=== PATIENT | female | born 1950 | race Caucasian/White ===

== ENCOUNTER → 2016-12-22 | Outpatient (CLI) | payer OTHER ==
[~2016-12-22] MED LIST: ATEN50TA8 PO; GLC/500 PO; LISI-788 PO; PRAV20TA PO
[2016-12-22 13:10] LABS: ALT/SGPT 37 U/L (12-78); AST/SGOT 25 U/L (15-37); BLOOD UREA NITROGEN 26 mg/dl (7-18); BUN/CREATININE RATIO 18.7 (10-20); CALCIUM 9.8 mg/dl (8.5-10.1); CARBON DIOXIDE 29 mmol/L (21-32); CHLORIDE 104 mmol/L (98-107); GLUCOSE 98 mg/dl (70-99); POTASSIUM 3.7 mmol/L (3.5-5.1); SODIUM 141 mmol/L (136-145)
[2016-12-22 13:12] LABS: ALKALINE PHOSPHATASE 73 U/L (45-117); CHOLESTEROL 153 mg/dl (0-200); CHOLESTEROL/HDL RATIO 2.7; HDL CHOLESTEROL 57 mg/dl; LDL CHOLESTEROL CALCULATED 42 mg/dl; TRIGLYCERIDES 271 mg/dl (0-150); VERY LOW DENSITY LIPOPROT CALC 54 mg/dl
[2016-12-22 13:18] LABS: ESTIMATED AVERAGE GLUCOSE 146 mg/dl; HA1C FLAG Normal (Normal)
[2016-12-22 13:28] LABS: RATIO 13.6 mcg/mg (0-30.0)
== END | disposition home or self-care (01) ==
LOC: C.LABPVFM 08:01
PROVIDERS: ATTEND Family Medicine
DX: I10 Essential (primary) hypertension (principal); E78.5 Hyperlipidemia, unspecified; E11.21 Type 2 diabetes mellitus with diabetic nephropathy

== ENCOUNTER → 2017-06-24 | Outpatient (CLI) | payer OTHER ==
[2017-06-24 13:05] LABS: ESTIMATED AVERAGE GLUCOSE 137 mg/dl; HA1C FLAG Normal (Normal)
[2017-06-24 13:13] LABS: ALT/SGPT 41 U/L (12-78); BLOOD UREA NITROGEN 32 mg/dl (7-18); BUN/CREATININE RATIO 20.8 (10-20); CALCIUM 9.9 mg/dl (8.5-10.1); CARBON DIOXIDE 25 mmol/L (21-32); CHLORIDE 103 mmol/L (98-107); CREATININE 1.55 mg/dl (0.60-1.20); GLUCOSE 147 mg/dl (70-99); POTASSIUM 3.6 mmol/L (3.5-5.1); SODIUM 138 mmol/L (136-145)
[2017-06-24 13:15] LABS: ALB/GLOB RATIO 0.9 (0.9-2); ALKALINE PHOSPHATASE 81 U/L (45-117); AST/SGOT 26 U/L (15-37); CHOLESTEROL 169 mg/dl (0-200); CHOLESTEROL/HDL RATIO 2.7; HDL CHOLESTEROL 63 mg/dl; LDL CHOLESTEROL CALCULATED 55 mg/dl; TRIGLYCERIDES 255 mg/dl (0-150); VERY LOW DENSITY LIPOPROT CALC 51 mg/dl
[2017-06-24 14:26] LABS: RATIO 7.1 mcg/mg (0-30.0)
== END | disposition home or self-care (01) ==
LOC: C.LABPVFM 11:05
PROVIDERS: ATTEND Family Medicine
DX: I12.9 Hypertensive chronic kidney disease with stage 1 through stage 4 chronic kidney disease, or unspecified chronic kidney disease (principal); E78.5 Hyperlipidemia, unspecified; E11.42 Type 2 diabetes mellitus with diabetic polyneuropathy; E11.49 Type 2 diabetes mellitus with other diabetic neurological complication; K21.9 Gastro-esophageal reflux disease without esophagitis; E11.21 Type 2 diabetes mellitus with diabetic nephropathy

== ENCOUNTER → 2017-06-28 | Outpatient (CLI) | payer OTHER ==
--- NOTE | 2017-06-28 09:46 | DIAGNOSTIC IMAGING REPORT ---
(RENAL)RETROPERITON COMP HISTORY: Renal insufficiency N18.3 Stage III chronic kidney [id number] COMPARISON: None. FINDINGS: Right kidney: Maximum dimension 10.4 cm. No evidence for hydronephrosis. Minimal cortical scarring. Left kidney: Maximum dimension 8.6 cm. Mild atrophy. No evidence for hydronephrosis. 1.5 cm upper pole cyst. Normal corticomedullary differentiation and cortical thickness. Bladder: No bladder wall thickening. The bilateral ureteral jets were identified. IMPRESSION: 1. Mild atrophy left kidney. 2. Mild cortical scarring of the kidneys bilaterally. 3. No evidence for hydronephrosis. 4. Small left renal cyst. The above report was generated using voice recognition software. It may contain grammatical, syntax or spelling errors. Electronically signed by: Lux Brito M.D. 06/28/2017 9:45 AM Dictated Date/Time: 06/28/2017 9:43 AM
== END | disposition home or self-care (01) ==
LOC: C.ULTR 08:54
PROVIDERS: ATTEND Family Medicine
DX: N18.3 Chronic kidney disease, stage 3 (moderate) (principal); N26.1 Atrophy of kidney (terminal); N28.1 Cyst of kidney, acquired

== ENCOUNTER 2021-06-08 09:22 | Inpatient (IN) ==
--- NOTE | 2021-06-08 10:21 | XRay Report ---
XR chest 1V portable CLINICAL HISTORY: Resp sx c/w COVID-19 TECHNIQUE: Single frontal radiograph of the chest was obtained. Comparison: Comparison is made to chest one view 05/08/2013 FINDINGS: No lines and tubes are seen. The cardiomediastinal silhouette is normal. Bilateral lower lung predomi nant airspace opacities are seen. No evidence of pleural effusion or pneumothorax. IMPRESSION: Bilateral lower lung predominant airspace opacities which may represent atelectasis, pneumonia, and/o r aspiration. ACT 112: Negative or not required by law. Electronically signed by: Sal Remy M.D. 06/08/2021 10:20 AM
[2021-06-08 10:39] LABS: Hematocrit (blood only) 35.9 % (37-47); Hemoglobin 11.5 g/dL (12.0-16.0); Immature Granulocytes # (auto) 0.02 K/uL (0.00-0.02); Immature Granulocytes % (auto) 0.4 %; Mean Corpuscular Hemoglobin 31.5 pg (25-34); Mean Corpuscular Volume 98.4 fL (80-100); Mean Platelet Volume 10.8 fL (7.4-10.4); Monocytes # (auto) 0.47 K/uL (0.11-0.59); Monocytes % (auto) 8.5 %; Neutrophils # (auto) 3.56 K/uL (1.4-6.5); Neutrophils % (auto) 64.1 %; Platelet Count 175 K/uL (130-400); RDW Coefficient of Variation 13.4 % (11.5-14.5); RDW Standard Deviation 48.4 fL (36.4-46.3); Red Blood Count 3.65 M/uL (4.2-5.4); White Blood Count 5.55 K/uL (4.8-10.8)
[2021-06-08 10:42] LABS: Influenza A virus by PCR Negative (Negative); Influenza B virus by PCR Negative (Negative)
[2021-06-08 11:05] LABS: Albumin Globulin Ratio 0.7 (0.9-2); Albumin Level 3.4 gm/dl (3.4-5.0); BUN Creatinine Ratio 13.6 (10-20); Bilirubin,Total 0.2 mg/dl (0.2-1); Calcium 9.5 mg/dl (8.5-10.1); Creatinine Clr Calc Pharmacy 8.2 ml/min; Est GFR (African American) 10.1 ml/min; Est GFR (Non-African American) 8.7 ml/min; Globulin 4.8 gm/dl (2.5-4.0); Potassium 4.6 mmol/L (3.5-5.1); Total Protein 8.2 gm/dl (6.4-8.2)
[2021-06-08] MEDS ORDERED: SODIUM CHLORIDE 0.9% 500 ML IV SCH (11:15)
[2021-06-08 11:49] LABS: Appearance Urine Cloudy (Clear); Bacteria Urine Automated 2+ (Negative); Bilirubin Urine Negative (Negative); Blood Urine Negative (Negative); Color Urine Yellow; Epithelial Cell Urine Auto >30 /lpf (0-5); Glucose Urine UA Negative (Negative); Ketones Urine Trace (Negative); Leukocyte Esterase Urine Negative (Negative); Nitrite Urine Positive (Negative); Protein Urine 2+ (Negative); Specific Gravity Urine 1.024 (1.000-1.030); Urobilinogen Urine Negative (Negative)
[2021-06-08] MEDS ORDERED: NORMOSOL-R 500 ML IV ONE (11:52)
--- NOTE | 2021-06-08 11:55 | Emergency Department Note ---
Impression & Plan COVID-19, MILLI (acute kidney injury), Acute dehydration ED Provider Note CHIEF COMPLAINT: cough, diarrhea HISTORY OF PRESENT ILLNESS: Jimmy is a 70-year-old [facility] with a chief complaint of brownish productive cough, diarrhea, loss of taste, and loss of appetite since Saturday. ROS + chills, headache, vomiting (2 total episodes in 2 days), sore throat, maxillary, frontal sinus congestion. She denies shortness of breath, chest pain, wheezing, rash, dizziness, or dysuria. REVIEW OF SYSTEMS: A review of systems was performed with positives and pertinent negatives listed in the history of present illness. 10 systems were reviewed and are otherwise negative. ALLERGIES: see below MEDICATIONS: see below PMH: see below SOCIAL HISTORY: see below DDx: PNA, UTI, dehydration, metabolic abnormality, hypo/hyperglycemia, e lectrolyte disturbance, anemia, hypoxia, cardiac sources, intracerebral event, toxicologic, neurologic, as well as other pathologies. PHYSICAL EXAM: Vital signs reviewed. Noted to be febrile. General: Chronically ill appearing 70 yo female, in no significant distress. HEENT: No scleral icterus, PERRLA, neck supple. Atraumatic. Cardiovascular: Regular rate and rhythm, no extra sounds. Pulmonary: Crackles to auscultation bilaterally, normal work of breathing. Abdomen: Soft, nontender, nondistended, positive bowel sounds. Musculoskeletal: Atraumatic, no peripheral edema. Neurologic: Patient awake alert and oriented x 3 Skin: Warm, dry, no rash EMERGENCY DEPARTMENT COURSE/MDM: This patient was evaluated and appeared to be in no significant distress. IV access was obtained and laboratory work was drawn. Patient was placed on the hall monitor and noted to be in normal sinus rhythm. Patient's blood pressure was initially slightly low at 98 systolic. She was hydrated with normal saline solution. Chest x-ray was performed and revealed some bilateral basilar prominence. Patient's oxygen saturations were normal on room air. Patient has developed a prerenal state with an acute kidney injury, creatinine of 4.66, secondary to Covid. She was hydrated and her blood pressure did respond appropriately. Das catheter was placed with only a small amount of dark urine. Patient's case was discussed with the hospitalist service for further management. Patient and family were made aware of the plan and agreed. MONITORING: An order for cardiac monitoring was placed and the patient is noted to be in a normal sinus rhythm at 92 beats per minute. RADIOLOGY: see below DISPOSITION:admit Past Med/Surg History Medical History Acid reflux disease Benign paroxysmal positional vertigo Decreased hearing Diabetes mellitus with kidney disease Diabetic peripheral neuropathy DM (diabetes mellitus), type 2 with neurological complications Hyperlipidemia Hypertension Stage III chronic kidney disease Surgical History Appendectomy (05/08/13) History of cholecystectomy (05/08/13) Family History Brother Myocardial infarction Brother Myocardial infarction Denies family history of Ovarian cancer Prostate cancer Breast cancer Colorectal cancer Social History Smoking Status: Never smoker Second Hand Exposure: No; Hx Alcohol Use: No Hx Substance Use: No Preferred Language: Uzbek Communication Ability: Effective Tapping 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 Required: No Beliefs That Will Affect Care: None marital status: / Current Living Situation: Alone current occupational status: retired Feels Safe at Home: Yes caffeine: Yes Dental Care, Regularly: No Physical Activity Frequency: Does not Exercise Seatbelt Use: sometimes Sunscreen Use: No Assistive Devices: Denture - Upper and Walker Allergies Allergies Allergy/AdvReac Type Severity Reaction Status Date / Time No Known Allergies Allergy Verified 03/30/21 08:05 Home Meds Home Medications Medication Instructions Recorded Confirmed pediatric multivitamin (Gummi Bear 1 tab PO DAILY 12/23/18 06/08/21 Multivitamin) Previous Rx's Medication Instructions Recorded amlodipine 10 mg tablet 10 mg PO DAILY #30 tab 08/16/20 lisinopril 10 mg tablet 10 mg PO DAILY #90 tab 01/16/21 metformin 500 mg tablet See Rx Instructions .ROUTE 03/13/21 .COMPLEX #180 tablet simvastatin 20 mg tablet 20 mg PO QPM #90 tab 06/05/21 Results & Data (ED) Vital Signs Vital Signs - 24 hr 06/08/21 09:22 06/08/21 09:31 06/08/21 10:00 Temperature 37.1 C Temperature Source Oral Pulse Rate 98 H 92 H 92 H Pulse Rate from SpO2 Sensor 91 H Respiratory Rate 18 16 18 Respiratory Effort / Characteristics Non-Labored Respiratory Depth Normal Respiratory Pattern Regular Blood Pressure 119/82 Blood Pressure Mean 94 Pulse Oximetry 100 95 Oxygen Delivery Method Room Air Sepsis Recent Fever Within 48 Hours No Sepsis New/Unexplained Change in Mental Status No Sepsis Action Taken by Nursing No Action Required 06/08/21 10:30 06/08/21 11:00 06/08/21 11:30 Temperature Temperature Source Pulse Rate 90 88 87 Pulse Rate from SpO2 Sensor 90 88 97 H Respiratory Rate 19 20 27 H Respiratory Effort / Characteristics Respiratory Depth Respiratory Pattern Blood Pressure 103/61 113/70 118/70 Blood Pressure Mean 75 84 86 Pulse Oximetry 95 97 100 Oxygen Delivery Method Sepsis Recent Fever Within 48 Hours Sepsis New/Unexplained Change in Mental Status Sepsis Action Taken by Custodial Medications Current Medication List: was personally reviewed by me Laboratory Data Attestation: I reviewed the patient's lab results. Result diagrams: 06/10/21 06:05 06/10/21 06:05 Lab Results 06/08/21 06/08/21 06/08/21 Range/Units 09:35 09:35 09:35 WBC 5.55 (4.8-10.8) K/uL RBC 3.65 L (4.2-5.4) M/uL Hgb 11.5 L (12.0-16.0) g/dL Hct 35.9 L (37-47) % MCV 98.4 (80-100) fL MCH 31.5 (25-34) pg MCHC 32.0 (32-36) g/dL RDW Std Deviation 48.4 H (36.4-46.3) fL RDW Coeff of Suellen 13.4 (11.5-14.5) % Plt Count 175 (130-400) K/uL MPV 10.8 H (7.4-10.4) fL Immature Gran % (Auto) 0.4 % Neut % (Auto) 64.1 % Lymph % (Auto) 27.0 % [place] % (Auto) 8.5 % Eos % (Auto) 0.0 % Baso % (Auto) 0.0 % Neut # (Auto) 3.56 (1.4-6.5) K/uL Lymph # (Auto) 1.50 (1.2-3.4) K/uL [place] # (Auto) 0.47 (0.11-0.59) K/uL Eos # (Auto) 0.00 (0-0.5) K/uL Baso # (Auto) 0.00 (0-0.2) K/uL Immature Gran # (Auto) 0.02 (0.00-0.02) K/uL Sodium 138 (136-145) mmol/L Potassium 4.6 (3.5-5.1) mmol/L Chloride 110 H (98-107) mmol/L Carbon Dioxide 18 L (21-32) mmol/L Anion Gap 10.0 (3-11) BUN 63 H (7-18) mg/dl Creatinine 4.66 H* (0.6-1.2) mg/dl Est Cr Clr Drug Dosing 8.2 ml/min Est GFR ( Amer) 10.1 ml/min Est GFR (Non-Af Amer) 8.7 ml/min BUN/Creatinine Ratio 13.6 (10-20) Glucose 117 H (70-99) mg/dl Calcium 9.5 (8.5-10.1) mg/dl Total Bilirubin 0.2 (0.2-1) mg/dl AST 25 (15-37) U/L ALT 22 (12-78) U/L Alkaline Phosphatase 74 (45-117) U/L Total Protein 8.2 (6.4-8.2) gm/dl Albumin 3.4 (3.4-5.0) gm/dl Globulin 4.8 H (2.5-4.0) gm/dl Albumin/Globulin Ratio 0.7 L (0.9-2) Urine Color Urine Appearance (Clear) Urine pH (4.5-7.5) Ur Specific [place] (1.000-1.030) Urine Protein (Negative) Urine Glucose (UA) (Negative) Urine Ketones (Negative) Urine Blood (Negative) Urine Nitrite (Negative) Urine Bilirubin (Negative) Urine Urobilinogen (Negative) Ur Leukocyte Esterase (Negative) Urine WBC (Auto) (0-5) /hpf Urine RBC (Auto) (0-4) /hpf U Hyaline Cast (Auto) (0-5) /lpf U Epithel Cells (Auto) (0-5) /lpf Urine Bacteria (Auto) (Negative) Ur Renal Epithelial Cell Granular Casts (0) /lpf COVID-19 Eval Order SARS-CoV-2 (PCR) (Negative) Influ A Molecular Assay Negative (Negative) Influ B Molecular Assay Negative (Negative) 06/08/21 06/08/21 06/08/21 Range/Units 09:53 09:53 11:30 WBC (4.8-10.8) K/uL RBC (4.2-5.4) M/uL Hgb (12.0-16.0) g/dL Hct (37-47) % MCV (80-100) fL MCH (25-34) pg MCHC (32-36) g/dL RDW Std Deviation (36.4-46.3) fL RDW Coeff of Suellen (11.5-14.5) % Plt Count (130-400) K/uL MPV (7.4-10.4) fL Immature Gran % (Auto) % Neut % (Auto) % Lymph % (Auto) % [place] % (Auto) % Eos % (Auto) % Baso % (Auto) % Neut # (Auto) (1.4-6.5) K/uL Lymph # (Auto) (1.2-3.4) K/uL [place] # (Auto) (0.11-0.59) K/uL Eos # (Auto) (0-0.5) K/uL Baso # (Auto) (0-0.2) K/uL Immature Gran # (Auto) (0.00-0.02) K/uL Sodium (136-145) mmol/L Potassium (3.5-5.1) mmol/L Chloride (98-107) mmol/L Carbon Dioxide (21-32) mmol/L Anion Gap (3-11) BUN (7-18) mg/dl Creatinine (0.6-1.2) mg/dl Est Cr Clr Drug Dosing ml/min Est GFR ( Amer) ml/min Est GFR (Non-Af Amer) ml/min BUN/Creatinine Ratio (10-20) Glucose (70-99) mg/dl Calcium (8.5-10.1) mg/dl Total Bilirubin (0.2-1) mg/dl AST (15-37) U/L ALT (12-78) U/L Alkaline Phosphatase (45-117) U/L Total Protein (6.4-8.2) gm/dl Albumin (3.4-5.0) gm/dl Globulin (2.5-4.0) gm/dl Albumin/Globulin Ratio (0.9-2) Urine Color Yellow Urine Appearance Cloudy A (Clear) Urine pH 5.0 (4.5-7.5) Ur Specific [place] 1.024 (1.000-1.030) Urine Protein 2+ H (Negative) Urine Glucose (UA) Negative (Negative) Urine Ketones Trace H (Negative) Urine Blood Negative (Negative) Urine Nitrite Positive A (Negative) Urine Bilirubin Negative (Negative) Urine Urobilinogen Negative (Negative) Ur Leukocyte Esterase Negative (Negative) Urine WBC (Auto) 5-10 H (0-5) /hpf Urine RBC (Auto) 0-4 (0-4) /hpf U Hyaline Cast (Auto) 1-5 (0-5) /lpf U Epithel Cells (Auto) >30 H (0-5) /lpf Urine Bacteria (Auto) 2+ H (Negative) Ur Renal Epithelial Cell Not Reportable Granular Casts 1-5 H (0) /lpf COVID-19 Eval Order Covid19 at [facility] SARS-CoV-2 (PCR) POSITIVE A* (Negative) Influ A Molecular Assay (Negative) Influ B Molecular Assay (Negative) Administered Medications Acetaminophen (Acetaminophen 500 Mg Tab) 1,000 mg PO Q8H PRN PRN Reason: Pain or Fever Stop: 07/09/21 23:04 Last Admin: 06/10/21 15:29 Dose: 1,000 mg Documented by: [id number] Admin: 06/10/21 00:06 Dose: 1,000 mg Documented by: [id number] Amlodipine Besylate (Amlodipine Besylate 5 Mg Tab) 10 mg PO DAILY JOBY Stop: 07/09/21 08:59 Last Admin: 06/10/21 08:23 Dose: 10 mg Documented by: [id number] Admin: 06/09/21 08:03 Dose: 10 mg Documented by: [id number] Heparin Sodium (Porcine) (Heparin Sod 5,000 Unit/0.5 Ml Vial) 7,500 units SQ Q12 JOBY Stop: 07/08/21 20:59 Last Admin: 06/10/21 21:58 Dose: 7,500 units Documented by: [id number] Admin: 06/10/21 08:23 Dose: 7,500 units Documented by: [id number] Admin: 06/09/21 21:37 Dose: 7,500 units Documented by: [id number] Admin: 06/09/21 08:03 Dose: 7,500 units Documented by: [id number] Admin: 06/08/21 22:17 Dose: 7,500 units Documented by: [id number] Parenteral Electrolytes (Normosol-R) 1,000 mls @ 80 mls/hr IV .[id number] JOBY Stop: 07/08/21 12:44 Last Admin: 06/10/21 21:58 Dose: 80 mls/hr Documented by: [id number] Infusion: 06/10/21 20:53 Dose: 80 mls/hr Documented by: [id number] Admin: 06/10/21 08:23 Dose: 80 mls/hr Documented by: [id number] Infusion: 06/10/21 08:23 Dose: 80 mls/hr Documented by: [id number] Admin: 06/09/21 21:26 Dose: 80 mls/hr Documented by: [id number] Infusion: 06/09/21 20:39 Dose: 80 mls/hr Documented by: [id number] Admin: 06/09/21 12:48 Dose: 80 mls/hr Documented by: [id number] Infusion: 06/09/21 08:01 Dose: 80 mls/hr Documented by: [id number] Infusion: 06/09/21 07:40 Dose: 80 mls/hr Documented by: [id number] Admin: 06/08/21 19:10 Dose: 80 mls/hr Documented by: [id number] Infusion: 06/08/21 19:10 Dose: 100 mls/hr Documented by: [id number] Infusion: 06/08/21 15:25 Dose: 100 mls/hr Documented by: [id number] Infusion: 06/08/21 14:39 Dose: 0 mls/hr Documented by: [id number] Admin: 06/08/21 13:00 Dose: 125 mls/hr Documented by: [id number] Ceftriaxone Sodium 1,000 mg/ (Dextrose) 50 mls @ 100 mls/hr IV Q24H JOBY; Protocol Stop: 06/13/21 13:59 Last Infusion: 06/10/21 14:27 Dose: 0 mls/hr Documented by: [id number] Admin: 06/10/21 13:45 Dose: 100 mls/hr Documented by: [id number] Infusion: 06/09/21 16:28 Dose: 0 mls/hr Documented by: [id number] Admin: 06/09/21 14:39 Dose: 100 mls/hr Documented by: [id number] Infusion: 06/08/21 15:25 Dose: 0 mls/hr Documented by: [id number] Admin: 06/08/21 14:39 Dose: 100 mls/hr Documented by: [id number] Famotidine 20 mg/ Syringe 5 mls @ 2.5 mls/min IV DAILY JOBY Stop: 07/09/21 08:59 Last Admin: 06/10/21 08:23 Dose: 2.5 mls/min Documented by: [id number] Admin: 06/09/21 08:17 Dose: 2.5 mls/min Documented by: [id number] Insulin Aspart (Insulin Aspart 100 Units/Ml 3 Ml Pen) 0 units SC ACHS JOBY Stop: 07/08/21 16:29 Last Admin: 06/10/21 21:58 Dose: Not Given Documented by: [id number] Admin: 06/10/21 17:45 Dose: Not Given Documented by: [id number] Admin: 06/10/21 11:39 Dose: Not Given Documented by: [id number] Admin: 06/10/21 08:03 Dose: Not Given Documented by: [id number] Admin: 06/09/21 21:27 Dose: Not Given Documented by: [id number] Admin: 06/09/21 17:54 Dose: Not Given Documented by: [id number] Admin: 06/09/21 12:46 Dose: Not Given Documented by: [id number] Admin: 06/09/21 09:17 Dose: Not Given Documented by: [id number] Admin: 06/08/21 22:27 Dose: Not Given Documented by: [id number] Admin: 06/08/21 18:04 Dose: Not Given Documented by: [id number] Cosigned by: [id number] Menthol (Cough Drop (Sugar Free) Theresa 24 Theresa/1 Box) 1 theresa BUCCAL PRN PRN PRN Reason: Sore Throat Stop: 07/09/21 05:33 Last Admin: 06/09/21 06:22 Dose: 1 theresa Documented by: [id number] Simvastatin (Simvastatin 20 Mg Tab) 20 mg PO QPM JOBY Stop: 07/08/21 20:59 Last Admin: 06/10/21 21:58 Dose: 20 mg Documented by: [id number] Admin: 06/09/21 21:29 Dose: 20 mg Documented by: [id number] Admin: 06/08/21 22:20 Dose: 20 mg Documented by: [id number] Discontinued Medications Acetaminophen (Acetaminophen 325 Mg Tab) 650 mg PO Q4H PRN PRN Reason: Pain or Fever Stop: 07/08/21 12:53 Last Admin: 06/09/21 21:44 Dose: 650 mg Documented by: [id number] Admin: 06/09/21 16:55 Dose: 650 mg Documented by: [id number] Admin: 06/09/21 08:03 Dose: 650 mg Documented by: [id number] Admin: 06/09/21 02:47 Dose: 650 mg Documented by: [id number] Enoxaparin Sodium (Enoxaparin Inj 30 Mg/0.3 Ml Syr) 30 mg SQ Q12H JOBY Stop: 07/08/21 12:53 Last Admin: 06/08/21 14:41 Dose: Not Given Documented by: [id number] Famotidine (Famotidine 20mg/5ml Iv Push) 20 mg IV DAILY JOBY Stop: 07/08/21 12:44 Last Admin: 06/08/21 12:51 Dose: 20 mg Documented by: [id number] Sodium Chloride (Nss) 500 mls @ 125 mls/hr IV .Q4H JOBY Stop: 07/08/21 11:14 Last Infusion: 06/08/21 12:29 Dose: 0 mls/hr Documented by: [id number] Infusion: 06/08/21 12:28 Dose: 0 mls/hr Documented by: [id number] Admin: 06/08/21 11:40 Dose: 125 mls/hr Documented by: [id number] Parenteral Electrolytes (Normosol-R) 500 mls @ 999 mls/hr IV .Q31M ONE Stop: 06/08/21 12:22 Last Infusion: 06/08/21 13:00 Dose: 0 mls/hr Documented by: [id number] Admin: 06/08/21 12:26 Dose: 999 mls/hr Documented by: [id number] Imaging Data Radiologist's Impression: Chest X-Ray 06/08/21 09:50 XR chest 1V portable CLINICAL HISTORY: Resp sx c/w COVID-19 TECHNIQUE: Single frontal radiograph of the chest was obtained. Comparison: Comparison is made to chest one view 05/08/2013 FINDINGS: No lines and tubes are seen. The cardiomediastinal silhouette is normal. Bilateral lower lung predominant airspace opacities are seen. No evidence of pleural effusion or pneumothorax. IMPRESSION: Bilateral lower lung predominant airspace opacities which may represent atelectasis, pneumonia, and/or aspiration. ACT 112: Negative or not required by law. Electronically signed by: Sal Remy M.D. 06/08/2021 10:20 AM Blood Pressure Blood Pressure Findings: Low blood pressure Blood Pressure Disposition: further management by hospitalist Discharge Plan Visit Data Chief Complaint: Illness Stated Complaint: ILLNESS ED Provider: Amada Hernandez ED Midlevel Provider: Myles Mobley Discharge Problem: COVID-19, MILLI (acute kidney injury), Acute dehydration Patient Disposition: Admitted As Inpatient Discharge Instructions Interventions: ED Discharge Assessment Last Done: 06/08/21 12:44
[2021-06-08 12:06] LABS: RBC Urine Automated 0-4 /hpf (0-4)
--- NOTE | 2021-06-08 12:29 | History & Physical Report ---
Date of Service June 08, 2021 Assessment & Plan (1) COVID-19: Plan: Unvaccinated COVID 19- approximate day of infection 5 - not hypoxic on admission - not candidate for remdisivir or steroid therapy at this time - CXR with no overt consolidation bilateral basal opacities follow likely related to COVID - Supportive care for current - Zofran for nausea - Famotidine GERD - CRP, PCT, ESR, BNP, Fibrinogen, LDH, Ferritin pending (2) MILLI (acute kidney injury): Plan: JAMAR type II on CKD III non oliguric - Likely pre-renal at this pont secondary to vomitting and decrease intake - Support with Normosol at this time- 500ml bolus for 1l crystalloid then 125ml/hour - BMP in evening- adjust IVF support - HCO3 18 without gap- consistent with history of diarrhea- follow - K 4.6 making urine - Hold AMADOR (3) Stage III chronic kidney disease: Plan: As above - HTN/DM II (4) Hypertension: Plan: Continue Amlodopine - Hold lisinopril with MILLI - Goal as outpaitnet <130 (5) Hyperlipidemia: Plan: Continue simvastatin 20mg daily (6) Diabetes mellitus with kidney disease: Plan: As above- hold metformin - Aspart sliding scale with 100-160 CF: 20, hold on ratio coverage at this time until GI symptoms and oral intake stablazied - Goal <180 (7) Acid reflux disease: Plan: Not on home therapy- no evidence of PUD without pain - Will place on Famotidine IV for now (8) UTI (urinary tract infection): Plan: Culture pending- Rocephin 1GM iv q24 hours - follow - Das placed in EMD- remove in morning History of Present Illness Primary Care Provider: Elle Ruiz MD 70 YOF with past medical history: CKD IIIa, DMII (on metformin), HTN, bladder prolapse, GERD, Difficulty hearing. Patient comes to the emergency room today for nausea, vomiting, diarrhea, and cough. Patient states that on Saturday she started to feel ill with coughing. She stopped and got some OTC cough suppressant and went home. This progressed to nausea and vomiting that started on SaturdayJune 05. She would try to eat and would have episode of vomiting 3-4 hours post food ingestion. She also has decreased her oral fluid intake for the same reason. She denies any abdominal pain, but general "stomach upset". Her diarrhea seems to have improved, but she continues to be nauseated with vomiting. Her emesis she reports clear to light green/yellow in color and her stool as light brown. She denies any change in her urinary symptoms except some mild burning with initiation. In the EMD patient had routine labs drawn to include COVID testing and UA. Her BMP was noted for elevation in her BUN and HORSE SHOER from her baseline with low HCO3 to 16, no gap and normal electrolytes. Her UA was notable for nitrates, WBC, EPIS, and bacteria- culture pending. CBC and LFTs are unremarkable. Patient was noted to be COVID positive. She is not requiring any oxygen support and is unvaccinated. This will put her at approx day 5 of illness. Patient will be observed and treated with IVF- Normosol, Famotidine IV, Rocephin for her UA while culture is pending, and following her oxygenation status. Patient is not vaccinated and her COVID test on admission is: POSITIVE Allergies Allergy/AdvReac Type Severity Reaction Status Date / Time No Known Allergies Allergy Verified 03/30/21 08:05 Home Medications Medication Instructions Recorded Confirmed Type pediatric multivitamin (Gummi Bear 1 tab PO DAILY 12/23/18 06/08/21 History Multivitamin) amlodipine 10 mg tablet 10 mg PO DAILY #30 tab 08/16/20 06/08/21 Rx lisinopril 10 mg tablet 10 mg PO DAILY #90 tab 01/16/21 06/08/21 Rx metformin 500 mg tablet See Rx Instructions .ROUTE 03/13/21 06/08/21 Rx .COMPLEX #180 tablet simvastatin 20 mg tablet 20 mg PO QPM #90 tab 06/05/21 06/08/21 Rx Past Med/Surg History Medical History Acid reflux disease Benign paroxysmal positional vertigo Decreased hearing Diabetes mellitus with kidney disease Diabetic peripheral neuropathy DM (diabetes mellitus), type 2 with neurological complications Hyperlipidemia Hypertension Stage III chronic kidney disease Surgical History Appendectomy (05/08/13) History of cholecystectomy (05/08/13) Family History Brother Myocardial infarction Brother Myocardial infarction Denies family history of Ovarian cancer Prostate cancer Breast cancer Colorectal cancer Social History Smoking Status: Never smoker Second Hand Exposure: No; Hx Alcohol Use: No Hx Substance Use: No Preferred Language: Kazakh marital status: / Current Living Situation: Alone current occupational status: retired Feels Safe at Home: Yes caffeine: Yes Dental Care, Regularly: No Physical Activity Frequency: Does not Exercise Seatbelt Use: sometimes Sunscreen Use: No Review of Systems Review of Systems: REVIEW OF SYSTEMS: Constitutional: No fever, sweats or chills Eyes: No diplopia, no worsening or blurred vision ENT: (+) difficulty hearing, normal hearing, no trouble swallowing Respiratory: (+) cough, NO sputum, dyspnea at rest or on exertion Cardiovascular: No chest pain, tightness or palpitations Abdomen: (+) nausea, vomiting, diarrhea, No pain, or constipation Musculoskeletal: No joint pain, calf pain, swelling Neurologic: No weakness, numbness/tingling, or balance problems Psychiatric: No anxiety or depression Skin: No rash or itch Physical Exam Physical Exam: PHYSICAL EXAM: General: awake, alert, no apparent distress Head: Normocephalic, atraumatic ENT: PERRL, EOMI, no pharyngeal exudate, mucous membranes dry Neuro: AAO x 3, speech clear and appropriate, strength intact bilaterally 5/5, sensation intact and equal all extremities and dermatomes, no pronator drift Chest: equal rise and fall of the chest, no accessory muscle use, no heaves or thrills, Clear to auscultation, on room air, Cardiac: Regular rate and rhythm, telemetry reviewed, skin warm dry, cap refill <3 seconds, peripheral pulses +2 no JVD, no murmur, no edema GI: NABS x 4 quadrants, soft, nontender to palpation, no rebound, guarding or tenderness : Das to gravity placed in EMD, no pain, no CVA tenderness, Extremities: Normal inspection, no peripheral edema or erythema, calfs nontender to palpation Psych: Normal mood and affect Skin: no rash or erythema Results & Data Results & Data ([facility]) Vital Signs (Past 12 Hours) Vital Signs Temp Pulse Resp BP Pulse Ox 06/08/21 11:30 87 27 H 118/70 100 06/08/21 11:00 88 20 113/70 97 06/08/21 10:30 90 19 103/61 95 06/08/21 10:00 92 H 18 95 06/08/21 09:31 92 H 16 06/08/21 09:22 37.1 C 98 H 18 119/82 100 Laboratory Results Abnormal lab results 06/08/21 06/08/21 06/08/21 Range/Units 09:35 09:35 09:53 RBC 3.65 L (4.2-5.4) M/uL Hgb 11.5 L (12.0-16.0) g/dL Hct 35.9 L (37-47) % RDW Std Deviation 48.4 H (36.4-46.3) fL MPV 10.8 H (7.4-10.4) fL Chloride 110 H (98-107) mmol/L Carbon Dioxide 18 L (21-32) mmol/L BUN 63 H (7-18) mg/dl Creatinine 4.66 H* (0.6-1.2) mg/dl Glucose 117 H (70-99) mg/dl Globulin 4.8 H (2.5-4.0) gm/dl Albumin/Globulin Ratio 0.7 L (0.9-2) Urine Appearance (Clear) Urine Protein (Negative) Urine Ketones (Negative) Urine Nitrite (Negative) Urine WBC (Auto) (0-5) /hpf U Epithel Cells (Auto) (0-5) /lpf Urine Bacteria (Auto) (Negative) Granular Casts (0) /lpf SARS-CoV-2 (PCR) POSITIVE A* (Negative) 06/08/21 Range/Units 11:30 RBC (4.2-5.4) M/uL Hgb (12.0-16.0) g/dL Hct (37-47) % RDW Std Deviation (36.4-46.3) fL MPV (7.4-10.4) fL Chloride (98-107) mmol/L Carbon Dioxide (21-32) mmol/L BUN (7-18) mg/dl Creatinine (0.6-1.2) mg/dl Glucose (70-99) mg/dl Globulin (2.5-4.0) gm/dl Albumin/Globulin Ratio (0.9-2) Urine Appearance Cloudy A (Clear) Urine Protein 2+ H (Negative) Urine Ketones Trace H (Negative) Urine Nitrite Positive A (Negative) Urine WBC (Auto) 5-10 H (0-5) /hpf U Epithel Cells (Auto) >30 H (0-5) /lpf Urine Bacteria (Auto) 2+ H (Negative) Granular Casts 1-5 H (0) /lpf SARS-CoV-2 (PCR) (Negative) Diagnostic Findings Chest X-Ray 06/08/21 09:50 XR chest 1V portable CLINICAL HISTORY: Resp sx c/w COVID-19 TECHNIQUE: Single frontal radiograph of the chest was obtained. Comparison: Comparison is made to chest one view 05/08/2013 FINDINGS: No lines and tubes are seen. The cardiomediastinal silhouette is normal. Bilateral lower lung predominant airspace opacities are seen. No evidence of pleural effusion or pneumothorax. IMPRESSION: Bilateral lower lung predominant airspace opacities which may represent atelectasis, pneumonia, and/or aspiration. ACT 112: Negative or not required by law. Electronically signed by: Sal Remy M.D. 06/08/2021 10:20 AM Medications Administered Discontinued Medications Sodium Chloride (Nss) 500 mls @ 125 mls/hr IV .Q4H JOBY Stop: 07/08/21 11:14 Last Infusion: 06/08/21 12:29 Dose: 0 mls/hr Documented by: [id number] Infusion: 06/08/21 12:28 Dose: 0 mls/hr Documented by: [id number] Admin: 06/08/21 11:40 Dose: 125 mls/hr Documented by: [id number] Parenteral Electrolytes (Normosol-R) 500 mls @ 999 mls/hr IV .Q31M ONE Stop: 06/08/21 12:22 Last Admin: 06/08/21 12:26 Dose: 999 mls/hr Documented by: [id number] Home Medications pediatric multivitamin (Gummi Bear Multivitamin) 1 tab PO DAILY 12/23/18 [History Confirmed 06/08/21] amlodipine 10 mg tablet 10 mg PO DAILY #30 tab 08/16/20 [Rx Confirmed 06/08/21] lisinopril 10 mg tablet 10 mg PO DAILY #90 tab 01/16/21 [Rx Confirmed 06/08/21] metformin 500 mg tablet See Rx Instructions .ROUTE .COMPLEX #180 tablet 03/13/21 [Rx Confirmed 06/08/21] simvastatin 20 mg tablet 20 mg PO QPM #90 tab 06/05/21 [Rx Confirmed 06/08/21] Active Medications Famotidine (Famotidine 20mg/5ml Iv Push) 20 mg IV DAILY JOBY Stop: 07/08/21 12:44 Parenteral Electrolytes (Normosol-R) 1,000 mls @ 125 mls/hr IV .Q8H JOBY Stop: 07/08/21 12:44 Code Status & VTE Plan Code Status CODE: Limited- DO NOT INTUBATE- VTE: SCDS, Lovenox 30mg Subq q12 VTE Prophylaxis Plan VTE Prophylaxis will be ordered: Yes Supervising Physician Co-Signing Physician Notes Patient was seen and examined independently I discussed the case with Tono GUZMAN I reviewed pertinent past medical social family history and also the plan of care and agree with the plan of care. pt is resting on room air, does have some auscultation changes of covid on lung exam, is with atn and milli on ckd 3 with possible uti poa hydrate, follow renal function, rocephin for uti, follow oxygen need Any exceptions will be noted below PG Care Time/CCT Total # of Minutes Spent Total Time Spent with Patient: Total time spent is greater than 50% in coordination of care (as documented) at patient's floor/unit and/or counseling patient: Coding Level of Care Code 33619 Initial Inpt Care Lvl 3 Diagnoses COVID-19 U07.1 MILLI (acute kidney injury) N17.9 Stage III chronic kidney disease N18.3 Hypertension I10 Hyperlipidemia E78.5 Diabetes mellitus with kidney disease E11.21 Acid reflux disease K21.9 UTI (urinary tract infection) N39.0
[2021-06-08] MEDS ORDERED: FAMOTIDINE 20MG/5ML IV PUSH IV SCH (12:45)
[2021-06-08] MEDS ORDERED: GLUCAGON FOR INJ 1 MG VIAL SQ PRN (12:54)
[2021-06-08] MEDS ORDERED: GLUCOSE 40% GEL 15 GM TUBE PO PRN (12:54)
[2021-06-08] MEDS ORDERED: DEXTROSE 50% 50 ML SYRINGE IV PRN (12:54)
[2021-06-08] MEDS ORDERED: ONDANSETRON INJ 2 MG/ML 2 ML VIAL IV PRN (12:54)
[2021-06-08] MEDS ORDERED: ENOXAPARIN INJ 30 MG/0.3 ML SYR SQ SCH (12:54)
[2021-06-08] MEDS ORDERED: CARBOHYDRATES FOR HYPOGLYCEMIA PO PRN (12:54)
[2021-06-08] MEDS ORDERED: GLUCOSE 10 TABS/TUBE PO PRN (12:54)
[2021-06-08] MEDS: NORMOSOL-R 1,000 ML IV SCH ×2 (13:00→19:10)
[2021-06-08 14:14] LABS: Fibrinogen 413 mg/dl (184-400)
[2021-06-08 14:29] LABS: C Reactive Protein 9.67 mg/dl (0-0.29); Ferritin 224.4 ng/ml (8-388)
[2021-06-08] MEDS: cefTRIAXone SODIUM 1,000 MG in DEXTROSE 5% 50 ML IV SCH (14:39)
[2021-06-08] MEDS: INSULIN ASPART 100 UNITS/ML 3 ML PEN SC SCH ×2 (18:04→22:27)
[2021-06-08 19:41] LABS: BUN Creatinine Ratio 13.4 (10-20); Calcium 8.2 mg/dl (8.5-10.1); Creatinine Clr Calc Pharmacy 9.5 ml/min; Est GFR (Non-African American) 10.3 ml/min; Potassium 4.3 mmol/L (3.5-5.1)
[2021-06-08] MEDS: HEPARIN SOD 5,000 UNIT/0.5 ML VIAL SQ SCH (22:17)
[2021-06-08] MEDS: SIMVASTATIN 20 MG TAB PO SCH (22:20)
[2021-06-09] MEDS: ACETAMINOPHEN 325 MG TAB PO PRN ×4 (02:47→21:44)
[2021-06-09] MEDS ORDERED: COUGH DROP (SUGAR FREE) LOZ 24 LOZ/1 BOX BUCCAL PRN (05:34)
[2021-06-09 06:48] LABS: Hematocrit (blood only) 29.2 % (37-47); Hemoglobin 9.5 g/dL (12.0-16.0); Immature Granulocytes # (auto) 0.01 K/uL (0.00-0.02); Immature Granulocytes % (auto) 0.2 %; Lymphocytes % (auto) 29.1 %; Mean Corpuscular Hemoglobin 31.3 pg (25-34); Mean Corpuscular Hgb Conc 32.5 g/dL (32-36); Mean Corpuscular Volume 96.1 fL (80-100); Mean Platelet Volume 9.9 fL (7.4-10.4); Monocytes # (auto) 0.23 K/uL (0.11-0.59); Monocytes % (auto) 5.6 %; Neutrophils # (auto) 2.68 K/uL (1.4-6.5); Neutrophils % (auto) 65.1 %; Platelet Count 176 K/uL (130-400); RDW Coefficient of Variation 13.3 % (11.5-14.5); RDW Standard Deviation 47.2 fL (36.4-46.3); Red Blood Count 3.04 M/uL (4.2-5.4); White Blood Count 4.12 K/uL (4.8-10.8)
[2021-06-09] MEDS: HEPARIN SOD 5,000 UNIT/0.5 ML VIAL SQ SCH ×2 (08:03→21:37)
[2021-06-09] MEDS: amLODIPine BESYLATE 5 MG TAB PO SCH (08:03)
[2021-06-09 08:16] LABS: BUN Creatinine Ratio 13.1 (10-20); Creatinine Clr Calc Pharmacy 10.2 ml/min; Est GFR (African American) 13.1 ml/min; Est GFR (Non-African American) 11.3 ml/min; Magnesium 1.8 mg/dl (1.8-2.4)
[2021-06-09] MEDS: FAMOTIDINE 20 MG in SYRINGE 3 ML IV SCH (08:17)
[2021-06-09] MEDS: INSULIN ASPART 100 UNITS/ML 3 ML PEN SC SCH ×4 (09:17→21:27)
[2021-06-09 09:55] LABS: Calcium 8.2 mg/dl (8.5-10.1)
[2021-06-09] MEDS: NORMOSOL-R 1,000 ML IV SCH ×2 (12:48→21:26)
[2021-06-09] MEDS: cefTRIAXone SODIUM 1,000 MG in DEXTROSE 5% 50 ML IV SCH (14:39)
[2021-06-09] MEDS: SIMVASTATIN 20 MG TAB PO SCH (21:29)
--- NOTE | 2021-06-09 22:22 | Hospitalist Progress Note ---
Date of Service June 09, 2021 Assessment & Plan (1) COVID-19: Plan: Unvaccinated COVID 19- approximate day of infection 5 - not hypoxic on admission - not candidate for remdisivir or steroid therapy at this time as patient is on room air. - CXR with no overt consolidation bilateral basal opacities follow likely related to COVID - Supportive care for current - Zofran for nausea - Famotidine GERD - elevated inflammatory markers. (2) MILLI (acute kidney injury): Plan: JAMAR type II on CKD III non oliguric - Likely pre-renal at this pont secondary to vomitting and decrease intake - Support with Normosol at this time- 500ml bolus for 1l crystalloid then 125ml/hour - continue IVF -creatinine improving - HCO3 18 without gap- consistent with history of diarrhea- follow - K 4.6 making urine - Hold AMADOR (3) Stage III chronic kidney disease: Plan: As above - HTN/DM II (4) Hypertension: Plan: Continue Amlodopine - Hold lisinopril with MILLI - Goal as outpaitnet <130 (5) Hyperlipidemia: Plan: Continue simvastatin 20mg daily (6) Diabetes mellitus with kidney disease: Plan: As above- hold metformin - Aspart sliding scale with 100-160 CF: 20, hold on ratio coverage at this time until GI symptoms and oral intake stablazied - Goal <180 (7) Acid reflux disease: Plan: Not on home therapy- no evidence of PUD without pain - Will place on Famotidine IV for now (8) UTI (urinary tract infection): Plan: Culture pending- Rocephin 1GM iv q24 hours - follow - Das placed in EMD- remove in morning Admission and Anticipated Discharge Date Admission Date: June 08, 2021 Subjective 70 yo female reports n new symptoms. Review of Systems Review of Systems: All systems reviewed & are unremarkable except as noted in HPI & below Physical Exam Physical Exam: General: awake, alert, no apparent distress Head: Normocephalic, atraumatic ENT: PERRL, EOMI, no pharyngeal exudate Neuro: AAO x 3, speech clear and appropriate, strength intact bilaterally 5/5, sensation intact and equal all extremities and dermatomes, no pronator drift Chest: equal rise and fall of the chest, no accessory muscle use, no heaves or thrills, Clear to auscultation, on room air, Cardiac: Regular rate and rhythm, telemetry reviewed, skin warm dry, cap refill <3 seconds, peripheral pulses +2 no JVD, no murmur, no edema GI: NABS x 4 quadrants, soft, nontender to palpation, no rebound, guarding or tenderness : Das to gravity placed in EMD, no pain, no CVA tenderness, Extremities: Normal inspection, no peripheral edema or erythema, calfs nontender to palpation Psych: Normal mood and affect Skin: no rash or erythema Results & Data Results & Data ([facility]) Vital Signs (Past 12 Hours) Vital Signs Temp Pulse Resp BP Pulse Ox Pulse Ox 06/09/21 21:42 38.9 C H 06/09/21 20:01 38.2 C H 06/09/21 18:26 38.6 C H 06/09/21 17:53 37.5 C 06/09/21 16:47 39.3 C H 99 H 18 148/72 H 96 06/09/21 12:54 96 PG Care Time/CCT Total # of Minutes Spent Total Time Spent with Patient: Total time spent is greater than 50% in coordination of care (as documented) at patient's floor/unit and/or counseling patient: Coding Level of Care Code 67552 Subseq Hosp Care Lvl 2 Diagnoses COVID-19 U07.1 MILLI (acute kidney injury) N17.9 Stage III chronic kidney disease N18.3 Hypertension I10 Hyperlipidemia E78.5 Diabetes mellitus with kidney disease E11.21 Acid reflux disease K21.9 UTI (urinary tract infection) N39.0 Time Spent (min) 25
[2021-06-10] MEDS: ACETAMINOPHEN 500 MG TAB PO PRN ×2 (00:06→15:29)
[2021-06-10 07:18] LABS: Basophils # (auto) 0.01 K/uL (0-0.2); Basophils % (auto) 0.2 %; Hematocrit (blood only) 28.7 % (37-47); Hemoglobin 9.4 g/dL (12.0-16.0); Immature Granulocytes # (auto) 0.04 K/uL (0.00-0.02); Immature Granulocytes % (auto) 0.9 %; Lymphocytes # (auto) 1.33 K/uL (1.2-3.4); Lymphocytes % (auto) 29.7 %; Mean Corpuscular Hemoglobin 31.3 pg (25-34); Mean Corpuscular Hgb Conc 32.8 g/dL (32-36); Mean Corpuscular Volume 95.7 fL (80-100); Mean Platelet Volume 9.9 fL (7.4-10.4); Monocytes # (auto) 0.25 K/uL (0.11-0.59); Monocytes % (auto) 5.6 %; Neutrophils # (auto) 2.85 K/uL (1.4-6.5); Neutrophils % (auto) 63.6 %; Platelet Count 191 K/uL (130-400); RDW Coefficient of Variation 13.1 % (11.5-14.5); RDW Standard Deviation 45.7 fL (36.4-46.3); White Blood Count 4.48 K/uL (4.8-10.8)
[2021-06-10 08:01] LABS: C Reactive Protein 12.1 mg/dl (0-0.29); Calcium 7.8 mg/dl (8.5-10.1); Creatinine Clr Calc Pharmacy 11.2 ml/min; Est GFR (African American) 14.7 ml/min; Est GFR (Non-African American) 12.7 ml/min; Magnesium 1.8 mg/dl (1.8-2.4); Potassium 3.9 mmol/L (3.5-5.1)
[2021-06-10] MEDS: INSULIN ASPART 100 UNITS/ML 3 ML PEN SC SCH ×4 (08:03→21:58)
[2021-06-10] MEDS: HEPARIN SOD 5,000 UNIT/0.5 ML VIAL SQ SCH ×2 (08:23→21:58)
[2021-06-10] MEDS: amLODIPine BESYLATE 5 MG TAB PO SCH (08:23)
[2021-06-10] MEDS: FAMOTIDINE 20 MG in SYRINGE 3 ML IV SCH (08:23)
[2021-06-10] MEDS: NORMOSOL-R 1,000 ML IV SCH ×2 (08:23→21:58)
[2021-06-10] MEDS: cefTRIAXone SODIUM 1,000 MG in DEXTROSE 5% 50 ML IV SCH (13:45)
--- NOTE | 2021-06-10 21:02 | Hospitalist Progress Note ---
Date of Service June 10, 2021 Assessment & Plan (1) COVID-19: Plan: Unvaccinated COVID 19- approximate day of infection 7 - not hypoxic on admission - not candidate for remdisivir or steroid therapy at this time as patient is on room air. - CXR with no overt consolidation bilateral basal opacities follow likely related to COVID - Supportive care for current - Zofran for nausea - Famotidine GERD - elevated inflammatory markers. Patient continues to be on room air on 06/10 will hold dexamethasone. (2) MILLI (acute kidney injury): Plan: JAMAR type II on CKD III non oliguric - Likely pre-renal at this pont secondary to vomitting and decrease intake -Creatinine is slowly improving. will continue to monitor. - Support with Normosol at this time- 500ml bolus for 1l crystalloid then 125ml/hour - continue IVF -creatinine improving - HCO3 18 without gap- consistent with history of diarrhea- follow - K 4.6 making urine - Hold AMADOR (3) Stage III chronic kidney disease: Plan: As above - HTN/DM II (4) Hypertension: Plan: Continue Amlodopine - Hold lisinopril with MILIL - Goal as outpaitnet <130 (5) Hyperlipidemia: Plan: Continue simvastatin 20mg daily (6) Diabetes mellitus with kidney disease: Plan: As above- hold metformin - Aspart sliding scale with 100-160 CF: 20, hold on ratio coverage at this time until GI symptoms and oral intake stablazied - Goal <180 (7) Acid reflux disease: Plan: Not on home therapy- no evidence of PUD without pain - Will place on Famotidine IV for now (8) UTI (urinary tract infection): Plan: Culture pending- Rocephin 1GM iv q24 hours - follow - Das placed in EMD- remove in morning Admission and Anticipated Discharge Date Admission Date: June 08, 2021 Subjective 70 yo female reports feeling run down. She is coughing more today, but does not feel short of breath. Review of Systems Review of Systems: All systems reviewed & are unremarkable except as noted in HPI & below Physical Exam Physical Exam: General: awake, alert, no apparent distress Head: Normocephalic, atraumatic ENT: PERRL, EOMI, no pharyngeal exudate Neuro: AAO x 3, speech clear and appropriate, strength intact bilaterally 5/5, sensation intact and equal all extremities and dermatomes, no pronator drift Chest: equal rise and fall of the chest, no accessory muscle use, no heaves or thrills, Clear to auscultation, on room air, Cardiac: Regular rate and rhythm, telemetry reviewed, skin warm dry, cap refill <3 seconds, peripheral pulses +2 no JVD, no murmur, no edema GI: NABS x 4 quadrants, soft, nontender to palpation, no rebound, guarding or tenderness : Das to gravity placed in EMD, no pain, no CVA tenderness, Extremities: Normal inspection, no peripheral edema or erythema, calfs nontender to palpation Psych: Normal mood and affect Skin: no rash or erythema Results & Data Results & Data ([facility]) Vital Signs (Past 12 Hours) Vital Signs Temp Pulse Resp BP Pulse Ox Pulse Ox 06/10/21 18:13 37.4 C 06/10/21 16:13 37.9 C H 101 H 20 140/88 99 06/10/21 12:00 95 PG Care Time/CCT Total # of Minutes Spent Total Time Spent with Patient: Total time spent is greater than 50% in coordination of care (as documented) at patient's floor/unit and/or counseling patient: Coding Level of Care Code 91726 Subseq Hosp Care Lvl 2 Diagnoses COVID-19 U07.1 MILLI (acute kidney injury) N17.9 Stage III chronic kidney disease N18.3 Hypertension I10 Hyperlipidemia E78.5 Diabetes mellitus with kidney disease E11.21 Acid reflux disease K21.9 UTI (urinary tract infection) N39.0 Time Spent (min) 25
[2021-06-10] MEDS: SIMVASTATIN 20 MG TAB PO SCH (21:58)
[2021-06-11 06:25] LABS: Basophils # (auto) 0.01 K/uL (0-0.2); Basophils % (auto) 0.2 %; Hematocrit (blood only) 27.8 % (37-47); Hemoglobin 9.1 g/dL (12.0-16.0); Immature Granulocytes # (auto) 0.05 K/uL (0.00-0.02); Immature Granulocytes % (auto) 1.1 %; Lymphocytes # (auto) 1.15 K/uL (1.2-3.4); Lymphocytes % (auto) 25.7 %; Mean Corpuscular Hemoglobin 30.7 pg (25-34); Mean Corpuscular Hgb Conc 32.7 g/dL (32-36); Mean Corpuscular Volume 93.9 fL (80-100); Mean Platelet Volume 9.3 fL (7.4-10.4); Monocytes # (auto) 0.26 K/uL (0.11-0.59); Monocytes % (auto) 5.8 %; Neutrophils % (auto) 67.2 %; Platelet Count 200 K/uL (130-400); RDW Coefficient of Variation 12.8 % (11.5-14.5); RDW Standard Deviation 44.1 fL (36.4-46.3); Red Blood Count 2.96 M/uL (4.2-5.4); White Blood Count 4.47 K/uL (4.8-10.8)
[2021-06-11 06:59] LABS: BUN Creatinine Ratio 12.2 (10-20); Calcium 8.2 mg/dl (8.5-10.1); Creatinine Clr Calc Pharmacy 12.2 ml/min; Est GFR (African American) 16.3 ml/min; Magnesium 1.8 mg/dl (1.8-2.4); Potassium 3.6 mmol/L (3.5-5.1)
[2021-06-11] MEDS: INSULIN ASPART 100 UNITS/ML 3 ML PEN SC SCH ×2 (09:04→12:44)
[2021-06-11] MEDS: HEPARIN SOD 5,000 UNIT/0.5 ML VIAL SQ SCH (09:05)
[2021-06-11] MEDS: FAMOTIDINE 20 MG in SYRINGE 3 ML IV SCH (09:07)
[2021-06-11] MEDS: amLODIPine BESYLATE 5 MG TAB PO SCH (09:46)
[2021-06-11] MEDS: ACETAMINOPHEN 500 MG TAB PO PRN (09:46)
[2021-06-11] MEDS: NORMOSOL-R 1,000 ML IV SCH (09:52)
[2021-06-11] MEDS ORDERED: dexAMETHasone 6 MG in SYRINGE 0 ML IV SCH (12:00)
[2021-06-11] MEDS: cefTRIAXone SODIUM 1,000 MG in DEXTROSE 5% 50 ML IV SCH (14:57)
--- NOTE | 2021-06-13 20:32 | Discharge Summary ---
Date of Service June 11, 2021 Admission HPI Per Admitting Provider 70 YOF with past medical history: CKD IIIa, DMII (on metformin), HTN, bladder prolapse, GERD, Difficulty hearing. Patient comes to the emergency room today for nausea, vomiting, diarrhea, and cough. Patient states that on Saturday she started to feel ill with coughing. She stopped and got some OTC cough suppressant and went home. This progressed to nausea and vomiting that started on SaturdayJune 05. She would try to eat and would have episode of vomiting 3-4 hours post food ingestion. She also has decreased her oral fluid intake for the same reason. She denies any abdominal pain, but general "stomach upset". Her diarrhea seems to have improved, but she continues to be nauseated with vomiting. Her emesis she reports clear to light green/yellow in color and her stool as light brown. She denies any change in her urinary symptoms except some mild burning with initiation. In the EMD patient had routine labs drawn to include COVID testing and UA. 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 Her UA was notable for nitrates, WBC, EPIS, and bacteria- culture pending. CBC and LFTs are unremarkable. Patient was noted to be COVID positive. She is not requiring any oxygen support and is unvaccinated. This will put her at approx day 5 of illness. Patient will be observed and treated with IVF- Normosol, Famotidine IV, Rocephin for her UA while culture is pending, and following her oxygenation status. Patient is not vaccinated and her COVID test on admission is: POSITIVE Principal Diagnosis COVID 19 infection Discharge Exam General: awake, alert, no apparent distress Head: Normocephalic, atraumatic ENT: PERRL, EOMI, no pharyngeal exudate Neuro: AAO x 3, speech clear and appropriate, strength intact bilaterally 5/5, sensation intact and equal all extremities and dermatomes, no pronator drift Chest: equal rise and fall of the chest, no accessory muscle use, no heaves or thrills, Clear to auscultation, on room air, Cardiac: Regular rate and rhythm, telemetry reviewed, skin warm dry, cap refill <3 seconds, peripheral pulses +2 no JVD, no murmur, no edema GI: NABS x 4 quadrants, soft, nontender to palpation, no rebound, guarding or tenderness : Das to gravity placed in EMD, no pain, no CVA tenderness, Extremities: Normal inspection, no peripheral edema or erythema, calfs nontender to palpation Psych: Normal mood and affect Skin: no rash or erythema Discharge Data Allergies Allergy/AdvReac Type Severity Reaction Status Date / Time No Known Allergies Allergy Verified 03/30/21 08:05 Hospital Course (1) COVID-19: Unvaccinated COVID 19- approximate day of infection 8 - not hypoxic on admission - not candidate for remdisivir or steroid therapy at this time as patient is on room air. - CXR with no overt consolidation bilateral basal opacities follow likely related to COVID - Supportive care for current - Zofran for nausea - Famotidine GERD - elevated inflammatory markers. Patient required oxygen at day of discharge. Patient reports she wants to be discharge. Patient is able to discuss risks and benfits of leaving today. Given that patient only requires 2 liters on ambulation. Patient will be discharged and not forced to sign AMA. Patient will be on dexamethasone. If patient worsens, she can return to the hospital (2) MILLI (acute kidney injury): JAMAR type II on CKD III non oliguric - Likely pre-renal at this pont secondary to vomitting and decrease intake -Creatinine is slowly improving. will continue to monitor. - Support with Normosol at this time- 500ml bolus for 1l crystalloid then 125ml/hour - continue IVF -creatinine improving - HCO3 18 without gap- consistent with history of diarrhea- follow - K 4.6 making urine - Hold AMADOR On discharge: MILLI improved. Creatinine is now 3.15 Recommend followup as an outpatient. (3) Stage III chronic kidney disease: As above - HTN/DM II (4) Hypertension: Continue Amlodopine - Hold lisinopril with MILLI - Goal as outpaitnet <130 (5) Hyperlipidemia: Continue simvastatin 20mg daily (6) Diabetes mellitus with kidney disease: As above- hold metformin - Aspart sliding scale with 100-160 CF: 20, hold on ratio coverage at this time until GI symptoms and oral intake stablazied - Goal <180 (7) Acid reflux disease: Not on home therapy- no evidence of PUD without pain - Will place on Famotidine IV for now (8) UTI (urinary tract infection): Culture pending- Rocephin 1GM iv q24 hours - follow - Das placed in EMD- remove in morning Will be dicharged on cefuroxime. will complete course as an outpatient. Total Time Total Time Spent Total Time Spent (In Minutes): 32 Discharge Plan Discharge Items Patient Disposition: Home - Self-Care Reason For Visit: ILLNESS Discharge Diagnosis: COVID 19 Activity: Resume your previous activity Lifting: None Non-emergency contact: Primary Care Provider Call non-emergency contact if: you have any medication questions Follow-up/Referrals: Elle Ruiz MD [Primary Care Provider] - Diet: Carb Consistent or DM2 Addtl Attending Provider Instructions: You have been hospitalized for an acute medical problem. During your stay at [facility], we have made an effort to correct the problem that brought you to the hospital while keeping you as comfortable as possible. Medications were used to bring your condition under control and your discharge instructions will include directions for any medications you should take after leaving the hospital. Please make sure you see your Primary Care Provider as part of your follow up plan. Followup with PCP in 1-2 weeks. Recheck BMP in 1 week. Start antibiotics tonight. Pending Studies at Discharge: No Stand-Alone Forms: My [facility] App, Smoking Cessation Medications and DC Order Prescriptions: New cefuroxime axetil 250 mg tablet 250 mg PO BID 5 Days Qty: 9 RF: 0 dexamethasone 6 mg tablet 6 mg PO DAILY Qty: 6 RF: 0 Continued amlodipine 10 mg tablet 10 mg PO DAILY Qty: 30 RF: 11 metformin 500 mg tablet See Rx Instructions .ROUTE .COMPLEX Qty: 180 RF: 1 simvastatin 20 mg tablet 20 mg PO QPM Qty: 90 RF: 1 pediatric multivitamin [Gummi Bear Multivitamin] tablet,chewable 1 tab PO DAILY RF: 0 Discontinued lisinopril 10 mg tablet 10 mg PO DAILY Qty: 90 RF: 1 Discharge Orders: Discharge Order (Routine); Ordered 06/11/21 Ordered By: Yordan Rehman/Other Patient Handouts: COVID-19 Prevention, COVID-19 Home Care Admission Data Admit Date/Time: 06/08/21 12:18 Attending Provider: Yordan Hensley Admit Provider: Indio Larose Primary Care Provider: Elle Ruiz Other Interventions: Discharge Summary Assessment (RN) Last Done: 06/11/21 15:23 Coding Level of Care Code D/C DAY MANAGEMENT >30 MINS Diagnoses COVID-19 U07.1 MILLI (acute kidney injury) N17.9 Stage III chronic kidney disease N18.3 Hypertension I10 Hyperlipidemia E78.5 Diabetes mellitus with kidney disease E11.21 Acid reflux disease K21.9 UTI (urinary tract infection) N39.0
== END 2021-06-11 17:14 | disposition home or self-care (01) | DRG 178 ==
LOC: ED 09:22 → SUATTDRO 12:18 → EDINP 12:18 → 2E 12:44 → 3W 06-10 18:55

== ENCOUNTER 2021-06-13 22:11 | Inpatient (IN) ==
[2021-06-13] MEDS ORDERED: dexAMETHasone**PF** 10 MG/ML VIAL IV ONE (22:41)
[2021-06-13] MEDS ORDERED: cefTRIAXone SODIUM 1,000 MG/50 ML BAG IV STA (22:41)
[2021-06-13 22:50] LABS: Nucleated RBC # (auto) 0.09 K/uL (0-0); Nucleated RBC % (auto) 0.7 %
--- NOTE | 2021-06-13 22:53 | Emergency Department Note ---
Impression & Plan 2019 novel coronavirus-infected pneumonia (NCIP), Respiratory failure, Acute kidney injury superimposed on CKD, Non-ST elevation PA (NSTEMI) ED Provider Note Provider: Yoandy Taylor MD DATE OF SERVICE: 06/13/2021 CHIEF COMPLAINT: Fatigue HISTORY OF PRESENT ILLNESS: Patient is a 70-year-old female history of diabetes, CKD, recent hospitalization with Covid pneumonia and UTI presenting here today from home complaining of onset of fatigue and some shortness of breath today. Patient went home 2 days ago from the hospital on 2 L nasal cannula. EMS states the patient was 46% on room air. Was in the 80s on a nonrebreather. Patient denies significant pain or syncope or trauma. Patient states he has a little bit of bilateral leg swelling. Patient states she has been eating and drinking at home but significantly fatigued. Patient is not vaccinated for Covid. Has been home on cefuroxime which she states has been taking. REVIEW OF SYSTEMS: A total of 10 review of systems was obtained and negative except as stated above in the HPI. PAST MEDICAL HISTORY: As noted above MEDICATIONS: Reviewed home medications SOCIAL HISTORY: Lives at home by herself PHYSICAL EXAM: GENERAL: alert and oriented on stretcher fatigued in appearance on BiPAP Head: normocephalic and atraumatic EYES: No injection, discharge or icterus. PERRL NECK: Trachea midline. Supple. ENT: Mucous membranes pink and moist. LUNGS: Airway patent. No retractions. Breath sounds clear HEART: Regular rate and rhythm. No chest wall tenderness ABDOMEN: Soft and non-tender, without guarding or rebound. SKIN: Acyanotic, warm, dry, without rashes EXTREMITIES: Without swelling, tenderness or deformity NEUROLOGICAL: No focal deficits moving all extremities No aphasia. No facial droop or slurred speech. EK bpm normal sinus rhythm. No PVC or PAC. No acute ST segment elevation with a QTC of 457. Some nonspecific inferior T wave changes. CONTINUOUS CARDIAC MONITORING: was ordered and showed a heart rate of 70s to 90s bpm in normal sinus rhythm 1 view chest x-ray per my review and interpretation: Worsened interstitial pulmonary findings without significant consolidation or pleural effusion. No pneumothorax noted. Patient's laboratory studies and imaging reviewed. Differential includes Reactive airway disease, pneumonia, pneumothorax, COPD, CHF, infections, cardiac ischemia, pulmonary embolism, musculoskeletal, gastrointestinal, as well as other pathologies. IMPRESSION/MEDICAL DECISION MAKING: Patient recently admitted for Covid. Not vaccinated. Significantly hypoxic now requiring BiPAP but saturations are improving with this. Discussed with the patient and she reaffirms CODE STATUS of no CPR and no intubation. Patient understands if she continues to worsen there is limited additional options beyond ventilator/innovation and that this may lead to . She acknowledged this and confirm she did not want intubation. Troponin mildly elevated. EKG without STEMI. But again the patient denies chest pain. Borderline fever given some Tylenol. demand from hypoxia. Patient given additional steroids here and dose of Rocephin. Was recently admitted with UTI and has been taking cefuroxime at home. Patient appears much more comfortable on BiPAP and is oxygenating well now. Patient's renal function is poor and CTA not an option. Discussed with the hospitalist and dimer sent for further stratification but again she is unable to tolerate a CTA at this time or VQ scan given her pathology. Some elevation of the D-dimer to 2900. Again troponin likely more related to her oxygenation and demand than true ACS. Chest x-ray shows worsened interstitial findings consistent with Covid. No effusion or pneumothorax noted. We the possibility of anticoagulating at this point but in discussion with the hospitalist they wish to defer at this time and will continue prophylactic heparin chemoprophylaxis. DIAGNOSIS: COVID-19 pneumonia, hypoxic respiratory failure, elevated troponin DISPOSITION: Hospitalist will evaluate Patient was agreeable with this plan. Critical Care I have personally spent 31 minutes of critical care time in the direct management of this patient. This includes bedside care, interpretation of diagnostic studies, and testing, discussion with consultants, patient, and other required patient management activities. These 31 minutes is in excess of all separately billable procedures. Past Med/Surg History Medical History Acid reflux disease Benign paroxysmal positional vertigo Decreased hearing Diabetes mellitus with kidney disease Diabetic peripheral neuropathy DM (diabetes mellitus), type 2 with neurological complications Hyperlipidemia Hypertension Stage III chronic kidney disease Surgical History Appendectomy (05/08/13) History of cholecystectomy (05/08/13) Family History Brother Myocardial infarction Brother Myocardial infarction Denies family history of Ovarian cancer Prostate cancer Breast cancer Colorectal cancer Social History Smoking Status: Unknown if ever smoked Second Hand Exposure: No; Hx Alcohol Use: No Hx Substance Use: No Preferred Language: Luxembourgish Communication Ability: Effective Occupational Health And Safety Adviser Required: No Beliefs That Will Affect Care: None marital status: / Current Living Situation: Alone current occupational status: retired Feels Safe at Home: Yes caffeine: Yes Dental Care, Regularly: No Physical Activity Frequency: Does not Exercise Seatbelt Use: sometimes Sunscreen Use: No Assistive Devices: Denture - Upper and Walker Allergies Allergies Allergy/AdvReac Type Severity Reaction Status Date / Time No Known Allergies Allergy Verified 06/13/21 22:46 Home Meds Home Medications Medication Instructions Recorded Confirmed pediatric multivitamin (Gummi Bear 1 tab PO DAILY 12/23/18 06/13/21 Multivitamin) metformin 500 mg tablet 500 mg PO BID 06/13/21 06/13/21 Previous Rx's Medication Instructions Recorded amlodipine 10 mg tablet 10 mg PO DAILY #30 tab 08/16/20 simvastatin 20 mg tablet 20 mg PO QPM #90 tab 06/05/21 cefuroxime axetil 250 mg tablet 250 mg PO BID 5 Days #9 tab 06/11/21 dexamethasone 6 mg tablet 6 mg PO DAILY #6 tab 06/11/21 Results & Data (ED) Vital Signs Vital Signs - 24 hr 06/13/21 22:21 06/13/21 22:22 06/13/21 22:31 Temperature 37.7 C H Temperature Source Oral Pulse Rate 91 H Respiratory Rate 24 22 25 H Respiratory Effort / Characteristics Short of Breath Spontaneous Labored Short of Breath Respiratory Depth Shallow Shallow Shallow Respiratory Pattern Tachypnea Regular Tachypnea Blood Pressure 118/66 Blood Pressure Mean 83 Pulse Oximetry 84 L 99 100 Oxygen Delivery Method Non-rebreather BiPAP Oxygen Flow Rate 15 15 Fraction of Inspired Oxygen 80 80 SaO2/FiO2 Ratio 125 Sepsis Recent Fever Within 48 Hours Yes Sepsis New/Unexplained Change in Mental Status No Sepsis Action Taken by Nursing No Action Required 06/13/21 23:33 Temperature Temperature Source Pulse Rate Respiratory Rate Respiratory Effort / Characteristics Respiratory Depth Respiratory Pattern Blood Pressure Blood Pressure Mean Pulse Oximetry Oxygen Delivery Method BiPAP Oxygen Flow Rate Fraction of Inspired Oxygen SaO2/FiO2 Ratio Sepsis Recent Fever Within 48 Hours Sepsis New/Unexplained Change in Mental Status Sepsis Action Taken by Nursing Laboratory Data Result diagrams: 06/13/21 22:40 06/13/21 22:40 Lab Results 06/13/21 06/13/21 06/13/21 Range/Units 22:40 22:40 22:40 WBC 11.89 H (4.8-10.8) K/uL RBC 2.91 L (4.2-5.4) M/uL Hgb 9.1 L (12.0-16.0) g/dL Hct 27.7 L (37-47) % MCV 95.2 (80-100) fL MCH 31.3 (25-34) pg MCHC 32.9 (32-36) g/dL RDW Std Deviation 45.5 (36.4-46.3) fL RDW Coeff of Suellen 13.1 (11.5-14.5) % Plt Count 340 (130-400) K/uL MPV 9.3 (7.4-10.4) fL Immature Gran % (Auto) 1.5 % Neut % (Auto) 87.2 % Lymph % (Auto) 7.2 % Lyon % (Auto) 3.9 % Eos % (Auto) 0.0 % Baso % (Auto) 0.2 % Neut # (Auto) 10.37 H (1.4-6.5) K/uL Lymph # (Auto) 0.86 L (1.2-3.4) K/uL Lyon # (Auto) 0.46 (0.11-0.59) K/uL Eos # (Auto) 0.00 (0-0.5) K/uL Baso # (Auto) 0.02 (0-0.2) K/uL Immature Gran # (Auto) 0.18 H (0.00-0.02) K/uL Absolute Nucleated RBC 0.09 H (0-0) K/uL Nucleated RBC % (auto) 0.7 % PT 9.8 (9.0-12.0) Seconds INR 1.0 (0.9-1.1) APTT 29.0 (21.0-31.0) Seconds PTT Ratio 1.1 D-Dimer 2930 H* (0-500) ug/L FEU Sodium 143 (136-145) mmol/L Potassium 3.4 L (3.5-5.1) mmol/L Chloride 108 H (98-107) mmol/L Carbon Dioxide 22 (21-32) mmol/L Anion Gap 13.0 H (3-11) BUN 51 H (7-18) mg/dl Creatinine 3.58 H (0.6-1.2) mg/dl Est Cr Clr Drug Dosing 12.3 ml/min Est GFR ( Amer) 13.9 ml/min Est GFR (Non-Af Amer) 12.0 ml/min BUN/Creatinine Ratio 14.3 (10-20) Glucose 127 H (70-99) mg/dl Calcium 9.1 (8.5-10.1) mg/dl Magnesium 1.8 (1.8-2.4) mg/dl Total Bilirubin 0.2 (0.2-1) mg/dl AST 165 H (15-37) U/L ALT 68 (12-78) U/L Alkaline Phosphatase 70 (45-117) U/L Troponin I 0.240 H* (0-0.045) ng/ml C-Reactive Protein 18.00 H (0-0.29) mg/dl Total Protein 8.2 (6.4-8.2) gm/dl Albumin 2.7 L (3.4-5.0) gm/dl Globulin 5.5 H (2.5-4.0) gm/dl Albumin/Globulin Ratio 0.5 L (0.9-2) Administered Medications Discontinued Medications Dexamethasone Sodium Phosphate (DexamethasonePf 10 Mg/Ml Vial) 6 mg IV NOW ONE Stop: 06/13/21 22:42 Last Admin: 06/13/21 23:23 Dose: 6 mg Documented by: [id number] Ceftriaxone Sodium (Rocephin) 1,000 mg in 50 mls @ 100 mls/hr IV NOW STA Stop: 06/13/21 23:10 Last Infusion: 06/13/21 23:59 Dose: 0 mls/hr Documented by: [id number] Admin: 06/13/21 23:24 Dose: 100 mls/hr Documented by: [id number] Acetaminophen (Ofirmev) 1,000 mg in 100 mls @ 400 mls/hr IV NOW STA Stop: 06/13/21 23:21 Last Infusion: 06/13/21 23:58 Dose: 0 mls/hr Documented by: [id number] Admin: 06/13/21 23:24 Dose: 400 mls/hr Documented by: [id number] Discharge Plan Visit Data Chief Complaint: Respiratory Distress Stated Complaint: SOB ED Provider: Yoandy Taylor Discharge Problem: 2019 novel coronavirus-infected pneumonia (NCIP), Respiratory failure, Acute kidney injury superimposed on CKD, Non-ST elevation PA (NSTEMI) Patient Disposition: Admitted As Inpatient Condition: Critical Forms Stand Alone Forms: My [facility] [place] Book[employer] Prescriptions Prescriptions: No Action amlodipine 10 mg tablet 10 mg PO DAILY Qty: 30 RF: 11 simvastatin 20 mg tablet 20 mg PO QPM Qty: 90 RF: 1 pediatric multivitamin [Gummi Bear Multivitamin] tablet,chewable 1 tab PO DAILY RF: 0 cefuroxime axetil 250 mg tablet 250 mg PO BID 5 Days Qty: 9 RF: 0 dexamethasone 6 mg tablet 6 mg PO DAILY Qty: 6 RF: 0 metformin 500 mg tablet 500 mg PO BID RF: 0 Referrals Referrals: Elle Ruiz MD [Primary Care Provider] - Discharge Problem: Respiratory failure Qualifiers: Chronicity: acute Respiratory failure complication: hypoxia Qualified Code(s): J96.01 - Acute respiratory failure with hypoxia
[2021-06-13 22:58] LABS: Hematocrit (blood only) 27.7 % (37-47); Hemoglobin 9.1 g/dL (12.0-16.0); Mean Corpuscular Hemoglobin 31.3 pg (25-34); Mean Corpuscular Hgb Conc 32.9 g/dL (32-36); Mean Corpuscular Volume 95.2 fL (80-100); Mean Platelet Volume 9.3 fL (7.4-10.4); Platelet Count 340 K/uL (130-400); RDW Coefficient of Variation 13.1 % (11.5-14.5); RDW Standard Deviation 45.5 fL (36.4-46.3); Red Blood Count 2.91 M/uL (4.2-5.4); White Blood Count 11.89 K/uL (4.8-10.8)
[2021-06-13 23:03] LABS: Partial Thromboplastin Ratio 1.1; Prothrombin Time 9.8 Seconds (9.0-12.0)
[2021-06-13 23:07] LABS: Albumin Level 2.7 gm/dl (3.4-5.0); BUN Creatinine Ratio 14.3 (10-20); Basophils # (auto) 0.02 K/uL (0-0.2); Basophils % (auto) 0.2 %; Calcium 9.1 mg/dl (8.5-10.1); Creatinine Clr Calc Pharmacy 12.3 ml/min; Est GFR (African American) 13.9 ml/min; Immature Granulocytes # (auto) 0.18 K/uL (0.00-0.02); Immature Granulocytes % (auto) 1.5 %; Lymphocytes # (auto) 0.86 K/uL (1.2-3.4); Lymphocytes % (auto) 7.2 %; Magnesium 1.8 mg/dl (1.8-2.4); Monocytes # (auto) 0.46 K/uL (0.11-0.59); Monocytes % (auto) 3.9 %; Neutrophils # (auto) 10.37 K/uL (1.4-6.5); Neutrophils % (auto) 87.2 %; Potassium 3.4 mmol/L (3.5-5.1)
[2021-06-13] MEDS ORDERED: ACETAMINOPHEN 1,000 MG/100 ML VIAL IV STA (23:07)
[2021-06-13 23:45] LABS: Albumin Globulin Ratio 0.5 (0.9-2); Bilirubin,Total 0.2 mg/dl (0.2-1); Globulin 5.5 gm/dl (2.5-4.0); Total Protein 8.2 gm/dl (6.4-8.2); Troponin I 0.24 ng/ml (0-0.045)
--- NOTE | 2021-06-13 23:53 | History & Physical Report ---
Date of Service June 13, 2021 Assessment & Plan (1) 2019 novel coronavirus-infected pneumonia (NCIP): Plan: COVID-19 pneumonia with hypoxia- Dexamethasone 6 mg IV every morning Remdesivir IV per protocol Azithromycin 500 mg IV daily Guaifenesin extended release 1200 mg p.o. twice daily Vitamin D 1000 international units p.o. daily Duonebs every 4 hours while awake and every 2 hours when necessary Continue BiPAP, taper downward as symptoms improve (2) Hypoxia: Plan: See above (3) Stage III chronic kidney disease: Plan: Creatinine 3.58 upon admission, with range 3.15-4.66 Repeat laboratories in a.m. (4) Hypertension: Plan: Hold amlodipine for now due to low normal blood pressure (5) Hyperlipidemia: Plan: Continue simvastatin (6) Diabetes mellitus with kidney disease: Plan: Hold Metformin Place on Accu-Cheks before meals and at bedtime with NovoLog coverage per scale History of Present Illness Chief Complaint: The patient presents to the emergency department with complaint of fatigue and shortness of breath today Primary Care Provider: Elle Ruiz MD The patient is a 68-year-old female who was most recently admitted to [facility] from 06/08-06/11 for treatment of COVID-19 pneumonia and urinary tract infection. She was advised to stay in the hospital longer, but she strongly requested to be discharged. When EMS arrived at her home today, they found her pulse ox to be 46% on room air, and was placed on a nonrebreather which increased her pulse ox to the mid 80s. Chest x-ray showed worsening COVID-19 pneumonia bilaterally. She was given by the emergency department the following: Dexamethasone 6 mg IV and ceftriaxone 1 g IV. Allergies Allergy/AdvReac Type Severity Reaction Status Date / Time No Known Allergies Allergy Verified 06/13/21 22:46 Home Medications Medication Instructions Recorded Confirmed Type pediatric multivitamin (Gummi Bear 1 tab PO DAILY 12/23/18 06/13/21 History Multivitamin) amlodipine 10 mg tablet 10 mg PO DAILY #30 tab 08/16/20 06/13/21 Rx simvastatin 20 mg tablet 20 mg PO QPM #90 tab 06/05/21 06/13/21 Rx cefuroxime axetil 250 mg tablet 250 mg PO BID 5 Days #9 tab 06/11/21 06/13/21 Rx dexamethasone 6 mg tablet 6 mg PO DAILY #6 tab 06/11/21 06/13/21 Rx metformin 500 mg tablet 500 mg PO BID 06/13/21 06/13/21 History Past Med/Surg History Medical History Acid reflux disease Benign paroxysmal positional vertigo Decreased hearing Diabetes mellitus with kidney disease Diabetic peripheral neuropathy DM (diabetes mellitus), type 2 with neurological complications Hyperlipidemia Hypertension Stage III chronic kidney disease Surgical History Appendectomy (05/08/13) History of cholecystectomy (05/08/13) Family History Brother Myocardial infarction Brother Myocardial infarction Denies family history of Ovarian cancer Prostate cancer Breast cancer Colorectal cancer Social History Smoking Status: Unknown if ever smoked Second Hand Exposure: No; Hx Alcohol Use: No Hx Substance Use: No Preferred Language: Yakut Communication Ability: Effective Sort Supervisor Required: No Beliefs That Will Affect Care: None marital status: / Current Living Situation: Alone current occupational status: retired Feels Safe at Home: Yes caffeine: Yes Dental Care, Regularly: No Physical Activity Frequency: Does not Exercise Seatbelt Use: sometimes Sunscreen Use: No Assistive Devices: Denture - Upper and Walker Review of Systems Review of Systems: The patient denies chest pain, palpitations, sore throat, fevers, chills, sweats, nausea, vomiting, diarrhea , constipation, abdominal pain, pelvic pain, blood in urine or stool, dysuria, urinary frequency or urgency, loss of consciousness, rash, abnormal bruising or bleeding, focal weakness, numbness or tingling in arms or legs, back or neck pain, or night sweats. The review of systems is otherwise negative other than for that already noted above, and at least 10 systems have been reviewed. Physical Exam Physical Exam: The patient is awake, mildly lethargic, well developed and well nourished, normocephalic and atraumatic, sitting upright in bed wearing BiPAP HEENT--PERRL, EOMI, mucous membranes and oropharynx normal Neck--supple. No JVD. No bruits. Thyroid normal, trachea midline, no adenopathy. Heart--normal S1 and S2. No murmurs, rubs or gallops. Lungs--coarse breath sounds bilaterally. No respiratory distress, no accessory muscle use. Abdomen--normal bowel sounds and soft. Nontender. Nondistended. Extremities--no cyanosis or clubbing. No edema. Dermatologic--skin is mildly dry Neurologic--cranial nerves II through XII grossly intact. Rheumatologic--limited exam Psychiatric--normal affect. Results & Data Results & Data ([facility]) Vital Signs (Past 12 Hours) Vital Signs Temp Pulse Resp BP Pulse Ox 06/13/21 22:31 25 H 100 06/13/21 22:22 22 99 06/13/21 22: 99.9 F H 91 H 24 118/66 84 L Laboratory Results Laboratory Results WBC 11.89 K/uL (4.8-10.8) H 06/13/21 22:40 RBC 2.91 M/uL (4.2-5.4) L 06/13/21 22:40 Hgb 9.1 g/dL (12.0-16.0) L 06/13/21 22:40 Hct 27.7 % (37-47) L 06/13/21 22:40 MCV 95.2 fL (80-100) 06/13/21 22:40 MCH 31.3 pg (25-34) 06/13/21 22:40 MCHC 32.9 g/dL (32-36) 06/13/21 22:40 RDW Std Deviation 45.5 fL (36.4-46.3) 06/13/21 22:40 RDW Coeff of Suellen 13.1 % (11.5-14.5) 06/13/21 22:40 Plt Count 340 K/uL (130-400) 06/13/21 22:40 MPV 9.3 fL (7.4-10.4) 06/13/21 22:40 Immature Gran % (Auto) 1.5 % 06/13/21 22:40 Neut % (Auto) 87.2 % 06/13/21 22:40 Lymph % (Auto) 7.2 % 06/13/21 22:40 [place] % (Auto) 3.9 % 06/13/21 22:40 Eos % (Auto) 0.0 % 06/13/21 22:40 Baso % (Auto) 0.2 % 06/13/21 22:40 Neut # (Auto) 10.37 K/uL (1.4-6.5) H 06/13/21 22:40 Lymph # (Auto) 0.86 K/uL (1.2-3.4) L 06/13/21 22:40 [place] # (Auto) 0.46 K/uL (0.11-0.59) 06/13/21 22:40 Eos # (Auto) 0.00 K/uL (0-0.5) 06/13/21 22:40 Baso # (Auto) 0.02 K/uL (0-0.2) 06/13/21 22:40 Immature Gran # (Auto) 0.18 K/uL (0.00-0.02) H 06/13/21 22:40 Absolute Nucleated RBC 0.09 K/uL (0-0) H 06/13/21 22:40 Nucleated RBC % (auto) 0.7 % 06/13/21 22:40 PT 9.8 Seconds (9.0-12.0) 06/13/21 22:40 INR 1.0 (0.9-1.1) 06/13/21 22:40 APTT 29.0 Seconds (21.0-31.0) 06/13/21 22:40 PTT Ratio 1.1 06/13/21 22:40 D-Dimer 2930 ug/L FEU (0-500) H* 06/13/21 22:40 Sodium 143 mmol/L (136-145) 06/13/21 22:40 Potassium 3.4 mmol/L (3.5-5.1) L 06/13/21 22:40 Chloride 108 mmol/L (98-107) H 06/13/21 22:40 Carbon Dioxide 22 mmol/L (21-32) 06/13/21 22:40 Anion Gap 13.0 (3-11) H 06/13/21 22:40 BUN 51 mg/dl (7-18) H 06/13/21 22:40 Creatinine 3.58 mg/dl (0.6-1.2) H 06/13/21 22:40 Est Cr Clr Drug Dosing 12.3 ml/min 06/13/21 22:40 Est GFR ( Amer) 13.9 ml/min 06/13/21 22:40 Est GFR (Non-Af Amer) 12.0 ml/min 06/13/21 22:40 BUN/Creatinine Ratio 14.3 (10-20) 06/13/21 22:40 Glucose 127 mg/dl (70-99) H 06/13/21 22:40 Calcium 9.1 mg/dl (8.5-10.1) 06/13/21 22:40 Magnesium 1.8 mg/dl (1.8-2.4) 06/13/21 22:40 Total Bilirubin 0.2 mg/dl (0.2-1) 06/13/21 22:40 AST 165 U/L (15-37) H 06/13/21 22:40 ALT 68 U/L (12-78) 06/13/21 22:40 Alkaline Phosphatase 70 U/L (45-117) 06/13/21 22:40 Troponin I 0.240 ng/ml (0-0.045) H* 06/13/21 22:40 C-Reactive Protein 18.00 mg/dl (0-0.29) H 06/13/21 22:40 Total Protein 8.2 gm/dl (6.4-8.2) 06/13/21 22:40 Albumin 2.7 gm/dl (3.4-5.0) L 06/13/21 22:40 Globulin 5.5 gm/dl (2.5-4.0) H 06/13/21 22:40 Albumin/Globulin Ratio 0.5 (0.9-2) L 06/13/21 22:40 Code Status & VTE Plan Code Status DNR/DNI VTE Prophylaxis Plan VTE Prophylaxis will be ordered: Yes PG Care Time/CCT Total # of Minutes Spent Total Time Spent with Patient: Total time spent is greater than 50% in coordination of care (as documented) at patient's floor/unit and/or counseling patient: Coding Level of Care Code 01843 Initial Inpt Care Lvl 3 Diagnoses 2019 novel coronavirus-infected pneumonia (NCIP) U07.1; J12.82 Stage III chronic kidney disease N18.3 Hypertension I10 Hyperlipidemia E78.5 Diabetes mellitus with kidney disease E11.21 Hypoxia R09.02
[2021-06-14 00:40] LABS: D Dimer 2930 ug/L FEU (0-500)
[2021-06-14] MEDS ORDERED: GLUCOSE 40% GEL 15 GM TUBE PO PRN (01:47)
[2021-06-14] MEDS ORDERED: DEXTROSE 50% 50 ML SYRINGE IV PRN (01:47)
[2021-06-14] MEDS ORDERED: ONDANSETRON INJ 2 MG/ML 2 ML VIAL IV PRN (01:47)
[2021-06-14] MEDS ORDERED: GLUCOSE 10 TABS/TUBE PO PRN (01:47)
[2021-06-14] MEDS ORDERED: GLUCAGON FOR INJ 1 MG VIAL SQ PRN (01:47)
[2021-06-14] MEDS ORDERED: CARBOHYDRATES FOR HYPOGLYCEMIA PO PRN (01:47)
--- NOTE | 2021-06-14 07:26 | XRay Report ---
XR chest 1V portable CLINICAL HISTORY: Dyspnea. COMPARISON STUDY: Chest radiograph June 08, 2021. FINDINGS: Lung volumes are normal. There is no pneumothorax or pleural effusion. There has been signi ficant progression of bilateral airspace opacities since prior exam. IMPRESSION: Significant progression of bilateral airspace opacities suggestive of viral pneumonia. R adiographic follow up to ensure resolution is recommended. ACT 112: Negative or not required by law. Electronically signed by: Mauricio Noel M.D. 06/14/2021 7:25 AM
[2021-06-14] MEDS: ALBUT/IPRATROP 3MG/0.5MG NEB 3 ML VIAL NEB SCH ×4 (07:28→20:15)
[2021-06-14 07:43] LABS: Hematocrit (blood only) 26.2 % (37-47); Hemoglobin 8.6 g/dL (12.0-16.0); Mean Corpuscular Hemoglobin 31.4 pg (25-34); Mean Corpuscular Hgb Conc 32.8 g/dL (32-36); Mean Corpuscular Volume 95.6 fL (80-100); Mean Platelet Volume 9.3 fL (7.4-10.4); Nucleated RBC # (auto) 0.09 K/uL (0-0); Nucleated RBC % (auto) 0.9 %; Platelet Count 316 K/uL (130-400); RDW Coefficient of Variation 13.3 % (11.5-14.5); RDW Standard Deviation 46.7 fL (36.4-46.3); Red Blood Count 2.74 M/uL (4.2-5.4); White Blood Count 10.04 K/uL (4.8-10.8)
--- NOTE | 2021-06-14 07:54 | Hospitalist Progress Note ---
Date of Service June 14, 2021 Assessment & Plan (1) 2019 novel coronavirus-infected pneumonia (NCIP): Plan: COVID-19 pneumonia with hypoxia- Dexamethasone 6 mg IV daily Remdesivir IV per protocol Azithromycin 500 mg IV daily plus ceftriaxone to cover for any associated pneumonia Guaifenesin extended release 1200 mg p.o. twice daily Vitamin D 1000 international units p.o. daily Duonebs every 4 hours while awake and every 2 hours when necessary Continue BiPAP, taper downward as symptoms improve (2) Hypoxia: Plan: See above (3) Stage III chronic kidney disease: Plan: Creatinine 3.58 upon admission, with range 3.15-4.66 (4) Hypertension: Plan: Hold amlodipine for now due to low normal blood pressure (5) Hyperlipidemia: Plan: Continue simvastatin (6) Diabetes mellitus with kidney disease: Plan: Hold Metformin Place on Accu-Cheks before meals and at bedtime with NovoLog coverage per scale Admission and Anticipated Discharge Date Admission Date: June 13, 2021 Subjective pt is laying on left side did have increased oxygen requirements today Review of Systems Review of Systems: Moderate distress and fatigue no headache, no visual changes no speech or swallowing issues no chest pain, pressure or palpitations Persistent shortness of breath, nonproductive cough no abdominal pain, nausea or vomiting, mild but some diarrhea no dysuria, hematuria or frequency no focal joint pain or swelling no back pain, CVA tenderness or radicular pain no bruising, bleeding or rashes no focal signs of weakness or numbness or altered sensation no complaints of anxiety or depression.. Physical Exam Physical Exam: The patient appeared significantly ill Vital signs as documented. Lungs rales in all lung cha Cardiac exam, Rhythm is regular.. No murmurs, rubs or gallops. Abdominal exam reveals normal bowel sounds, soft non tender, no masses Extremities are nonedematous and both pedal pulses are normal. Neurologic exam is alert and oriented, no focal loss of strength or sensation Skin is without bruises or rashes Psychologically is without concerns for anxiety or depression. Results & Data Results & Data ([facility]) Vital Signs (Past 12 Hours) Vital Signs Temp Pulse Pulse Pulse Resp BP BP 06/14/21 07:35 88 20 06/14/21 07:30 75 20 06/14/21 07:14 97.7 F 73 18 131/76 06/14/21 04:07 71 17 06/14/21 03:40 98.4 F 73 16 133/63 06/14/21 01:47 98.4 F 75 72 18 125/72 06/14/21 01:25 22 06/14/21 00:53 16 109/62 06/13/21 22:31 25 H 06/13/21 22:22 22 06/13/21 22:21 99.9 F H 91 H 24 118/66 Pulse Ox 06/14/21 07:35 96 06/14/21 07:30 96 06/14/21 07:14 85 L 06/14/21 04:07 93 06/14/21 03:40 98 06/14/21 01:47 95 06/14/21 01:25 92 06/14/21 00:53 06/13/21 22:31 100 06/13/21 22:22 99 06/13/21 22:21 84 L PG Care Time/CCT Total # of Minutes Spent Total Time Spent with Patient: Total time spent is greater than 50% in coordination of care (as documented) at patient's floor/unit and/or counseling patient: Coding Level of Care Code 07278 Subseq Hosp Care Lvl 2 Diagnoses 2019 novel coronavirus-infected pneumonia (NCIP) U07.1; J12.82 Hypoxia R09.02 Stage III chronic kidney disease N18.3 Hypertension I10 Hyperlipidemia E78.5 Diabetes mellitus with kidney disease E11.21
[2021-06-14 08:15] LABS: Albumin Level 2.2 gm/dl (3.4-5.0); BUN Creatinine Ratio 15.5 (10-20); Calcium 8.5 mg/dl (8.5-10.1); Creatinine Clr Calc Pharmacy 13.1 ml/min; Est GFR (African American) 15.1 ml/min; Potassium 3.8 mmol/L (3.5-5.1)
[2021-06-14 08:16] LABS: Basophils # (auto) 0.03 K/uL (0-0.2); Basophils % (auto) 0.3 %; Lymphocytes # (auto) 0.51 K/uL (1.2-3.4); Lymphocytes % (auto) 5.1 %; Monocytes # (auto) 0.24 K/uL (0.11-0.59); Monocytes % (auto) 2.4 %; Neutrophils # (auto) 9.06 K/uL (1.4-6.5); Neutrophils % (auto) 90.2 %
[2021-06-14 08:22] LABS: Albumin Globulin Ratio 0.5 (0.9-2); Bilirubin,Total 0.2 mg/dl (0.2-1); Globulin 4.8 gm/dl (2.5-4.0); Troponin I 0.175 ng/ml (0-0.045)
[2021-06-14] MEDS: HEPARIN SOD 5,000 UNIT/0.5 ML VIAL SQ SCH ×3 (09:14→20:29)
[2021-06-14] MEDS: dexAMETHasone 6 MG in SYRINGE 0 ML IV SCH (09:15)
[2021-06-14] MEDS: CHOLECALCIFEROL 1,000 UNITS 25 MCG TAB PO SCH (09:16)
[2021-06-14] MEDS: guaiFENesin 600 MG TABCR PO SCH ×3 (09:16→20:31)
[2021-06-14 10:16] LABS: Appearance Urine Clear (Clear); Bacteria Urine Automated Negative (Negative); Bilirubin Urine Negative (Negative); Blood Urine 3+ (Negative); Color Urine Yellow; Epithelial Cell Urine Auto >30 /lpf (0-5); Glucose Urine UA Negative (Negative); Ketones Urine Negative (Negative); Leukocyte Esterase Urine Negative (Negative); Nitrite Urine Negative (Negative); Protein Urine 3+ (Negative); RBC Urine Automated 0-4 /hpf (0-4); Specific Gravity Urine 1.022 (1.000-1.030); Urobilinogen Urine Negative (Negative); pH Urine 5.5 (4.5-7.5)
[2021-06-14] MEDS: AZITHROMYCIN 500 MG in DEXTROSE 5% 250 ML IV SCH (10:30)
[2021-06-14] MEDS: cefTRIAXone SODIUM 1,000 MG in DEXTROSE 5% 50 ML IV SCH (20:30)
[2021-06-14] MEDS: SIMVASTATIN 20 MG TAB PO SCH (20:31)
[2021-06-15] MEDS: HEPARIN SOD 5,000 UNIT/0.5 ML VIAL SQ SCH ×3 (05:36→21:25)
[2021-06-15] MEDS: ALBUT/IPRATROP 3MG/0.5MG NEB 3 ML VIAL NEB SCH (05:47)
--- NOTE | 2021-06-15 06:24 | Electrocardiogram Report ---
Test Reason : Blood Pressure : / mmHG Vent. Rate : 077 BPM Atrial Rate : 077 BPM P-R Int : 136 ms QRS Dur : 080 ms QT Int : 404 ms P-R-T Axes : 022 012 040 degrees QTc Int : 457 ms Normal sinus rhythm Nonspecific ST and T wave abnormality Abnormal ECG When compared with ECG of 08-MAY-2013 03:47, No significant change Confirmed by Bert Mccollum ([id number]) on 06/15/2021 6:23:44 AM Referred By: REFERRED SELF Confirmed By:Bert Mccollum
[2021-06-15] MEDS: dexAMETHasone 6 MG in SYRINGE 0 ML IV SCH (07:40)
[2021-06-15] MEDS: AZITHROMYCIN 500 MG in DEXTROSE 5% 250 ML IV SCH (07:40)
[2021-06-15] MEDS: CHOLECALCIFEROL 1,000 UNITS 25 MCG TAB PO SCH (07:41)
[2021-06-15] MEDS: guaiFENesin 600 MG TABCR PO SCH (07:41)
[2021-06-15 08:03] LABS: Hematocrit (blood only) 26.5 % (37-47); Hemoglobin 8.5 g/dL (12.0-16.0); Mean Corpuscular Hemoglobin 31.1 pg (25-34); Mean Corpuscular Hgb Conc 32.1 g/dL (32-36); Mean Corpuscular Volume 97.1 fL (80-100); Mean Platelet Volume 9.4 fL (7.4-10.4); Nucleated RBC # (auto) 0.13 K/uL (0-0); Nucleated RBC % (auto) 1.1 %; Platelet Count 392 K/uL (130-400); RDW Coefficient of Variation 13.2 % (11.5-14.5); RDW Standard Deviation 46.9 fL (36.4-46.3); Red Blood Count 2.73 M/uL (4.2-5.4); White Blood Count 11.99 K/uL (4.8-10.8)
--- NOTE | 2021-06-15 08:07 | Hospitalist Progress Note ---
Date of Service June 15, 2021 Assessment & Plan (1) 2019 novel coronavirus-infected pneumonia (NCIP): Plan: COVID-19 pneumonia with hypoxia-has progressed to 15L nc with some bipap support Dexamethasone 6 mg IV daily Remdesivir IV per protocol Azithromycin 500 mg IV daily plus ceftriaxone to cover for any associated pneumonia Guaifenesin extended release 1200 mg p.o. twice daily Vitamin D 1000 international units p.o. daily Duonebs every 4 hours while awake and every 2 hours when necessary Continue BiPAP, intermittent with 15L high flow (2) Hypoxia: Plan: Pt has not had steady trail to tapering, influenced with confusion and pulling off supportive oxygen (3) Elevated troponin: Plan: Pt with elevated troponin in face of illness, likely type 2 UT from physiologic demand (4) Stage III chronic kidney disease: Plan: Creatinine 3.58 upon admission, with range 3.15-4.66 (5) Hypertension: Plan: Hold amlodipine for now due to low normal blood pressure (6) Hyperlipidemia: Plan: Continue simvastatin (7) Diabetes mellitus with kidney disease: Plan: Hold Metformin Place on Accu-Cheks before meals and at bedtime with NovoLog coverage per scale Plan: try one dose of night time seroquel Admission and Anticipated Discharge Date Admission Date: June 13, 2021 Review of Systems Review of Systems: Moderate distress and fatigue no headache, no visual changes no speech or swallowing issues no chest pain, pressure or palpitations Persistent shortness of breath, nonproductive cough no abdominal pain, nausea or vomiting, mild but some diarrhea no dysuria, hematuria or frequency no focal joint pain or swelling no back pain, CVA tenderness or radicular pain no bruising, bleeding or rashes no focal signs of weakness or numbness or altered sensation no complaints of anxiety or depression.. Physical Exam Physical Exam: The patient appeared significantly ill Vital signs as documented. Lungs rales in all lung cha Cardiac exam, Rhythm is regular.. No murmurs, rubs or gallops. Abdominal exam reveals normal bowel sounds, soft non tender, no masses Extremities are nonedematous and both pedal pulses are normal. Neurologic exam is alert and oriented, no focal loss of strength or sensation Skin is without bruises or rashes Psychologically is without concerns for anxiety or depression. Results & Data Results & Data ([facility]) Vital Signs (Past 12 Hours) Vital Signs Pulse Pulse Pulse Resp BP Pulse Ox 06/15/21 07:21 84 19 124/77 94 06/15/21 05:47 80 80 23 97 06/15/21 03:51 81 24 136/72 97 06/15/21 03:21 72 29 H 92 06/15/21 00:37 74 16 138/74 95 06/15/21 00:30 72 06/15/21 00:07 72 13 96 06/14/21 20:18 83 35 H 97 06/14/21 20:16 83 35 H 97 PG Care Time/CCT Total # of Minutes Spent Total Time Spent with Patient: Total time spent is greater than 50% in coordination of care (as documented) at patient's floor/unit and/or counseling patient: Coding Level of Care Code 72677 Subseq Hosp Care Lvl 2 Diagnoses 2019 novel coronavirus-infected pneumonia (NCIP) U07.1; J12.82 Hypoxia R09.02 Stage III chronic kidney disease N18.3 Hypertension I10 Hyperlipidemia E78.5 Diabetes mellitus with kidney disease E11.21 Elevated troponin R77.8
[2021-06-15 08:33] LABS: Albumin Level 2.2 gm/dl (3.4-5.0); BUN Creatinine Ratio 18.3 (10-20); Calcium 8.8 mg/dl (8.5-10.1); Creatinine Clr Calc Pharmacy 14.7 ml/min; Est GFR (African American) 17.4 ml/min; Potassium 3.5 mmol/L (3.5-5.1)
[2021-06-15 08:36] LABS: Albumin Globulin Ratio 0.4 (0.9-2); Bilirubin,Total 0.3 mg/dl (0.2-1); Total Protein 7.2 gm/dl (6.4-8.2)
[2021-06-15 08:45] LABS: Basophils # (auto) 0.01 K/uL (0-0.2); Basophils % (auto) 0.1 %; Immature Granulocytes # (auto) 0.31 K/uL (0.00-0.02); Immature Granulocytes % (auto) 2.6 %; Lymphocytes % (auto) 4.2 %; Monocytes # (auto) 0.61 K/uL (0.11-0.59); Monocytes % (auto) 5.1 %; Neutrophils # (auto) 10.56 K/uL (1.4-6.5)
[2021-06-15] MEDS ORDERED: ALBUT/IPRATROP 3MG/0.5MG NEB 3 ML VIAL NEB PRN (10:28)
[2021-06-15] MEDS ORDERED: PROMETHAZINE HCL 12.5 MG/10 ML UDP PO PRN (11:42)
[2021-06-15] MEDS: guaiFENesin/CODEINE 100MG/10MG 5ML UDC PO PRN (12:41)
[2021-06-15] MEDS: cefTRIAXone SODIUM 1,000 MG in DEXTROSE 5% 50 ML IV SCH (20:43)
[2021-06-15] MEDS: SIMVASTATIN 20 MG TAB PO SCH (20:43)
[2021-06-16] MEDS: guaiFENesin/CODEINE 100MG/10MG 5ML UDC PO PRN (03:24)
[2021-06-16] MEDS: HEPARIN SOD 5,000 UNIT/0.5 ML VIAL SQ SCH ×3 (06:22→20:16)
[2021-06-16] MEDS: dexAMETHasone 6 MG in SYRINGE 0 ML IV SCH (08:02)
[2021-06-16] MEDS: AZITHROMYCIN 500 MG in DEXTROSE 5% 250 ML IV SCH (08:02)
[2021-06-16] MEDS: CHOLECALCIFEROL 1,000 UNITS 25 MCG TAB PO SCH (08:03)
--- NOTE | 2021-06-16 08:08 | Hospitalist Progress Note ---
Date of Service June 16, 2021 Assessment & Plan (1) 2019 novel coronavirus-infected pneumonia (NCIP): Plan: COVID-19 pneumonia with hypoxia-has progressed to 15L nc with lessening bipap support Dexamethasone 6 mg IV daily Remdesivir IV per protocol Azithromycin 500 mg IV daily plus ceftriaxone to cover for any associated pneumonia Guaifenesin extended release 1200 mg p.o. twice daily Vitamin D 1000 international units p.o. daily Duonebs every 4 hours while awake and every 2 hours when necessary Continue BiPAP, intermittent with 15L high flow (2) Hypoxia: Plan: seems to be more tolerant of reducing oxygen support more time off bipap (3) Elevated troponin: Plan: Pt with elevated troponin in face of illness, likely type 2 PA from physiologic demand (4) Stage III chronic kidney disease: Plan: Creatinine 3.58 upon admission, with range 3.15-4.66 (5) Hypertension: Plan: Hold amlodipine for now due to low normal blood pressure (6) Hyperlipidemia: Plan: Continue simvastatin (7) Diabetes mellitus with kidney disease: Plan: Hold Metformin Place on Accu-Cheks before meals and at bedtime with NovoLog coverage per scale Plan: improved after one dose of night time Seroquel Admission and Anticipated Discharge Date Admission Date: June 13, 2021 Subjective pt has been able to be titrated off to hi flow nasal canulae, her bewilderment is clearing Review of Systems Review of Systems: Moderate distress and fatigue no headache, no visual changes no speech or swallowing issues no chest pain, pressure or palpitations Persistent shortness of breath, nonproductive cough no abdominal pain, nausea or vomiting, mild but some diarrhea no dysuria, hematuria or frequency no focal joint pain or swelling no back pain, CVA tenderness or radicular pain no bruising, bleeding or rashes no focal signs of weakness or numbness or altered sensation no complaints of anxiety or depression.. Physical Exam Physical Exam: The patient appeared significantly ill Vital signs as documented. Lungs rales in all lung cha Cardiac exam, Rhythm is regular.. No murmurs, rubs or gallops. Abdominal exam reveals normal bowel sounds, soft non tender, no masses Extremities are nonedematous and both pedal pulses are normal. Neurologic exam is alert and oriented, no focal loss of strength or sensation Skin is without bruises or rashes Psychologically is with improving mentation Results & Data Results & Data ([facility]) Vital Signs (Past 12 Hours) Vital Signs Temp Pulse Pulse Resp BP BP Pulse Ox 06/16/21 07:31 79 19 151/70 H 95 06/16/21 04:14 97.7 F 78 16 134/80 100 06/15/21 23:31 98.6 F 79 18 140/78 92 06/15/21 22:30 73 PG Care Time/CCT Total # of Minutes Spent Total Time Spent with Patient: Total time spent is greater than 50% in coordination of care (as documented) at patient's floor/unit and/or counseling patient: Coding Level of Care Code 77783 Subseq Hosp Care Lvl 2 Diagnoses 2019 novel coronavirus-infected pneumonia (NCIP) U07.1; J12.82 Hypoxia R09.02 Elevated troponin R77.8 Stage III chronic kidney disease N18.3 Hypertension I10 Hyperlipidemia E78.5 Diabetes mellitus with kidney disease E11.21
[2021-06-16 08:23] LABS: Basophils # (auto) 0.01 K/uL (0-0.2); Basophils % (auto) 0.1 %; Hematocrit (blood only) 24.7 % (37-47); Immature Granulocytes # (auto) 0.36 K/uL (0.00-0.02); Immature Granulocytes % (auto) 2.9 %; Lymphocytes # (auto) 0.51 K/uL (1.2-3.4); Lymphocytes % (auto) 4.1 %; Mean Corpuscular Hemoglobin 31.1 pg (25-34); Mean Corpuscular Hgb Conc 32.4 g/dL (32-36); Mean Corpuscular Volume 96.1 fL (80-100); Mean Platelet Volume 9.2 fL (7.4-10.4); Monocytes % (auto) 5.6 %; Neutrophils # (auto) 11.01 K/uL (1.4-6.5); Neutrophils % (auto) 87.3 %; Nucleated RBC # (auto) 0.12 K/uL (0-0); Nucleated RBC % (auto) 0.9 %; Platelet Count 451 K/uL (130-400); RDW Standard Deviation 45.6 fL (36.4-46.3); Red Blood Count 2.57 M/uL (4.2-5.4); White Blood Count 12.59 K/uL (4.8-10.8)
[2021-06-16 09:12] LABS: Albumin Globulin Ratio 0.4 (0.9-2); Albumin Level 2.2 gm/dl (3.4-5.0); Bilirubin,Total 0.3 mg/dl (0.2-1); Calcium 9.1 mg/dl (8.5-10.1); Creatinine Clr Calc Pharmacy 16.5 ml/min; Est GFR (Non-African American) 17.2 ml/min; Globulin 5.1 gm/dl (2.5-4.0); Potassium 3.7 mmol/L (3.5-5.1); Total Protein 7.3 gm/dl (6.4-8.2)
[2021-06-16] MEDS ORDERED: MINERAL OIL ENEMA 133 ML BTL PR ONE (16:00)
[2021-06-16] MEDS: cefTRIAXone SODIUM 1,000 MG in DEXTROSE 5% 50 ML IV SCH (20:15)
[2021-06-16] MEDS: SIMVASTATIN 20 MG TAB PO SCH (20:15)
[2021-06-16] MEDS ORDERED: DEXTROSE 50% 50 ML SYRINGE IV PRN (21:37)
[2021-06-16] MEDS ORDERED: GLUCOSE 40% GEL 15 GM TUBE PO PRN (21:37)
[2021-06-16] MEDS ORDERED: GLUCOSE 10 TABS/TUBE PO PRN (21:37)
[2021-06-16] MEDS ORDERED: GLUCAGON FOR INJ 1 MG VIAL SQ PRN (21:37)
[2021-06-16] MEDS ORDERED: CARBOHYDRATES FOR HYPOGLYCEMIA PO PRN (21:37)
[2021-06-16] MEDS: INSULIN ASPART 100 UNITS/ML 3 ML PEN SC SCH (23:28)
[2021-06-16] MEDS ORDERED: ACETAMINOPHEN 1000 MG/100 ML IV IV ONE (23:57)
[2021-06-17] MEDS ORDERED: MoRPHine SULFATE 2 MG/ML CARP IV STA (04:52)
[2021-06-17] MEDS ORDERED: MoRPHine SULFATE 2 MG/ML CARP ONE (04:58)
[2021-06-17] MEDS: HEPARIN SOD 5,000 UNIT/0.5 ML VIAL SQ SCH ×3 (05:09→22:21)
[2021-06-17] MEDS ORDERED: bisacodyL 10 MG SUPP PR STA ×2 (06:22→21:49)
--- NOTE | 2021-06-17 07:34 | XRay Report ---
XR KUB/Abdomen 1 view CLINICAL HISTORY: Abdominal pain. COMPARISON STUDY: No previous studies for comparison. TECHNIQUE: Single view of the abdomen. FINDINGS: The bowel gas pattern is within normal limits without evidence for dilatation or obstruction. There i s no evidence for organomegaly or gross intra-abdominal mass. No abnormal calcifications are seen david ng the course of the urinary tracts bilaterally. No acute osseous pathology. Degenerative changes are seen within the lumbar spine. Calcification is present within the pelvis on the right which may rela te to a fibroid uterus. IMPRESSION: 1.No acute intra-abdominal abnormality. ACT 112: Negative or not required by law. Electronically signed by: Manolo Quinn M.D. 06/17/2021 7:33 AM
[2021-06-17] MEDS ORDERED: bisacodyL 10 MG SUPP PR ONE (08:58)
[2021-06-17] MEDS: dexAMETHasone 6 MG in SYRINGE 0 ML IV SCH (09:04)
[2021-06-17] MEDS: INSULIN GLARGINE SOLOSTAR 100 UNITS/ML 3 ML PEN SC SCH (09:05)
[2021-06-17] MEDS: NYSTATIN SUSP 500,000 U/5 ML UDC PO SCH ×4 (09:05→19:55)
[2021-06-17] MEDS: CHOLECALCIFEROL 1,000 UNITS 25 MCG TAB PO SCH (09:06)
[2021-06-17] MEDS: INSULIN ASPART 100 UNITS/ML 3 ML PEN SC SCH ×4 (09:11→21:53)
[2021-06-17] MEDS: AZITHROMYCIN 500 MG in DEXTROSE 5% 250 ML IV SCH (10:48)
[2021-06-17] MEDS: SENNA 8.6 MG TAB PO SCH (10:49)
--- NOTE | 2021-06-17 14:52 | Hospitalist Progress Note ---
Date of Service June 17, 2021 Assessment & Plan (1) 2019 novel coronavirus-infected pneumonia (NCIP): Plan: COVID-19 pneumonia with hypoxia down to 8L wall high flow today, could be on less oxygen Dexamethasone 6 mg IV daily Remdesivir IV per protocol Azithromycin 500 mg IV daily plus ceftriaxone to cover for any associated pneumonia Guaifenesin extended release 1200 mg p.o. twice daily Vitamin D 1000 international units p.o. daily Duonebs every 4 hours while awake and every 2 hours when necessary (2) Hypoxia: Plan: not requiring BIPAP today down to 8L wall high flow (3) Elevated troponin: Plan: Pt with elevated troponin in face of illness, likely type 2 [place] from physiologic demand (4) Stage III chronic kidney disease: Plan: Creatinine 3.58 upon admission, with range 3.15-4.66 Cr is stable, making urine (5) Hypertension: Plan: Hold amlodipine, might resume tomorrow as BP elevated (6) Hyperlipidemia: Plan: Continue simvastatin (7) Diabetes mellitus with kidney disease: Plan: Hold Metformin Place on Accu-Cheks before meals and at bedtime with NovoLog coverage per scale monitor for hypoglycemia Plan: wean oxygen as tolerated Admission and Anticipated Discharge Date Admission Date: June 13, 2021 Subjective patient not very talkative, she states her name, knows she is in the hospital she says her breathing is "okay" she is not eating or drinking very well, reviewed her chart, she was discharged on 06/11 on 2L only to return on 06/13, not sure she was using oxygen, taking dexamethasone stable on 8L today, try to wean down no fever/chills, no chest pain, minimal cough Review of Systems Review of Systems: All systems reviewed & are unremarkable except as noted in Subjective Physical Exam Physical Exam: General: well developed, thing elderly female, no acute distress, comfortable Neck: supple, trachea midline, normal thyroid Lungs: clear to auscultation bilaterally, normal respiratory effort, no accessory muscle use, no distress Heart: regular S1 and S2, no murmur, peripheral pulses normal, capillary refill normal, no edema Abdomen: soft, NT, ND, + BS, no hepatomegaly, normal to percussion Extremities: normal in appearance, no cyanosis, no petechiae, strength is 5/5 bilaterally Neuro: awake, cooperative, moves all extremities, no focal motor deficits, CN II-XII intact, sensation in extremities intact, normal speech Skin: warm, dry, no rash, normal turgor Psych: lethargic but she wakes up, oriented to person and place, poor historian Results & Data Results & Data ([facility]) Vital Signs (Past 12 Hours) Vital Signs Temp Pulse Pulse Resp BP BP Pulse Ox 06/17/21 11:24 36.8 C 92 H 19 139/76 94 06/17/21 07:20 37.1 C 96 H 20 132/69 89 L 06/17/21 04:50 91 06/17/21 03:21 37.3 C 71 18 126/74 99 Laboratory Results Laboratory Results - last 24 hr 06/16/21 06/16/21 06/17/21 21:12 23:12 08:02 POC Glucose 237 H 194 H 155 H 06/17/21 12:00 POC Glucose 196 H Medications Administered Current Inpatient Medications Albuterol (Albut/Ipratrop 3mg/0.5mg Neb 3 Ml Vial) 3 ml NEB QIDR PRN PRN Reason: Shortness Of Breath Or Wheezing Stop: 07/14/21 06:59 Dextrose (Dextrose 50% 50 Ml Syringe) 25 - 50 ml IV UD PRN; Protocol PRN Reason: Hypoglycemia Protocol Stop: 07/14/21 01:46 Glucagon (Glucagon For Inj 1 Mg Vial) 1 mg SQ UD PRN; Protocol PRN Reason: Hypoglycemia Protocol Stop: 07/14/21 01:46 Glucose (Glucose 10 Tabs/Tube) 4 - 8 tabs PO UD PRN; Protocol PRN Reason: Hypoglycemia Protocol Stop: 07/14/21 01:46 Glucose (Glucose 40% Gel 15 Gm Tube) 15 - 30 gm PO UD PRN; Protocol PRN Reason: Hypoglycemia Protocol Stop: 07/14/21 01:46 Guaifenesin/Codeine Phosphate (Guaifenesin/Codeine 100mg/10mg 5ml Udc) 5 ml PO Q6H PRN PRN Reason: Cough Stop: 07/15/21 11:41 Last Admin: 06/16/21 03:24 Dose: 5 ml Documented by: Heparin Sodium (Porcine) (Heparin Sod 5,000 Unit/0.5 Ml Vial) 7,500 units SQ Q8 [facility] Stop: 07/14/21 05:59 Last Admin: 06/17/21 13:48 Dose: 7,500 units Documented by: Dexamethasone 6 mg/ Syringe 1.5 mls @ 1 mls/min IV Q24H [facility] Stop: 07/14/21 08:59 Last Admin: 06/17/21 09:04 Dose: 1 mls/min Documented by: Ceftriaxone Sodium 1,000 mg/ (Dextrose) 50 mls @ 100 mls/hr IV Q24H [facility]; Protocol Stop: 06/24/21 19:59 Last Infusion: 06/16/21 21:21 Dose: Infused Documented by: Azithromycin 500 mg/ Dextrose 255 mls @ 125 mls/hr IV DAILY [facility] Stop: 06/21/21 08:59 Last Infusion: 06/17/21 13:34 Dose: Infused Documented by: Insulin Aspart (Insulin Aspart 100 Units/Ml 3 Ml Pen) 0 units SC ACHS [facility] Stop: 07/16/21 21:59 Last Admin: 06/17/21 13:20 Dose: 2 units Documented by: Insulin Glargine (Insulin Glargine Solostar 100 Units/Ml 3 Ml Pen) 10 units SC DAILY [facility] Stop: 07/17/21 08:59 Last Admin: 06/17/21 09:05 Dose: 10 units Documented by: Miscellaneous (Carbohydrates For Hypoglycemia ) 15 - 30 gm PO UD PRN PRN Reason: Hypoglycemia Protocol Stop: 07/14/21 01:46 Nystatin (Nystatin Susp 500,000 U/5 Ml Udc) 5 ml PO QID [facility] Stop: 06/27/21 08:59 Last Admin: 06/17/21 13:48 Dose: 5 ml Documented by: Ondansetron HCl (Ondansetron Inj 2 Mg/Ml 2 Ml Vial) 4 mg IV Q6H PRN PRN Reason: Nausea Stop: 07/14/21 01:46 Promethazine HCl (Promethazine Hcl 12.5 Mg/10 Ml Udp) 12.5 mg PO Q6H PRN PRN Reason: Cough Stop: 07/15/21 11:41 Sennosides (Senna 8.6 Mg Tab) 17.2 mg PO QAM [facility] Stop: 07/17/21 08:59 Last Admin: 06/17/21 10:49 Dose: 17.2 mg Documented by: Simvastatin (Simvastatin 20 Mg Tab) 20 mg PO QPM [facility] Stop: 07/14/21 20:59 Last Admin: 06/16/21 20:15 Dose: 20 mg Documented by: Vitamin D (Cholecalciferol 1,000 Units 25 Mcg Tab) 1,000 units PO QAM [facility] Stop: 07/14/21 08:59 Last Admin: 06/17/21 09:06 Dose: 1,000 units Documented by: PG Care Time/CCT Total # of Minutes Spent Total Time Spent with Patient: Total time spent is greater than 50% in coordination of care (as documented) at patient's floor/unit and/or counseling patient: Coding Level of Care Code 08764 Subseq Hosp Care Lvl 2 Diagnoses 2019 novel coronavirus-infected pneumonia (NCIP) U07.1; J12.82 Hypoxia R09.02 Elevated troponin R77.8 Stage III chronic kidney disease N18.3 Hypertension I10 Hyperlipidemia E78.5 Diabetes mellitus with kidney disease E11.21
[2021-06-17] MEDS: POLYETHYLENE (MIRALAX) 17 GM PACK PO SCH (17:48)
[2021-06-17] MEDS: cefTRIAXone SODIUM 1,000 MG in DEXTROSE 5% 50 ML IV SCH (19:55)
[2021-06-17] MEDS: SIMVASTATIN 20 MG TAB PO SCH (19:56)
[2021-06-17] MEDS ORDERED: QUEtiapine FUMARATE 25 MG TABLET PO ONE (21:50)
[2021-06-18] MEDS ORDERED: OLANZapine ZYDIS 5 MG ORALLY DIS. TAB PO STA (03:12)
[2021-06-18] MEDS: HEPARIN SOD 5,000 UNIT/0.5 ML VIAL SQ SCH (05:19)
[2021-06-18 08:26] LABS: BUN Creatinine Ratio 27.8 (10-20); Calcium 8.9 mg/dl (8.5-10.1); Creatinine Clr Calc Pharmacy 15.4 ml/min; Est GFR (African American) 19.2 ml/min; Est GFR (Non-African American) 16.6 ml/min; Potassium 3.9 mmol/L (3.5-5.1)
[2021-06-18] MEDS: POLYETHYLENE (MIRALAX) 17 GM PACK PO SCH (08:47)
[2021-06-18] MEDS: dexAMETHasone 6 MG in SYRINGE 0 ML IV SCH (08:47)
[2021-06-18] MEDS: NYSTATIN SUSP 500,000 U/5 ML UDC PO SCH ×4 (08:47→19:54)
[2021-06-18] MEDS: CHOLECALCIFEROL 1,000 UNITS 25 MCG TAB PO SCH (08:47)
[2021-06-18] MEDS: SENNA 8.6 MG TAB PO SCH (08:47)
[2021-06-18 09:01] LABS: Hematocrit (blood only) 15.4 % (37-47); Hemoglobin 4.9 g/dL (12.0-16.0); Mean Corpuscular Hemoglobin 30.6 pg (25-34); Mean Corpuscular Hgb Conc 31.8 g/dL (32-36); Mean Corpuscular Volume 96.3 fL (80-100); Mean Platelet Volume 9.9 fL (7.4-10.4); Nucleated RBC # (auto) 0.39 K/uL (0-0); Nucleated RBC % (auto) 2.8 %; Platelet Count 470 K/uL (130-400); RDW Coefficient of Variation 12.9 % (11.5-14.5); RDW Standard Deviation 44.4 fL (36.4-46.3); White Blood Count 13.92 K/uL (4.8-10.8)
[2021-06-18 09:06] LABS: Basophils # (auto) 0.04 K/uL (0-0.2); Basophils % (auto) 0.3 %; Immature Granulocytes # (auto) 1.08 K/uL (0.00-0.02); Immature Granulocytes % (auto) 7.8 %; Lymphocytes # (auto) 1.14 K/uL (1.2-3.4); Lymphocytes % (auto) 8.2 %; Monocytes # (auto) 0.92 K/uL (0.11-0.59); Monocytes % (auto) 6.6 %; Neutrophils # (auto) 10.74 K/uL (1.4-6.5); Neutrophils % (auto) 77.1 %; Polychromasia 1+
[2021-06-18] MEDS ORDERED: SODIUM CHLORIDE 0.9% 250 ML IV PRN (09:06)
--- NOTE | 2021-06-18 09:06 | Hospitalist Progress Note ---
Date of Service June 18, 2021 Assessment & Plan (1) Hematoma: Plan: left retroperitoneal, diagnosed on CT abd/pelvis give 2 units of PRBC should be self limiting give Morphine for pain control (2) Acute blood loss anemia: Plan: Hb was 4.9 this morning, down from 8.0 give 2 units of PRBC and repeat H/H consent obtained from her son (3) 2018 novel coronavirus-infected pneumonia (NCIP): Plan: COVID-19 pneumonia with hypoxia down to 6L wall high flow today Dexamethasone 6 mg IV daily Remdesivir IV per protocol Azithromycin 500 mg IV daily plus ceftriaxone to cover for any associated pneumonia Guaifenesin extended release 1200 mg p.o. twice daily Vitamin D 1000 international units p.o. daily Duonebs every 4 hours while awake and every 2 hours when necessary (4) Hypoxia: Plan: not requiring BIPAP today down to 6L wall high flow (5) Elevated troponin: Plan: Pt with elevated troponin in face of illness, likely type 2 [place] from physiologic demand (6) Stage III chronic kidney disease: Plan: Creatinine is 2.75, giving 2 units of PRBC which may help even more monitor UO with palacios catheter (7) Hypertension: Plan: Hold BP medications given drop in H/H (8) Hyperlipidemia: Plan: Continue simvastatin (9) Diabetes mellitus with kidney disease: Plan: Hold Metformin Place on Accu-Cheks before meals and at bedtime with NovoLog coverage per scale monitor for hypoglycemia, no issues Plan: wean oxygen as tolerated, follow H/H discussed with son that she had chosen to be DNR/DNI on admission, he understood and agreed, he was relieved he would not have to make that decision for her Admission and Anticipated Discharge Date Admission Date: June 13, 2021 Subjective patient c/o some left sided abdominal pain, flank pain this morning Hemoglobin found to be 4.9, down from 8.0 on 06/16, no noted melena, actually she is constipated sent for CT abdomen/pelvis without IV contrast, as her CrCl is < 30 left sided retroperitoneal bleed found, should be self limiting, will monitor Hb and BP (which is high) give Morphine for pain, good relief I spoke with her son Jose Raul who lives [address] [place], he gave consent for PRBC tr ansfusion as she is too confused to provide consent the patient's blood pressure and HR are actually stable her breathing is stable on only 6L and could go lower Review of Systems Review of Systems: All systems reviewed & are unremarkable except as noted in Subjective Gastrointestinal: + abdominal pain (left flank, LLQ due to hematoma) Physical Exam Physical Exam: General: well developed, thing elderly female, uncomfortable due to flank pain Neck: supple, trachea midline, normal thyroid Lungs: clear to auscultation bilaterally, normal respiratory effort, no accessory muscle use, no distress Heart: regular S1 and S2, no murmur, peripheral pulses normal, capillary refill normal, no edema Abdomen: soft, NT, ND, + BS, no hepatomegaly, normal to percussion Extremities: normal in appearance, no cyanosis, no petechiae, strength is 5/5 bilaterally Neuro: awake, cooperative, moves all extremities, no focal motor deficits, CN II-XII intact, sensation in extremities intact, normal speech Skin: warm, dry, no rash, normal turgor Psych: lethargic but she wakes up, oriented to person and place, poor historian Results & Data Results & Data ([facility]) Vital Signs (Past 12 Hours) Vital Signs Temp Pulse Pulse Pulse Resp BP BP 06/18/21 07:57 36.6 C 96 H 24 146/82 H 06/18/21 03:06 36.4 C L 97 H 28 H 144/75 H 06/18/21 02:01 06/17/21 22:32 36 C L 95 H 18 150/82 H 06/17/21 22:19 97 H Pulse Ox 06/18/21 07:57 100 06/18/21 03:06 92 06/18/21 02:01 92 06/17/21 22:32 99 06/17/21 22:19 Laboratory Results Laboratory Results - last 24 hr 06/17/21 06/17/21 06/17/21 12:00 16:55 20:12 WBC RBC Hgb Hct MCV MCH MCHC RDW Std Deviation RDW Coeff of Suellen Plt Count MPV Immature Gran % (Auto) Neut % (Auto) Lymph % (Auto) [place] % (Auto) Eos % (Auto) Baso % (Auto) Neut # (Auto) Lymph # (Auto) [place] # (Auto) Eos # (Auto) Baso # (Auto) Immature Gran # (Auto) Absolute Nucleated RBC Nucleated RBC % (auto) Polychromasia Sodium Potassium Chloride Carbon Dioxide Anion Gap BUN Creatinine Est Cr Clr Drug Dosing Est GFR ( Amer) Est GFR (Non-Af Amer) BUN/Creatinine Ratio Glucose POC Glucose 196 H 184 H 206 H Calcium 06/18/21 06/18/21 06/18/21 05:38 05:38 07:24 WBC 13.92 H RBC 1.60 L Hgb 4.9 L* D Hct 15.4 L* MCV 96.3 MCH 30.6 MCHC 31.8 L RDW Std Deviation 44.4 RDW Coeff of Suellen 12.9 Plt Count 470 H MPV 9.9 Immature Gran % (Auto) 7.8 Neut % (Auto) 77.1 Lymph % (Auto) 8.2 [place] % (Auto) 6.6 Eos % (Auto) 0.0 Baso % (Auto) 0.3 Neut # (Auto) 10.74 H Lymph # (Auto) 1.14 L [place] # (Auto) 0.92 H Eos # (Auto) 0.00 Baso # (Auto) 0.04 Immature Gran # (Auto) 1.08 H Absolute Nucleated RBC 0.39 H Nucleated RBC % (auto) 2.8 Polychromasia 1+ Sodium 144 Potassium 3.9 Chloride 108 H Carbon Dioxide 24 Anion Gap 13.0 H BUN 76 H Creatinine 2.75 H Est Cr Clr Drug Dosing 15.4 Est GFR ( Amer) 19.2 Est GFR (Non-Af Amer) 16.6 BUN/Creatinine Ratio 27.8 H Glucose 155 H POC Glucose 151 H Calcium 8.[address] abdomen/pelvis MPRESSION: 1. Interval development of a large retroperitoneal hematoma on the left extending along the iliopsoas muscle from the abdomen into the left groin. 2. No other evidence for acute intra-abdominal or pelvic abnormality on these limited noncontrast images. 3. Additional nonacute findings are delineated above. Medications Administered Current Inpatient Medications Albuterol (Albut/Ipratrop 3mg/0.5mg Neb 3 Ml Vial) 3 ml NEB QIDR PRN PRN Reason: Shortness Of Breath Or Wheezing Stop: 07/14/21 06:59 Dextrose (Dextrose 50% 50 Ml Syringe) 25 - 50 ml IV UD PRN; Protocol PRN Reason: Hypoglycemia Protocol Stop: 07/14/21 01:46 Glucagon (Glucagon For Inj 1 Mg Vial) 1 mg SQ UD PRN; Protocol PRN Reason: Hypoglycemia Protocol Stop: 07/14/21 01:46 Glucose (Glucose 10 Tabs/Tube) 4 - 8 tabs PO UD PRN; Protocol PRN Reason: Hypoglycemia Protocol Stop: 07/14/21 01:46 Glucose (Glucose 40% Gel 15 Gm Tube) 15 - 30 gm PO UD PRN; Protocol PRN Reason: Hypoglycemia Protocol Stop: 07/14/21 01:46 Guaifenesin/Codeine Phosphate (Guaifenesin/Codeine 100mg/10mg 5ml Udc) 5 ml PO Q6H PRN PRN Reason: Cough Stop: 07/15/21 11:41 Last Admin: 06/16/21 03:24 Dose: 5 ml Documented by: Heparin Sodium (Porcine) (Heparin Sod 5,000 Unit/0.5 Ml Vial) 7,500 units SQ Q8 [facility] Stop: 07/14/21 05:59 Last Admin: 06/18/21 05:19 Dose: 7,500 units Documented by: Dexamethasone 6 mg/ Syringe 1.5 mls @ 1 mls/min IV Q24H [facility] Stop: 07/14/21 08:59 Last Admin: 06/18/21 08:47 Dose: 1 mls/min Documented by: Ceftriaxone Sodium 1,000 mg/ (Dextrose) 50 mls @ 100 mls/hr IV Q24H [facility]; Protocol Stop: 06/24/21 19:59 Last Infusion: 06/17/21 22:33 Dose: Infused Documented by: Azithromycin 500 mg/ Dextrose 255 mls @ 125 mls/hr IV DAILY [facility] Stop: 06/21/21 08:59 Last Infusion: 06/17/21 13:34 Dose: Infused Documented by: Insulin Aspart (Insulin Aspart 100 Units/Ml 3 Ml Pen) 0 units SC ACHS [facility] Stop: 07/16/21 21:59 Last Admin: 06/17/21 21:53 Dose: 2 units Documented by: Insulin Glargine (Insulin Glargine Solostar 100 Units/Ml 3 Ml Pen) 10 units SC DAILY [facility] Stop: 07/17/21 08:59 Last Admin: 06/17/21 09:05 Dose: 10 units Documented by: Miscellaneous (Carbohydrates For Hypoglycemia ) 15 - 30 gm PO UD PRN PRN Reason: Hypoglycemia Protocol Stop: 07/14/21 01:46 Nystatin (Nystatin Susp 500,000 U/5 Ml Udc) 5 ml PO QID [facility] Stop: 06/27/21 08:59 Last Admin: 06/18/21 08:47 Dose: 5 ml Documented by: Ondansetron HCl (Ondansetron Inj 2 Mg/Ml 2 Ml Vial) 4 mg IV Q6H PRN PRN Reason: Nausea Stop: 07/14/21 01:46 Polyethylene Glycol (Polyethylene (Miralax) 17 Gm Pack) 17 gm PO DAILY [facility] Stop: 07/17/21 16:44 Last Admin: 06/18/21 08:47 Dose: 17 gm Documented by: Promethazine HCl (Promethazine Hcl 12.5 Mg/10 Ml Udp) 12.5 mg PO Q6H PRN PRN Reason: Cough Stop: 07/15/21 11:41 Sennosides (Senna 8.6 Mg Tab) 17.2 mg PO QAM [facility] Stop: 07/17/21 08:59 Last Admin: 06/18/21 08:47 Dose: 17.2 mg Documented by: Simvastatin (Simvastatin 20 Mg Tab) 20 mg PO QPM [facility] Stop: 07/14/21 20:59 Last Admin: 06/17/21 19:56 Dose: 20 mg Documented by: Vitamin D (Cholecalciferol 1,000 Units 25 Mcg Tab) 1,000 units PO QAM [facility] Stop: 07/14/21 08:59 Last Admin: 06/18/21 08:47 Dose: 1,000 units Documented by: PG Care Time/CCT Total # of Minutes Spent Total Time Spent: 45 Total Time Spent with Patient: Total time spent is greater than 50% in coordination of care (as documented) at patient's floor/unit and/or counseling patient: Coding Level of Care Code 14633 Subseq Hosp Care Lvl 3 (25 - SIGNIFICANT, SEPARATELY IDENTIFIABLE ) Diagnoses 2019 novel coronavirus-infected pneumonia (NCIP) U07.1; J12.82 Hypoxia R09.02 Elevated troponin R77.8 Stage III chronic kidney disease N18.3 Hypertension I10 Hyperlipidemia E78.5 Diabetes mellitus with kidney disease E11.21 Hematoma T14.8XXA Acute blood loss anemia D62
[2021-06-18] MEDS: AZITHROMYCIN 500 MG in DEXTROSE 5% 250 ML IV SCH (09:19)
[2021-06-18] MEDS: INSULIN GLARGINE SOLOSTAR 100 UNITS/ML 3 ML PEN SC SCH (09:19)
[2021-06-18] MEDS: INSULIN ASPART 100 UNITS/ML 3 ML PEN SC SCH ×4 (09:19→22:07)
--- NOTE | 2021-06-18 11:44 | CT Scan Report ---
CT abd pelvis wo con CLINICAL HISTORY: Acute drop in hemoglobin, back pain COMPARISON STUDY: 05/08/2013 CT DOSE: 541.08 mGycm TECHNIQUE: Standard CT of the Abdomen and Pelvis was performed without IV contrast. The patient did not receive oral contrast. A dose lowering technique was utilized adhering to the principles of JENNA Rees. FINDINGS: Lung base: There is minimal bibasilar atelectasis. Abdominal cavity: There is no evidence for abdominal mass, adenopathy or ascites. However, there is evidence for a large retroperitoneal hematoma on the left with extensive blood pres ent and measures at least 16.5 x 12 x 10.6 cm in dimension. It involves and extends along the iliopso as muscle and into the soft tissues anterior to the hip as well. Liver: The liver is homogeneous in attenuation on these limited noncontrast images.. Spleen: The spleen is homogeneous in attenuation on these limited noncontrast images. Pancreas: The pancreas is homogeneous in attenuation on these limited noncontrast images. Gall Bladder: There is evidence of previous cholecystectomy. Adrenal glands: The adrenal glands are normal in size and attenuation on these limited noncontrast im ages. Kidneys: There is mild atrophy of the right kidney when compared to the left. There is no evidence fo r renal calculus or hydronephrosis bilaterally. There appears to have been interval development of cy sts involving the superior and inferior poles of the left kidney. However, follow-up ultrasound is re commended for further evaluation as these are not well seen on this noncontrast study. Bowel: The bowel loops are normally placed within the abdomen and pelvis without evidence for dilatat ion or obstruction. There is sigmoid diverticulosis without evidence for diverticulitis. There are no inflammatory changes present. There is no evidence for free air. Bladder: Das catheter is present within the bladder. : There is no evidence for pelvic mass or adenopathy. Vasculature: There is no evidence for focal aneurysmal dilatation of the abdominal aorta. Atheroscler otic calcification is present. Osseous structures: There is no acute osseous pathology. Extensive degenerative changes are seen invo lving the lumbar spine. IMPRESSION: 1. Interval development of a large retroperitoneal hematoma on the left extending along the iliopsoas muscle from the abdomen into the left groin. 2. No other evidence for acute intra-abdominal or pelvic abnormality on these limited noncontrast sara ges. 3. Additional nonacute findings are delineated above. Clinical result will be sent to the floor. ACT 112: Negative or not required by law. Electronically signed by: Manolo Quinn M.D. 06/18/2021 11:42 AM
[2021-06-18] MEDS: MoRPHine SULFATE 2 MG/ML CARP IV PRN ×2 (13:24→19:51)
[2021-06-18] MEDS ORDERED: MoRPHine SULFATE 2 MG/ML CARP IV STA ×2 (14:40→20:36)
[2021-06-18 16:57] LABS: Hematocrit (blood only) 26.5 % (37-47); Hemoglobin 8.9 g/dL (12.0-16.0)
[2021-06-18] MEDS: cefTRIAXone SODIUM 1,000 MG in DEXTROSE 5% 50 ML IV SCH (19:54)
[2021-06-18] MEDS: SIMVASTATIN 20 MG TAB PO SCH (19:54)
[2021-06-18 23:26] LABS: Hematocrit (blood only) 24.4 % (37-47); Hemoglobin 8.1 g/dL (12.0-16.0); Mean Corpuscular Hemoglobin 29.9 pg (25-34); Mean Platelet Volume 9.6 fL (7.4-10.4); Nucleated RBC # (auto) 0.57 K/uL (0-0); Platelet Count 343 K/uL (130-400); RDW Coefficient of Variation 15.4 % (11.5-14.5); RDW Standard Deviation 50.2 fL (36.4-46.3); Red Blood Count 2.71 M/uL (4.2-5.4); White Blood Count 13.97 K/uL (4.8-10.8)
[2021-06-19 00:18] LABS: Albumin Level 2.1 gm/dl (3.4-5.0); BUN Creatinine Ratio 26.8 (10-20); Calcium 8.8 mg/dl (8.5-10.1); Creatinine Clr Calc Pharmacy 14.5 ml/min; Est GFR (African American) 17.8 ml/min; Est GFR (Non-African American) 15.4 ml/min; Potassium 4.3 mmol/L (3.5-5.1)
[2021-06-19 00:21] LABS: Albumin Globulin Ratio 0.5 (0.9-2); Bilirubin,Total 0.3 mg/dl (0.2-1); Globulin 4.2 gm/dl (2.5-4.0); Total Protein 6.3 gm/dl (6.4-8.2)
[2021-06-19 00:32] LABS: INR 1.1 (0.9-1.1); Prothrombin Time 10.8 Seconds (9.0-12.0)
[2021-06-19 00:41] LABS: Mean Corpuscular Hgb Conc 33.2 g/dL (32-36)
--- NOTE | 2021-06-19 00:56 | Communication Note ---
Date of Service: June 19, 2021 Notified by nursing that patient has continued to complain of abdominal pain despite morphine administration in addition to concerns of increased distension of her abdomen. Patients abdomen examined with normoactive bowel sounds and soft, though agree visibly distended compared to the previous night. Due to recent retroperitoneal bleed with significant hemoglobin loss, will check CT scan of abdomen and pelvis in addition to repeat labs. -CT scan stat read noting a roughly 15% increase in the retroperitoneal bleed. Also noted was gaseous distention of the rectum measuring 7.6cm and moderate to severe degenerative changes in the lower lumbar spine including a grade 1 spondylolisthesis of L5 on S1. -Repeat CBC with hemoglobin 8.1, down from 8.9. Will continue repeat CBC in AM. -CMP increase in LFTs AST 226, ALT 165, Alk Phos 222, though suspect this is from recent rapid reduction in blood secondary to the bleed. 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 Resident Activity Tracking Resident Involvement: Resident Care Provided and Auto Rental Supervisor Coverage Note Care Provided: Adult Hospital Medicine
[2021-06-19 01:04] LABS: Basophils # (auto) 0.05 K/uL (0-0.2); Basophils % (auto) 0.4 %; Immature Granulocytes # (auto) 0.88 K/uL (0.00-0.02); Immature Granulocytes % (auto) 6.3 %; Lymphocytes # (auto) 1.01 K/uL (1.2-3.4); Lymphocytes % (auto) 7.2 %; Monocytes # (auto) 0.93 K/uL (0.11-0.59); Monocytes % (auto) 6.7 %; Neutrophils % (auto) 79.4 %; Polychromasia 1+
[2021-06-19] MEDS: MoRPHine SULFATE 2 MG/ML CARP IV PRN ×2 (02:52→11:14)
[2021-06-19 07:29] LABS: Hematocrit (blood only) 21.3 % (37-47); Hemoglobin 7.1 g/dL (12.0-16.0); Mean Corpuscular Hemoglobin 30.2 pg (25-34); Mean Corpuscular Hgb Conc 33.3 g/dL (32-36); Mean Corpuscular Volume 90.6 fL (80-100); Mean Platelet Volume 9.9 fL (7.4-10.4); Nucleated RBC # (auto) 0.36 K/uL (0-0); Platelet Count 315 K/uL (130-400); RDW Standard Deviation 52.4 fL (36.4-46.3); Red Blood Count 2.35 M/uL (4.2-5.4); White Blood Count 11.94 K/uL (4.8-10.8)
[2021-06-19] MEDS ORDERED: SODIUM CHLORIDE 0.9% 250 ML IV PRN (07:34)
--- NOTE | 2021-06-19 07:37 | CT Scan Report ---
ABDOMEN AND PELVIS CT WITHOUT CONTRAST CT DOSE: 777.86 mGy.cm HISTORY: Generalized abdominal pain. Worsening distention. TECHNIQUE: Multiaxial CT images of the abdomen and pelvis were performed without contrast. A dose lo wering technique was utilized adhering to the principles of ALARA. COMPARISON STUDY: Abdomen and pelvis CT 06/18/2021. FINDINGS: Patchy groundglass bibasilar airspace opacities. No pneumoperitoneum. No pneumatosis. Trace left pleural effusion. No fractures within the visualized osseous structures. The gallbladder appear s surgically absent. Mild intra and extra hepatic bile duct dilatation remains unchanged. This is lik brenda due to the patient's postcholecystectomy state. The unenhanced adrenal glands, pancreas, and kidn eys are within normal limits. No hydronephrosis. No retroperitoneal lymphadenopathy. The bladder is d ecompressed by Das catheter. The uterus is unremarkable. There is gaseous distention of the rectum. Colonic diverticulosis. No evidence for acute diverticulitis. Normal appendix. No bowel wall thicken ing or obstruction. There is a large diverticulum at the second portion of the duodenum, unchanged. M ild subcutaneous trace edema within the left flank and left lower extremity. Small amount of perisple lita hemorrhage is noted. There is again noted enlarged left-sided retroperitoneal hematoma, which inv olves the left iliopsoas muscle. This measures approximately 22 x 11 x 10 cm. This has slightly incre ased in size compared the prior study. IMPRESSION: 1. Slight increase in size in the large left retroperitoneal hematoma primarily involving the iliopso as muscle. 2. No definite bowel wall thickening or obstruction. 3. Patchy bibasilar airspace opacities. This likely represents a viral pneumonia. ACT 112: Negative or not required by law. Electronically signed by: Randy Lazaro M.D. 06/19/2021 7:36 AM
[2021-06-19 07:55] LABS: Basophils # (auto) 0.04 K/uL (0-0.2); Basophils % (auto) 0.3 %; Immature Granulocytes # (auto) 0.62 K/uL (0.00-0.02); Immature Granulocytes % (auto) 5.2 %; Lymphocytes # (auto) 0.84 K/uL (1.2-3.4); Monocytes # (auto) 0.75 K/uL (0.11-0.59); Monocytes % (auto) 6.3 %; Neutrophils # (auto) 9.69 K/uL (1.4-6.5); Neutrophils % (auto) 81.2 %; Polychromasia 1+
[2021-06-19] MEDS: SENNA 8.6 MG TAB PO SCH (08:22)
[2021-06-19] MEDS: CHOLECALCIFEROL 1,000 UNITS 25 MCG TAB PO SCH (08:23)
[2021-06-19] MEDS: NYSTATIN SUSP 500,000 U/5 ML UDC PO SCH ×4 (08:23→20:08)
[2021-06-19] MEDS: POLYETHYLENE (MIRALAX) 17 GM PACK PO SCH (08:23)
[2021-06-19] MEDS: dexAMETHasone 6 MG in SYRINGE 0 ML IV SCH (08:24)
[2021-06-19] MEDS: INSULIN ASPART 100 UNITS/ML 3 ML PEN SC SCH ×4 (08:32→21:24)
[2021-06-19] MEDS: INSULIN GLARGINE SOLOSTAR 100 UNITS/ML 3 ML PEN SC SCH (08:32)
[2021-06-19] MEDS: AZITHROMYCIN 500 MG in DEXTROSE 5% 250 ML IV SCH (09:46)
[2021-06-19] MEDS ORDERED: MoRPHine SULFATE 2 MG/ML CARP IV PRN (11:29)
[2021-06-19] MEDS ORDERED: MoRPHine SULFATE 4 MG/ML 1 ML CARP\\VIAL IV STA (11:31)
--- NOTE | 2021-06-19 11:31 | Hospitalist Progress Note ---
Date of Service June 19, 2021 Assessment & Plan (1) Hematoma: Plan: left retroperitoneal, psoas muscle, diagnosed on CT abd/pelvis got 2 units of PRBC on 06/18, Hb is 7.1, give one more unit today should be self limiting but she is in a lot of pain will increase Morphine to 4mg q2 PRN patient keeps stating that she wants to , refusing oxygen will wait to hear back from her son Jose Raul as she is acting delirious, not sure she is in a state of mind to make decisions could reach out to tertiary care for IR intervention but difficult to make that with patient refusing care not sure IR would even be indicated as the bleeding should stop on its own (2) Acute blood loss anemia: Plan: Hb was 4.9 on 06/18, down from 8.0 got 2 units of PRBC and repeat H/H was 8.1 this morning Hb is 7.1, give an additional one unit consent obtained from her son (3) 2018 novel coronavirus-infected pneumonia (NCIP): Plan: COVID-19 pneumonia with hypoxia down to 4L wall high flow today but refusing to wear oxygen will try to make her sleep with morphine so she wears oxygen Dexamethasone 6 mg IV daily Remdesivir IV per protocol Azithromycin 500 mg IV daily plus ceftriaxone to cover for any associated pneumonia Guaifenesin extended release 1200 mg p.o. twice daily Vitamin D 1000 international units p.o. daily Duonebs PRN seems to be improving as she is not requiring as much oxygen (4) Hypoxia: Plan: not requiring BIPAP today down to 4L wall high flow (5) Elevated troponin: Plan: Pt with elevated troponin in face of illness, likely type 2 [place] from physiologic demand (6) Stage III chronic kidney disease: Plan: Creatinine is 2.9, electrolytes stable monitor UO with palacios catheter (7) Hypertension: Plan: Hold BP medications given drop in H/H (8) Hyperlipidemia: Plan: Continue simvastatin (9) Diabetes mellitus with kidney disease: Plan: Hold Metformin Place on Accu-Cheks before meals and at bedtime with NovoLog coverage per scale monitor for hypoglycemia, no issues Plan: need better pain control with Morphine 4mg IV try to keep oxygen in place if she can sleep wait for call from son Jose Raul to discuss plan of care discussed with son that she had chosen to be DNR/DNI on admission, he understood and agreed, he was relieved he would not have to make that decision for her Admission and Anticipated Discharge Date Admission Date: June 13, 2021 Subjective patient in a lot of pain right now, due to expanding left psoas hematoma, retroperitoneal bleed her oxygen saturations are stable and she is breathing okay Hb is 7.1 this morning, BP and HR stable, ordered an additional unit of PRBC patient is very agitated, pulling off oxygen, screaming at RN she says "I just want to , just let me " explained to her that I can give her something for the pain, she screamed "no, just let me " her oxygen was off and she was desaturating, I tried to put it back on and she ripped it off, said "I want to " I asked her what her son's name was and where does he live, she told me accurately that his name is Jose Raul and he lives in [place] will increase Morphine to 4mg IV I called Jose Raul to discuss situation, no answer, left a message to call me back Jose Raul and I spoke yesterday about the patient, how she wishes to be a DNR/DNI, he agreed Review of Systems Review of Systems: All systems reviewed & are unremarkable except as noted in Subjective Gastrointestinal: + abdominal pain (severe, screaming out) Physical Exam Physical Exam: General: well developed, thing elderly female, uncomfortable due to flank pain/abdominal pain EENT: dry mucous membranes Neck: supple, trachea midline, normal thyroid Lungs: clear to auscultation bilaterally, normal respiratory effort, no accessory muscle use, no distress Heart: regular S1 and S2, no murmur, peripheral pulses normal, capillary refill normal, no edema Abdomen: soft, NT, ND, + BS, no hepatomegaly, normal to percussion Extremities: normal in appearance, no cyanosis, no petechiae, strength is 5/5 bilaterally Neuro: awake, cooperative, moves all extremities, no focal motor deficits, CN II-XII intact, sensation in extremities intact, normal speech Skin: warm, dry, no rash, normal turgor Psych: agitated, yelling out, pulling off oxygen Results & Data Results & Data ([facility]) Vital Signs (Past 12 Hours) Vital Signs Temp Pulse Pulse Pulse Resp BP BP 06/19/21 11:02 36.9 C 92 H 22 131/81 11/29/21 10:46 36.9 C 86 20 138/77 06/19/21 07:26 37.0 C 74 19 143/78 H 06/19/21 03:05 36.9 C 88 20 132/93 06/19/21 02:52 152/80 H 06/18/21 23:33 37.1 C 90 20 133/74 Pulse Ox 06/19/21 11:02 95 06/19/21 10:46 94 06/19/21 07:26 93 06/19/21 03:05 92 06/19/21 02:52 06/18/21 23:33 92 Laboratory Results Laboratory Results - last 24 hr 06/18/21 06/18/21 06/18/21 09:51 16:19 16:38 WBC RBC Hgb 8.9 L D Hct 26.5 L MCV MCH MCHC RDW Std Deviation RDW Coeff of Suellen Plt Count MPV Immature Gran % (Auto) Neut % (Auto) Lymph % (Auto) Chase % (Auto) Eos % (Auto) Baso % (Auto) Neut # (Auto) Lymph # (Auto) Chase # (Auto) Eos # (Auto) Baso # (Auto) Immature Gran # (Auto) Absolute Nucleated RBC Nucleated RBC % (auto) Polychromasia PT INR Sodium Potassium Chloride Carbon Dioxide Anion Gap BUN Creatinine Est Cr Clr Drug Dosing Est GFR ( Amer) Est GFR (Non-Af Amer) BUN/Creatinine Ratio Glucose POC Glucose 178 H Lactate Calcium Total Bilirubin AST ALT Alkaline Phosphatase Ammonia Total Protein Albumin Globulin Albumin/Globulin Ratio Blood Type A Negative Antibody Screen NEGATIVE Crossmatch See Detail 06/18/21 06/18/21 06/18/21 20:57 23:10 23:40 WBC 13.97 H RBC 2.71 L Hgb 8.1 L Hct 24.4 L MCV 90.0 D MCH 29.9 MCHC 33.2 RDW Std Deviation 50.2 H RDW Coeff of Suellen 15.4 H Plt Count 343 MPV 9.6 Immature Gran % (Auto) 6.3 Neut % (Auto) 79.4 Lymph % (Auto) 7.2 Chase % (Auto) 6.7 Eos % (Auto) 0.0 Baso % (Auto) 0.4 Neut # (Auto) 11.10 H Lymph # (Auto) 1.01 L Chase # (Auto) 0.93 H Eos # (Auto) 0.00 Baso # (Auto) 0.05 Immature Gran # (Auto) 0.88 H Absolute Nucleated RBC 0.57 H Nucleated RBC % (auto) 4.0 Polychromasia 1+ PT INR Sodium 145 Potassium 4.3 Chloride 108 H Carbon Dioxide 26 Anion Gap 11.0 BUN 78 H Creatinine 2.92 H Est Cr Clr Drug Dosing 14.5 Est GFR ( Amer) 17.8 Est GFR (Non-Af Amer) 15.4 BUN/Creatinine Ratio 26.8 H Glucose 149 H POC Glucose 169 H Lactate Calcium 8.8 Total Bilirubin 0.3 AST 226 H ALT 165 H Alkaline Phosphatase 222 H Ammonia Total Protein 6.3 L Albumin 2.1 L Globulin 4.2 H Albumin/Globulin Ratio 0.5 L Blood Type Antibody Screen Crossmatch 06/18/21 06/18/21 06/19/21 23:45 23:46 00:07 WBC RBC Hgb Hct MCV MCH MCHC RDW Std Deviation RDW Coeff of Suellen Plt Count MPV Immature Gran % (Auto) Neut % (Auto) Lymph % (Auto) Chase % (Auto) Eos % (Auto) Baso % (Auto) Neut # (Auto) Lymph # (Auto) Chase # (Auto) Eos # (Auto) Baso # (Auto) Immature Gran # (Auto) Absolute Nucleated RBC Nucleated RBC % (auto) Polychromasia PT 10.8 INR 1.1 Sodium Potassium Chloride Carbon Dioxide Anion Gap BUN Creatinine Est Cr Clr Drug Dosing Est GFR ( Amer) Est GFR (Non-Af Amer) BUN/Creatinine Ratio Glucose POC Glucose Lactate 1.3 Calcium Total Bilirubin AST ALT Alkaline Phosphatase Ammonia 20.8 Total Protein Albumin Globulin Albumin/Globulin Ratio Blood Type Antibody Screen Crossmatch 06/19/21 06/19/21 07:01 07:24 WBC 11.94 H RBC 2.35 L Hgb 7.1 L Hct 21.3 L MCV 90.6 MCH 30.2 MCHC 33.3 RDW Std Deviation 52.4 H RDW Coeff of Suellen 16.0 H Plt Count 315 MPV 9.9 Immature Gran % (Auto) 5.2 Neut % (Auto) 81.2 Lymph % (Auto) 7.0 Chase % (Auto) 6.3 Eos % (Auto) 0.0 Baso % (Auto) 0.3 Neut # (Auto) 9.69 H Lymph # (Auto) 0.84 L Chase # (Auto) 0.75 H Eos # (Auto) 0.00 Baso # (Auto) 0.04 Immature Gran # (Auto) 0.62 H Absolute Nucleated RBC 0.36 H Nucleated RBC % (auto) 3.0 Polychromasia 1+ PT INR Sodium Potassium Chloride Carbon Dioxide Anion Gap BUN Creatinine Est Cr Clr Drug Dosing Est GFR ( Amer) Est GFR (Non-Af Amer) BUN/Creatinine Ratio Glucose POC Glucose 157 H Lactate Calcium Total Bilirubin AST ALT Alkaline Phosphatase Ammonia Total Protein Albumin Globulin Albumin/Globulin Ratio Blood Type Antibody Screen Crossmatch Medications Administered Current Inpatient Medications Albuterol (Albut/Ipratrop 3mg/0.5mg Neb 3 Ml Vial) 3 ml NEB QIDR PRN PRN Reason: Shortness Of Breath Or Wheezing Stop: 07/14/21 06:59 Dextrose (Dextrose 50% 50 Ml Syringe) 25 - 50 ml IV UD PRN; Protocol PRN Reason: Hypoglycemia Protocol Stop: 07/14/21 01:46 Glucagon (Glucagon For Inj 1 Mg Vial) 1 mg SQ UD PRN; Protocol PRN Reason: Hypoglycemia Protocol Stop: 07/14/21 01:46 Glucose (Glucose 10 Tabs/Tube) 4 - 8 tabs PO UD PRN; Protocol PRN Reason: Hypoglycemia Protocol Stop: 07/14/21 01:46 Glucose (Glucose 40% Gel 15 Gm Tube) 15 - 30 gm PO UD PRN; Protocol PRN Reason: Hypoglycemia Protocol Stop: 07/14/21 01:46 Guaifenesin/Codeine Phosphate (Guaifenesin/Codeine 100mg/10mg 5ml Udc) 5 ml PO Q6H PRN PRN Reason: Cough Stop: 07/15/21 11:41 Last Admin: 06/16/21 03:24 Dose: 5 ml Documented by: Dexamethasone 6 mg/ Syringe 1.5 mls @ 1 mls/min IV Q24H JOBY Stop: 07/14/21 08:59 Last Admin: 06/19/21 08:24 Dose: 1 mls/min Documented by: Ceftriaxone Sodium 1,000 mg/ (Dextrose) 50 mls @ 100 mls/hr IV Q24H JOBY; Protocol Stop: 06/24/21 19:59 Last Infusion: 06/18/21 20:48 Dose: Infused Documented by: Azithromycin 500 mg/ Dextrose 255 mls @ 125 mls/hr IV DAILY JOBY Stop: 06/21/21 08:59 Last Admin: 06/19/21 09:46 Dose: 125 mls/hr Documented by: Sodium Chloride (Nss) 250 mls @ 15 mls/hr IV .[id number] PRN PRN Reason: For Transfusion Stop: 06/19/21 17:34 Insulin Aspart (Insulin Aspart 100 Units/Ml 3 Ml Pen) 0 units SC ACHS JOBY Stop: 07/16/21 21:59 Last Admin: 06/19/21 08:32 Dose: 3 units Documented by: Insulin Glargine (Insulin Glargine Solostar 100 Units/Ml 3 Ml Pen) 10 units SC DAILY JOBY Stop: 07/17/21 08:59 Last Admin: 06/19/21 08:32 Dose: 10 units Documented by: Miscellaneous (Carbohydrates For Hypoglycemia ) 15 - 30 gm PO UD PRN PRN Reason: Hypoglycemia Protocol Stop: 07/14/21 01:46 Morphine Sulfate (Morphine Sulfate 2 Mg/Ml Carp) 4 mg IV Q2H PRN PRN Reason: Pain Stop: 07/02/21 13:09 Morphine Sulfate (Morphine Sulfate 4 Mg/Ml 1 Ml Carp\\Vial) 4 mg IV NOW STA Stop: 06/19/21 11:32 Nystatin (Nystatin Susp 500,000 U/5 Ml Udc) 5 ml PO QID JOBY Stop: 06/27/21 08:59 Last Admin: 06/19/21 08:23 Dose: 5 ml Documented by: Ondansetron HCl (Ondansetron Inj 2 Mg/Ml 2 Ml Vial) 4 mg IV Q6H PRN PRN Reason: Nausea Stop: 07/14/21 01:46 Polyethylene Glycol (Polyethylene (Miralax) 17 Gm Pack) 17 gm PO DAILY JOBY Stop: 07/17/21 16:44 Last Admin: 06/19/21 08:23 Dose: 17 gm Documented by: Promethazine HCl (Promethazine Hcl 12.5 Mg/10 Ml Udp) 12.5 mg PO Q6H PRN PRN Reason: Cough Stop: 07/15/21 11:41 Sennosides (Senna 8.6 Mg Tab) 17.2 mg PO QAM JOBY Stop: 07/17/21 08:59 Last Admin: 06/19/21 08:22 Dose: 17.2 mg Documented by: Simvastatin (Simvastatin 20 Mg Tab) 20 mg PO QPM JOBY Stop: 07/14/21 20:59 Last Admin: 06/18/21 19:54 Dose: 20 mg Documented by: Vitamin D (Cholecalciferol 1,000 Units 25 Mcg Tab) 1,000 units PO QAM JOBY Stop: 07/14/21 08:59 Last Admin: 06/19/21 08:23 Dose: 1,000 units Documented by: PG Care Time/CCT Total # of Minutes Spent Total Time Spent: 33 Total Time Spent with Patient: Total time spent is greater than 50% in coordination of care (as documented) at patient's floor/unit and/or counseling patient: Coding Level of Care Code 06615 Subseq Hosp Care Lvl 3 (25 - SIGNIFICANT, SEPARATELY IDENTIFIABLE ) Diagnoses Hematoma T14.8XXA Acute blood loss anemia D62 2018 novel coronavirus-infected pneumonia (NCIP) U07.1; J12.82 Hypoxia R09.02 Elevated troponin R77.8 Stage III chronic kidney disease N18.3 Hypertension I10 Hyperlipidemia E78.5 Diabetes mellitus with kidney disease E11.21
[2021-06-19] MEDS ORDERED: MoRPHine SULFATE 4 MG/ML 1 ML CARP\\VIAL ONE (11:49)
[2021-06-19] MEDS: cefTRIAXone SODIUM 1,000 MG in DEXTROSE 5% 50 ML IV SCH (19:26)
[2021-06-19] MEDS: SIMVASTATIN 20 MG TAB PO SCH (20:08)
[2021-06-19] MEDS ORDERED: MoRPHine SULFATE 4 MG/ML 1 ML CARP\\VIAL IV PRN (21:18)
[2021-06-20 08:04] LABS: Basophils # (auto) 0.01 K/uL (0-0.2); Basophils % (auto) 0.1 %; Eosinophils # (auto) 0.01 K/uL (0-0.5); Eosinophils % (auto) 0.1 %; Hematocrit (blood only) 27.5 % (37-47); Hemoglobin 8.9 g/dL (12.0-16.0); Immature Granulocytes # (auto) 0.39 K/uL (0.00-0.02); Immature Granulocytes % (auto) 3.8 %; Lymphocytes # (auto) 0.59 K/uL (1.2-3.4); Lymphocytes % (auto) 5.8 %; Mean Corpuscular Hemoglobin 28.7 pg (25-34); Mean Corpuscular Hgb Conc 32.4 g/dL (32-36); Mean Corpuscular Volume 88.7 fL (80-100); Mean Platelet Volume 10.2 fL (7.4-10.4); Monocytes # (auto) 0.63 K/uL (0.11-0.59); Monocytes % (auto) 6.2 %; Neutrophils # (auto) 8.61 K/uL (1.4-6.5); Nucleated RBC # (auto) 0.18 K/uL (0-0); Nucleated RBC % (auto) 1.8 %; Platelet Count 293 K/uL (130-400); RDW Coefficient of Variation 17.4 % (11.5-14.5); RDW Standard Deviation 55.5 fL (36.4-46.3); White Blood Count 10.24 K/uL (4.8-10.8)
[2021-06-20 08:35] LABS: BUN Creatinine Ratio 30.2 (10-20); Calcium 8.5 mg/dl (8.5-10.1); Creatinine Clr Calc Pharmacy 14.6 ml/min; Est GFR (African American) 19.2 ml/min; Est GFR (Non-African American) 16.6 ml/min; Potassium 4.5 mmol/L (3.5-5.1)
[2021-06-20] MEDS: INSULIN GLARGINE SOLOSTAR 100 UNITS/ML 3 ML PEN SC SCH (08:45)
[2021-06-20] MEDS: POLYETHYLENE (MIRALAX) 17 GM PACK PO SCH (09:00)
[2021-06-20] MEDS: SENNA 8.6 MG TAB PO SCH (09:00)
[2021-06-20] MEDS: NYSTATIN SUSP 500,000 U/5 ML UDC PO SCH ×4 (09:00→20:45)
[2021-06-20] MEDS: dexAMETHasone 6 MG in SYRINGE 0 ML IV SCH (09:00)
[2021-06-20] MEDS: CHOLECALCIFEROL 1,000 UNITS 25 MCG TAB PO SCH (09:01)
[2021-06-20] MEDS: INSULIN ASPART 100 UNITS/ML 3 ML PEN SC SCH ×4 (09:02→21:14)
[2021-06-20] MEDS: AZITHROMYCIN 500 MG in DEXTROSE 5% 250 ML IV SCH (09:11)
--- NOTE | 2021-06-20 10:24 | Hospitalist Progress Note ---
Date of Service June 20, 2021 Assessment & Plan (1) Hematoma: Plan: left retroperitoneal, psoas muscle, diagnosed on CT abd/pelvis s/p 3 units of PRBC hgb 8.9 pain is lessening (2) Acute blood loss anemia: Plan: Hb was 4.9 on 06/18, down from 8.0 got 3 units of PRBC consent obtained from her son (3) 2018 novel coronavirus-infected pneumonia (NCIP): Plan: COVID-19 pneumonia with hypoxia, without ARDS down to 4L wall high flow today Dexamethasone 6 mg IV daily Remdesivir IV completed per protocol Azithromycin 500 mg IV daily plus ceftriaxone to cover for any associated pneumonia Guaifenesin extended release 1200 mg p.o. twice daily Vitamin D 1000 international units p.o. daily Duonebs PRN seems to be improving as she is not requiring less (4) Hypoxia: Plan: not requiring BIPAP today down to 4L wall high flow (5) Elevated troponin: Plan: Pt with elevated troponin in face of illness, likely type 2 [place] from physiologic demand (6) Stage III chronic kidney disease: Plan: Creatinine is 2.9, electrolytes stable monitor UO with palacios catheter (7) Hypertension: Plan: Hold BP medications given drop in H/H (8) Hyperlipidemia: Plan: Continue simvastatin (9) Diabetes mellitus with kidney disease: Plan: Hold Metformin Place on Accu-Cheks before meals and at bedtime with NovoLog coverage per scale monitor for hypoglycemia, no issues Plan: Dr Borjas previously discussed with son that she had chosen to be DNR/DNI on admission, he understood and agreed, he was relieved he would not have to make that decision for her Admission and Anticipated Discharge Date Admission Date: June 13, 2021 Subjective patients pain is improving patient is now speaking and making some sense She seems more comfortable today Jose Raul and I spoke yesterday about the patient, how she wishes to be a DNR/DNI, he agreed Review of Systems Review of Systems: Mild distress and fatigue no headache, no visual changes no speech or swallowing issues no chest pain, pressure or palpitations Persistent shortness of breath, nonproductive cough abdminal pain and bruising left flank no dysuria, hematuria or frequency no focal joint pain or swelling no back pain, CVA tenderness or radicular pain no bruising, bleeding or rashes no focal signs of weakness or numbness or altered sensation, memory loss no complaints of anxiety or depression.. Physical Exam Physical Exam: The patient appeared to be improving but still significantly ill Vital signs as documented. Lungs rales in all lung cha Cardiac exam, Rhythm is regular.. No murmurs, rubs or gallops. Abdominal exam reveals normal bowel sounds, left flank ecchymosis and pain to examine Extremities are nonedematous and both pedal pulses are normal. Neurologic exam is alert and oriented, no focal loss of strength or sensation Skin is with abdomen and flank bruises Psychologically is with improving mentation Results & Data Results & Data ([facility]) Vital Signs (Past 12 Hours) Vital Signs Temp Pulse Pulse Resp BP Pulse Ox 06/20/21 07:24 97.9 F 71 18 150/80 H 94 06/20/21 07:07 62 06/20/21 03:04 97.5 F L 62 16 138/78 93 06/19/21 23:09 97.7 F 61 17 141/76 H 93 PG Care Time/CCT Total # of Minutes Spent Total Time Spent with Patient: Total time spent is greater than 50% in coordination of care (as documented) at patient's floor/unit and/or counseling patient: Coding Level of Care Code 02935 Subseq Hosp Care Lvl 2 Diagnoses Hematoma T14.8XXA Acute blood loss anemia D62 2019 novel coronavirus-infected pneumonia (NCIP) U07.1; J12.82 Hypoxia R09.02 Elevated troponin R77.8 Stage III chronic kidney disease N18.3 Hypertension I10 Hyperlipidemia E78.5 Diabetes mellitus with kidney disease E11.21
[2021-06-20] MEDS: cefTRIAXone SODIUM 1,000 MG in DEXTROSE 5% 50 ML IV SCH (20:40)
[2021-06-20] MEDS: SIMVASTATIN 20 MG TAB PO SCH (20:45)
[2021-06-20] MEDS: guaiFENesin/CODEINE 100MG/10MG 5ML UDC PO PRN (23:30)
[2021-06-21] MEDS: SENNA 8.6 MG TAB PO SCH (07:40)
[2021-06-21] MEDS: NYSTATIN SUSP 500,000 U/5 ML UDC PO SCH ×4 (07:40→21:29)
[2021-06-21] MEDS: dexAMETHasone 6 MG in SYRINGE 0 ML IV SCH (07:41)
[2021-06-21] MEDS: CHOLECALCIFEROL 1,000 UNITS 25 MCG TAB PO SCH (07:41)
[2021-06-21] MEDS: guaiFENesin/CODEINE 100MG/10MG 5ML UDC PO PRN (07:42)
[2021-06-21] MEDS: POLYETHYLENE (MIRALAX) 17 GM PACK PO SCH (07:42)
[2021-06-21] MEDS: INSULIN GLARGINE SOLOSTAR 100 UNITS/ML 3 ML PEN SC SCH (08:00)
[2021-06-21] MEDS: INSULIN ASPART 100 UNITS/ML 3 ML PEN SC SCH ×4 (08:30→21:19)
[2021-06-21] MEDS ORDERED: ACETAMINOPHEN 325 MG TAB ONE (11:11)
[2021-06-21] MEDS ORDERED: ACETAMINOPHEN 500 MG TAB ONE (11:14)
[2021-06-21] MEDS: ACETAMINOPHEN 500 MG TAB PO PRN (19:14)
[2021-06-21] MEDS: cefTRIAXone SODIUM 1,000 MG in DEXTROSE 5% 50 ML IV SCH (19:21)
--- NOTE | 2021-06-21 20:10 | Hospitalist Progress Note ---
Date of Service June 21, 2021 Assessment & Plan (1) Hematoma: Plan: left retroperitoneal, psoas muscle, diagnosed on CT abd/pelvis s/p 3 units of PRBC hgb 8.9/ pain is lessening (2) Acute blood loss anemia: Plan: Hb was 4.9 on 06/18, down from 8.0 got 3 units of PRBC consent obtained from her son Hemoglobin has been stable recheck on 06/22 (3) 2018 novel coronavirus-infected pneumonia (NCIP): Plan: COVID-19 pneumonia with hypoxia, without ARDS down to 4L wall high flow Dexamethasone 6 mg IV daily Remdesivir IV completed per protocol Azithromycin 500 mg IV daily plus ceftriaxone to cover for any associated pneumonia Guaifenesin extended release 1200 mg p.o. twice daily Vitamin D 1000 international units p.o. daily Duonebs PRN seems to be improving now off of airborne isolation precaution we will continue with PT OT evaluation and consideration if she needs a assisted facility (4) Hypoxia: Plan: not requiring BIPAP today down to 4L wall high flow (5) Elevated troponin: Plan: Pt with elevated troponin in face of illness, likely type 2 [place] from physiologic demand (6) Stage III chronic kidney disease: Plan: Creatinine is 2.75, electrolytes stable monitor UO with palacios catheter once more ambulatory will remove Palacios catheter (7) Hypertension: Plan: Blood pressure is creeping back up we will reinstitute blood pressure medication, amlodipine started 50% dose reduction 5 mg 06/21/2021 (8) Hyperlipidemia: Plan: Continue simvastatin (9) Diabetes mellitus with kidney disease: Plan: Hold Metformin Place on Accu-Cheks before meals and at bedtime with NovoLog coverage per scale monitor for hypoglycemia, no issues Plan: Dr Borjas previously discussed with son that she had chosen to be DNR/DNI on admission, he understood and agreed, he was relieved he would not have to make that decision for her Admission and Anticipated Discharge Date Admission Date: June 13, 2021 Subjective patient is improving she still mildly confused abdominal pain is improved greatly she is now off airborne isolation precautions as she is near 14 days out from her initial onset of symptoms Review of Systems Review of Systems: Mild distress and fatigue no headache, no visual changes no speech or swallowing issues no chest pain, pressure or palpitations Persistent shortness of breath, nonproductive cough abdminal pain and bruising left flank no dysuria, hematuria or frequency no focal joint pain or swelling no back pain, CVA tenderness or radicular pain no bruising, bleeding or rashes no focal signs of weakness or numbness or altered sensation, memory loss no complaints of anxiety or depression.. Physical Exam Physical Exam: The patient appeared to be improving but still significantly ill Vital signs as documented. Lungs rales in all lung cha Cardiac exam, Rhythm is regular.. No murmurs, rubs or gallops. Abdominal exam reveals normal bowel sounds, left flank ecchymosis and pain to examine Extremities are nonedematous and both pedal pulses are normal. Neurologic exam is alert and oriented, no focal loss of strength or sensation Skin is with abdomen and flank bruises Psychologically is with improving mentation Results & Data Results & Data ([facility]) Vital Signs (Past 12 Hours) Vital Signs Temp Pulse Resp BP Pulse Ox 06/21/21 16:01 98.2 F 78 158/80 H 96 06/21/21 12:00 97.9 F 88 20 149/80 H 96 PG Care Time/CCT Total # of Minutes Spent Total Time Spent with Patient: Total time spent is greater than 50% in coordination of care (as documented) at patient's floor/unit and/or counseling patient: Coding Level of Care Code 07115 Subseq Hosp Care Lvl 2 Diagnoses Hematoma T14.8XXA Acute blood loss anemia D62 2018 novel coronavirus-infected pneumonia (NCIP) U07.1; J12.82 Hypoxia R09.02 Elevated troponin R77.8 Stage III chronic kidney disease N18.3 Hypertension I10 Hyperlipidemia E78.5 Diabetes mellitus with kidney disease E11.21
[2021-06-21] MEDS: SIMVASTATIN 20 MG TAB PO SCH (21:29)
[2021-06-22] MEDS: ACETAMINOPHEN 500 MG TAB PO PRN (02:13)
[2021-06-22] MEDS ORDERED: amLODIPine BESYLATE 5 MG TAB PO SCH (09:00)
[2021-06-22] MEDS: INSULIN ASPART 100 UNITS/ML 3 ML PEN SC SCH ×4 (09:39→21:01)
[2021-06-22] MEDS: INSULIN GLARGINE SOLOSTAR 100 UNITS/ML 3 ML PEN SC SCH (09:40)
[2021-06-22] MEDS: POLYETHYLENE (MIRALAX) 17 GM PACK PO SCH (09:41)
[2021-06-22] MEDS: CHOLECALCIFEROL 1,000 UNITS 25 MCG TAB PO SCH (09:46)
[2021-06-22] MEDS: SENNA 8.6 MG TAB PO SCH (09:46)
[2021-06-22] MEDS: NYSTATIN SUSP 500,000 U/5 ML UDC PO SCH ×4 (09:47→20:59)
[2021-06-22] MEDS: dexAMETHasone 6 MG in SYRINGE 0 ML IV SCH (09:47)
--- NOTE | 2021-06-22 19:54 | Hospitalist Progress Note ---
Date of Service June 22, 2021 Assessment & Plan (1) Hematoma: Plan: left retroperitoneal, psoas muscle, diagnosed on CT abd/pelvis s/p 3 units of PRBC hgb 8.9/ pain is lessening (2) Acute blood loss anemia: Plan: Hb was 4.9 on 06/18, down from 8.0 got 3 units of PRBC consent obtained from her son Hemoglobin has been stable recheck on 06/22 (3) 2018 novel coronavirus-infected pneumonia (NCIP): Plan: COVID-19 pneumonia with hypoxia, without ARDS down to 4L wall high flow Dexamethasone 6 mg IV daily Remdesivir IV completed per protocol Azithromycin 500 mg IV daily plus ceftriaxone to cover for any associated pneumonia Guaifenesin extended release 1200 mg p.o. twice daily Vitamin D 1000 international units p.o. daily Duonebs PRN seems to be improving now off of airborne isolation precaution we will continue with PT OT evaluation and consideration if she needs a long term facility versus home with home health 6 click score of 20 (4) Hypoxia: Plan: not requiring BIPAP today down to 3L wall high flow (5) Elevated troponin: Plan: Pt with elevated troponin in face of illness, likely type 2 [place] from physiologic demand (6) Stage III chronic kidney disease: Plan: Creatinine is 2.75, electrolytes stable monitor UO with palacios catheter once more ambulatory will remove Palacios catheter (7) Hypertension: Plan: amlodipine resumed 10 mg dose on 06/23/2021 (8) Hyperlipidemia: Plan: Continue simvastatin (9) Diabetes mellitus with kidney disease: Plan: Hold Metformin Place on Accu-Cheks before meals and at bedtime with NovoLog coverage per scale monitor for hypoglycemia, no issues Plan: Dr Borjas previously discussed with son that she had chosen to be DNR/DNI on admission, he understood and agreed, he was relieved he would not have to make that decision for her Admission and Anticipated Discharge Date Admission Date: June 13, 2021 Subjective patient is improving she still mildly confused abdominal pain is improved greatly she is now off airborne isolation precautions as she is near 14 days out from her initial onset of symptoms Patient is adamant she is going home she has had poor performance with physical therapy 6 clicks score is 20 which is surprising continue to assess her improvement if she does go home she will need supportive care with home health Review of Systems Review of Systems: Mild distress and fatigue no headache, no visual changes no speech or swallowing issues no chest pain, pressure or palpitations Persistent shortness of breath, nonproductive cough abdminal pain and bruising left flank no dysuria, hematuria or frequency no focal joint pain or swelling no back pain, CVA tenderness or radicular pain no bruising, bleeding or rashes no focal signs of weakness or numbness or altered sensation, memory loss no complaints of anxiety or depression.. Physical Exam Physical Exam: The patient appeared to be improving but still significantly ill Vital signs as documented. Lungs rales in all lung cha Cardiac exam, Rhythm is regular.. No murmurs, rubs or gallops. Abdominal exam reveals normal bowel sounds, left flank ecchymosis and pain to examine Extremities are nonedematous and both pedal pulses are normal. Neurologic exam is alert and oriented, no focal loss of strength or sensation Skin is with abdomen and flank bruises Psychologically is with improving mentation Results & Data Results & Data ([facility] [place]) Vital Signs (Past 12 Hours) Vital Signs Temp Pulse Pulse Resp BP Pulse Ox 06/22/21 15:43 98.1 F 85 20 154/77 H 94 06/22/21 09:36 81 148/81 H 06/22/21 08:13 98.2 F 79 18 147/83 H 98 PG Care Time/CCT Total # of Minutes Spent Total Time Spent with Patient: Total time spent is greater than 50% in coordination of care (as documented) at patient's floor/unit and/or counseling patient: Coding Level of Care Code 67935 Subseq Hosp Care Lvl 2 Diagnoses Hematoma T14.8XXA Acute blood loss anemia D62 2018 novel coronavirus-infected pneumonia (NCIP) U07.1; J12.82 Hypoxia R09.02 Elevated troponin R77.8 Stage III chronic kidney disease N18.3 Hypertension I10 Hyperlipidemia E78.5 Diabetes mellitus with kidney disease E11.21
[2021-06-22] MEDS: cefTRIAXone SODIUM 1,000 MG in DEXTROSE 5% 50 ML IV SCH (20:58)
[2021-06-22] MEDS: SIMVASTATIN 20 MG TAB PO SCH (20:59)
[2021-06-23] MEDS: INSULIN ASPART 100 UNITS/ML 3 ML PEN SC SCH ×4 (09:26→21:04)
[2021-06-23] MEDS: INSULIN GLARGINE SOLOSTAR 100 UNITS/ML 3 ML PEN SC SCH (09:28)
[2021-06-23] MEDS: amLODIPine BESYLATE 5 MG TAB PO SCH (09:33)
[2021-06-23] MEDS: POLYETHYLENE (MIRALAX) 17 GM PACK PO SCH (09:34)
[2021-06-23] MEDS: CHOLECALCIFEROL 1,000 UNITS 25 MCG TAB PO SCH (09:35)
[2021-06-23] MEDS: SENNA 8.6 MG TAB PO SCH (09:36)
[2021-06-23] MEDS: dexAMETHasone 6 MG in SYRINGE 0 ML IV SCH (09:36)
[2021-06-23] MEDS: NYSTATIN SUSP 500,000 U/5 ML UDC PO SCH ×4 (09:37→21:03)
--- NOTE | 2021-06-23 19:13 | Hospitalist Progress Note ---
Date of Service June 23, 2021 Assessment & Plan (1) Hematoma: Plan: left retroperitoneal, psoas muscle, diagnosed on CT abd/pelvis s/p 3 units of PRBC hgb 8.9/ pain is lessening (2) Acute blood loss anemia: Plan: Hb was 4.9 on 06/18, down from 8.0 got 3 units of PRBC consent obtained from her son Hemoglobin has been stable recheck on 06/22 (3) 2018 novel coronavirus-infected pneumonia (NCIP): Plan: COVID-19 pneumonia with hypoxia, without ARDS room air Dexamethasone 6 mg IV daily Remdesivir IV completed per protocol Azithromycin 500 mg IV daily plus ceftriaxone to cover for any associated pneumonia Guaifenesin extended release 1200 mg p.o. twice daily Vitamin D 1000 international units p.o. daily Duonebs PRN seems to be improving now off of airborne isolation precaution we will continue with PT OT evaluation and consideration if she needs a long-term facility versus home with home health 6 click score of 20 (4) Hypoxia: Plan: not requiring BIPAP today down to 3L wall high flow (5) Elevated troponin: Plan: Pt with elevated troponin in face of illness, likely type 2 MT from physiologic demand (6) Stage III chronic kidney disease: Plan: Creatinine is 2.75, electrolytes stable monitor UO with palacios catheter once more ambulatory will remove Palacios catheter (7) Hypertension: Plan: amlodipine resumed 10 mg dose on 06/23/2021 (8) Hyperlipidemia: Plan: Continue simvastatin (9) Diabetes mellitus with kidney disease: Plan: Hold Metformin Place on Accu-Cheks before meals and at bedtime with NovoLog coverage per scale monitor for hypoglycemia, no issues Plan: Dr Borjas previously discussed with son that she had chosen to be DNR/DNI on admission, he understood and agreed, he was relieved he would not have to make that decision for her local contact is reina [phone], left message 06/23 will need home support i f going to be independent again Admission and Anticipated Discharge Date Admission Date: June 13, 2021 Subjective patient is improving she still mildly confused abdominal pain is improved greatly she is now off airborne isolation precautions as she is 15 days out from her initial onset of symptoms Patient is adamant she is going home she has had poor performance with physical therapy 6 clicks score is 20 which is surprising continue to assess her improvement if she does go home she will need supportive care with home health Review of Systems Review of Systems: Mild distress and fatigue no headache, no visual changes no speech or swallowing issues no chest pain, pressure or palpitations Persistent shortness of breath, nonproductive cough abdminal pain and bruising left flank no dysuria, hematuria or frequency no focal joint pain or swelling no back pain, CVA tenderness or radicular pain no bruising, bleeding or rashes no focal signs of weakness or numbness or altered sensation, memory loss no complaints of anxiety or depression.. Physical Exam Physical Exam: The patient appeared to be improving but still significantly ill Vital signs as documented. Lungs rales in all lung cha Cardiac exam, Rhythm is regular.. No murmurs, rubs or gallops. Abdominal exam reveals normal bowel sounds, left flank ecchymosis and pain to examine Extremities are nonedematous and both pedal pulses are normal. Neurologic exam is alert and oriented, no focal loss of strength or sensation Skin is with abdomen and flank bruises Psychologically is with improving mentation Results & Data Results & Data ([facility]) Vital Signs (Past 12 Hours) Vital Signs Temp Pulse Pulse Resp BP Pulse Ox 06/23/21 15:10 97.7 F 73 16 148/71 H 95 06/23/21 09:24 87 131/76 06/23/21 08:15 98.1 F 64 16 164/89 H 99 PG Care Time/CCT Total # of Minutes Spent Total Time Spent with Patient: Total time spent is greater than 50% in coordination of care (as documented) at patient's floor/unit and/or counseling patient: Coding Level of Care Code 46543 Subseq Hosp Care Lvl 2 Diagnoses Hematoma T14.8XXA Acute blood loss anemia D62 2019 novel coronavirus-infected pneumonia (NCIP) U07.1; J12.82 Hypoxia R09.02 Elevated troponin R77.8 Stage III chronic kidney disease N18.3 Hypertension I10 Hyperlipidemia E78.5 Diabetes mellitus with kidney disease E11.21
[2021-06-23] MEDS: cefTRIAXone SODIUM 1,000 MG in DEXTROSE 5% 50 ML IV SCH (21:03)
[2021-06-23] MEDS: SIMVASTATIN 20 MG TAB PO SCH (21:03)
[2021-06-24] MEDS: SENNA 8.6 MG TAB PO SCH (08:46)
[2021-06-24] MEDS: NYSTATIN SUSP 500,000 U/5 ML UDC PO SCH ×4 (08:46→21:24)
[2021-06-24] MEDS: amLODIPine BESYLATE 5 MG TAB PO SCH (08:46)
[2021-06-24] MEDS: POLYETHYLENE (MIRALAX) 17 GM PACK PO SCH (08:52)
[2021-06-24] MEDS: dexAMETHasone 6 MG in SYRINGE 0 ML IV SCH (08:53)
[2021-06-24] MEDS: INSULIN GLARGINE SOLOSTAR 100 UNITS/ML 3 ML PEN SC SCH (08:58)
[2021-06-24] MEDS: INSULIN ASPART 100 UNITS/ML 3 ML PEN SC SCH ×4 (08:58→21:24)
[2021-06-24] MEDS: CHOLECALCIFEROL 1,000 UNITS 25 MCG TAB PO SCH (10:45)
--- NOTE | 2021-06-24 20:03 | Hospitalist Progress Note ---
Date of Service June 24, 2021 Assessment & Plan (1) Hematoma: Plan: left retroperitoneal, psoas muscle, diagnosed on CT abd/pelvis s/p 3 units of PRBC hgb 8.9/ No complaint of pain today (2) Acute blood loss anemia: Plan: Hb was 4.9 on 06/18, down from 8.0 got 3 units of PRBC consent obtained from her son Hemoglobin has been stable recheck on 06/22, recheck tomorrow (3) 2019 novel coronavirus-infected pneumonia (NCIP): Plan: COVID-19 pneumonia with hypoxia, without ARDS room air Dexamethasone 6 mg IV daily stopped today Remdesivir IV completed per protocol Azithromycin 500 mg IV daily plus ceftriaxone to cover for any associated pneumonia also completed Guaifenesin extended release 1200 mg p.o. twice daily Vitamin D 1000 international units p.o. daily Duonebs PRN seems to be improving now off of airborne isolation precaution (4) Hypoxia: Plan: Now on room air (5) Elevated troponin: Plan: Pt with elevated troponin in face of illness, likely type 2 MD from physiologic demand (6) Stage III chronic kidney disease: Plan: Creatinine is 2.75 most recently electrolytes stable Thiago LUNA'dBMP in a.m. (7) Hypertension: Plan: Blood pressure reasonable given the situation (8) Hyperlipidemia: Plan: Continue simvastatin (9) Diabetes mellitus with kidney disease: Plan: Sugars overall reasonable given the situation Plan: Thiago LUNA'd, PT/OT eval and treat ongoingpatient adamant about going home and does not want to consider rehab. She does have capacity to make her own decisions. I cautioned the patient to not taylor home given that her family has grave concerns about her weakness. That said, given her overall performance for PT/OT I do wonder if home is going to be reasonable. I had discussed with the patient to have Thiago DC'd and have her try to walk around to see how she does, and it sounded like shortly after the Das was DC'd she called her sister to come get her, but then the patient ended up not leaving AMA anyway. Hopefully she will have improved ambulation, and be a safe discharge in the near future Admission and Anticipated Discharge Date Admission Date: June 13, 2021 Subjective Feeling okay overall. Not really much of any pain. Feels like she is getting around reasonably well. Has not had Das removed yet. Very much would like to go home, and does not even want to consider rehab as an option. Later after I had seen her, she wanted to leave AMA, had her sister come to get her, but then apparently changed her mind. Review of Systems Review of Systems: All systems reviewed & are unremarkable except as noted in HPI & below Physical Exam Physical Exam: In general she is awake alert oriented pleasant no distress. HEENT normocephalic atraumatic mucous membranes moist. Breathing unlabored no accessory muscle use good effort. Skin shows no rashes no pallor or icterus. Neuro without focal deficits. Results & Data Results & Data ([facility]) Vital Signs (Past 12 Hours) Vital Signs Temp Pulse Resp BP Pulse Ox 06/24/21 15:24 98.8 F 91 H 16 146/78 H 91 PG Care Time/CCT Total # of Minutes Spent Total Time Spent with Patient: Total time spent is greater than 50% in coordination of care (as documented) at patient's floor/unit and/or counseling patient: Coding Level of Care Code 25695 Subseq Hosp Care Lvl 2 Diagnoses Hematoma T14.8XXA Acute blood loss anemia D62 2019 novel coronavirus-infected pneumonia (NCIP) U07.1; J12.82 Hypoxia R09.02 Elevated troponin R77.8 Stage III chronic kidney disease N18.3 Hypertension I10 Hyperlipidemia E78.5 Diabetes mellitus with kidney disease E11.21
[2021-06-24] MEDS: SIMVASTATIN 20 MG TAB PO SCH (21:26)
[2021-06-25 06:30] LABS: Basophils # (auto) 0.01 K/uL (0-0.2); Basophils % (auto) 0.1 %; Hematocrit (blood only) 30.5 % (37-47); Immature Granulocytes # (auto) 0.18 K/uL (0.00-0.02); Immature Granulocytes % (auto) 1.6 %; Lymphocytes # (auto) 1.12 K/uL (1.2-3.4); Lymphocytes % (auto) 9.8 %; Mean Corpuscular Hemoglobin 29.6 pg (25-34); Mean Corpuscular Hgb Conc 32.8 g/dL (32-36); Mean Corpuscular Volume 90.2 fL (80-100); Mean Platelet Volume 10.3 fL (7.4-10.4); Monocytes # (auto) 0.72 K/uL (0.11-0.59); Monocytes % (auto) 6.3 %; Neutrophils % (auto) 82.2 %; Nucleated RBC # (auto) 0.02 K/uL (0-0); Nucleated RBC % (auto) 0.2 %; Platelet Count 301 K/uL (130-400); RDW Coefficient of Variation 16.2 % (11.5-14.5); RDW Standard Deviation 51.3 fL (36.4-46.3); Red Blood Count 3.38 M/uL (4.2-5.4); White Blood Count 11.43 K/uL (4.8-10.8)
[2021-06-25 07:08] LABS: BUN Creatinine Ratio 33.1 (10-20); Calcium 9.4 mg/dl (8.5-10.1); Creatinine Clr Calc Pharmacy 15.8 ml/min; Est GFR (African American) 20.9 ml/min; Est GFR (Non-African American) 18.1 ml/min; Potassium 4.3 mmol/L (3.5-5.1)
[2021-06-25] MEDS: SENNA 8.6 MG TAB PO SCH (09:10)
[2021-06-25] MEDS: amLODIPine BESYLATE 5 MG TAB PO SCH (09:10)
[2021-06-25] MEDS: NYSTATIN SUSP 500,000 U/5 ML UDC PO SCH ×4 (09:10→20:12)
[2021-06-25] MEDS: POLYETHYLENE (MIRALAX) 17 GM PACK PO SCH (09:10)
[2021-06-25] MEDS: CHOLECALCIFEROL 1,000 UNITS 25 MCG TAB PO SCH (09:10)
[2021-06-25] MEDS: INSULIN ASPART 100 UNITS/ML 3 ML PEN SC SCH ×4 (09:19→20:44)
[2021-06-25] MEDS: INSULIN GLARGINE SOLOSTAR 100 UNITS/ML 3 ML PEN SC SCH (09:20)
--- NOTE | 2021-06-25 19:49 | Hospitalist Progress Note ---
Date of Service June 25, 2021 Assessment & Plan (1) Hematoma: Plan: left retroperitoneal, psoas muscle, diagnosed on CT abd/pelvis s/p 3 units of PRBC hemoglobin now 10 No complaint of pain today, hemoglobin improved, this appears to be essentially resolved issue (2) Acute blood loss anemia: Plan: Hb was 4.9 on 06/18, down from 8.0 got 3 units of PRBC consent obtained from her son Hemoglobin has been stable and is now up to 10 (3) 2019 novel coronavirus-infected pneumonia (NCIP): Plan: COVID-19 pneumonia with hypoxia, without ARDS room air Dexamethasone 6 mg IV daily stopped today Remdesivir IV completed per protocol Azithromycin 500 mg IV daily plus ceftriaxone to cover for any associated pneumonia also completed Guaifenesin extended release 1200 mg p.o. twice daily Vitamin D 1000 international units p.o. daily Duonebs PRN Lungs still sound rhonchorous, but she has no respiratory distress, no exertional dyspnea despite a fairly long and brisk walk, and no desaturationsthis appears essentially to have been treated (4) Hypoxia: Plan: Now on room air (5) Elevated troponin: Plan: Pt with elevated troponin in face of illness, likely type 2 OH from physiologic demand (6) Stage III chronic kidney disease: Plan: Creatinine is 2.75 most recently electrolytes stable Creatinine overall in her stable range (7) Hypertension: Plan: Blood pressure reasonable given the situation (8) Hyperlipidemia: Plan: Continue simvastatin (9) Diabetes mellitus with kidney disease: Plan: Sugars remain reasonable given the situation Plan: Patient appears to be doing fairly well. Her family would like her to go to rehab, she is absolutely adamant that she wants to go home. First of all, she does have capacity, and therefore she has the right to make her own decision. Second of all, as well as she is doing getting around and walking, I am really not sure if we could qualify her for rehab placement even if she wanted to (which she does not)given both of these, it really does appear reasonable to let her go homeI implored her to have some outpatient PT/home PT, and to use a walker at least until she gets stronger, and to emphasize safety first. To that end, she was to be discharged today, but was unable to find a way home Admission and Anticipated Discharge Date Admission Date: June 13, 2021 Subjective Feeling good, and very much wants to go home. She notes that she is doing better, is getting up and around on her own, and feels like she would do fine at home. She expresses a good understanding of her circumstances. No acute complaints Review of Systems Review of Systems: All systems reviewed & are unremarkable except as noted in HPI & below Physical Exam Physical Exam: In general she is awake and alert oriented pleasant no dis tress. HEENT normocephalic atraumatic mucous membranes moist. Lungs show a degree of scattered coarse rhonchi throughout, but no accessory muscle use no respiratory distress, no conversational dyspneaend of note even after we go on a fairly long and robust walk, she is 97 to 98% on room air. No focal neuro deficits. I asked her to show me how she can walk, she gets up out of bed without any difficulty, and then fairly briskly (with the use of a walker) walks about 50 feet over the stairwell, walks another probably 75 to 100 feet down the hospital hallway, and then walks again probably 50 feet back to her room where she then is able to transfer back to the bed with no difficulty. Results & Data Results & Data ([facility]) Vital Signs (Past 12 Hours) Vital Signs Temp Pulse Pulse Resp BP BP Pulse Ox 06/25/21 16:56 98.1 F 88 87 16 134/72 146/80 H 94 06/25/21 15:50 98.1 F 88 16 146/80 H 94 PG Care Time/CCT Total # of Minutes Spent Total Time Spent with Patient: Total time spent is greater than 50% in coordination of care (as documented) at patient's floor/unit and/or counseling patient: Coding Level of Care Code 40917 Subseq Hosp Care Lvl 2 Diagnoses Hematoma T14.8XXA Acute blood loss anemia D62 2019 novel coronavirus-infected pneumonia (NCIP) U07.1; J12.82 Hypoxia R09.02 Elevated troponin R77.8 Stage III chronic kidney disease N18.3 Hypertension I10 Hyperlipidemia E78.5 Diabetes mellitus with kidney disease E11.21
[2021-06-25] MEDS: SIMVASTATIN 20 MG TAB PO SCH (20:13)
[2021-06-26] MEDS: NYSTATIN SUSP 500,000 U/5 ML UDC PO SCH (09:04)
[2021-06-26] MEDS: CHOLECALCIFEROL 1,000 UNITS 25 MCG TAB PO SCH (09:04)
[2021-06-26] MEDS: POLYETHYLENE (MIRALAX) 17 GM PACK PO SCH (09:04)
[2021-06-26] MEDS: amLODIPine BESYLATE 5 MG TAB PO SCH (09:04)
[2021-06-26] MEDS: SENNA 8.6 MG TAB PO SCH (09:04)
[2021-06-26] MEDS: INSULIN ASPART 100 UNITS/ML 3 ML PEN SC SCH (09:14)
[2021-06-26] MEDS: INSULIN GLARGINE SOLOSTAR 100 UNITS/ML 3 ML PEN SC SCH (09:14)
--- NOTE | 2021-06-26 20:05 | Discharge Summary ---
Date of Service June 26, 2021 Admission HPI Per Admitting Provider The patient is a 68-year-old female who was most recently admitted to [facility] from 06/08-06/11 for treatment of COVID-19 pneumonia and urinary tract infection. She was advised to stay in the hospital longer, but she strongly requested to be discharged. When EMS arrived at her home today, they found her pulse ox to be 46% on room air, and was placed on a nonrebreather which increased her pulse ox to the mid 80s. Chest x-ray showed worsening COVID-19 pneumonia bilaterally. She was given by the emergency department the following: Dexamethasone 6 mg IV and ceftriaxone 1 g IV. Principal Diagnosis Covidimproved Hematomastable Weaknessimproving/patient with capacity to understand her decisions and refusing any consideration of rehab. Discharge Exam In general she is awake and alert oriented pleasant no distress. HEENT normocephalic atraumatic mucous membranes moist. Breathing unlabored no acces mitzi muscle use good effort. Skin shows no rashes no pallor or icterus. Neuro without focal deficits. Mental status shows good recent and remote recall, normal mood and affect overallalthough adamant about going home. Discharge Data Allergies Allergy/AdvReac Type Severity Reaction Status Date / Time No Known Allergies Allergy Verified 06/13/21 22:46 Consultations 06/13/21 23:21 ED Decision to Admit Stat Ordered Studies 06/18/21 09:04 CT abd pelvis wo con Stat 06/18/21 22:56 CT abd pelvis wo con Stat Hospital Course (1) Hematoma: left retroperitoneal, psoas muscle, diagnosed on CT abd/pelvis s/p 3 units of PRBC hemoglobin now 10 No complaint of pain, hemoglobin improved, this appears to be essentially resolved issue (2) Acute blood loss anemia: Hb was 4.9 on 06/18, down from 8.0 got 3 units of PRBC consent obtained from her son Hemoglobin has been stable and is now up to 10 (3) 2019 novel coronavirus-infected pneumonia (NCIP): COVID-19 pneumonia with hypoxia, without ARDS room air Dexamethasone 6 mg IV daily stopped today Remdesivir IV completed per protocol Azithromycin 500 mg IV daily plus ceftriaxone to cover for any associated pneumonia also completed Guaifenesin extended release 1200 mg p.o. twice daily Vitamin D 1000 international units p.o. daily Duonebs PRN Lungs still sound rhonchorous, but she has no respiratory distress, no exertional dyspnea despite a fairly long and brisk walk, and no desaturationsthis appears essentially to have been treated (4) Hypoxia: Now on room air (5) Elevated troponin: Pt with elevated troponin in face of illness, likely type 2 ME from physiologic demand (6) Stage III chronic kidney disease: Creatinine is 2.75 most recently electrolytes stable Creatinine overall in her stable range Outpatient follow-up (7) Hypertension: Blood pressure reasonable given the situation (8) Hyperlipidemia: Continue simvastatin (9) Diabetes mellitus with kidney disease: Sugars remain reasonable given the situation Patient appears to be doing fairly well. Her family would like her to go to rehab, she is absolutely adamant that she wants to go home. She does have capacity, and therefore she has the right to make her own decision. Additionally, as well as she is doing getting around and walking, I am really not sure if we could qualify her for rehab placement even if she wanted to (which she does not)given both of these, it really does appear reasonable to let her go homeI implored her to have some outpatient PT/home PT, and to use a walker at least until she gets stronger, and to emphasize safety first. To that end, discharged to home Total Time Total Time Spent Total Time Spent (In Minutes): Less than 30 Discharge Plan Discharge Items Patient Disposition: Home - Home Health Services Reason For Visit: COVID-19 PNEUMONIA WITH HYPOXIA Discharge Diagnosis: pneumonia - resolved, hematoma improved/stable. weakness - doing better Condition on Discharge: Critical Activity: Resume your previous activity Non-emergency contact: Primary Care Provider Call non-emergency contact if: you have any medication questions Follow-up/Referrals: lEle Ruiz MD [Primary Care Provider] - 06/29/21 11:30 am (DOCTOR WILL DO A TELPHONE CALL VISIT WITH YOU.) Diet: Regular Addtl Attending Provider Instructions: covid - fortunately the pneumonia is doing a lot better, and after our walk your pulse ox was a perfectly normal 98%! it can take a month or two totally feel better from something like this - so figure you'll just be slowly feeling better and stronger. hematoma - the bleeding/bruising into your psoas muscle has stablized and your blood counts are solid and stable. this is something that might cause some hip/pelvic/groin pain from time to time over the next few months, but it too shoudl get better with time weakness - while you're doing better than before, and clearly doing well enough to be able to go home as you so strongly desire/express, remember that you currently are weaker than you normally would be -the biggest major problems that can come from this are if you fall --> when people are weaker than they realize and take a fall, then they can break a hip/have bad bleeding-- things that can be so traumatic that people can end up forever losing their independence from the fallout of the injuries -another major problem that we see when people are weaker than they realize is what's called "failure to thrive" where people just get weaker because they're not doing as much, and then also not eating enough -- from there it becomes a slow downward spiral of getting weaker / losing weight / getting more mal nourished -- so make sure you get enough to eat! -remember safety first -- i would strongly recommend that you use a walker for now - it will give you more stability and reduce your risk of falling. and when you're first getting up give yourself a minute or so to get your balance - when you first get up from laying down or sitting is a very risky time to take a fall -- so give yourself extra time when you get up so that you don't get dizzy and hit the floor! -be extra safe around stairs as falls on a staircase can be even more dangerous -please (please) allow the home therapist to work with you -- therapy can usually speed up how quickly people get stronger Pending Studies at Discharge: No Stand-Alone Forms: My [facility] [employer] Within Reach, Smoking Cessation Medications and DC Order Prescriptions: New cholecalciferol (vitamin D3) 25 mcg (1,000 unit) Capsule 1,000 unit PO QAM Qty: 30 RF: 0 (LUCERO) marcello Misc See Rx Instructions .Route Qty: 1 RF: 0 Continued amlodipine 10 mg tablet 10 mg PO DAILY Qty: 30 RF: 11 simvastatin 20 mg tablet 20 mg PO QPM Qty: 90 RF: 1 pediatric multivitamin [Gummi Bear Multivitamin] tablet,chewable 1 tab PO DAILY RF: 0 Discontinued cefuroxime axetil 250 mg tablet 250 mg PO BID 5 Days Qty: 9 RF: 0 dexamethasone 6 mg tablet 6 mg PO DAILY Qty: 6 RF: 0 metformin 500 mg tablet 500 mg PO BID RF: 0 Discharge Orders: Discharge Order (Routine); Ordered 06/25/21 Ordered By: Francis Patino Admission Data Admit Date/Time: 06/13/21 23:52 Attending Provider: Francis Patino Admit Provider: Greg Malcolm Primary Care Provider: Elle Ruiz Other Providers: Greg Malcolm ; [place] ; [facility] [place] ; [facility] ; [place] Larose Other Interventions: Discharge Summary Assessment (RN) Last Done: 06/26/21 09:58 Coding Level of Care Code D/C DAY MANAGEMENT <30 MINS Diagnoses Hematoma T14.8XXA Acute blood loss anemia D62 2018 novel coronavirus-infected pneumonia (NCIP) U07.1; J12.82 Hypoxia R09.02 Elevated troponin R77.8 Stage III chronic kidney disease N18.3 Hypertension I10 Hyperlipidemia E78.5 Diabetes mellitus with kidney disease E11.21
== END 2021-06-26 10:51 | disposition home or self-care (01) | DRG 177 ==
LOC: ED 22:11 → 2S 23:52 → SUATTDRO 23:52 → 2S 06-14 00:54 → 3E 06-21 16:00

== ENCOUNTER 2022-05-17 14:59 | Inpatient (IN) ==
--- NOTE | 2022-05-17 15:24 | ED Triage Note ---
Date of Service May 17, 2022 History of Present Illness This patient was briefly evaluated while in triage. An abbreviated physical exam was performed. This patient is a 71-year-old Female with past medical history of HTN, HLD, DM with Kidney disease who presents to the ED for evaluation of "my kidneys are getting worse." Pt. states she had a UTI and blood work showed her kidneys were getting worse. PCP sent here for evaluation of "worsening kidney function." Physical Exam VITALS: Vitals are noted on the nurse's note and reviewed by myself. GENERAL: This is a 71 year old white female, in no acute distress, nondiaphoretic, well-developed well-nourished. SKIN: No obvious rashes, edema, erythema HEAD: Normocephalic atraumatic. EYES: Conjunctivae without injection, sclerae without icterus. NECK: No JVD. LUNGS: No retractions or accessory muscle use. MUSCULOSKELETAL: Normal gait. NEURO: Patient was alert and oriented to person place and time. No focal neurological deficits. Initial orders for labs and / or imaging were placed and patient was placed in the waiting area until a bed is available. Please see further documentation for the full ED course.
[2022-05-17 16:43] LABS: Basophils # (auto) 0.06 K/uL (0-0.2); Eosinophils # (auto) 0.16 K/uL (0-0.50); Eosinophils % (auto) 2.6 %; Hematocrit (blood only) 29.4 % (34.1-44.9); Hemoglobin 9.2 g/dl (12.0-16.0); Immature Granulocytes # (auto) 0.05 K/uL (0.00-0.02); Immature Granulocytes % (auto) 0.8 %; Lymphocytes # (auto) 1.32 K/uL (1.2-3.4); Lymphocytes % (auto) 21.2 %; Mean Corpuscular Hemoglobin 32.2 pg (25.0-34.0); Mean Corpuscular Hgb Conc 31.3 g/dL (32.0-36.0); Mean Corpuscular Volume 102.8 fL (80.0-100.0); Mean Platelet Volume 10.2 fL (9.4-12.3); Monocytes # (auto) 0.49 K/uL (0.24-0.82); Monocytes % (auto) 7.9 %; Neutrophils # (auto) 4.16 K/uL (1.4-6.5); Neutrophils % (auto) 66.5 %; Platelet Count 257 K/uL (130-400); RDW Coefficient of Variation 12.3 % (11.5-14.5); RDW Standard Deviation 46.3 fL (36.4-46.3); Red Blood Count 2.86 M/uL (3.93-5.22); White Blood Count 6.24 K/ul (4.8-10.8)
[2022-05-17 17:02] LABS: INR 0.9 (0.9-1.1); Partial Thromboplastin Ratio 0.7; Partial Thromboplastin Time 20.6 Seconds (21.0-31.0); Prothrombin Time 10.1 Seconds (9.0-12.0)
[2022-05-17 17:12] LABS: Albumin Globulin Ratio 1.1 (0.9-2); Albumin Level 4.2 gm/dl (3.4-5.0); BUN Creatinine Ratio 10.7 (10-20); Bilirubin,Total 0.2 mg/dl (0.2-1.0); Calcium 12.2 mg/dl (8.5-10.1); Creatinine Clr Calc Pharmacy 5.5 ml/min; Est GFR (African American) 6.3 ml/min; Est GFR (Non-African American) 5.5 ml/min; Globulin 3.8 gm/dl (2.5-4.0); Potassium 4.2 mmol/L (3.5-5.1)
--- NOTE | 2022-05-17 17:35 | CT Scan Report ---
CT SCAN OF THE ABDOMEN AND PELVIS WITHOUT IV CONTRAST CLINICAL HISTORY: Acute renal insufficiency. Urinary tract infection. COMPARISON STUDY: Abdominal CT dated 06/18/2021. TECHNIQUE: CT scan of the abdomen and pelvis is performed from the lung bases to the proximal femora. Images are reviewed in the axial, sagittal, and coronal planes. IV contrast was not administered for this examination. A dose lowering technique was utilized adhering to the principles of ALARA. The ex amination is degraded by motion artifact. CT DOSE: 275.59 mGy.cm FINDINGS: Lung bases: The heart is enlarged and without pericardial effusion. The coronary arteries are densely calcified. Parenchymal scarring is seen at both lung bases. No superimposed airspace consolidation o r pleural effusion is identified. There is a small hiatal hernia. Liver: The unenhanced liver is normal in size, contour, and attenuation. There is mild central intrah epatic biliary ductal dilatation. Gallbladder: Not identified and presumed surgically absent. Spleen: Normal in size and attenuation. Pancreas: The unenhanced pancreas is moderately atrophic and grossly unremarkable. Adrenal glands: Unremarkable. Kidneys: The unenhanced kidneys are atrophic and without hydronephrosis. No renal calculi are identif ied and no ureteral stone is seen. There is no evidence of contour deforming renal mass lesion. Abdominal vasculature: There is advanced atherosclerotic calcification and mild ectasia of the abdomi nal aorta. Bowel: There is rectosigmoid fecal retention. The rectum is distended, measuring up to 7.5 cm in diam eter. Moderate constipation is observed. No bowel obstruction is seen. There is advanced colonic dive rticulosis without CT evidence of acute diverticulitis. A large duodenal diverticulum is noted. The a ppendix is normal as visualized. Peritoneum: There is no intraperitoneal free air or abdominal ascites. There is a small fat-containin g umbilical hernia. Lymphadenopathy: None. Pelvic viscera: The bladder and uterus are normal as visualized. A 2.5 cm peripherally calcified stru cture in the right adnexa is unchanged, and likely related to right ovary. Skeletal structures: The skeletal structures are osteopenic. There is moderate lumbosacral spondylosi s. No lytic or blastic lesions are seen. IMPRESSION: 1. No acute infectious or inflammatory findings are identified in the abdomen or pelvis. 2. Rectosigmoid fecal retention and moderate constipation. 3. Colonic diverticulosis without CT evidence of acute diverticulitis. 4. The kidneys are atrophic and without hydronephrosis. 5. Cardiomegaly. 6. Additional findings as above. ACT 112: Negative or not required by law. Electronically signed by: Sheng Camargo M.D. 05/17/2022 5:32 PM
[2022-05-17] MEDS: SODIUM CHLORIDE 0.9% 1000ML 1,000 ML IV SCH (17:45)
--- NOTE | 2022-05-17 18:30 | Emergency Department Note ---
History of Present Illness General Chief Complaint: Abnormal Labs/Diagnostic Testing Stated Complaint: IRREGULAR BLOOD WORK, KIDNEY PROBLEMS Time Seen by Provider: 05/17/22 16:42 History of Present Illness Provider Complaint: + abnormal lab Description of abnormal result: Elevated creatinine Associated symptoms: no fever, no chills, no chest pain, no shortness of breath or no abdominal pain HPI narrative: Patient reports difficulty urinating Home Medications Medication Instructions Recorded Confirmed Type pediatric multivitamin (Gummi Bear 1 tab PO DAILY 12/23/18 05/17/22 History Multivitamin chewable tablet) cholecalciferol (vitamin D3) 25 1,000 unit PO QAM #30 caps 06/25/21 05/17/22 Rx mcg (1,000 unit) capsule amlodipine 10 mg tablet 10 mg PO DAILY #30 tabs 08/17/21 05/17/22 Rx simvastatin 20 mg tablet 20 mg PO QPM #90 tabs 12/07/21 05/17/22 Rx lisinopril 10 mg tablet 10 mg PO DAILY #90 tabs 01/01/22 05/17/22 Rx cephalexin 500 mg capsule 500 mg PO BID #10 caps 05/16/22 05/17/22 Rx Allergies Allergy/AdvReac Type Severity Reaction Status Date / Time No Known Allergies Allergy Verified 05/17/22 19:29 Past Med/Surg History Medical History Acid reflux disease Benign paroxysmal positional vertigo Decreased hearing Diabetes mellitus with kidney disease Diabetic peripheral neuropathy DM (diabetes mellitus), type 2 with neurological complications Stage III chronic kidney disease Surgical History Appendectomy (05/08/13) History of cholecystectomy (05/08/13) Family History Brother Myocardial infarction Brother Myocardial infarction Denies family history of Ovarian cancer Prostate cancer Breast cancer Colorectal cancer Social History Smoking Status: Never smoker Second Hand Exposure: No; Hx Alcohol Use: No Hx Substance Use: No Preferred Language: Comoran Communication Ability: Effective 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: Hard of Hearing Section Supervisor Required: No Beliefs That Will Affect Care: None marital status: / Current Living Situation: Alone current occupational status: retired How many Children do You have: 2 Feels Safe at Home: Yes Childhood Exposure to Second-Hand Smoke: No caffeine: Yes Dental Care, Regularly: No Physical Activity Frequency: Does not Exercise Seatbelt Use: sometimes Sunscreen Use: No Assistive Devices: None Review of Systems A total of 10 systems reviewed and were otherwise negative Physical Exam Vital Signs: Vital Signs - 24 hr 05/17/22 15:18 05/17/22 16:30 05/17/22 17:00 Temperature 36.6 C Temperature Source Temporal Artery Sc an Pulse Rate 98 H 79 89 Pulse Rate [Finger ] Pulse Rate from Sp O2 Sensor 80 89 Respiratory Rate 18 18 18 Respiratory Effort / Characteristics Non-Labored Sponta neous Respiratory Depth Normal Blood Pressure 107/72 128/68 141/72 H Blood Pressure [Ri ght Arm] Blood Pressure Evelyn n 83 88 95 Blood Pressure Evelyn n [Right Arm] Blood Pressure Pos ition Sitting Pulse Oximetry 92 100 99 Oxygen Delivery Me thod Room Air Sepsis Recent Feve r Within 48 Hours No Sepsis New/Unexpla ined Change in Men ever[place] Status N/A Sepsis Action Take n by Nursing No Action Required 05/17/22 17:30 05/17/22 19:04 05/17/22 19:04 Temperature Temperature Source Pulse Rate Pulse Rate [Finger ] 84 Pulse Rate from Sp O2 Sensor Respiratory Rate 19 21 Respiratory Effort / Characteristics Non-Labored Sponta neous Respiratory Depth Normal Blood Pressure Blood Pressure [Ri ght Arm] 136/74 Blood Pressure Evelyn n Blood Pressure Evelyn n [Right Arm] 94 Blood Pressure Pos ition Pulse Oximetry 100 100 Oxygen Delivery Me thod Room Air Room Air Sepsis Recent Feve r Within 48 Hours Sepsis New/Unexpla ined Change in Men [place] Status Sepsis Action Take n by Nursing 05/17/22 21:00 Temperature Temperature Source Pulse Rate Pulse Rate [Finger ] 84 Pulse Rate from Sp O2 Sensor Respiratory Rate 16 Respiratory Effort / Characteristics Respiratory Depth Blood Pressure Blood Pressure [Ri ght Arm] 141/76 H Blood Pressure Evelyn n Blood Pressure Evelyn n [Right Arm] 97 Blood Pressure Pos ition Pulse Oximetry 100 Oxygen Delivery Me thod Sepsis Recent Feve r Within 48 Hours Sepsis New/Unexpla ined Change in Men ever[place] Status Sepsis Action Take n by Nursing Physical Exam: Physical Exam GENERAL: She is oriented to person, place, and time. She appears well-developed and well-nourished. She does not appear distressed. HENT: Exam performed. -Head: Normocephalic and atraumatic. -Right Ear: External ear normal. No mastoid tenderness. -Left Ear: External ear normal. No mastoid tenderness. -Mouth/Throat: The oropharynx is clear and moist. No trismus in the jaw. No dental abscesses or uvula swelling. No oropharyngeal exudate or tonsillar abscesses. EYES: Conjunctivae and EOM are normal. Pupils are equal, round, and reactive to light. Right eye exhibits no discharge. Left eye exhibits no discharge. No scleral icterus. NECK: Normal range of motion. Neck supple. No JVD present. No spinous process tenderness present. No carotid bruit present. No rigidity. No tracheal deviation and normal range of motion present. No Brudzinski's sign and no Kernig's sign noted. CV: Normal rate, regular rhythm, normal heart sounds and intact distal pulses. There is no peripheral edema. Palpable radial pulses bue. PULM/CHEST: Effort normal and breath sounds normal. No respiratory distress. No stridor. She has no wheezes. She has no rales. -Chest Wall: She exhibits no tenderness. ABD: The abdomen is soft. Bowel sounds are normal. She has no distension. No mass is present. There is no tenderness. There is no rebound, no guarding, no Damon's sign and no tenderness at McBurney's point. Rovsig negative MUSC/SKEL: Normal range of motion. There is no peripheral edema, tenderness or deformity. LYMPH: No cervical adenopathy. NEURO: She is alert and oriented to person, place, and time. She has normal strength. No cranial nerve deficit or sensory deficit. Coordination and gait no rmal. GCS eye subscore is 4. GCS verbal subscore is 5. GCS motor subscore is 6. Cerebellar tests wnl. SKIN: Skin is warm and dry. She is not diaphoretic. PSYCH: She has a normal mood and affect. Behavior is normal. Judgment and thought content normal. Course Course 1641: The patient was evaluated in room B6. A complete history and physical exam was performed Cardiac monitoring: An order was placed for continuous cardiac monitoring. The monitor shows a rate of 80 with sinus rhythm EMR reviewed.Patient had blood work done earlier today which showed a creatinine of 6.93. Last month her creatinine was 5.69. Last year her creatinine in the 2.6 area. Urine dip in the outpatient office was concerning for infection. 1930: Vital signs stable. Imaging shows no kidney stones. Urinalysis does not appear infected. Labs in the emergency department do show a creatinine of 6.85 with BUN of 73. Serum mildly elevated 12.2. Patient will be hydrated with IV fluids. Discussed case with Agatha HARGROVE for [facility] hospitalist team and patient will be admitted to admitting hospitalist Dr. Fernando weaver. Administered Medications Sodium Chloride (Nss 1000ml) 1,000 mls @ 125 mls/hr IV .Q8H JOBY Stop: 06/16/22 17:29 Last Admin: 05/17/22 17:45 Dose: 125 mls/hr Documented By: NISHI Medical Decision Making Laboratory Data Result diagrams: 05/17/22 15:49 05/17/22 15:49 Lab Results 05/17/22 05/17/22 05/17/22 Range/Units 15:49 15:49 15:49 WBC 6.24 (4.8-10.8) K/ul RBC 2.86 L (3.93-5.22) M/uL Hgb 9.2 L (12.0-16.0) g/dl Hct 29.4 L (34.1-44.9) % MCV 102.8 H (80.0-100.0) fL MCH 32.2 (25.0-34.0) pg MCHC 31.3 L (32.0-36.0) g/dL RDW Std Deviation 46.3 (36.4-46.3) fL RDW Coeff of Suellen 12.3 (11.5-14.5) % Plt Count 257 (130-400) K/uL MPV 10.2 (9.4-12.3) fL Immature Gran % (Auto) 0.8 % Neut % (Auto) 66.5 % Lymph % (Auto) 21.2 % Hancock % (Auto) 7.9 % Eos % (Auto) 2.6 % Baso % (Auto) 1.0 % Neut # (Auto) 4.16 (1.4-6.5) K/uL Lymph # (Auto) 1.32 (1.2-3.4) K/uL [place] # (Auto) 0.49 (0.24-0.82) K/uL Eos # (Auto) 0.16 (0-0.50) K/uL Baso # (Auto) 0.06 (0-0.2) K/uL Immature Gran # (Auto) 0.05 H (0.00-0.02) K/uL PT 10.1 (9.0-12.0) Seconds INR 0.9 (0.9-1.1) APTT 20.6 L (21.0-31.0) Seconds PTT Ratio 0.7 Sodium 140 (136-145) mmol/L Potassium 4.2 (3.5-5.1) mmol/L Chloride 103 (98-107) mmol/L Carbon Dioxide 22 (21-32) mmol/L Anion Gap 15 H (3-11) BUN 73 H (6-23) mg/dl Creatinine 6.85 H* (0.6-1.2) mg/dl Est Cr Clr Drug Dosing 5.5 ml/min Est GFR ( Amer) 6.3 ml/min Est GFR (Non-Af Amer) 5.5 ml/min BUN/Creatinine Ratio 10.7 (10-20) Glucose 135 H (70-99(Fasting)) mg/dl Calcium 12.2 H* (8.5-10.1) mg/dl Total Bilirubin 0.2 (0.2-1.0) mg/dl AST 14 (13-39) U/L ALT 13 (7-52) U/L Alkaline Phosphatase 47 (34-104) U/L Total Protein 8.0 (6.0-8.3) gm/dl Albumin 4.2 (3.4-5.0) gm/dl Globulin 3.8 (2.5-4.0) gm/dl Albumin/Globulin Ratio 1.1 (0.9-2) Urine Color Urine Appearance (Clear) Urine pH (4.5-7.5) Ur Specific [place] (1.000-1.030) Urine Protein (Negative) Urine Glucose (UA) (Negative) Urine Ketones (Negative) Urine Blood (Negative) Urine Nitrite (Negative) Urine Bilirubin (Negative) Urine Urobilinogen (Negative) Ur Leukocyte Esterase (Negative) Urine WBC (Auto) (0-5) /hpf Urine RBC (Auto) (0-4) /hpf U Hyaline Cast (Auto) (0-5) /lpf U Epithel Cells (Auto) (0-5) /lpf Urine Bacteria (Auto) (Negative) Urine Crystals Calcium Oxalate Crystal (None Prsent) SARS-CoV-2, RNA, NAAT (NEGATIVE) 05/17/22 05/17/22 Range/Units 17:35 17:35 WBC (4.8-10.8) K/ul RBC (3.93-5.22) M/uL Hgb (12.0-16.0) g/dl Hct (34.1-44.9) % MCV (80.0-100.0) fL MCH (25.0-34.0) pg MCHC (32.0-36.0) g/dL RDW Std Deviation (36.4-46.3) fL RDW Coeff of Suellen (11.5-14.5) % Plt Count (130-400) K/uL MPV (9.4-12.3) fL Immature Gran % (Auto) % Neut % (Auto) % Lymph % (Auto) % [place] % (Auto) % Eos % (Auto) % Baso % (Auto) % Neut # (Auto) (1.4-6.5) K/uL Lymph # (Auto) (1.2-3.4) K/uL [place] # (Auto) (0.24-0.82) K/uL Eos # (Auto) (0-0.50) K/uL Baso # (Auto) (0-0.2) K/uL Immature Gran # (Auto) (0.00-0.02) K/uL PT (9.0-12.0) Seconds INR (0.9-1.1) APTT (21.0-31.0) Seconds PTT Ratio Sodium (136-145) mmol/L Potassium (3.5-5.1) mmol/L Chloride (98-107) mmol/L Carbon Dioxide (21-32) mmol/L Anion Gap (3-11) BUN (6-23) mg/dl Creatinine (0.6-1.2) mg/dl Est Cr Clr Drug Dosing ml/min Est GFR ( Amer) ml/min Est GFR (Non-Af Amer) ml/min BUN/Creatinine Ratio (10-20) Glucose (70-99(Fasting)) mg/dl Calcium (8.5-10.1) mg/dl Total Bilirubin (0.2-1.0) mg/dl AST (13-39) U/L ALT (7-52) U/L Alkaline Phosphatase (34-104) U/L Total Protein (6.0-8.3) gm/dl Albumin (3.4-5.0) gm/dl Globulin (2.5-4.0) gm/dl Albumin/Globulin Ratio (0.9-2) Urine Color Yellow Urine Appearance Cloudy A (Clear) Urine pH 5.0 (4.5-7.5) Ur Specific [place] 1.021 (1.000-1.030) Urine Protein 1+ H (Negative) Urine Glucose (UA) Negative (Negative) Urine Ketones Negative (Negative) Urine Blood Negative (Negative) Urine Nitrite Negative (Negative) Urine Bilirubin Negative (Negative) Urine Urobilinogen Negative (Negative) Ur Leukocyte Esterase 1+ H (Negative) Urine WBC (Auto) 10-30 H (0-5) /hpf Urine RBC (Auto) 0-4 (0-4) /hpf U Hyaline Cast (Auto) 1-5 (0-5) /lpf U Epithel Cells (Auto) >30 H (0-5) /lpf Urine Bacteria (Auto) Negative (Negative) Urine Crystals Not Reportable Calcium Oxalate Crystal Present A (None Prsent) SARS-CoV-2, RNA, NAAT NEGATIVE (NEGATIVE) Imaging Data Radiologist's Impression: Abdomen/Pelvis CT 05/17/22 16:53 CT SCAN OF THE ABDOMEN AND PELVIS WITHOUT IV CONTRAST CLINICAL HISTORY: Acute renal insufficiency. Urinary tract infection. COMPARISON STUDY: Abdominal CT dated 06/18/2021. TECHNIQUE: CT scan of the abdomen and pelvis is performed from the lung bases to the proximal femora. Images are reviewed in the axial, sagittal, and coronal planes. IV contrast was not administered for this examination. A dose lowering technique was utilized adhering to the principles of ALARA. The examination is degraded by motion artifact. CT DOSE: 275.59 mGy.cm FINDINGS: Lung bases: The heart is enlarged and without pericardial effusion. The coronary arteries are densely calcified. Parenchymal scarring is seen at both lung bases. No superimposed airspace consolidation or pleural effusion is identified. There is a small hiatal hernia. Liver: The unenhanced liver is normal in size, contour, and attenuation. There is mild central intrahepatic biliary ductal dilatation. Gallbladder: Not identified and presumed surgically absent. Spleen: Normal in size and attenuation. Pancreas: The unenhanced pancreas is moderately atrophic and grossly unremarkable. Adrenal glands: Unremarkable. Kidneys: The unenhanced kidneys are atrophic and without hydronephrosis. No dima l calculi are identified and no ureteral stone is seen. There is no evidence of contour deforming renal mass lesion. Abdominal vasculature: There is advanced atherosclerotic calcification and mild ectasia of the abdominal aorta. Bowel: There is rectosigmoid fecal retention. The rectum is distended, measuring up to 7.5 cm in diameter. Moderate constipation is observed. No bowel obstruction is seen. There is advanced colonic diverticulosis without CT evidence of acute diverticulitis. A large duodenal diverticulum is noted. The appendix is normal as visualized. Peritoneum: There is no intraperitoneal free air or abdominal ascites. There is a small fat-containing umbilical hernia. Lymphadenopathy: None. Pelvic viscera: The bladder and uterus are normal as visualized. A 2.5 cm periph erally calcified structure in the right adnexa is unchanged, and likely related to right ovary. Skeletal structures: The skeletal structures are osteopenic. There is moderate lumbosacral spondylosis. No lytic or blastic lesions are seen. IMPRESSION: 1. No acute infectious or inflammatory findings are identified in the abdomen or pelvis. 2. Rectosigmoid fecal retention and moderate constipation. 3. Colonic diverticulosis without CT evidence of acute diverticulitis. 4. The kidneys are atrophic and without hydronephrosis. 5. Cardiomegaly. 6. Additional findings as above. ACT 112: Negative or not required by law. Electronically signed by: Sheng Camargo M.D. 05/17/2022 5:32 PM MDM Narrative 1642: The patient was evaluated in room B6. A complete history and physical exam was performed Cardiac monitoring: An order was placed for continuous cardiac monitoring. The monitor shows a rate of 80 with sinus rhythm EMR reviewed.Patient had blood work done earlier today which showed a creatinine of 6.93. Last month her creatinine was 5.69. Last year her creatinine in the 2.6 area. Urine dip in the outpatient office was concerning for infection. 1930: Vital signs stable. Imaging shows no kidney stones. Urinalysis does not appear infected. Labs in the emergency department do show a creatinine of 6.85 with BUN of 73. Serum mildly elevated 12.2. Patient will be hydrated with IV fluids. Discussed case with Agatha HARGROVE for [facility] hospitalist team and patient will be admitted to admitting hospitalist Dr. Fernando weaver. Impression & Plan Acute kidney injury superimposed on CKD Discharge Plan Visit Data Chief Complaint: Abnormal Labs/Diagnostic Testing Stated Complaint: IRREGULAR BLOOD WORK, KIDNEY PROBLEMS ED Provider: Rafiq Saeed Discharge Problem: Acute kidney injury superimposed on CKD Patient Disposition: Admitted As Inpatient Forms Stand Alone Forms: My [facility] Prescriptions Prescriptions: No Action amlodipine 10 mg tablet 10 mg PO DAILY Qty: 30 11RF simvastatin 20 mg tablet 20 mg PO QPM Qty: 90 1RF lisinopril 10 mg tablet 10 mg PO DAILY Qty: 90 1RF pediatric multivitamin [Gummi Bear Multivitamin] tablet,chewable 1 tab PO DAILY cephalexin 500 mg capsule 500 mg PO BID Qty: 10 0RF cholecalciferol (vitamin D3) 25 mcg (1,000 unit) Capsule 1,000 unit PO QAM Qty: 30 0RF Referrals Referrals: Elle Ruiz MD [Primary Care Provider] -
[2022-05-17 18:32] LABS: Appearance Urine Cloudy (Clear); Bacteria Urine Automated Negative (Negative); Bilirubin Urine Negative (Negative); Blood Urine Negative (Negative); Color Urine Yellow; Epithelial Cell Urine Auto >30 /lpf (0-5); Glucose Urine UA Negative (Negative); Ketones Urine Negative (Negative); Leukocyte Esterase Urine 1+ (Negative); Nitrite Urine Negative (Negative); Protein Urine 1+ (Negative); Specific Gravity Urine 1.021 (1.000-1.030); Urobilinogen Urine Negative (Negative)
[2022-05-17 18:44] LABS: Calcium Oxalate Crystals Urine Present (None Prsent)
[2022-05-17 18:45] LABS: RBC Urine Automated 0-4 /hpf (0-4)
--- NOTE | 2022-05-17 20:16 | History & Physical Report ---
Date of Service May 17, 2022 Assessment & Plan (1) Acute kidney injury superimposed on CKD: Plan: 71 yo F with PMH DM2, CKD3, HTN admitted for abnormal kidney function labs. MILLI superimposed on CKD3 -Cr 6.93 -> 6.85, GFR 5.5, K 4.2 on admission -Suspect intrinsic azotemia, acute worsening of renal function likely due to progressive diabetic nephropathy approaching ESRD -CXR pending, currently low suspicion for pulmonary edema -Continue NSS IVF 125 cc/hr -Holding home lisinopril and amlodipine -Nephrology consulted for AM -Trend CMP Hypercalcemia -Ca 12.2, albumin 4.2 on admission- corrected Ca 12.0 -Pamidronate 60 mg IV x1 given on admission -Continue NSS IVF 125 cc/hr -EKG pending -Trend CMP, ionized Ca, Mg -Telemetry monitoring Urinary tract infection -Outpatient + admission UA concerning for infection along with pt report of dysuria -UCx pending -Ceftriaxone 1g daily Hypertension -BP stable at present -Holding home amlodipine and lisinopril in setting of MILLI Diabetes -Last A1C 6.1% in 03/2022 -As of 04/2022 PCP notes, pt not on any diabetes medications -ISS ordered in hospital Constipation -CTAP on admission noting fecal retention -Bowel regimen ordered FENGI: Dialysis/renal diet Code status: DNR/DNI DVT ppx: SCDs Isolation: None Dispo: PCU (2) UTI (urinary tract infection): (3) Hypertension: (4) Hypercalcemia: (5) Diabetes: History of Present Illness Chief Complaint: Abnormal kidney labs Primary Care Provider: Elle Ruiz MD 71 yo F with PMH DM2, CKD3, HTN admitted for abnormal kidney function labs. Pt seen by PCP on 05/16 for dysuria and dark green stool. Labwork obtained at visit revealed UA concerning for infection and pt prescribed Keflex. Today, PCP informed pt of BMP results- Cr 6.9 (increased from 03/2022 Cr of 5.7)- and advised her to come to ED for worsening kidney function. Of note, pt was advised by PCP before to seek nephrology consultation but she had declined due to opposition to dialysis. Pt arrived to ED hemodynamically stable. Repeat labs demonstrated Hgb 9.2, BUN 72, Cr 6.85 (compared to BUN 75/Cr 6.93 drawn at PCP office), GFR 5.5, Ca 12.2 (compared to Ca 12.1 at PCP office), UA with leukocyte esterase, 10-30 WBCs. CTAP with no acute findings, +rectosigmoid fecal retention and moderate constipation. Pt started on NSS IVF 125 cc/hr. Given pamidronate 60 mg IV x1 for hypercalcemia. On evaluation, pt denies any acute complaints. Does note she had some dysuria recently. No abdominal pain, chest pain, palpitations or dyspnea. She is still opposed to dialysis but is willing to see the plant clerk in the hospital in the hopes she can have her kidney disease treated without need for dialysis. Allergies Allergy/AdvReac Type Severity Reaction Status Date / Time No Known Allergies Allergy Verified 05/17/22 19:29 Home Medications Medication Instructions Recorded Confirmed Type pediatric multivitamin (Gummi Bear 1 tab PO DAILY 12/23/18 05/17/22 History Multivitamin chewable tablet) cholecalciferol (vitamin D3) 25 1,000 unit PO QAM #30 caps 06/25/21 05/17/22 Rx mcg (1,000 unit) capsule amlodipine 10 mg tablet 10 mg PO DAILY #30 tabs 08/17/21 05/17/22 Rx simvastatin 20 mg tablet 20 mg PO QPM #90 tabs 12/07/21 05/17/22 Rx lisinopril 10 mg tablet 10 mg PO DAILY #90 tabs 01/01/22 05/17/22 Rx cephalexin 500 mg capsule 500 mg PO BID #10 caps 05/16/22 05/17/22 Rx Past Med/Surg History Medical History Acid reflux disease Benign paroxysmal positional vertigo Decreased hearing Diabetes mellitus with kidney disease Diabetic peripheral neuropathy DM (diabetes mellitus), type 2 with neurological complications Stage III chronic kidney disease Surgical History Appendectomy (05/08/13) History of cholecystectomy (05/08/13) Family History Brother Myocardial infarction Brother Myocardial infarction Denies family history of Ovarian cancer Prostate cancer Breast cancer Colorectal cancer Social History Smoking Status: Never smoker Second Hand Exposure: No; Hx Alcohol Use: No Hx Substance Use: No Preferred Language: Uzbek Communication Ability: Effective 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: Hard of Hearing Tobacco Cloth Reclaimer Required: No Beliefs That Will Affect Care: Spiritual marital status: / Current Living Situation: Alone current occupational status: retired How many Children do You have: 2 Other Information That Helps Us Care for You: No Feels Safe at Home: Yes Safety Concerns: Feels Safe At This Time Childhood Exposure to Second-Hand Smoke: No caffeine: Yes Dental Care, Regularly: No Physical Activity Frequency: Does not Exercise Seatbelt Use: sometimes Sunscreen Use: No Assistive Devices: None Assistive Devices Comment: reading glasses Review of Systems Review of Systems: Per HPI Physical Exam Physical Exam: General: well-appearing, no acute distress HEENT: Moist mucous membranes, anicteric sclerae, no JVD b/l CV: RRR, normal S1 and S2, no murmurs Resp: CTAB, unlabored respirations, no crackles Abd: soft, nontender, nondistended, no guarding or rebound MSK: normal bulk and tone of b/l UE and LE Neuro: AOx3, no focal motor or sensory deficits Skin: No rashes, warm and dry Psych: Normal mood, stable affect Results & Data Results & Data ([facility]) Vital Signs (Past 12 Hours) Vital Signs Temp Pulse Pulse Resp BP BP Pulse Ox 05/17/22 19:04 100 05/17/22 19:04 84 21 136/74 100 05/17/22 17:30 19 05/17/22 17:00 89 18 141/72 H 99 05/17/22 16:30 79 18 128/68 100 05/17/22 15:18 36.6 C 98 H 18 107/72 92 O2 Del Method 05/17/22 19:04 Room Air 05/17/22 19:04 Room Air 05/17/22 17:30 05/17/22 17:00 05/17/22 16:30 05/17/22 15:18 Room Air Supervising Physician Co-Signing Physician Notes Attending addendum: I have physically seen this patient, have supervised the medical residents activities, and agree with the H&P unless as otherwise noted. Assessment and Plan: Acute kidney injury on CKD- Creatinine 6.85 on admission, with GFR 5.5 Continue IV fluids, NSS@125 mils per hour Hold lisinopril and amlodipine Repeat BMP and magnesium levels in a.m. Nephrology consult Hypercalcemia- Calcium 12.2 on admission Single dose of bumetanide 60 mg IV NSS at 125 mils per hour Repeat laboratories in a.m. Urinary tract infection- Follow urine culture and sensitivity Continue Ascencio ceftriaxone 1 g IV daily Remaining orders and notations as noted Resident Activity Tracking Resident Involvement: Resident Care Provided Care Provided: Adult Hospital Medicine
[2022-05-17] MEDS ORDERED: PAMIDRONATE DISODIUM 60 MG in SODIUM CHLORIDE 0.9% 1000ML 1,000 ML IV SCH (21:15)
[2022-05-17] MEDS ORDERED: GLUCAGON FOR INJ 1 MG VIAL SQ PRN (22:54)
[2022-05-17] MEDS ORDERED: CARBOHYDRATES FOR HYPOGLYCEMIA PO PRN (22:54)
[2022-05-17] MEDS ORDERED: DEXTROSE 50% 50 ML SYRINGE IV PRN (22:54)
[2022-05-17] MEDS ORDERED: GLUCOSE 10 TAB/TUBE PO PRN (22:54)
[2022-05-17] MEDS ORDERED: GLUCOSE 40% GEL 15 GM TUBE PO PRN (22:54)
[2022-05-17] MEDS: DOCUSATE SODIUM 100 MG CAP PO SCH (23:56)
[2022-05-17] MEDS: POLYETHYLENE (MIRALAX) 17 GM PACK PO SCH (23:56)
[2022-05-18] MEDS: SODIUM CHLORIDE 0.9% 1000ML 1,000 ML IV SCH (01:47)
[2022-05-18 06:29] LABS: Hematocrit (blood only) 25.3 % (34.1-44.9); Hemoglobin 8.2 g/dl (12.0-16.0); Mean Corpuscular Hemoglobin 32.7 pg (25.0-34.0); Mean Corpuscular Hgb Conc 32.4 g/dL (32.0-36.0); Mean Corpuscular Volume 100.8 fL (80.0-100.0); Mean Platelet Volume 9.8 fL (9.4-12.3); Platelet Count 212 K/uL (130-400); RDW Coefficient of Variation 12.2 % (11.5-14.5); RDW Standard Deviation 44.7 fL (36.4-46.3); Red Blood Count 2.51 M/uL (3.93-5.22); White Blood Count 6.86 K/ul (4.8-10.8)
[2022-05-18 06:56] LABS: Albumin Globulin Ratio 1.3 (0.9-2); Albumin Level 3.5 gm/dl (3.4-5.0); BUN Creatinine Ratio 11.4 (10-20); Bilirubin,Total 0.2 mg/dl (0.2-1.0); Calcium 9.8 mg/dl (8.5-10.1); Creatinine Clr Calc Pharmacy 6.3 ml/min; Est GFR (African American) 7.4 ml/min; Est GFR (Non-African American) 6.4 ml/min; Globulin 2.6 gm/dl (2.5-4.0); Magnesium 2.2 mg/dl (1.7-2.4); Potassium 4.4 mmol/L (3.5-5.1); Total Protein 6.1 gm/dl (6.0-8.3)
--- NOTE | 2022-05-18 07:48 | XRay Report ---
TWO VIEW CHEST CLINICAL HISTORY: Acute renal insufficiency. FINDINGS: PA and lateral chest radiographs are compared to study dated 06/13/2021. The heart is enlar ged noting atherosclerotic calcification of the thoracic aorta. The pulmonary vasculature is nonconge sted. Chronic interstitial thickening is similar to previous. There is bibasilar scarring/atelectasis . No airspace consolidation or large pleural effusion is identified. There is no pneumothorax. The sk eletal structures are osteopenic. The bony thorax appears intact. IMPRESSION: Cardiomegaly with no acute cardiopulmonary abnormality identified. ACT 112: Negative or not required by law. Electronically signed by: Sheng Camargo M.D. 05/18/2022 7:46 AM
[2022-05-18] MEDS ORDERED: ACETAMINOPHEN 325 MG TAB ONE (07:49)
[2022-05-18] MEDS: ACETAMINOPHEN 325 MG TAB PO PRN (07:52)
[2022-05-18] MEDS: NORMOSOL-R 1,000 ML IV SCH ×3 (07:53→23:54)
[2022-05-18] MEDS: INSULIN ASPART PER UNIT SC SCH ×4 (08:00→21:15)
[2022-05-18] MEDS: cefTRIAXone SODIUM 1,000 MG in DEXTROSE 5% 50 ML IV SCH (08:02)
[2022-05-18] MEDS: DOCUSATE SODIUM 100 MG CAP PO SCH ×2 (08:02→20:54)
[2022-05-18] MEDS: POLYETHYLENE (MIRALAX) 17 GM PACK PO SCH ×2 (08:03→20:54)
[2022-05-18 08:07] LABS: Reticulocytes # 0.05 10^6/uL (0.02-0.10)
[2022-05-18 08:53] LABS: Ferritin 143.9 ng/ml (8-388)
[2022-05-18 09:00] LABS: Vitamin B12 654 pg/ml (180-914)
[2022-05-18] MEDS ORDERED: CHOLECALCIFEROL 1,000 UNITS 25 MCG TAB PO SCH (09:00)
--- NOTE | 2022-05-18 09:07 | Nephrology Consultation ---
Date of Consultation May 18, 2022 Assessment & Plan (1) ESRD (end stage renal disease): * CKD stage G5/A1 (ESKD). Urine sediment is negative for blood or cellular casts. UPCR is pending but urinalysis was only trace + on a concentrated sample. Abdominal CT reveals bilateral renal cortical atrophy and no obstruction. Cr was 2.9 w/ EGFR 15 cc/min 07/11. Clinically suspect ESKD on the basis of microvascular disease * Volume status and electrolyte balance are acceptable this am. No acute indication for HD today * Will order FeNa, UPCR, renal US (for kidney measurements) * Stop Lisinopril * Agree w/ hydration using Normosol * Monitor PRP * Discussed KDIGO CKD staging w/ patient today. Discussed vascular access creation and IHD in detail as well. Ms. Welsh is but has a [id number] on IHD in [place], [place]. She is familiar with dialysis and states that she does not want it. We discussed conservative medical management and the role of hospice. Ms. Welsh wishes to speak w/ her boyfriend and discuss the option of hospice with palliative care * Will consult palliative care (2) Hypercalcemia: * Non-PTH medicated hypercalcemia (PTH 26.9) * Stop vitamin D supplement * Agree w/ hydration using Normosol * Pamidronate was administered in the EMD * Monitor serum Ca. Consider calcitonin (3) Diabetes: * Last Hgb A1c 6.1% 04/12 * Metformin held due to worsening renal function (4) Hypertension: * BP currently acceptable * Lisinopril and Amlodipine are being held (5) UTI (urinary tract infection): * Awaiting urine culture results * Continue empiric IV Ceftriaxone History of Present Illness Reason for Consultation: ESKD Attending Physician: Yang Hays MD History of Present Illness Ms. Welsh is a 71 year old white female who is seen at the request of [facility] hospitalist group for evaluation of ESKD. Medical records in the EMR were reviewed today and are summarized as follows: Ms. Welsh has a documented h/o AODM, HTN, hyperlipidemia and COVID-19 pneumonia (07/11). She had advanced CKD but declined Nephrology evaluation in the past because she did not want to be put on dialysis. Ms. Welsh is familiar w/ dialysis. She has a [id number] who lives in [place], [place] and receives IHD in [place], [place]. Ms. Welsh reports that yesterday she presented to her PCP for routine medical evaluation. She was diagnosed w/ UTI and kidney failure. Admission was advised for antibiotic therapy and further evaluation and management of ESKD. Of note, 06/18/21 Cr was 2.9, 03/22/22 Cr was 5.69. Admission Cr was 6.9. Patient reports that she still makes urine and has no uremic symptoms. She denies recent N/V/D. She does not take NSAIDS on a regular basis. She does take Lisinopril daily for management of HTN. Admission abdominal CT without contrast reveals bilateral cortical atrophy without obstruction. Allergies Allergy/AdvReac Type Severity Reaction Status Date / Time No Known Allergies Allergy Verified 05/17/22 19:29 Home Medications Medication Instructions Recorded Confirmed Type pediatric multivitamin (Gummi Bear 1 tab PO DAILY 12/23/18 05/17/22 History Multivitamin chewable tablet) cholecalciferol (vitamin D3) 25 1,000 unit PO QAM #30 caps 06/25/21 05/17/22 Rx mcg (1,000 unit) capsule amlodipine 10 mg tablet 10 mg PO DAILY #30 tabs 08/17/21 05/17/22 Rx simvastatin 20 mg tablet 20 mg PO QPM #90 tabs 12/07/21 05/17/22 Rx lisinopril 10 mg tablet 10 mg PO DAILY #90 tabs 01/01/22 05/17/22 Rx cephalexin 500 mg capsule 500 mg PO BID #10 caps 05/16/22 05/17/22 Rx Patient History Medical History Acid reflux disease Benign paroxysmal positional vertigo Decreased hearing Diabetes mellitus with kidney disease Diabetic peripheral neuropathy DM (diabetes mellitus), type 2 with neurological complications Stage III chronic kidney disease Surgical History Appendectomy (05/08/13) History of cholecystectomy (05/08/13) Family History Brother Myocardial infarction Brother Myocardial infarction Denies family history of Ovarian cancer Prostate cancer Breast cancer Colorectal cancer Social History Smoking Status: Never smoker Second Hand Exposure: No; Hx Alcohol Use: No Hx Substance Use: No Preferred Language: Anguillan Communication Ability: Effective 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: Hard of Hearing Newspaper Carrier Required: No Beliefs That Will Affect Care: None marital status: / Current Living Situation: Alone current occupational status: retired How many Children do You have: 2 Other Information That Helps Us Care for You: No Feels Safe at Home: Yes Safety Concerns: Feels Safe At This Time Childhood Exposure to Second-Hand Smoke: No caffeine: Yes Dental Care, Regularly: No Physical Activity Frequency: Does not Exercise Seatbelt Use: sometimes Sunscreen Use: No Assistive Devices: Denture - Upper and Glasses Assistive Devices Comment: reading glasses Review of Systems Constitutional: no fever Eyes: no problem reported Ear, Nose, Mouth, Throat: no problem reported Respiratory: no cough and no dyspnea Cardiovascular: no chest pain, no dyspnea on exertion and no edema Gastrointestinal: no abdominal pain, no nausea, no vomiting and no diarrhea/loose stools Genitourinary: no dysuria and no urinary frequency Neurologic: no confusion and no memory loss Physical Exam Constitutional: + frail appearing Eyes: PERRL, conjunctivae normal, anicteric sclerae ENMT: external ear and nose normal, oropharynx normal Neck: trachea midline, no thyromegaly Respiratory: normal respiratory effort, lungs clear to auscultation Cardiovascular: Rate/Rhythm: regular rate and regular rhythm (no pericardial rub) Extremities: no edema Gastrointestinal (Abdomen): normal bowel sounds, soft, nontender, no hepatosplenomegaly Skin: + turgor decreased Neurologic: awake; not confused and not obtunded Speech / Cognition: normal cognition Psychiatric: Affect: euthymic affect Thought Process: clear/coherent thought process Results & Data ([facility]) Vital Signs (Past 12 Hours) Vital Signs Temp Pulse Pulse Resp BP Pulse Ox O2 Del Method 05/18/22 08:00 36.7 C 70 18 132/63 99 05/18/22 07:31 78 05/18/22 02:06 36.9 C 81 18 122/66 95 Room Air 05/17/22 22:51 84 05/17/22 22:58 36.7 C 82 18 133/88 95 Room Air 05/17/22 22:54 36.7 C 82 18 133/88 95 Room Air Laboratory Results Laboratory Tests 05/17/22 05/18/22 05/18/22 17:35 05:56 05:56 WBC 6.86 Hgb 8.2 L Hct 25.3 L Plt Count 212 Sodium 141 Potassium 4.4 Chloride 110 H Carbon Dioxide 20 L BUN 68 H Creatinine 5.99 H* D Glucose 77 Transferrin % Sat Ferritin Albumin 3.5 Vitamin B12 Folate PTH Intact Urine Color Yellow Urine Appearance Cloudy A Ur Specific [place] 1.021 Urine Protein 1+ H Urine Glucose (UA) Negative Urine Blood Negative Urine Nitrite Negative Ur Leukocyte Esterase 1+ H Urine WBC (Auto) 10-30 H Urine RBC (Auto) 0-4 Calcium Oxalate Crystal Present A 05/18/22 05/18/22 05/18/22 07:47 07:47 07:47 WBC Hgb Hct Plt Count Sodium Potassium Chloride Carbon Dioxide BUN Creatinine Glucose Transferrin % Sat 27 Ferritin 143.9 Albumin Vitamin B12 654 Folate > 22.30 PTH Intact 26.9 Urine Color Urine Appearance Ur Specific [place] Urine Protein Urine Glucose (UA) Urine Blood Urine Nitrite Ur Leukocyte Esterase Urine WBC (Auto) Urine RBC (Auto) Calcium Oxalate Crystal Laboratory Tests 06/18/21 03/22/22 23:40 08:15 Creatinine 2.92 H 5.69 H* Diagnostic Findings 05/17/[address]: The unenhanced kidneys are atrophic and without hydronephrosis. No renal calculi are identified and no ureteral stone is seen. There is no evidence of contour deforming renal mass lesion. PG Care Time/CCT Total # of Minutes Spent Total Time Spent with Patient: Total time spent is greater than 50% in coordination of care (as documented) at patient's floor/unit and/or counseling patient: Coding Level of Care Code 43315 Inpt Consult Level 5 Diagnoses ESRD (end stage renal disease) N18.6 Hypercalcemia E83.52 Diabetes E11.9 Hypertension I10 UTI (urinary tract infection) N39.0
--- NOTE | 2022-05-18 11:01 | Palliative Care Consultation ---
Date of Consultation May 18, 2022 Assessment & Plan (1) Palliative care encounter: * Patient states she has a clear plan that if returning home proves to be too much, she will move in with her boyfriend whose home is single sotry/no steps to enter. * She states she has no family who would be of support. She is still IADLS and wants to remain independent as long as she can. She is open to help from her boyfriend but does not want a mcfp. * She is emphatic she does not want HD, or even a trial. She will not provide any expansion of her rationale for same. * When asked what she would identify as her goals for herself, she replied that she wants to stay independent, control the decisions in her life and live as well as she can for as long as she can. She is open to some medical management for kidney disease so long as it it is not invasive. She understands kidney disease without HD will progress and lead to eventual when terminal. She is accepting of this, noting her age and that she has had a full life. She has no fear of dying and no regrets. * I spoke with her about options for her care at home/with a focus on QOL, symptom mgt and comfort. First option is Transitional care, a pre-hospice program designed to advanced illness patients the care they want at home and keep them out of the hospital. Transitional care addresses the needs of patients in a declining state of health who are not yet ready to enter hospice care. Patients may continue to receive life-prolonging treatments in additional to palliative care that focuses on comfort measures and pain relief. Studies demonstrate these Palliative therapies can have a positive effect on a patients mobility, happiness and overall quality of life. In Transitional care programs, nurses and other members of the home care and hospice team will regularly visit patients at home to teach them how to better manage their diseases, advance care planning and when necessary, end of life care. Providers will review and modify medication regimen to assure patient is not getting any unnecessary medications. Unlike hospice care, patients in this program don't need to have a prognosis of six months or less to live, and they can continue getting treatment that is aimed at curing their illnesses, not just treating symptoms. Transitional care programs are useful for patients who may be at or nearing the point where they starting to realize there disease is becoming more end stage/advanced and medical modalities have been maximized but no longer provide the relief they once did when patients' disease was not so severe. The overall goal of transitional care is to help our patients through this process so it's not filled with chaos. * Second option would be home hospice: I have provided education about the hospice benefit. Hospice is an interdisciplinary program offered by nurses, nurses aides, social workers, chaplains and a certified medical asst for patients with a terminal condition and a life expectancy of less than 6 months. The goal would be to improve the quality of life of the patient in their home setting (home, mcfp, inpatient hospice setting) by providing symptoms management, psychosocial and spiritual support. However, they cannot offer 24 hours care and if the family is unable to provide that care, they will have to consider personal care with out of pocket cost vs. mcfp placement. * Lastly, I advised her that Medicare covers hospice at a correction facility (SNF) only if the SNF has a contract with a Medicare-certified hospice that can provide care. The hospice benefit will not pay for room and board at the SNF, so pt would be responsible for that cost. If patients have skilled care needs unrelated to their terminal illness, and they meet Medicares coverage requirements for a SNF stay, Medicare should cover room and board and that skilled care. For example, if patient has elected hospice because they have terminal cancer and they fall and break their hip unrelated to the cancer and meet other requirements, Medicare would cover their stay in a SNF for the daily physical therapy they need for the broken hip. * She does not want home health support at this time. She states she is doing fine on her own, needs no ADL support and is still driving, cooking, etc. She will speak with her BF about moving in with him. She does not want help finidng a new place to live. (2) Advanced care planning/counseling discussion: (3) ESRD (end stage renal disease): (4) Weakness: (5) Hypoxia: Plan Palliative medicine was asked to see this pt for discussions about hospice in context of ESRD. The discussions above clarify the content of that discussion as well as patient's preferences at this time. I will sign off but remain available to re engage if need. Thank you for allowing us to participate in the ongoing care of this patient. Please don't hesitate to call or page with any additional concerns. Dr. Ailyn Martinez DNP Director, Palliative Care History of Present Illness Reason for Consultation: "ESRD, please discuss hospice." Attending Physician: Yang Hays MD History of Present Illness Sally Welsh is a 71yo female, who according to the admitting note had the following presentation: "Pt seen by PCP on 05/16 for dysuria and dark green stool. Labwork obtained at visit revealed UA concerning for infection and pt prescribed Keflex. Today, PCP informed pt of BMP results- Cr 6.9 (increased from 03/2022 Cr of 5.7)- and advised her to come to ED for worsening kidney function. Of note, pt was advised by PCP before to seek nephrology consultation but she had declined due to opposition to dialysis. Pt arrived to ED hemodynamically stable. Repeat labs demonstrated Hgb 9.2, BUN 72, Cr 6.85 (compared to BUN 75/Cr 6.93 drawn at PCP office), GFR 5.5, Ca 12.2 (compared to Ca 12.1 at PCP office), UA with leukocyte esterase, 10-30 WBCs. CTAP with no acute findings, +rectosigmoid fecal retention and moderate constipation. Pt started on NSS IVF 125 cc/hr. Given pamidronate 60 mg IV x1 for hypercalcemia. On evaluation, pt denies any acute complaints. Does note she had some dysuria recently. No abdominal pain, chest pain, palpitations or dyspnea. She is still opposed to dialysis but is willing to see the employee communications specialist in the hospital in the hopes she can have her kidney disease treated without need for dialysis." We have been asked to see this pt to provide education about ACP and hospice. Pt states she lives alone in an apartment that is one of four in a house. She has over 20 steps to get to her apartment and states this has become cumbersome. She is contemplating moving in with her boyfriend but has not made definite plans. Allergies Allergy/AdvReac Type Severity Reaction Status Date / Time No Known Allergies Allergy Verified 05/17/22 19:29 Home Medications Medication Instructions Recorded Confirmed Type pediatric multivitamin (Gummi Bear 1 tab PO DAILY 12/23/18 05/17/22 History Multivitamin chewable tablet) cholecalciferol (vitamin D3) 25 1,000 unit PO QAM #30 caps 06/25/21 05/17/22 Rx mcg (1,000 unit) capsule amlodipine 10 mg tablet 10 mg PO DAILY #30 tabs 08/17/21 05/17/22 Rx simvastatin 20 mg tablet 20 mg PO QPM #90 tabs 12/07/21 05/17/22 Rx lisinopril 10 mg tablet 10 mg PO DAILY #90 tabs 01/01/22 05/17/22 Rx cephalexin 500 mg capsule 500 mg PO BID #10 caps 05/16/22 05/17/22 Rx Patient History Medical History Acid reflux disease Benign paroxysmal positional vertigo Decreased hearing Diabetes mellitus with kidney disease Diabetic peripheral neuropathy DM (diabetes mellitus), type 2 with neurological complications Stage III chronic kidney disease Surgical History Appendectomy (05/08/13) History of cholecystectomy (05/08/13) Family History Brother Myocardial infarction Brother Myocardial infarction Denies family history of Ovarian cancer Prostate cancer Breast cancer Colorectal cancer Social History Smoking Status: Never smoker Second Hand Exposure: No; Hx Alcohol Use: No Hx Substance Use: No Preferred Language: Uzbek Communication Ability: Effective 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: Hard of Hearing Radio Antenna Installer Required: No Beliefs That Will Affect Care: Spiritual marital status: / Current Living Situation: Alone current occupational status: retired How many Children do You have: 2 Other Information That Helps Us Care for You: No Feels Safe at Home: Yes Safety Concerns: Feels Safe At This Time Childhood Exposure to Second-Hand Smoke: No caffeine: Yes Dental Care, Regularly: No Physical Activity Frequency: Does not Exercise Seatbelt Use: sometimes Sunscreen Use: No Assistive Devices: None Assistive Devices Comment: reading glasses Review of Systems Review of Systems: All systems reviewed & are unremarkable except as noted in Subjective Physical Exam Physical Exam: Resting in bed, thin female, NAD. AAOx3. No distress. Pressured speech. NCAT/Perrla. EOMI's++. Neck supply, no stridor or thyromegaly. Chest clear but sl diminished. S1S2, no gross JVD. Abd soft/BS+. mildly distended. BERRIOS. Skin pale with a slight sallow undertone. Results & Data ([facility]) Vital Signs (Past 12 Hours) Vital Signs Temp Pulse Pulse Resp BP Pulse Ox O2 Del Method 05/18/22 09:26 Room Air 05/18/22 08:00 36.7 C 70 18 132/63 99 05/18/22 07:31 78 05/18/22 02:06 36.9 C 81 18 122/66 95 Room Air Laboratory Results Labs and imaging reviewed PG Care Time/CCT Total # of Minutes Spent Total Time Spent with Patient: Total time spent is greater than 50% in coordination of care (as documented) at patient's floor/unit and/or counseling patient:70 Coding Level of Care Code New Pt ADVNCD CARE PLAN 30 MIN Patient Type New History Comprehensive Exam Expanded Problem Focused Medical Decision Making Moderate Complexity Diagnoses Palliative care encounter Z51.5 Advanced care planning/counseling discussion Z71.89 ESRD (end stage renal disease) N18.6 Weakness R53.1 Hypoxia R09.02
--- NOTE | 2022-05-18 11:17 | Hospitalist Progress Note ---
Date of Service May 18, 2022 Assessment & Plan (1) ESRD (end stage renal disease): Plan: Acute on chronic renal failure Suspect some acute failure due to hypotension and UTI with dysuria - see below Appreciate nephrology consult regarding CKD - patient declining dialysis at this time Stop lisinopril Switch intravenous fluids to Normosol at 125 mL/h Further workup including: Urine protein/Cr ratio 24 hour urine electrophoresis and immunofixation Serum protein electrophoresis and immunofixation Vit D, PTH Repeat BMP daily (2) UTI (urinary tract infection): Plan: Urine culture pending Continue ceftriaxone 1 g IV daily (3) Hypercalcemia: Plan: Suspect most likely related to dehydration in setting of UTI, however pamidro george also given on admission Myeloma workup sent as above (4) Diabetes: Plan: Appears to now be resolved since she is not on medication and HbA1c is less than 6.5 in March Insulin sliding scale for correction factor only. If she is not requiring this, will stop BSG AC at bedtime (5) Diabetic peripheral neuropathy: (6) Hypertension: Plan: Stop amlodipine and lisinopril. Blood pressure been stable without these. (7) Hyperlipidemia: Plan: Continue simvastatin 20 mg p.o. daily Plan VTE prophylaxis -Heparin 5000 units SQ twice daily Diet -dialysis renal Disposition -stable for transfer to [facility] Admission and Anticipated Discharge Date Admission Date: May 17, 2022 Subjective No acute concerns or questions from the patient. The patient after her discussion with Dr. Mcclure and she is declining dialysis at this time. She reports dysuria for the last 2 weeks. No urinary frequency, change in smell/color. No fevers or chills. No CVA tenderness or back pain. No shortness of breath. Review of Systems Review of Systems: All systems reviewed & are unremarkable except as noted in Subjective Physical Exam Constitutional: well developed; + not well nourished and no acute distress Eyes: PERRL, conjunctivae normal, anicteric sclerae ENMT: external ear and nose normal, oropharynx normal Neck: trachea midline, no thyromegaly Respiratory: normal respiratory effort, lungs clear to auscultation Cardiovascular: Rate/Rhythm: regular rate and regular rhythm Heart Sounds: + murmur (systolic) Gastrointestinal (Abdomen): normal bowel sounds, soft, nontender, no hepatosplenomegaly Musculoskeletal: no cyanosis or clubbing, extremities motor strength 5/5 Skin: no rashes, warm and dry Neurologic: moves all extremities and awake; not confused Psychiatric: A+Ox3, euthymic affect Genitourinary: no CVA tenderness Results & Data Results & [facility] ([facility]) Vital Signs (Past 12 Hours) Vital Signs Temp Pulse Pulse Resp BP Pulse Ox O2 Del Method 05/18/22 09:26 Room Air 05/18/22 08:00 36.7 C 70 18 132/63 99 05/18/22 07:31 78 05/18/22 02:06 36.9 C 81 18 122/66 95 Room Air PG Care Time/CCT Total # of Minutes Spent Total Time Spent with Patient: Total time spent is greater than 50% in coordination of care (as documented) at patient's floor/unit and/or counseling patient: Coding Level of Care Code 71288 Subseq Hosp Care Lvl 2 Diagnoses ESRD (end stage renal disease) N18.6 UTI (urinary tract infection) N39.0 Hypercalcemia E83.52 Diabetes E11.9 Diabetic peripheral neuropathy E11.42 Hypertension I10 Hyperlipidemia E78.5
[2022-05-18 13:23] LABS: Protein Creatinine Ratio Urine 0.8 (0-0.2); Total Protein Urine Random 41.1 mg/dl (0-11.9)
--- NOTE | 2022-05-18 19:24 | Billing Data ---
Date of Service May 18, 2022 Coding Level of Care Code 62987 Initial Inpt Care Lvl 3
[2022-05-18] MEDS: SIMVASTATIN 20 MG TAB PO SCH ×2 (21:13)
[2022-05-18] MEDS: HEPARIN SOD 5,000 UNIT/0.5 ML VIAL SQ SCH (21:13)
[2022-05-18] MEDS: ONDANSETRON INJ 2 MG/ML 2 ML VIAL IV PRN (22:46)
[2022-05-19 06:52] LABS: Hematocrit (blood only) 26.9 % (34.1-44.9); Hemoglobin 8.7 g/dl (12.0-16.0); Mean Corpuscular Hemoglobin 32.2 pg (25.0-34.0); Mean Corpuscular Hgb Conc 32.3 g/dL (32.0-36.0); Mean Corpuscular Volume 99.6 fL (80.0-100.0); Mean Platelet Volume 10.3 fL (9.4-12.3); Platelet Count 228 K/uL (130-400); RDW Coefficient of Variation 12.6 % (11.5-14.5); RDW Standard Deviation 45.1 fL (36.4-46.3); White Blood Count 8.19 K/ul (4.8-10.8)
--- NOTE | 2022-05-19 07:31 | Ultrasound Report ---
US renal/blad retro comp HISTORY: 71 years-old Female ESKD end-stage renal disease COMPARISON: CT abdomen and pelvis 05/17/2022 TECHNIQUE: Multiple real-time sonographic images of the kidneys and urinary bladder were obtained ass essing grayscale appearance and color flow FINDINGS: The right kidney measures 7.9 x 4.7 x 3.4 cm and demonstrates diffuse cortical thinning without renal calculi, hydronephrosis or suspicious mass lesion. Increased echogenicity of the renal parenchyma. The left kidney measures 9.3 x 4.8 x 5.4 cm and demonstrates diffuse cortical thinning without renal calculi, hydronephrosis or suspicious mass lesion. 1.2 cm cyst of the superior pole left kidney. Incr eased echogenicity of the renal parenchyma. Unremarkable urinary bladder. Ureteral jets are not identified at this time. IMPRESSION: 1. No renal calculi or hydronephrosis. 2. Mild atrophy of the right greater than left kidneys. Cortical thinning with increased parenchymal echogenicity compatible with chronic medical renal disease. 3. Unremarkable urinary bladder. ACT 112: Negative or not required by law. The above report was generated using voice recognition software. It may contain grammatical, syntax o r spelling errors. Electronically signed by: Yared Romero M.D. 05/19/2022 7:29 AM
[2022-05-19 07:35] LABS: BUN Creatinine Ratio 10.7 (10-20); Calcium 8.9 mg/dl (8.5-10.1); Est GFR (African American) 8.4 ml/min; Est GFR (Non-African American) 7.3 ml/min; Potassium 4.8 mmol/L (3.5-5.1)
[2022-05-19] MEDS: NORMOSOL-R 1,000 ML IV SCH ×2 (07:55→15:30)
[2022-05-19] MEDS: INSULIN ASPART PER UNIT SC SCH ×3 (08:57→18:55)
[2022-05-19] MEDS: POLYETHYLENE (MIRALAX) 17 GM PACK PO SCH ×2 (08:58→21:43)
[2022-05-19] MEDS: cefTRIAXone SODIUM 1,000 MG in DEXTROSE 5% 50 ML IV SCH (08:58)
[2022-05-19] MEDS: DOCUSATE SODIUM 100 MG CAP PO SCH ×3 (08:59→21:43)
[2022-05-19] MEDS: HEPARIN SOD 5,000 UNIT/0.5 ML VIAL SQ SCH ×2 (08:59→21:42)
--- NOTE | 2022-05-19 08:59 | Nephrology Progress Note ---
Date of Service May 19, 2022 Assessment & Plan (1) ESRD (end stage renal disease): Plan: * CKD stage G5/A1 (ESKD). Urine sediment is negative for blood or cellular casts. UPCR is pending but urinalysis was only trace + on a concentrated sample. Abdominal CT reveals bilateral renal cortical atrophy and no obstruction. Cr was 2.9 w/ EGFR 15 cc/min 07/11. Clinically suspect ESKD on the basis of microvascular disease * Volume status and electrolyte balance are acceptable * Indications/benefits to vascular access, [employer] have been discussed in detail w/ patient. She is familiar w/ IHD ([id number]). She does not want dialysis if her medical condition worsens * FeNa 10%, UPCR 0.8, urine sediment non-nephritic * Renal US 05/12 - R > L renal atrophy w/ bilateral cortical thinning * BP is relatively low. Continue to hold Lisinopril * Agree w/ hydration using Normosol * Monitor PRP * If discharge is anticipated, recommend close follow up w/ PCP and transition to hospice care when medical condition deteriorates. Consider POLST form prior to discharge. No outpatient Nephrology follow up indicated as patient does not desire [employer] (2) Hypercalcemia: Plan: * Non-PTH medicated hypercalcemia (PTH 26.9) * Vitamin D supplement has been stopped * Agree w/ hydration using Normosol * Pamidronate was administered in the EMD * Monitor serum Ca. Consider calcitonin * Await SIEP results (3) Diabetes: Plan: * Last Hgb A1c 6.1% 04/12 * Metformin held due to worsening renal function (4) Hypertension: Plan: * BP currently acceptable * Lisinopril and Amlodipine are being held (5) UTI (urinary tract infection): Plan: * Awaiting urine culture results * Continue empiric IV Ceftriaxone Admission and Anticipated Discharge Date Admission Date: May 17, 2022 Subjective Ms. Welsh was evaluated in her hospital room. She suffered one episode of emesis last evening but is subjectively improved this morning and anxious to return home. She reaffirms her wish for conservative medical care and does not want dialysis. Review of Systems Constitutional: no fever Eyes: no problem reported Ear, Nose, Mouth, Throat: no problem reported Respiratory: no cough and no dyspnea Cardiovascular: no chest pain, no dyspnea on exertion and no edema Gastrointestinal: no abdominal pain, no nausea, no vomiting and no diarrhea/loose stools Genitourinary: no dysuria and no urinary frequency Neurologic: no confusion and no memory loss Physical Exam Constitutional: + frail appearing Eyes: PERRL, conjunctivae normal, anicteric sclerae ENMT: external ear and nose normal, oropharynx normal Neck: trachea midline, no thyromegaly Respiratory: normal respiratory effort, lungs clear to auscultation Cardiovascular: Rate/Rhythm: regular rate and regular rhythm (no pericardial rub) Extremities: no edema Gastrointestinal (Abdomen): normal bowel sounds, soft, nontender, no hepatosplenomegaly Skin: + turgor decreased Neurologic: awake; not confused and not obtunded Speech / Cognition: normal cognition Psychiatric: Affect: euthymic affect Thought Process: clear/coherent thought process Results & Data ([facility]) Vital Signs (Past 12 Hours) Vital Signs Temp Pulse Resp BP Pulse Ox O2 Del Method 05/19/22 08:09 38.2 C H 91 H 18 93/65 L 05/18/22 22:40 37.4 C 99 H 16 126/73 95 Room Air Laboratory Results Laboratory Tests 05/17/22 05/18/22 05/18/22 17:35 Unknown Unknown WBC Hgb Hct Plt Count Sodium Potassium Chloride Carbon Dioxide BUN Creatinine Glucose Ur Specific Stephens 1.021 Urine Protein 1+ H Urine Glucose (UA) Negative Urine Blood Negative Urine RBC (Auto) 0-4 Ur Random Creatinine 51.0 Ur Random Sodium 124 Protein/Creatinin Ratio 0.8 H 05/19/22 05/19/22 05:47 05:47 WBC 8.19 Hgb 8.7 L Hct 26.9 L Plt Count 228 Sodium 141 Potassium 4.8 Chloride 108 H Carbon Dioxide 22 BUN 58 H Creatinine 5.40 H* D Glucose 86 Ur Specific Stephens Urine Protein Urine Glucose (UA) Urine Blood Urine RBC (Auto) Ur Random Creatinine Ur Random Sodium Protein/Creatinin Ratio Laboratory Tests 05/19/22 05:47 Serum Immunofixation Pending Diagnostic Findings Renal US 05/18/22: The right kidney measures 7.9 x 4.7 x 3.4 cm and demonstrates diffuse cortical thinning without renal calculi, hydronephrosis or suspicious mass lesion. Increased echogenicity of the renal parenchyma. The left kidney measures 9.3 x 4.8 x 5.4 cm and demonstrates diffuse cortical thinning without renal calculi, hydronephrosis or suspicious mass lesion. 1.2 cm cyst of the superior pole left kidney. Increased echogenicity of the renal parenchyma. PG Care Time/CCT Total # of Minutes Spent Total Time Spent with Patient: Total time spent is greater than 50% in coordination of care (as documented) at patient's floor/unit and/or counseling patient: Coding Level of Care Code 70943 Subseq Hosp Care Lvl 3 Diagnoses ESRD (end stage renal disease) N18.6 Hypercalcemia E83.52 Diabetes E11.9 Hypertension I10 UTI (urinary tract infection) N39.0
--- NOTE | 2022-05-19 12:10 | Hospitalist Progress Note ---
Date of Service May 19, 2022 Assessment & Plan (1) Acute kidney injury superimposed on CKD: Plan: Acute on chronic renal failure Suspect some acute failure due to hypotension and UTI with dysuria - see below Appreciate nephrology consult regarding CKD - patient declining dialysis at this time Stop lisinopril Switch intravenous fluids to Normosol at 125 mL/h Further workup including: Urine protein/Cr ratio 0.8 24 hour urine electrophoresis and immunofixation - pending Serum protein electrophoresis and immunofixation - pending Vit D -supratherapeutic, discontinued given concurrent hypercalcemia, PTH normal (2) UTI (urinary tract infection): Plan: Urine culture mixed kiara but given history of dysuria and MILLI will continue on antibiotics Continue ceftriaxone 1 g IV daily (3) Hypercalcemia: Plan: Suspect most likely related to dehydration in setting of UTI, however pamidronate also given on admission Myeloma workup sent as above (4) Diabetes: Plan: Appears to now be resolved since she is not on medication and HbA1c is less than 6.5 in March Insulin sliding scale ordered for correction factor only but since she is not requiring this will discontinue. (5) Hypertension: Plan: Appears well controlled, in fact low normal despite stopping lisinopril and amlodipine possibly contributing towards MILLI Plan VTE Prophylaxis - heparin 5000 units SQ BID Diet - dialysis renal Disposition - continue on med/surg pending stabilization in Cr Admission and Anticipated Discharge Date Admission Date: May 17, 2022 Subjective No acute questions or concerns by patient. She feels at her baseline currently. Dysuria resolved. Fever recorded this morning of 38.2 C, however she denies any fevers or chills, cough, shortness of breath, nasal congestion, diarrhea. She had 1 bowel movement yesterday. Review of Systems Review of Systems: All systems reviewed & are unremarkable except as noted in Subjective Physical Exam Constitutional: well developed; + not well nourished and no acute distress ENMT: external ear and nose normal, oropharynx normal Neck: trachea midline, no thyromegaly Respiratory: normal respiratory effort, lungs clear to auscultation Cardiovascular: Rate/Rhythm: regular rate and regular rhythm Heart Sounds: + murmur (systolic) Extremities: no pedal edema Gastrointestinal (Abdomen): normal bowel sounds, soft, nontender, no hepatosplenomegaly Skin: no rashes, warm and dry Neurologic: moves all extremities and awake; not confused Psychiatric: A+Ox3, euthymic affect Results & Data Results & Data ([facility]) Vital Signs (Past 12 Hours) Vital Signs Temp Pulse Resp BP 05/19/22 08:09 38.2 C H 91 H 18 93/65 L PG Care Time/CCT Total # of Minutes Spent Total Time Spent with Patient: Total time spent is greater than 50% in coordination of care (as documented) at patient's floor/unit and/or counseling patient: Coding Level of Care Code 76256 Subseq Hosp Care Lvl 2 Diagnoses Acute kidney injury superimposed on CKD N17.9; N18.9 UTI (urinary tract infection) N39.0 Hypercalcemia E83.52 Diabetes E11.9 Hypertension I10
[2022-05-19] MEDS: SIMVASTATIN 20 MG TAB PO SCH ×2 (21:42→21:46)
[2022-05-20] MEDS: NORMOSOL-R 1,000 ML IV SCH ×2 (00:24→12:19)
[2022-05-20] MEDS: ACETAMINOPHEN 325 MG TAB PO PRN ×2 (07:21→15:55)
[2022-05-20 08:18] LABS: Eosinophils # (auto) 0.44 K/uL (0-0.50); Eosinophils % (auto) 5.7 %; Hematocrit (blood only) 25.2 % (34.1-44.9); Immature Granulocytes # (auto) 0.04 K/uL (0.00-0.02); Immature Granulocytes % (auto) 0.5 %; Lymphocytes # (auto) 0.43 K/uL (1.2-3.4); Lymphocytes % (auto) 5.6 %; Mean Corpuscular Hemoglobin 32.1 pg (25.0-34.0); Mean Corpuscular Hgb Conc 31.7 g/dL (32.0-36.0); Mean Corpuscular Volume 101.2 fL (80.0-100.0); Mean Platelet Volume 10.1 fL (9.4-12.3); Monocytes # (auto) 0.18 K/uL (0.24-0.82); Monocytes % (auto) 2.3 %; Neutrophils % (auto) 85.9 %; Platelet Count 183 K/uL (130-400); RDW Coefficient of Variation 12.9 % (11.5-14.5); RDW Standard Deviation 47.9 fL (36.4-46.3); Red Blood Count 2.49 M/uL (3.93-5.22); White Blood Count 7.69 K/ul (4.8-10.8)
[2022-05-20 08:48] LABS: Albumin Globulin Ratio 1.2 (0.9-2); Albumin Level 3.1 gm/dl (3.4-5.0); BUN Creatinine Ratio 10.9 (10-20); Bilirubin,Total 0.2 mg/dl (0.2-1.0); C Reactive Protein 14.45 mg/dl (0-0.5); Calcium 7.9 mg/dl (8.5-10.1); Creatinine Clr Calc Pharmacy 7.4 ml/min; Est GFR (African American) 8.9 ml/min; Est GFR (Non-African American) 7.7 ml/min; Globulin 2.5 gm/dl (2.5-4.0); Potassium 4.2 mmol/L (3.5-5.1); Total Protein 5.6 gm/dl (6.0-8.3)
[2022-05-20] MEDS: DOCUSATE SODIUM 100 MG CAP PO SCH ×2 (09:12→21:18)
[2022-05-20] MEDS: POLYETHYLENE (MIRALAX) 17 GM PACK PO SCH ×2 (09:12→21:18)
[2022-05-20 09:15] LABS: Influenza A virus by PCR Negative (Neg); Influenza B virus by PCR Negative (Neg); RSV by PCR Negative (Neg); SARS CoV2 RNA(COVID-19)Cepheid NEGATIVE (Negative)
--- NOTE | 2022-05-20 09:23 | Nephrology Progress Note ---
Date of Service May 20, 2022 Assessment & Plan (1) ESRD (end stage renal disease): Plan: * CKD stage G5/A1 (ESKD). Urine sediment is negative for blood or cellular casts. UPCR is pending but urinalysis was only trace + on a concentrated sample. Abdominal CT reveals bilateral renal cortical atrophy and no obstruction. Cr was 2.9 w/ EGFR 15 cc/min 07/11. Clinically suspect ESKD on the basis of microvascular disease * Volume status and electrolyte balance are acceptable * Indications/benefits to vascular access, [employer] have been discussed in detail w/ patient. She is familiar w/ IHD ([id number]). She does not want dialysis if her medical condition worsens * FeNa 10%, UPCR 0.8, urine sediment non-nephritic * Renal US 05/12 - R > L renal atrophy w/ bilateral cortical thinning * BP is relatively low. Continue to hold Lisinopril * Agree w/ hydration using Normosol * Monitor PRP * If discharge is anticipated, recommend close follow up w/ PCP and transition to hospice care when medical condition deteriorates. Consider POLST form prior to discharge. No outpatient Nephrology follow up indicated as patient does not desire [employer]. Will sign off. Please call if further assistance is needed (2) Hypercalcemia: Plan: * Non-PTH medicated hypercalcemia (PTH 26.9) * Vitamin D supplement has been stopped * Agree w/ hydration using Normosol * Pamidronate was administered in the EMD * Monitor serum Ca. Consider calcitonin * SPEP/UPEP - pending (3) Diabetes: Plan: * Last Hgb A1c 6.1% 04/12 * Metformin held due to worsening renal function (4) Hypertension: Plan: * BP currently acceptable * If BP worsens, avoid ACEi/ARB. OK to resume Amlodipine if needed (5) UTI (urinary tract infection): Plan: * Awaiting urine culture results * Continue empiric IV Ceftriaxone Admission and Anticipated Discharge Date Admission Date: May 17, 2022 Subjective Ms. Welsh was evaluated in her hospital room. She voiced no new medical concerns. She is anxious to return home Review of Systems Constitutional: no fever Eyes: no problem reported Ear, Nose, Mouth, Throat: no problem reported Respiratory: no cough and no dyspnea Cardiovascular: no chest pain, no dyspnea on exertion and no edema Gastrointestinal: no abdominal pain, no nausea, no vomiting and no diarrhea/loose stools Genitourinary: no dysuria and no urinary frequency Neurologic: no confusion and no memory loss Physical Exam Constitutional: + frail appearing Eyes: PERRL, conjunctivae normal, anicteric sclerae ENMT: external ear and nose normal, oropharynx normal Neck: trachea midline, no thyromegaly Respiratory: normal respiratory effort, lungs clear to auscultation Cardiovascular: Rate/Rhythm: regular rate and regular rhythm (no pericardial rub) Extremities: no edema Gastrointestinal (Abdomen): normal bowel sounds, soft, nontender, no hepatosplenomegaly Skin: + turgor decreased Neurologic: awake; not confused and not obtunded Speech / Cognition: normal cognition Psychiatric: Affect: euthymic affect Thought Process: clear/coherent thought process Results & Data ([facility]) Vital Signs (Past 12 Hours) Vital Signs Temp Pulse Resp BP Pulse Ox O2 Del Method 05/20/22 07:50 37.9 C H 05/20/22 07:33 38.9 C H 95 H 16 112/53 L 93 Room Air 05/20/22 07:21 38.9 C H Laboratory Results Laboratory Tests 05/20/22 05/20/22 07:48 07:48 WBC 7.69 Hgb 8.0 L Hct 25.2 L Plt Count 183 Sodium 139 Potassium 4.2 Chloride 105 Carbon Dioxide 21 BUN 56 H Creatinine 5.14 H* Glucose 78 Albumin 3.1 L Laboratory Tests 05/19/22 05/19/22 05:47 12:00 Serum Immunofixation Pending Urine Immunofixation Pending PG Care Time/CCT Total # of Minutes Spent Total Time Spent with Patient: Total time spent is greater than 50% in coordination of care (as documented) at patient's floor/unit and/or counseling patient: Coding Level of Care Code 49954 Subseq Hosp Care Lvl 3 Diagnoses ESRD (end stage renal disease) N18.6 Hypercalcemia E83.52 Diabetes E11.9 Hypertension I10 UTI (urinary tract infection) N39.0
[2022-05-20] MEDS: cefTRIAXone SODIUM 1,000 MG in DEXTROSE 5% 50 ML IV SCH (09:35)
[2022-05-20] MEDS: HEPARIN SOD 5,000 UNIT/0.5 ML VIAL SQ SCH ×2 (09:35→21:20)
--- NOTE | 2022-05-20 10:39 | XRay Report ---
XR chest 2V PA/lateral CLINICAL HISTORY: fever ?cause COMPARISON STUDY: Chest radiograph May 17, 2022. FINDINGS: No pneumothorax or pleural effusion is identified. Mild cardiomegaly is unchanged. Lower enrique ng interstitial thickening and mild airspace opacities have developed. IMPRESSION: Lower lung interstitial thickening and mild airspace opacities which have developed sinc e prior exam. The findings could reflect an infectious process or pulmonary edema. ACT 112: Negative or not required by law. Electronically signed by: Mauricio Noel M.D. 05/20/2022 10:38 AM
[2022-05-20 12:55] LABS: Appearance Urine Clear (Clear); Bacteria Urine Automated Negative (Negative); Bilirubin Urine Negative (Negative); Blood Urine 2+ (Negative); Color Urine Yellow; Epithelial Cell Urine Auto >30 /lpf (0-5); Glucose Urine UA Negative (Negative); Ketones Urine Negative (Negative); Leukocyte Esterase Urine Negative (Negative); Nitrite Urine Negative (Negative); Protein Urine 2+ (Negative); Specific Gravity Urine 1.016 (1.000-1.030); Urobilinogen Urine Negative (Negative)
--- NOTE | 2022-05-20 17:47 | Hospitalist Progress Note ---
Date of Service May 20, 2022 Assessment & Plan (1) Encounter for assessment of decision-making capacity: Plan: Patient assessed this morning for medical decision capacity regarding the decision to be discharged home. She is unable to understand the concerns of di scharge of recurrent fevers and therefore unable to weigh up her decision at this time therefore she lacks capacity to make medical decisions at this time and cannot be discharged AGAINST MEDICAL ADVICE. Default decision-maker is her next of kin; her son Jose Raul. (2) Acute kidney injury superimposed on CKD: Plan: Acute on chronic renal failure Cr improved from 6.93 -> 5.14 Suspect some acute failure due to hypotension and UTI with dysuria - see below Appreciate nephrology consult regarding CKD - patient declining dialysis at this time Stop lisinopril We will discontinue intravenous fluids at this time. Further workup including: Urine protein/Cr ratio 0.8 24 hour urine electrophoresis and immunofixation - pending Serum protein electrophoresis and immunofixation - pending Vit D -supratherapeutic, discontinued given concurrent hypercalcemia, PTH normal (3) UTI (urinary tract infection): Plan: Urine culture mixed kiara but given history of dysuria and MILLI will continue on antibiotics Continue ceftriaxone 1 g IV daily Repeat UA today appears to be negative (4) Macrocytic anemia: Plan: Transferrin saturation 27%, ferritin 143.9 ng/mL (WNL) B12 654 pg/mL Folate greater than 22.3 ng/mL Reticulocyte count inappropriately low at 0.05 Will defer Procrit injections to nephrology Fecal occult blood pending Does not appear to be in acute bleed, somewhat dilutional given amount of IV fluids given. We will continue heparin for VTE prophylaxis at this time. (5) Fever: Plan: Multiple recurrent fevers now suggestive of underlying pathology. Infection screen done this morning with repeat chest x-ray showing possible bibasilar consolidation however suspect this is more likely pulmonary edema g iven appearance and intravenous fluids since admission. Urinalysis does not appear infective however will send for culture regardless. Procalcitonin elevated at 1.02, CRP elevated 14.45, ESR 25 -suggestive of acute infection Mild neutrophilia now present at 6.6. Will broaden antibiotics if patient appears to be getting septic however for now we will continue on ceftriaxone alone to not complicate the picture. (6) Hypercalcemia: Plan: Suspect most likely related to dehydration in setting of UTI and supratherapeutic vitamin D, however pamidronate also given on admission Myeloma workup sent as above Now resolved (7) Diabetes: Plan: Appears to now be resolved since she is not on medication and HbA1c is less than 6.5 in March Discontinued insulin sliding scale. (8) Hypertension: Plan: Appears well controlled, in fact low normal despite stopping lisinopril and amlodipine possibly contributing towards MILLI Plan VTE Prophylaxis - heparin 5000 units SQ BID Diet - dialysis renal Disposition - continue on med/surg Admission and Anticipated Discharge Date Admission Date: May 17, 2022 Subjective Recurrent fever this morning. She reports feeling well with no chills. No upper respiratory symptoms or urinary symptoms. No abdominal pain, nausea, vomiting, diarrhea. She expresses a wish to be discharged home but when I discussed her my concerns given her recurrent fevers she is unable to repeat back to me what my concerns are and the risks of going home. This is despite spending 25 to 30 minutes discussing this in different ways and she is unable to even repeat back my concerns despite me telling her specifically she needs to do this in order to leave AGAINST MEDICAL ADVICE and she is unable to do this let alone demonstrate understanding of my concerns. I informed the patient I would need to discuss her care with the next of kin given she lacks capacity to make the decision to go home at this time. I discussed her care with her only son, Jose Raul. Jose Raul lives out in [place] and is unable to visit at this time. He expresses a wish for his mother to remain in hospital until deemed safe by the medical team for discharge. Review of Systems Review of Systems: All systems reviewed & are unremarkable except as noted in Subjective Physical Exam Constitutional: well developed; + not well nourished and no acute distress Respiratory: normal respiratory effort, lungs clear to auscultation Cardiovascular: Rate/Rhythm: regular rate and regular rhythm Heart Sounds: + murmur (systolic) Extremities: no pedal edema Gastrointestinal (Abdomen): normal bowel sounds, soft, nontender, no hepatosplenomegaly Skin: no rashes, warm and dry Neurologic: moves all extremities and awake; not confused Psychiatric: A+Ox3, euthymic affect Results & Data Results & Data ([facility]) Vital Signs (Past 12 Hours) Vital Signs Temp Pulse Resp BP Pulse Ox O2 Del Method 05/20/22 15:48 38.8 C H 83 16 101/62 96 Room Air 05/20/22 08:10 Room Air 05/20/22 07:50 37.9 C H 05/20/22 07:33 38.9 C H 95 H 16 112/53 L 93 Room Air 05/20/22 07:21 38.9 C H PG Care Time/CCT Total # of Minutes Spent Total Time Spent with Patient: Total time spent is greater than 50% in coordination of care (as documented) at patient's floor/unit and/or counseling patient: Coding Level of Care Code 12342 Subseq Hosp Care Lvl 3 Diagnoses Encounter for assessment of decision-making capacity Z01.89 Acute kidney injury superimposed on CKD N17.9; N18.9 UTI (urinary tract infection) N39.0 Macrocytic anemia D53.9 Fever R50.9 Hypercalcemia E83.52 Diabetes E11.9 Hypertension I10
[2022-05-20] MEDS ORDERED: BENZONATATE 100 MG CAPSULE PO PRN (20:57)
[2022-05-20] MEDS: SIMVASTATIN 20 MG TAB PO SCH (21:20)
[2022-05-21] MEDS: ONDANSETRON INJ 2 MG/ML 2 ML VIAL IV PRN (05:24)
[2022-05-21 07:02] LABS: Hematocrit (blood only) 27.8 % (34.1-44.9); Hemoglobin 9.1 g/dl (12.0-16.0); Mean Corpuscular Hemoglobin 32.6 pg (25.0-34.0); Mean Corpuscular Hgb Conc 32.7 g/dL (32.0-36.0); Mean Corpuscular Volume 99.6 fL (80.0-100.0); Platelet Count 189 K/uL (130-400); RDW Standard Deviation 47.4 fL (36.4-46.3); Red Blood Count 2.79 M/uL (3.93-5.22); White Blood Count 8.58 K/ul (4.8-10.8)
[2022-05-21 07:22] LABS: Basophils # (auto) 0.01 K/uL (0-0.2); Basophils % (auto) 0.1 %; Eosinophils % (auto) 3.5 %; Immature Granulocytes # (auto) 0.05 K/uL (0.00-0.02); Immature Granulocytes % (auto) 0.6 %; Lymphocytes # (auto) 0.31 K/uL (1.2-3.4); Lymphocytes % (auto) 3.6 %; Monocytes % (auto) 1.2 %; Neutrophils # (auto) 7.81 K/uL (1.4-6.5); Polychromasia 1+; Toxic Vacuolation 2+
[2022-05-21 07:36] LABS: Procalcitonin 1.42 ng/ml (0-0.5)
[2022-05-21 07:41] LABS: Lyme Ab IgG w/WB Rflx Negative (Negative); Lyme Ab IgM w/WB Rflx Negative (Negative)
[2022-05-21] MEDS: ACETAMINOPHEN 325 MG TAB PO PRN (07:43)
[2022-05-21] MEDS ORDERED: DEXTROMETHORPHAN POLYMR COMPLX 30 MG/5 ML UDP PO PRN (07:54)
[2022-05-21 08:22] LABS: Albumin Globulin Ratio 1.1 (0.9-2); Albumin Level 3.1 gm/dl (3.4-5.0); BUN Creatinine Ratio 11.2 (10-20); Bilirubin,Total 0.2 mg/dl (0.2-1.0); C Reactive Protein 24.61 mg/dl (0-0.5); Calcium 7.8 mg/dl (8.5-10.1); Creatinine Clr Calc Pharmacy 7.4 ml/min; Est GFR (Non-African American) 7.8 ml/min; Globulin 2.7 gm/dl (2.5-4.0); Magnesium 1.8 mg/dl (1.7-2.4); Phosphorus 3.1 mg/dl (2.5-4.9); Total Protein 5.8 gm/dl (6.0-8.3)
[2022-05-21] MEDS: POLYETHYLENE (MIRALAX) 17 GM PACK PO SCH ×2 (09:29→20:06)
[2022-05-21] MEDS: DOCUSATE SODIUM 100 MG CAP PO SCH ×2 (09:30→20:06)
[2022-05-21] MEDS: cefTRIAXone SODIUM 1,000 MG in DEXTROSE 5% 50 ML IV SCH (09:30)
[2022-05-21] MEDS: HEPARIN SOD 5,000 UNIT/0.5 ML VIAL SQ SCH (09:31)
--- NOTE | 2022-05-21 11:18 | CT Scan Report ---
CT chest diagnostic wo con CT DOSE: 264.23 mGy.cm HISTORY: fever of unknown origin ?neoplasm TECHNIQUE: Multiaxial CT images of the chest were performed without contrast. A dose lowering techni que was utilized adhering to the principles of ALARA. COMPARISON: Abdomen and pelvis CT 05/17/2022. FINDINGS: Respiratory motion artifact results in suboptimal evaluation of the chest. The central airw ays appear patent. No pneumothorax. Mild interlobular septal thickening with patchy groundglass densi ties. This favors mild interstitial pulmonary edema. A superimposed pneumonitis is considered less li scarlet but not entirely excluded. There are small bilateral pleural effusions which have developed in t he interval. No suspicious lytic or blastic osseous lesions. The visualized liver and spleen are unre markable. The heart is top normal in size. There is an aberrant right subclavian artery. Mild calcifi ed plaque within the thoracic aorta. Normal esophagus. No mediastinal or hilar lymphadenopathy. IMPRESSION: 1. Respiratory motion artifact resulting in suboptimal evaluation. 2. Mild interlobular septal thickening with patchy groundglass densities and small bilateral pleural effusions. This likely represents mild pulmonary edema. A superimposed pneumonitis would be difficult to exclude but is considered less likely. ACT 112: Negative or not required by law. Electronically signed by: Randy Lazaro M.D. 05/21/2022 11:16 AM
--- NOTE | 2022-05-21 12:37 | Hospitalist Progress Note ---
Date of Service May 21, 2022 Assessment & Plan (1) Encounter for assessment of decision-making capacity: Plan: Patient again assessed this morning for medical decision capacity regarding the decision to be discharged home. She is unable to understand the concerns of discharge of recurrent fevers and therefore unable to weigh up her decision at this time therefore she lacks capacity to make medical decisions at this time and cannot be discharged AGAINST MEDICAL ADVICE. Default decision-maker is her next of kin; her son Jose Raul. (2) Acute kidney injury superimposed on CKD: Plan: Acute on chronic renal failure Cr improved from 6.93 -> 5.14 Suspect some acute failure due to hypotension and UTI with dysuria - see below Appreciate nephrology consult regarding CKD - patient declining dialysis at this time Stop lisinopril We will discontinue intravenous fluids at this time. Further workup including: Urine protein/Cr ratio 0.8 24 hour urine electrophoresis and immunofixation - pending Serum protein electrophoresis and immunofixation - pending Vit D -supratherapeutic, discontinued given concurrent hypercalcemia, PTH normal (3) Fever: Plan: Fever starting May 19. Blood cultures negative at 24 hours. No definitive infective etiology found although urine culture was mixed and initially suspected to have an infection due to prior dysuria. Procalcitonin and inflammatory markers are concerning increasing. Patient appears well with no signs or symptoms of infection therefore we will continue to defer broad-spectrum antibiotics unless she is looking or septic. Differential broad and includes infection not being adequately treated by ceftriaxone, cancer, autoimmune, drug-induced. I suspect the most likely is drug-induced either from ceftriaxone (although drug-induced fever due to antibiotics usually occurs after about a week), heparin or pamidronate. We will discontinue antibiotics as she has had adequate treatment for an uncomplicated UTI at this time. Myeloma labs are pending at this time and appears to be a reasonable likelihood. Autoimmune labs will be sent today; SKINNY screen, ANCA screen, anti-GBM We will continue to trend inflammatory markers and procalcitonin (4) UTI (urinary tract infection): Plan: Stop ceftriaxone as above. Repeat urinalysis shows red blood cells but no acute infection (5) Macrocytic anemia: Plan: Transferrin saturation 27%, ferritin 143.9 ng/mL (WNL) B12 654 pg/mL Folate greater than 22.3 ng/mL Reticulocyte count inappropriately low at 0.05 Will defer Procrit injections to nephrology Does not appear to be in acute bleed, somewhat dilutional given amount of IV fluids given. (6) Hypercalcemia: Plan: Suspect most likely related to dehydration in setting of UTI and supratherapeutic vitamin D, however pamidronate also given on admission Myeloma workup sent as above Now resolved (7) Diabetes: Plan: Appears to now be resolved since she is not on medication and HbA1c is less than 6.5 in March Discontinued insulin sliding scale. (8) Hypertension: Plan: Appears well controlled, in fact low normal despite stopping lisinopril and amlodipine possibly contributing towards MILLI Plan VTE Prophylaxis -Heparin discontinued due to concern this is causing a drug- induced fever Diet - dialysis renal Disposition - continue on med/surg Admission and Anticipated Discharge Date Admission Date: May 17, 2022 Subjective Patient reports no acute concerns despite having a fever on a daily basis which appears to be worse in the mornings. No upper respiratory symptoms, urinary symptoms, abdominal pain, nausea, vomiting, diarrhea. She again expresses a wish to be discharged home however is unable to repeat back to me my concerns and risks of her being discharged at this time. Updated her son over the phone. He reports patient has a sister that lives 5 minutes away. Name: Estela [phone]. Review of Systems Review of Systems: All systems reviewed & are unremarkable except as noted in Subjective Physical Exam Constitutional: well developed; + not well nourished and no acute distress ENMT: external ear and nose normal, oropharynx normal Neck: trachea midline, no thyromegaly Respiratory: normal respiratory effort, lungs clear to auscultation Cardiovascular: Rate/Rhythm: regular rate and regular rhythm Heart Sounds: + murmur (systolic) Extremities: no pedal edema Gastrointestinal (Abdomen): normal bowel sounds, soft, nontender, no hepatosplenomegaly Musculoskeletal: no cyanosis or clubbing, extremities motor strength 5/5 Skin: no rashes, warm and dry Neurologic: moves all extremities and awake; not confused Psychiatric: A+Ox3, euthymic affect Results & Data Results & Data ([facility]) Vital Signs (Past 12 Hours) Vital Signs Temp Pulse Resp BP Pulse Ox O2 Del Method 05/21/22 07:45 Room Air 05/21/22 07:45 39.2 C H 98 H 16 118/66 99 Room Air PG Care Time/CCT Total # of Minutes Spent Total Time Spent: 70 Total Time Spent with Patient: Total time spent is greater than 50% in coordination of care (as documented) at patient's floor/unit and/or counseling patient: Coding Level of Care Code 20547 Subseq Hosp Care Lvl 3 Diagnoses Encounter for assessment of decision-making capacity Z01.89 Acute kidney injury superimposed on CKD N17.9; N18.9 Fever R50.9 UTI (urinary tract infection) N39.0 Macrocytic anemia D53.9 Hypercalcemia E83.52 Diabetes E11.9 Hypertension I10
[2022-05-21] MEDS: SIMVASTATIN 20 MG TAB PO SCH (20:06)
[2022-05-22] MEDS: DOCUSATE SODIUM 100 MG CAP PO SCH ×2 (08:06→20:54)
[2022-05-22] MEDS: POLYETHYLENE (MIRALAX) 17 GM PACK PO SCH (08:06)
[2022-05-22 08:59] LABS: Hematocrit (blood only) 22.2 % (34.1-44.9); Hemoglobin 7.3 g/dl (12.0-16.0); Mean Corpuscular Hemoglobin 32.9 pg (25.0-34.0); Mean Corpuscular Hgb Conc 32.9 g/dL (32.0-36.0); Mean Platelet Volume 9.9 fL (9.4-12.3); Platelet Count 175 K/uL (130-400); RDW Coefficient of Variation 12.9 % (11.5-14.5); RDW Standard Deviation 46.7 fL (36.4-46.3); Red Blood Count 2.22 M/uL (3.93-5.22)
[2022-05-22 09:24] LABS: Eosinophils # (auto) 0.28 K/uL (0-0.50); Eosinophils % (auto) 3.3 %; Immature Granulocytes # (auto) 0.05 K/uL (0.00-0.02); Immature Granulocytes % (auto) 0.6 %; Lymphocytes # (auto) 0.49 K/uL (1.2-3.4); Lymphocytes % (auto) 5.8 %; Monocytes # (auto) 0.16 K/uL (0.24-0.82); Monocytes % (auto) 1.9 %; Neutrophils # (auto) 7.42 K/uL (1.4-6.5); Neutrophils % (auto) 88.4 %; Polychromasia 1+; Toxic Granulation 1+; Toxic Vacuolation 1+
[2022-05-22 09:54] LABS: Albumin Level 2.7 gm/dl (3.4-5.0); BUN Creatinine Ratio 11.4 (10-20); Bilirubin,Total 0.2 mg/dl (0.2-1.0); Calcium 7.5 mg/dl (8.5-10.1); Creatinine Clr Calc Pharmacy 6.5 ml/min; Est GFR (African American) 7.7 ml/min; Est GFR (Non-African American) 6.7 ml/min; Globulin 2.6 gm/dl (2.5-4.0); Potassium 3.7 mmol/L (3.5-5.1); Total Protein 5.3 gm/dl (6.0-8.3)
[2022-05-22 14:22] LABS: C Reactive Protein 33.17 mg/dl (0-0.5)
[2022-05-22] MEDS ORDERED: POLYETHYLENE (MIRALAX) 17 GM PACK PO PRN (14:48)
--- NOTE | 2022-05-22 15:11 | Hospitalist Progress Note ---
Date of Service May 22, 2022 Assessment & Plan (1) Encounter for assessment of decision-making capacity: Plan: Patient again assessed this morning for medical decision capacity regarding the decision to be discharged home. She is unable to understand the concerns of discharge of recurrent fevers and therefore unable to weigh up her decision at this time therefore she lacks capacity to make medical decisions at this time and cannot be discharged AGAINST MEDICAL ADVICE. Default decision-maker is her next of kin; her son Jose Raul. (2) Acute kidney injury superimposed on CKD: Plan: Acute on chronic renal failure Cr improved from 6.93 -> 5.14. Now trending back up as creatinine was effectively dilutional when she was on intravenous fluids. Fortunately her potassium has remained stable and she remains on room air. Since that creatinine is trending back up I suspect her presentation was over end-stage renal disease rather than any significant acute process. Appreciate nephrology consult regarding CKD - patient declining dialysis at this time Stop lisinopril Continue off intravenous fluids if anything she has become hypervolemic at this time. Further workup including: Urine protein/Cr ratio 0.8 24 hour urine electrophoresis and immunofixation - pending Serum protein electrophoresis and immunofixation - pending Vit D -supratherapeutic, discontinued given concurrent hypercalcemia, PTH normal (3) Fever: Plan: Fever starting May 19. Blood cultures negative at 48 hours. No definitive infective etiology found although urine culture was mixed and initially suspected to have an infection due to prior dysuria -although history not reliable. Procalcitonin and inflammatory markers are concerning increasing. Patient appears well with no signs or symptoms of infection therefore we will continue to defer broad-spectrum antibiotics unless she is looking or septic. Differential broad and includes infection not being adequately treated by ceftriaxone, cancer, autoimmune, drug-induced. I suspect the most likely is drug-induced, most likely pamidronate given on admission however ceftriaxone and heparin remain a possibility. Myeloma labs are pending at this time and appears to be a reasonable likelihood. Autoimmune labs also pending; SKINNY screen, ANCA screen, anti-GBM We will continue to trend inflammatory markers and procalcitonin If she remains without a fever above 38 C for 48 hours I suspect she can be safely discharged (4) UTI (urinary tract infection): Plan: Stop ceftriaxone as above. Repeat urinalysis shows red blood cells but no acute infection (5) Macrocytic anemia: Plan: Transferrin saturation 27%, ferritin 143.9 ng/mL (WNL) B12 654 pg/mL Folate greater than 22.3 ng/mL Reticulocyte count inappropriately low at 0.05 Will defer Procrit injections to nephrology Does not appear to be in acute bleed. Hemoglobin concerningly decreased to 7.3 from 9.1 the previous day. We will repeat CBC in a.m. to see if she needs a transfusion prior to discharge. (6) Hypercalcemia: Plan: Suspect most likely related to dehydration in setting of UTI and supratherapeutic vitamin D, however pamidronate also given on admission Myeloma workup sent as above Now resolved (7) Diabetes: Plan: Appears to now be resolved since she is not on medication and HbA1c is less than 6.5 in March Discontinued insulin sliding scale. (8) Hypertension: Plan: Appears well controlled, in fact low normal despite stopping lisinopril and amlodipine possibly contributing towards MILLI Plan VTE Prophylaxis -Heparin discontinued due to concern this is causing a drug- induced fever Diet - dialysis renal Disposition - continue on med/surg Admission and Anticipated Discharge Date Admission Date: May 17, 2022 Subjective Discussed care with her Sister Estela who visited her yesterday, permission given to speak to her sister from next of kin, Jose Raul. She reports sister is close to her baseline and agrees she is not fully understanding her current medical needs or situation -but this is not unusual for her. Patient still lacks capacity to fully understand the situation. She continuously tells me that she feels fine and that she will just be fine if she goes home. We discussed if she would ever want to come back to the hospital when her kidneys fail and she gets sick at home. We discussed what this may look like with her becoming more more short of breath. She expressed will to not want to come back to hospital if this was the case although I am unclear how much she is understanding this. I explained in order for her not to come back to the hospital I would recommend she would go home on hospice so that her wishes to not come back to hospital will be honored and her care can be managed at home. She declined hospice. Fortunately her fevers have reduced today. Review of Systems Review of Systems: All systems reviewed & are unremarkable except as noted in Subjective Physical Exam Constitutional: well developed; + not well nourished and no acute distress Respiratory: normal respiratory effort, lungs clear to auscultation Cardiovascular: Rate/Rhythm: regular rate and regular rhythm Heart Sounds: + murmur (systolic) Extremities: no pedal edema Gastrointestinal (Abdomen): normal bowel sounds, soft, nontender, no hepatosplenomegaly Musculoskeletal: no cyanosis or clubbing, extremities motor strength 5/5 Skin: no rashes, warm and dry Neurologic: moves all extremities and awake; not confused Psychiatric: A+Ox3, euthymic affect Results & Data Results & Data ([facility]) Vital Signs (Past 12 Hours) Vital Signs Temp Pulse Resp BP Pulse Ox O2 Del Method 05/22/22 14:31 36.9 C 79 16 118/65 97 Room Air 05/22/22 07:14 37.7 C H 96 H 16 107/63 90 Room Air PG Care Time/CCT Total # of Minutes Spent Total Time Spent with Patient: Total time spent is greater than 50% in coordination of care (as documented) at patient's floor/unit and/or counseling patient: Coding Level of Care Code 44066 Subseq Hosp Care Lvl 3 Diagnoses Encounter for assessment of decision-making capacity Z01.89 Acute kidney injury superimposed on CKD N17.9; N18.9 Fever R50.9 UTI (urinary tract infection) N39.0 Macrocytic anemia D53.9 Hypercalcemia E83.52 Diabetes E11.9 Hypertension I10
[2022-05-22 17:52] LABS: Albumin 3.4 g/dL (3.8-4.8); Alpha 1 Globulin 0.3 g/dL (0.2-0.3); Beta-1-Globulin 0.3 g/dL (0.4-0.6); Beta-2-Globulin 0.3 g/dL (0.2-0.5); Gamma Globulin 0.7 g/dL (0.8-1.7); Monoclonal Protein Band 1 DNR g/dL (NONE DETECTED); Monoclonal Protein Band 2 DNR g/dL (NONE DETECTED); Monoclonal Protein Band 3 DNR g/dL (NONE DETECTED)
[2022-05-22] MEDS: SIMVASTATIN 20 MG TAB PO SCH (20:54)
[2022-05-23] MEDS: DOCUSATE SODIUM 100 MG CAP PO SCH (08:19)
[2022-05-23 08:37] LABS: Hematocrit (blood only) 21.8 % (34.1-44.9); Mean Corpuscular Hemoglobin 32.1 pg (25.0-34.0); Mean Corpuscular Hgb Conc 32.1 g/dL (32.0-36.0); Mean Platelet Volume 9.8 fL (9.4-12.3); Platelet Count 187 K/uL (130-400); RDW Standard Deviation 46.9 fL (36.4-46.3); Red Blood Count 2.18 M/uL (3.93-5.22); White Blood Count 7.22 K/ul (4.8-10.8)
--- NOTE | 2022-05-23 08:48 | Infectious Disease Consult ---
Date of Consultation May 23, 2022 Assessment & Plan (1) Fever: Plan 71 yo F with a history of DM2, CKD who was admitted 05/17 with worsening kidney function with Cr 6.85. She had seen her PCP the day prior for dysuria and dark green stool. A UA at that time was positive, so she was prescribed cephalexin. UA on presentation had 10-30 WBCs, +leuk est, so she was started on ceftriaxone. In discussion with nephrology and palliative care, the pt does not want hemodialysis. Hospital course has been c/b fevers 05/19-05/21. Her other vitals have been unremarkable, she has had no leukocytosis, and blood cultures from 05/20 and 05/21 are NGTD. A UCx from admission ultimately grew 3 types of organisms, all low counts, likely contamination. A procalcitonin was elevated to 1.02, and has continued to increase to 2.[address] A/P from 05/17 showed no acute infectious findings, and a CT chest from 05/21 also did not show clear signs of an infection. Due to concern for drug fevers, the ceftriaxone and heparin were discontinued 05/21. She has been stable off ceftriaxone. The pt has no known infectious exposures prior to admission. She has been afebrile since 05/22, and she denies any complaints on evaluation. Recommendations: -Agree with consideration of non-infectious causes of fever. The pt appears well, has been afebrile since 05/22, without leukocytosis, with negative imaging and cultures. -will sign off. Please reach out with any further questions Consultation Information Consultation was provided via telemedicine using two-way real-time interactive telecommunication between the patient and the telemedicine provider. For the duration of the visit, the provider was performing the assessment from a different facility than the patient. This includesuse of bluetooth stethoscope forauscultationperformed by the telepresenter that the telemedicine provider can hear if described in the physical exam. Junior Architect contact information: Please call [facility] . (Phone Number For Physician Use Only) After establishing a telemedicine visit, patient was: Patient was verified with two unique identifiers, Patient/authorized rep acknowledged consent and understanding and Gave permission to continue telehealth session Time Spent w Inpatient: 20 minutes History of Present Illness Reason for Consultation: Fever Attending Physician: Yang Hays MD History of Present Illness 71 yo F with a history of DM2, CKD who presented on 05/17 after being advised by her PCP to go to the ED due to worsening kidney function. She had seen her PCP the day prior for dysuria and dark green stool. A UA at that time was positive, so she was prescribed cephalexin. Her lab results returned with a Cr 6.9, increased from 5.7 in 03/2022, so she was advised to present to the ED. The pt has previously been advised by her PCP to see nephrology, but she has declined as she does not want dialysis. On presentation, she was afebrile, with labs showing Hb 9.2, Cr 6.85, Ca 12.2 (corrected Ca of 12). UA had 10-30 WBCs, +leuk est. CTAP showed no acute findings. She was given pamidronate 60 mg IV x 1 for hypercalcemia, and started on ceftriaxone for possible UTI. Nephrology was consulted and pt again stated she does not want hemodialysis. Palliative care was consulted as well. She was first noted to be febrile on 05/19 AM to 38.2. She was again intermittently febrile throughout 05/20 and 05/21. Blood cultures from 05/20 and 05/21 are NGTD. A UCx from admission ultimately grew 3 types of organisms, all low counts, likely contamination. A procalcitonin was 1.02 on 05/20, and increased to 1.42 on 05/21, then 2.27 today. Due to unclear source of fever, autoimmune and myeloma labs were sent. With concern for drug fevers, ceftriaxone was dc'ed, with last dose 05/21. Heparin was dc'ed 05/21. Pt states she was born in [place], [place]. Has never traveled outside of the country. Lives in an apartment by herself. Does not have pets. No animal exposures. Denies sick contacts. Denies recent travel. Denies hobbies. No gardening or significant outdoor exposures such as hiking. On evaluation today, the pt denies cough, sore throat, rhinorrhea, chest pain, shortness of breath, abdominal pain, diarrhea, dysuria, rash, wounds, headache. Allergies Allergy/AdvReac Type Severity Reaction Status Date / Time No Known Allergies Allergy Verified 05/17/22 19:29 Home Medications Medication Instructions Recorded Confirmed Type pediatric multivitamin (Gummi Bear 1 tab PO DAILY 12/23/18 05/17/22 History Multivitamin chewable tablet) cholecalciferol (vitamin D3) 25 1,000 unit PO QAM #30 caps 06/25/21 05/17/22 Rx mcg (1,000 unit) capsule amlodipine 10 mg tablet 10 mg PO DAILY #30 tabs 08/17/21 05/17/22 Rx simvastatin 20 mg tablet 20 mg PO QPM #90 tabs 12/07/21 05/17/22 Rx lisinopril 10 mg tablet 10 mg PO DAILY #90 tabs 01/01/22 05/17/22 Rx cephalexin 500 mg capsule 500 mg PO BID #10 caps 05/16/22 05/17/22 Rx Patient History Medical History Acid reflux disease Benign paroxysmal positional vertigo Decreased hearing Diabetes mellitus with kidney disease Diabetic peripheral neuropathy DM (diabetes mellitus), type 2 with neurological complications Stage III chronic kidney disease Surgical History Appendectomy (05/08/13) History of cholecystectomy (05/08/13) Family History Brother Myocardial infarction Brother Myocardial infarction Denies family history of Ovarian cancer Prostate cancer Breast cancer Colorectal cancer Social History Smoking Status: Never smoker Second Hand Exposure: No; Hx Alcohol Use: No Hx Substance Use: No Preferred Language: Albanian Communication Ability: Effective 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: Hard of Hearing Logistics Solution Manager Required: No Beliefs That Will Affect Care: Spiritual marital status: / Current Living Situation: Alone current occupational status: retired How many Children do You have: 2 Other Information That Helps Us Care for You: No Feels Safe at Home: Yes Safety Concerns: Feels Safe At This Time Childhood Exposure to Second-Hand Smoke: No caffeine: Yes Dental Care, Regularly: No Physical Activity Frequency: Does not Exercise Seatbelt Use: sometimes Sunscreen Use: No Assistive Devices: None Assistive Devices Comment: reading glasses Review of System A complete ROS was performed and is negative except as mentioned in the HPI. Physical Exam Physical Exam: GEN: Well-appearing, in NAD. HEENT: Normocephalic, atraumatic. CV: Regular rate and rhythm, no murmurs/rubs/gallops. RESP: No increased work of breathing, lungs clear to auscultation bilaterally in posterior cha. ABD: Soft, distended. Non-tender to palpation. EXT: No LE edema. Warm, well-perfused. SKIN: L forearm erythema without raised lesions. Some erythema of medial thighs NEURO: Alert and oriented. Answers all questions appropriately. Speech not slurred. PSYCH: Normal mood, affect appropriate. Results & Data ([facility]) Vital Signs (Past 12 Hours) Vital Signs Temp Pulse Resp BP Pulse Ox O2 Del Method 05/23/22 08:17 37.0 C 77 18 116/40 L 99 Room Air 05/23/22 05:19 36.7 C 05/22/22 22:39 36.8 C 79 18 118/70 95 Room Air Laboratory Results Short CBC 05/22/22 05/23/22 Range/Units 08:33 08:15 WBC 8.40 7.22 (4.8-10.8) K/ul Hgb 7.3 L 7.0 L (12.0-16.0) g/dl Hct 22.2 L 21.8 L (34.1-44.9) % Plt Count 175 187 (130-400) K/uL BMP 05/22/22 08:33 Sodium 140 Potassium 3.7 Chloride 107 Carbon Dioxide 21 BUN 66 H Creatinine 5.80 H* D Glucose 103 H Calcium 7.5 L Liver Function 05/22/22 Range/Units 08:33 Total Bilirubin 0.2 (0.2-1.0) mg/dl AST 26 (13-39) U/L ALT 25 (7-52) U/L Alkaline Phosphatase 42 (34-104) U/L Albumin 2.7 L (3.4-5.0) gm/dl Diagnostic Findings RADIOLOGY CT a/p without contrast 05/17/22 FINDINGS: Lung bases: The heart is enlarged and without pericardial effusion. The coronary arteries are densely calcified. Parenchymal scarring is seen at both lung bases. No superimposed airspace consolidation or pleural effusion is identified. There is a small hiatal hernia. Liver: The unenhanced liver is normal in size, contour, and attenuation. There is mild central intrahepatic biliary ductal dilatation. Gallbladder: Not identified and presumed surgically absent. Spleen: Normal in size and attenuation. Pancreas: The unenhanced pancreas is moderately atrophic and grossly unremarkable. Adrenal glands: Unremarkable. Kidneys: The unenhanced kidneys are atrophic and without hydronephrosis. No renal calculi are identified and no ureteral stone is seen. There is no evidence of contour deforming renal mass lesion. Abdominal vasculature: There is advanced atherosclerotic calcification and mild ectasia of the abdominal aorta. Bowel: There is rectosigmoid fecal retention. The rectum is distended, measuring up to 7.5 cm in diameter. Moderate constipation is observed. No bowel obstruction is seen. There is advanced colonic diverticulosis without CT evidence of acute diverticulitis. A large duodenal diverticulum is noted. The appendix is normal as visualized. Peritoneum: There is no intraperitoneal free air or abdominal ascites. There is a small fat-containing umbilical hernia. Lymphadenopathy: None. Pelvic viscera: The bladder and uterus are normal as visualized. A 2.5 cm peripherally calcified structure in the right adnexa is unchanged, and likely related to right ovary. Skeletal structures: The skeletal structures are osteopenic. There is moderate lumbosacral spondylosis. No lytic or blastic lesions are seen. IMPRESSION: 1. No acute infectious or inflammatory findings are identified in the abdomen or pelvis. 2. Rectosigmoid fecal retention and moderate constipation. 3. Colonic diverticulosis without CT evidence of acute diverticulitis. 4. The kidneys are atrophic and without hydronephrosis. 5. Cardiomegaly. 6. Additional findings as above. Chest X-Ray 05/20/22 09:56 FINDINGS: No pneumothorax or pleural effusion is identified. Mild cardiomegaly is unchanged. Lower lung interstitial thickening and mild airspace opacities have developed. IMPRESSION: Lower lung interstitial thickening and mild airspace opacities which have developed since prior exam. The findings could reflect an infectious process or pulmonary edema. Chest CT 05/21/22 07:55 CT chest diagnostic wo con FINDINGS: Respiratory motion artifact results in suboptimal evaluation of the chest. The central airways appear patent. No pneumothorax. Mild interlobular septal thickening with patchy groundglass densities. This favors mild interstitial pulmonary edema. A superimposed pneumonitis is considered less likely but not entirely excluded. There are small bilateral pleural effusions which have developed in the interval. No suspicious lytic or blastic osseous lesions. The visualized liver and spleen are unremarkable. The heart is top normal in size. There is an aberrant right subclavian artery. Mild calcified plaque within the thoracic aorta. Normal esophagus. No mediastinal or hilar lymphadenopathy. IMPRESSION: 1. Respiratory motion artifact resulting in suboptimal evaluation. 2. Mild interlobular septal thickening with patchy groundglass densities and small bilateral pleural effusions. This likely represents mild pulmonary edema. A superimposed pneumonitis would be difficult to exclude but is considered less likely. Microbiology 05/21/22 23:03 Blood Aerobic Blood Culture - Preliminary No growth in Aerobic bottle after 24 hours. 05/21/22 23:03 Blood Anaerobic Blood Culture - Final 05/21/22 23:03 Blood Aerobic Blood Culture - Preliminary No growth in Aerobic bottle after 24 hours. 05/21/22 23:03 Blood Anaerobic Blood Culture - Preliminary No growth in Anaerobic bottle after 24 hours. 05/20/22 07:56 Blood Aerobic Blood Culture - Preliminary No growth in Aerobic bottle after 48 hours. 05/20/22 07:56 Blood Anaerobic Blood Culture - Preliminary No growth in Anaerobic bottle after 48 hours. 05/20/22 07:48 Blood Aerobic Blood Culture - Preliminary No growth in Aerobic bottle after 48 hours. 05/20/22 07:48 Blood Anaerobic Blood Culture - Preliminary No growth in Anaerobic bottle after 48 hours. 05/17/22 17:35 Urine,Clean Catch Urine Culture - Final Three types of organisms present, all low counts probable skin kiara. No further identifications or sensitivities to follow. Medications Administered Current Inpatient Medications Acetaminophen (Acetaminophen 325 Mg Tab) 650 mg PO Q4H PRN PRN Reason: Pain or Fever Stop: 06/17/22 07:35 Last Admin: 05/21/22 07:43 Dose: 650 mg Dextromethorphan Polymer Complex (Dextromethorphan Polymr Complx 30 Mg/5 Ml Udp) 30 mg PO Q12H PRN PRN Reason: Cough Stop: 06/20/22 07:53 Last Admin: 05/21/22 09:31 Dose: 30 mg Dextrose (Dextrose 50% 50 Ml Syringe) 25 - 50 ml IV UD PRN; Protocol PRN Reason: Hypoglycemia Protocol Stop: 06/16/22 22:53 Docusate Sodium (Docusate Sodium 100 Mg Cap) 100 mg PO BID JOBY Stop: 06/16/22 22:53 Last Admin: 05/23/22 08:19 Dose: Not Given Glucagon (Glucagon For Inj 1 Mg Vial) 1 mg SQ UD PRN; Protocol PRN Reason: Hypoglycemia Protocol Stop: 06/16/22 22:53 Glucose (Glucose 40% Gel 15 Gm Tube) 15 - 30 gm PO UD PRN; Protocol PRN Reason: Hypoglycemia Protocol Stop: 06/16/22 22:53 Glucose (Glucose 10 Tab/Tube) 4 - 8 tab PO UD PRN; Protocol PRN Reason: Hypoglycemia Treatment Stop: 06/16/22 22:53 Miscellaneous (Carbohydrates For Hypoglycemia ) 15 - 30 gm PO UD PRN PRN Reason: Hypoglycemia Protocol Stop: 06/16/22 22:53 Ondansetron HCl (Ondansetron Inj 2 Mg/Ml 2 Ml Vial) 4 mg IV Q6H PRN PRN Reason: Nausea Stop: 06/16/22 22:53 Last Admin: 05/21/22 05:24 Dose: 4 mg Polyethylene Glycol (Polyethylene (Miralax) 17 Gm Pack) 17 gm PO QAM PRN PRN Reason: constipation Stop: 06/22/22 08:59 Simvastatin (Simvastatin 20 Mg Tab) 20 mg PO QPM JOBY Stop: 06/16/22 22:53 Last Admin: 05/22/22 20:54 Dose: 20 mg
[2022-05-23 08:56] LABS: Basophils # (auto) 0.01 K/uL (0-0.2); Basophils % (auto) 0.1 %; Eosinophils # (auto) 0.48 K/uL (0-0.50); Eosinophils % (auto) 6.6 %; Immature Granulocytes # (auto) 0.04 K/uL (0.00-0.02); Immature Granulocytes % (auto) 0.6 %; Lymphocytes # (auto) 0.95 K/uL (1.2-3.4); Lymphocytes % (auto) 13.2 %; Monocytes # (auto) 0.34 K/uL (0.24-0.82); Monocytes % (auto) 4.7 %; Neutrophils % (auto) 74.8 %
[2022-05-23 09:15] LABS: BUN Creatinine Ratio 13.1 (10-20); C Reactive Protein 25.05 mg/dl (0-0.5); Calcium 7.5 mg/dl (8.5-10.1); Creatinine Clr Calc Pharmacy 6.9 ml/min; Est GFR (African American) 8.2 ml/min; Est GFR (Non-African American) 7.1 ml/min; Potassium 3.5 mmol/L (3.5-5.1)
[2022-05-23] MEDS ORDERED: SODIUM CHLORIDE 0.9% 250 ML IV PRN (10:40)
--- NOTE | 2022-05-23 11:03 | Hospitalist Progress Note ---
Date of Service May 23, 2022 Assessment & Plan (1) Encounter for assessment of decision-making capacity: Plan: Patient again assessed this morning for medical decision capacity regarding the decision to be discharged home. She is unable to understand the concerns of discharge of recurrent fevers and therefore unable to weigh up her decision at this time therefore she lacks capacity to make medical decisions at this time and cannot be discharged AGAINST MEDICAL ADVICE. Default decision-maker is her next of kin; her son Jose Raul. (2) Acute kidney injury superimposed on CKD: Plan: Acute on chronic renal failure Cr improved from 6.93 -> 5.14. Now trending back up as creatinine was effectively dilutional when she was on intravenous fluids. Fortunately her potassium has remained stable and she remains on room air. Since that creatinine is trending back up I suspect her presentation was over end-stage renal disease rather than any significant acute process. Appreciate nephrology consult regarding CKD - patient declining dialysis at this time Stop lisinopril Continue off intravenous fluids if anything she has become hypervolemic at this time. Further workup including: Urine protein/Cr ratio 0.8 24 hour urine electrophoresis and immunofixation - pending Serum protein electrophoresis and immunofixation - pending Vit D -supratherapeutic, discontinued given concurrent hypercalcemia, PTH normal (3) Fever: Plan: Fever starting May 19. Blood cultures negative at 48 hours. No definitive infective etiology found although urine culture was mixed and initially suspected to have an infection due to prior dysuria -although history not reliable. Procalcitonin and inflammatory markers are concerning increasing. Patient appears well with no signs or symptoms of infection therefore we will continue to defer broad-spectrum antibiotics unless she is looking or septic. Differential broad and includes infection not being adequately treated by ceftriaxone, cancer, autoimmune, drug-induced. I suspect the most likely is drug-induced, most likely pamidronate given on admission however ceftriaxone and heparin remain a possibility. Myeloma labs are pending at this time and appears to be a reasonable likelihood. Autoimmune labs also pending; SKINNY screen, ANCA screen, anti-GBM We will continue to trend inflammatory markers and procalcitonin If she remains without a fever above 38 C for 48 hours I suspect she can be safely discharged (4) UTI (urinary tract infection): Plan: Stop ceftriaxone as above. Repeat urinalysis shows red blood cells but no acute infection (5) Macrocytic anemia: Plan: Transferrin saturation 27%, ferritin 143.9 ng/mL (WNL) B12 654 pg/mL Folate greater than 22.3 ng/mL Reticulocyte count inappropriately low at 0.05 Will defer Procrit injections to nephrology Does not appear to be in acute bleed. Hemoglobin concerningly decreased to 7.3 from 9.1 the previous day. We will repeat CBC in a.m. to see if she needs a transfusion prior to discharge. (6) Hypercalcemia: Plan: Suspect most likely related to dehydration in setting of UTI and supratherapeutic vitamin D, however pamidronate also given on admission Myeloma workup sent as above Now resolved (7) Diabetes: Plan: Appears to now be resolved since she is not on medication and HbA1c is less than 6.5 in March Discontinued insulin sliding scale. (8) Hypertension: Plan: Appears well controlled, in fact low normal despite stopping lisinopril and amlodipine possibly contributing towards MILLI Plan VTE Prophylaxis -Heparin discontinued due to concern this is causing a drug- induced fever Diet - dialysis renal Disposition - continue on med/surg Admission and Anticipated Discharge Date Admission Date: May 17, 2022 Results & Data Results & Data ([facility]) Vital Signs (Past 12 Hours) Vital Signs Temp Pulse Resp BP Pulse Ox O2 Del Method 05/23/22 08:17 37.0 C 77 18 116/40 L 99 Room Air 05/23/22 05:19 36.7 C PG Care Time/CCT Total # of Minutes Spent Total Time Spent with Patient: Total time spent is greater than 50% in coordination of care (as documented) at patient's floor/unit and/or counseling patient: Coding Diagnoses Encounter for assessment of decision-making capacity Z01.89 Acute kidney injury superimposed on CKD N17.9; N18.9 Fever R50.9 UTI (urinary tract infection) N39.0 Macrocytic anemia D53.9 Hypercalcemia E83.52 Diabetes E11.9 Hypertension I10
[2022-05-23] MEDS ORDERED: EPOETIN ALFA 40,000 UNITS/ML VIAL SQ ONE (11:15)
--- NOTE | 2022-05-23 16:33 | Discharge Summary ---
Date of Service May 23, 2022 Admission HPI Per Admitting Provider 71 yo F with PMH DM2, CKD3, HTN admitted for abnormal kidney function labs. Pt seen by PCP on 05/16 for dysuria and dark green stool. Labwork obtained at visit revealed UA concerning for infection and pt prescribed Keflex. Today, PCP informed pt of BMP results- Cr 6.9 (increased from 03/2022 Cr of 5.7)- and advised her to come to ED for worsening kidney function. Of note, pt was advised by PCP before to seek nephrology consultation but she had declined due to opposition to dialysis. Pt arrived to ED hemodynamically stable. Repeat labs demonstrated Hgb 9.2, BUN 72, Cr 6.85 (compared to BUN 75/Cr 6.93 drawn at PCP office), GFR 5.5, Ca 12.2 (compared to Ca 12.1 at PCP office), UA with leukocyte esterase, 10-30 WBCs. CTAP with no acute findings, +rectosigmoid fecal retention and moderate constipation. Pt started on NSS IVF 125 cc/hr. Given pamidronate 60 mg IV x1 for hypercalcemia. On evaluation, pt denies any acute complaints. Does note she had some dysuria recently. No abdominal pain, chest pain, palpitations or dyspnea. She is still opposed to dialysis but is willing to see the ply cutter in the hospital in the hopes she can have her kidney disease treated without need for dialysis. Principal Diagnosis End-stage renal disease Drug-induced fever Anemia of chronic kidney disease Discharge Exam Continues to express wish to go home. Constitutional well developed; + not well nourished and no acute distress Respiratory normal respiratory effort, lungs clear to auscultation Cardiovascular RRR, no murmur, no edema Gastrointestinal (Abdomen) normal bowel sounds, soft, nontender, no hepatosplenomegaly Discharge Data Allergies Allergy/AdvReac Type Severity Reaction Status Date / Time No Known Allergies Allergy Verified 05/17/22 19:29 Consultations 05/17/22 19:26 ED Decision to Admit Stat 05/17/22 22:54 Consult Nephrology Routine 05/18/22 10:47 Consult Palliative Care Routine 05/22/22 14:48 Consult Infectious Diseases Routine 05/23/22 11:52 Consult FUENTESG package wrapper Routine Ordered Studies 05/17/22 16:53 CT abd pelvis wo con Stat 05/18/22 11:14 US renal/blad retro comp Routine 05/21/22 07:55 CT chest diagnostic wo con Routine Hospital Course (1) Encounter for assessment of decision-making capacity: Sally Welsh is a 71 year old female admitted to [facility] [address] from May 17 to May 23, 2022 due to abnormal outpatient labs. She was diagnosed with acute on chronic kidney failure with end-stage renal disease and possible UTI. This was treated with holding her antihypertensives, ceftriaxone and intravenous fluids. Suspect her new baseline creatinine is 5.5-5.8. On discussion with nephrology and palliative care she declined dialysis. Given her wishes of not wanting to be readmitted and declining dialysis it was recommended she goes home with hospice although she also declined this. Her stay was prolonged due to recurrent fevers and she was deemed not to have capacity to make her medical decisions as she was not understanding the risks of going home. Subsequent work-up of recurrent fevers showed this is most likely drug-induced. Suspect most likely secondary to pamidronate given on admission however heparin and ceftriaxone also remain a possibility. Please follow-up anaplasmosis, ehrlichiosis, autoimmune and myeloma work-up pending at discharge. She was diagnosed with anemia of chronic disease. Hemoglobin 7.0 prior to 1 unit blood transfusion and 40,000 units of Procrit. Hemoglobin 9.8 following this. Recommend following up with labs next week prior to her follow-up primary care physician appointment as ordered below. She was also diagnosed with hypercalcemia on admission with calcium 12.1. This was most likely due to dehydration and chronic kidney disease however vitamin D level was also elevated therefore supplementation was discontinued. She was treated with one dose of pamidronate on admission. She should follow-up with nephrology for medical management of end-stage renal disease on discharge. Recommend she highly considers hospice care given her end-stage renal disease and desire not for dialysis or return to hospital. (2) Acute kidney injury superimposed on CKD: (3) Fever: (4) UTI (urinary tract infection): (5) Macrocytic anemia: (6) Hypercalcemia: (7) Diabetes: (8) Hypertension: Total Time Total Time Spent Total Time Spent (In Minutes): 40 Total Time Includes: Examination of the Patient, Discharge Planning, Medication Reconciliation, Communication With Other Providers and Other (Communication with family members) Discharge Plan Discharge Items Patient Disposition: Home - Self-Care Reason For Visit: MILLI Discharge Diagnosis: End-stage renal disease Drug-induced fever Anemia of chronic kidney disease Activity: Resume your previous activity Non-emergency contact: Primary Care Provider Call non-emergency contact if: you have any medication questions and your symptoms worsen Follow-up/Referrals: Juan A Mcclure MD [Physician] - (Follow-up end-stage renal disease) Elle Ruiz MD [Primary Care Provider] - 05/31/22 10:30 am Diet: Dialysis Renal Ambulatory Orders: Basic Metabolic Panel (Routine) Timeframe: 1 Week Location: Determined by Patient Ordered By: Yang Hays Complete Blood Count no Diff (Routine) Timeframe: 1 Week Location: Determined by Patient Ordered By: Yang Calderón Attending Provider Instructions: You were admitted to [facility] [address] from May 17 to May 23, 2022 due to abnormal outpatient labs. He was diagnosed with acute on chronic kidney failure with end-stage renal disease and possible UTI. This was treated with holding your antihypertensive medications, ceftriaxone (antibiotic) and intravenous fluids. Suspect you have a new baseline creatinine is 5.5-5.8. On discussion with nephrology and palliative care you declined dialysis. It is recommended you go home with hospice at this time although this was also declined. You were deemed not to have capacity to make decision to go home with recurrent fevers therefore your stay was prolonged Subsequent work-up of recurrent fevers showed this is most likely drug-induced. Suspect most likely secondary to pamidronate given on admission however heparin and ceftriaxone also remain a possibility. You were also diagnosed with anemia due to chronic kidney disease. Hemoglobin 7.0 prior to 1 unit blood transfusion and 40,000 units of Procrit. Recommend following up with labs next week prior to your follow-up primary care physician appointment as ordered. You also diagnosed with high calcium levels. This is most likely due to dehydration and chronic kidney disease however your vitamin D level was also elevated therefore recommend discontinuing this supplementation. Please follow-up with nephrology for medical management of your end-stage renal disease. Pending Studies at Discharge: Yes (Myeloma, anaplasmosis, ehrlichiosis and autoimmune lab work) Stand-Alone Forms: My [facility], Smoking Cessation Medications and DC Order Prescriptions: Continued simvastatin 20 mg tablet 20 mg PO QPM Qty: 90 1RF Discontinued amlodipine 10 mg tablet 10 mg PO DAILY Qty: 30 11RF lisinopril 10 mg tablet 10 mg PO DAILY Qty: 90 1RF pediatric multivitamin [Gummi Bear Multivitamin] tablet,chewable 1 tab PO DAILY cephalexin 500 mg capsule 500 mg PO BID Qty: 10 0RF cholecalciferol (vitamin D3) 25 mcg (1,000 unit) Capsule 1,000 unit PO QAM Qty: 30 0RF Discharge Orders: Discharge Order (Routine); Ordered 05/23/22 Ordered By: Yang Rehman/Other Patient Handouts: CKD Dc Admission Data Admit Date/Time: 05/17/22 20:49 Attending Provider: Yang Hays Admit Provider: Yaya Barriga Primary Care Provider: Elle Ruiz Other Providers: Greg Malcolm ; Juan A Mcclure ; Amaya Hein ; Francine Handley ; Dante Rivera ; Kasia Person ; Holly Rosales ; Lakshmi Blakely ; Terrie Hill ; Divya Gaines ; Karina Nicole ; Terri Hood Other Interventions: Discharge Summary Assessment (RN) Last Done: 05/23/22 16:43 Coding Level of Care Code D/C DAY MANAGEMENT >30 MINS Diagnoses Encounter for assessment of decision-making capacity Z01.89 Acute kidney injury superimposed on CKD N17.9; N18.9 Fever R50.9 UTI (urinary tract infection) N39.0 Macrocytic anemia D53.9 Hypercalcemia E83.52 Diabetes E11.9 Hypertension I10
[2022-05-23 17:26] LABS: Hematocrit (blood only) 30.3 % (34.1-44.9); Hemoglobin 9.8 g/dl (12.0-16.0)
[2022-05-25 12:08] LABS: Ehrlichia chaff DNA Bld Negative (Negative)
[2022-05-26 21:32] LABS: ANCA Screen ATYP P-ANCA POS (Negative); Anti Nuclear Antibody Screen NEGATIVE (NEGATIVE); Anti-Glom Basement Antibody <1.0 AI (<1.0); Complement C3 94 mg/dL (83-193); Complement Total(CH50) >60 U/mL (31-60)
[2022-05-28 08:36] LABS: Atyp p-ANCA (Reflex Only) 1:40 Titer (<1:20)
[2022-05-28 10:21] LABS: Abnormal Protein Band 1 DNR mg/24 h (NONE DETECTED); Abnormal Protein Band 2 DNR mg/24 h (NONE DETECTED); Abnormal Protein Band 3 DNR mg/24 h (NONE DETECTED); Creatinine, 24 hr Urine 0.46 g/24 h (0.50-2.15); Protein, Urine 24 Hour 442 mg/24 h (<150); Ur Protein/Creatinine Rat mg/g 963 mg/g creat (<150); Urine Protein/Creatinine Ratio 0.963 (<0.150)
== END 2022-05-23 17:33 | disposition home or self-care (01) | DRG 682 ==
LOC: ED 14:59 → 2E 20:49 → SUATTDRO 20:49 → 2E 05-18 00:29 → 3W 05-18 11:11
DX: E86.0 Dehydration; E83.52 Hypercalcemia; H81.10 Benign paroxysmal vertigo, unspecified ear; I12.0 Hypertensive chronic kidney disease with stage 5 chronic kidney disease or end stage renal disease; E44.1 Mild protein-calorie malnutrition; N18.6 End stage renal disease; D63.8 Anemia in other chronic diseases classified elsewhere; E11.22 Type 2 diabetes mellitus with diabetic chronic kidney disease; K59.00 Constipation, unspecified; E11.40 Type 2 diabetes mellitus with diabetic neuropathy, unspecified; N17.9 Acute kidney failure, unspecified; R50.2 Drug induced fever

== ENCOUNTER 2022-06-03 19:45 | Inpatient (IN) ==
[2022-06-03] MEDS ORDERED: ONDANSETRON INJ 2 MG/ML 2 ML VIAL IV STA (20:21)
[2022-06-03] MEDS ORDERED: PANTOprazole 40 MG in SYRINGE 0 ML IV ONE (20:21)
[2022-06-03] MEDS ORDERED: SODIUM CHLORIDE 0.9% 1000ML 1,000 ML IV STA (20:21)
[2022-06-03 20:58] LABS: Hematocrit (blood only) 21.4 % (34.1-44.9); Hemoglobin 6.6 g/dl (12.0-16.0); Mean Corpuscular Hgb Conc 30.8 g/dL (32.0-36.0); Mean Corpuscular Volume 100.5 fL (80.0-100.0); Platelet Count 490 K/uL (130-400); RDW Coefficient of Variation 14.6 % (11.5-14.5); RDW Standard Deviation 51.4 fL (36.4-46.3); Red Blood Count 2.13 M/uL (3.93-5.22)
[2022-06-03 21:01] LABS: Partial Thromboplastin Ratio 0.7; Prothrombin Time 11.1 Seconds (9.0-12.0)
[2022-06-03 21:04] LABS: Partial Thromboplastin Time < 20.0 Seconds (21.0-31.0)
[2022-06-03 21:14] LABS: Basophils # (auto) 0.11 K/uL (0-0.2); Basophils % (auto) 0.7 %; Hypochromasia Present; Immature Granulocytes # (auto) 0.17 K/uL (0.00-0.02); Immature Granulocytes % (auto) 1.1 %; Lymphocytes # (auto) 1.78 K/uL (1.2-3.4); Lymphocytes % (auto) 11.7 %; Microcytosis Present; Monocytes % (auto) 3.3 %; Neutrophils # (auto) 12.34 K/uL (1.4-6.5); Neutrophils % (auto) 81.2 %
[2022-06-03 21:19] LABS: Albumin Globulin Ratio 1.1 (0.9-2); Albumin Level 3.4 gm/dl (3.4-5.0); BUN Creatinine Ratio 17.5 (10-20); Bilirubin,Total 0.2 mg/dl (0.2-1.0); Est GFR (Non-African American) 8.6 ml/min; Globulin 3.1 gm/dl (2.5-4.0); Potassium 4.3 mmol/L (3.5-5.1); Total Protein 6.5 gm/dl (6.0-8.3); Troponin I High Sensitivity 16.3 pg/ml (0-14)
[2022-06-03] MEDS ORDERED: SODIUM CHLORIDE 0.9% 250 ML IV PRN ×2 (21:22→21:23)
--- NOTE | 2022-06-03 21:22 | Emergency Department Note ---
History of Present Illness General Chief complaint: Vomiting Stated complaint: VOMITING BLACK SUBSTANCE Time Seen by Provider: 06/03/22 20:21 History of Present Illness 71-year-old female presents emergency department states that she was vomiting black blood that started earlier this evening. Patient has no prior history of ulcers or upper GI bleeding. Patient is not on blood thinners. Patient has a history of CKD and is predialysis but has been refusing hospice or dialysis care. Patient states nausea prior to arrival. Patient denies any abdominal pain. There are no other mitigating or alleviating factors. There is no chest pain or shortness of breath she does state that she feels weak at times. Home Medications Medication Instructions Recorded Confirmed Type simvastatin 20 mg tablet 20 mg PO QPM #90 tabs 12/07/21 06/03/22 Rx Allergies Allergy/AdvReac Type Severity Reaction Status Date / Time No Known Allergies Allergy Verified 06/03/22 23:01 Past Med/Surg History Medical History Acid reflux disease Benign paroxysmal positional vertigo Decreased hearing Diabetes mellitus with kidney disease Diabetic peripheral neuropathy DM (diabetes mellitus), type 2 with neurological complications Stage III chronic kidney disease Surgical History Appendectomy (05/08/13) History of cholecystectomy (05/08/13) Family History Brother Myocardial infarction Brother Myocardial infarction Denies family history of Ovarian cancer Prostate cancer Breast cancer Colorectal cancer Social History Smoking Status: Never smoker Second Hand Exposure: No; Do You Dip or Chew Tobacco: No; Hx Alcohol Use: No Hx Substance Use: No Preferred Language: Citizen Of [place] Communication Ability: Effective 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: Hard of Hearing Lab Support Service Tech Required: No Beliefs That Will Affect Care: None marital status: / Current Living Situation: Alone current occupational status: retired How many Children do You have: 2 Other Information That Helps Us Care for You: No Feels Safe at Home: Yes Safety Concerns: Feels Safe At This Time Childhood Exposure to Second-Hand Smoke: No caffeine: Yes Dental Care, Regularly: No Physical Activity Frequency: Does not Exercise Seatbelt Use: sometimes Sunscreen Use: No Assistive Devices: Denture - Upper and Glasses Review of Systems A total of 10 systems reviewed and were otherwise negative Constitutional: no fever Respiratory: no cough Cardiovascular: no chest pain Gastrointestinal: + coffee ground emesis; no abdominal pain Physical Exam Vital Signs Vital Signs - 24 hr 06/03/22 20:08 06/03/22 19:46 06/03/22 20:22 Temperature 36.7 C Temperature Source Temporal Artery Scan Pulse Rate 108 H 98 H Pulse Rate [Apical] 84 Pulse Rhythm Regular Pulse Rhythm [Apical] Regular Pulse Strength [Apical] Normal Respiratory Rate 20 16 Respiratory Effort / Characteristics Non-Labored Respiratory Depth Normal Normal Respiratory Pattern Regular Blood Pressure 89/71 L Blood Pressure [Right Arm] 159/87 H Blood Pressure Mean 77 Blood Pressure Mean [Right Arm] 111 Pulse Oximetry 99 99 99 Oxygen Delivery Method Room Air Room Air Room Air Sepsis New/Unexplained Change in Mental Status N/A Sepsis Action Taken by Nursing No Action Required 06/03/22 21:46 Temperature Temperature Source Pulse Rate Pulse Rate [Apical] 96 H Pulse Rhythm Pulse Rhythm [Apical] Regular Pulse Strength [Apical] Normal Respiratory Rate 18 Respiratory Effort / Characteristics Non-Labored Respiratory Depth Normal Respiratory Pattern Blood Pressure Blood Pressure [Right Arm] 139/88 Blood Pressure Mean Blood Pressure Mean [Right Arm] 105 Pulse Oximetry 100 Oxygen Delivery Method Room Air Sepsis New/Unexplained Change in Mental Status Sepsis Action Taken by Nursing GENERAL: Patient is awake alert in no acute distress patient is resting comfortably and showing no signs of anxiety EYES: The conjunctivae are clear. The pupils are round and reactive. EARS, NOSE, MOUTH AND THROAT: The nose is without any evidence of any deformity. Mucous membranes are moist. Tongue is midline. NECK: The neck is nontender and supple. RESPIRATORY: Normal respiratory effort is noted there is no evidence of wheezing rhonchi or rales CARDIOVASCULAR: Regular rate and rhythm noted there no murmurs rubs or gallops normal S1 normal S2. GASTROINTESTINAL: The abdomen is soft. Abdomen is nontender. BACK: No midline tenderness or or step-off noted range of motion in flexion extension as well as rotation no signs of muscle spasm noted MUSCULOSKELETAL/EXTREMITIES: There is no evidence of gross deformity full range of motion is noted in the hips and shoulders. SKIN: There is no obvious evidence of any rash. There are no petechiae, pallor or cyanosis noted. NEUROLOGIC: Patient is awake alert and oriented x3 strength is symmetric PSYCH: Normal affect Course Reevaluation(s) Reevaluation #1: Patient was resting in no distress not hypotensive, has anemia was started on fluids was given Protonix, type and cross was performed for 2 units of blood. [facility]. Time: 22:00 Administered Medications Sodium Chloride (Nss 1000ml) 1,000 mls @ 125 mls/hr IV .Q8H STA Stop: 06/04/22 04:20 Last Infusion: 06/03/22 23:40 Dose: 0 mls/hr Documented By: Admin: 06/03/22 20:31 Dose: 125 mls/hr Documented By: SOLOMON Discontinued Medications Pantoprazole Sodium 40 mg/ (Syringe) 10 mls @ 5 mls/min IV NOW ONE Stop: 06/03/22 20:22 Last Admin: 06/04/22 00:28 Dose: Not Given Documented By: FARZANA Pantoprazole Sodium 80 mg/ (Dextrose) 100 mls @ 400 mls/hr IV 2220 ONE Stop: 06/03/22 22:34 Last Infusion: 06/04/22 00:25 Dose: 0 mls/hr Documented By: Admin: 06/03/22 22:51 Dose: 400 mls/hr Documented By: SOLOMON Ondansetron HCl (Ondansetron Inj 2 Mg/Ml 2 Ml Vial) 4 mg IV ONE STA Stop: 06/03/22 20:22 Last Admin: 06/03/22 20:31 Dose: 4 mg Documented By: SOLOMON Critical Care Time Critical Care Time: Yes Total Critical Care Time: 35 I have personally spent greater than 35 minutes of critical care time in the direct management of this patient. This includes bedside care, interpretation of diagnostic studies, and testing, discussion with consultants, patient, and family members, and other required patient management activities. These minutes are in excess of all separately billable procedures. Medical Decision Making Medical Records Attestation: I reviewed the patient's medical records. Home Medications Current Medication List: was personally reviewed by me Laboratory Data Attestation: I reviewed the patient's lab results. Result diagrams: 06/03/22 20:36 06/03/22 20:36 Lab Results 06/03/22 06/03/22 06/03/22 Range/Units 20:22 20:36 20:36 WBC 15.20 H (4.8-10.8) K/ul RBC 2.13 L (3.93-5.22) M/uL Hgb 6.6 L* (12.0-16.0) g/dl Hct 21.4 L (34.1-44.9) % MCV 100.5 H (80.0-100.0) fL MCH 31.0 (25.0-34.0) pg MCHC 30.8 L (32.0-36.0) g/dL RDW Std Deviation 51.4 H (36.4-46.3) fL RDW Coeff of Suellen 14.6 H (11.5-14.5) % Plt Count 490 H (130-400) K/uL MPV 10.0 (9.4-12.3) fL Immature Gran % (Auto) 1.1 % Neut % (Auto) 81.2 % Lymph % (Auto) 11.7 % Elk % (Auto) 3.3 % Eos % (Auto) 2.0 % Baso % (Auto) 0.7 % Neut # (Auto) 12.34 H (1.4-6.5) K/uL Lymph # (Auto) 1.78 (1.2-3.4) K/uL Elk # (Auto) 0.50 (0.24-0.82) K/uL Eos # (Auto) 0.30 (0-0.50) K/uL Baso # (Auto) 0.11 (0-0.2) K/uL Immature Gran # (Auto) 0.17 H (0.00-0.02) K/uL Hypochromasia Present Microcytosis Present PT 11.1 (9.0-12.0) Seconds INR 1.0 (0.9-1.1) APTT < 20.0 L (21.0-31.0) Seconds PTT Ratio 0.7 Sodium (136-145) mmol/L Potassium (3.5-5.1) mmol/L Chloride (98-107) mmol/L Carbon Dioxide (21-32) mmol/L Anion Gap (3-11) BUN (6-23) mg/dl Creatinine (0.6-1.2) mg/dl Est Cr Clr Drug Dosing ml/min Est GFR ( Amer) ml/min Est GFR (Non-Af Amer) ml/min BUN/Creatinine Ratio (10-20) Glucose (70-99(Fasting)) mg/dl Calcium (8.5-10.1) mg/dl Total Bilirubin (0.2-1.0) mg/dl AST (13-39) U/L ALT (7-52) U/L Alkaline Phosphatase (34-104) U/L Troponin I High Sens (0-14) pg/ml Total Protein (6.0-8.3) gm/dl Albumin (3.4-5.0) gm/dl Globulin (2.5-4.0) gm/dl Albumin/Globulin Ratio (0.9-2) POC Stool Occult Blood Positive A (Negative) SARS-CoV-2, RNA, NAAT (NEGATIVE) Blood Type Antibody Screen Crossmatch 06/03/22 06/03/22 06/03/22 Range/Units 20:36 20:59 21:40 WBC (4.8-10.8) K/ul RBC (3.93-5.22) M/uL Hgb (12.0-16.0) g/dl Hct (34.1-44.9) % MCV (80.0-100.0) fL MCH (25.0-34.0) pg MCHC (32.0-36.0) g/dL RDW Std Deviation (36.4-46.3) fL RDW Coeff of Suellen (11.5-14.5) % Plt Count (130-400) K/uL MPV (9.4-12.3) fL Immature Gran % (Auto) % Neut % (Auto) % Lymph % (Auto) % Elk % (Auto) % Eos % (Auto) % Baso % (Auto) % Neut # (Auto) (1.4-6.5) K/uL Lymph # (Auto) (1.2-3.4) K/uL Elk # (Auto) (0.24-0.82) K/uL Eos # (Auto) (0-0.50) K/uL Baso # (Auto) (0-0.2) K/uL Immature Gran # (Auto) (0.00-0.02) K/uL Hypochromasia Microcytosis PT (9.0-12.0) Seconds INR (0.9-1.1) APTT (21.0-31.0) Seconds PTT Ratio Sodium 141 (136-145) mmol/L Potassium 4.3 (3.5-5.1) mmol/L Chloride 108 H (98-107) mmol/L Carbon Dioxide 19 L (21-32) mmol/L Anion Gap 14 H (3-11) BUN 82 H (6-23) mg/dl Creatinine 4.69 H* (0.6-1.2) mg/dl Est Cr Clr Drug Dosing 8.0 ml/min Est GFR ( Amer) 10.0 ml/min Est GFR (Non-Af Amer) 8.6 ml/min BUN/Creatinine Ratio 17.5 (10-20) Glucose 211 H (70-99(Fasting)) mg/dl Calcium 9.0 (8.5-10.1) mg/dl Total Bilirubin 0.2 (0.2-1.0) mg/dl AST 16 (13-39) U/L ALT 13 (7-52) U/L Alkaline Phosphatase 44 (34-104) U/L Troponin I High Sens 16.3 H (0-14) pg/ml Total Protein 6.5 (6.0-8.3) gm/dl Albumin 3.4 (3.4-5.0) gm/dl Globulin 3.1 (2.5-4.0) gm/dl Albumin/Globulin Ratio 1.1 (0.9-2) POC Stool Occult Blood (Negative) SARS-CoV-2, RNA, NAAT NEGATIVE (NEGATIVE) Blood Type A Negative Antibody Screen NEGATIVE Crossmatch See Detail MDM Narrative Medical decision making differential diagnosis includes upper GI bleed, ulcer, metabolic derangement, dehydration, electrolyte abnormality; plan is to check labs, EKG, patient's hemoglobin is low, patient requires emergent transfusion I suspect the patient has upper GI bleeding. Patient was evaluated for what appears to be upper GI bleeding, is anemic will be transfused needs further evaluation for potential upper GI bleed and CKD. The case was discussed with the [facility] hospitalist my concern is an upper GI bleed at this time Impression & Plan Acute upper gastrointestinal bleeding, Acute blood loss anemia, CKD (chronic kidney disease) Discharge Plan Visit Data Chief Complaint: Vomiting Stated Complaint: VOMITING BLACK SUBSTANCE ED Provider: Tc Terrazas Discharge Problem: Acute upper gastrointestinal bleeding, Acute blood loss anemia, CKD (chronic kidney disease) Patient Disposition: Admitted As Inpatient Discharge Instructions Interventions: ED Discharge Assessment Last Done: 06/03/22 23:22
--- NOTE | 2022-06-03 21:42 | History & Physical Report ---
Date of Service June 03, 2022 Assessment & Plan (1) Upper GI bleed: Plan: Hematemesis x1 and melena x3, acute onset, symptoms x1 day. With FOBT+ stool in ED. Likely due to chronic NSAID use with possible contribution from recent stressor/hospitalization at end of last month. - pRBCs transfusing as stated below - will give Protonix 80mg IV bolus now and continue with 40mg IV BID starting tomorrow morning - GI consulted for consideration of EGD - maintain NPO pending GI evaluation (2) Acute blood loss anemia: Plan: Hgb 6.6 on presentation. Acute drop likely due to upper GI bleed as stated above. However patient has anemia of chronic disease likely 2/2 to ESRD with chronic baseline Hgb 7-8. - 2 units pRBCs transfusing - trend H/H Q4H through tomorrow morning - transfuse for Hgb <7 (3) ESRD (end stage renal disease): Plan: Chronic, with Nephrology consultation during last hospitalization last month, with recommendation for dialysis. Patient refused at that time but tonight seems amenable to discussing options with Nephrology once again. - Nephrology consulted - appreciate recs - trend BMP daily - check Mg/Phos/retic count in AM (4) Diabetes: Plan: Chronic, A1c 6.1 in 03/2022. Not on any home medications - consider SGLT-2 inhibitor - defer to primary team/PCP/Nephrology (5) Hypertension: Plan: Chronic, with BPs low-normal, and Amlodipine/Lisinopril were stopped at last ho spitalization last month. (6) Hyperlipidemia: Plan: Hold home statin while NPO. Plan FEN/GI: NPO DVT Prophylaxis: SCDs, chemoppx contraindicated due to upper GIB Code Status: DNR/DNI Disposition: PCU History of Present Illness Chief Complaint: vomiting Primary Care Provider: Elle Ruiz MD Sally Welsh is a 71yo female with PMHx significant for ESRD (has refused dialysis in the past), T2DM (A1c 6.1 on 03/22/2022), HTN, HLD and anemia of chronic disease who presented to [facility] ED on 06/03 for acute onset of hematemesis (black blood) that started earlier in the evening. Also reports melena x3 earlier today. Usually has 1 brown stool (no diarrhea/constipation) every other day. Also reports associated dizziness/lightheadedness x1 day. No prior history of PUD/upper GI bleed. Not on blood thinners. Of note the patient chronically takes Ibuprofen 600-1200mg daily for chronic neck/back pain due to "arthritis". Of note patient was recently admitted at the end of last month and diagnosed with ESRD and associated anemia of chronic disease; had been offered dialysis by nephrology as well as hospice but declined both at that time. Patient lives alone at home and is proficient in ADLs/iADLs (confirmed with patient's sister). Does not fall at home. Denies alcohol/smoking/drug use. In the ED the patient was mildly hypotensive at 89/71 with HR up to 108. Satting well on room air and afebrile. CBC significant for Hgb 6.6 (baseline 8-9), MCV 100.5, plts 490, WBC 15.2 (neutrophilic predominance and L shift). PT/PTT/INR WNL. Cr 4.69 (~baseline), with BUN 82 (higher than baseline). HCO3 19 and AG 14. hsTroponin 16.3. Stool FOBT+. Patient was given Zofran 4mg IV x1 2 units pRBCs ordered with type/cross. Also was started on NSS @125cc/hr x1L. Allergies Allergy/AdvReac Type Severity Reaction Status Date / Time No Known Allergies Allergy Verified 06/03/22 23:01 Home Medications Medication Instructions Recorded Confirmed Type simvastatin 20 mg tablet 20 mg PO QPM #90 tabs 12/07/21 06/03/22 Rx pantoprazole 40 mg tablet,delayed 40 mg PO BID #60 tabs 06/06/22 Rx release amlodipine 10 mg tablet 10 mg PO DAILY #90 tabs 06/08/22 Rx lisinopril 10 mg tablet 10 mg PO DAILY #90 tabs 06/08/22 Rx Past Med/Surg History Medical History (Updated 06/06/22 @ 10:37 by THOMAS Baker) Acid reflux disease Benign paroxysmal positional vertigo Decreased hearing Diabetes mellitus with kidney disease Diabetic peripheral neuropathy DM (diabetes mellitus), type 2 with neurological complications ESRD (end stage renal disease) Surgical History (Updated 06/07/22 @ 09:17 by Viky Heaton RN) Appendectomy (05/08/13) History of cholecystectomy (05/08/13) History of esophagogastroduodenoscopy (EGD) 06/05/22 Dr. 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 NAD. Cooperative. HEENT: Atraumatic, normocephalic. +conjunctival pallor Pulm: CTAB A&P. -wheezes, -rales, -rhonchi. Symmetrical chest rise. No increase work of breathing. No respiratory distress. Cardiac: RRR, -mrg. Radial pulses intact and symmetrical. No LE edema. Abdominal: soft, non-distended, mild epigastric tenderness, BS x 4 Skin: pale, warm, no rash Results & Data Results & Data ([facility]) Vital Signs (Past 12 Hours) Vital Signs Temp Pulse Pulse Resp BP BP Pulse Ox 06/03/22 20:22 98 H 99 06/03/22 19:46 84 16 159/87 H 99 06/03/22 20:08 36.7 C 108 H 20 89/71 L 99 O2 Del Method 06/03/22 20:22 Room Air 06/03/22 19:46 Room Air 06/03/22 20:08 Room Air CBC w Diff Results Results CBC w Diff Results: RBC 2.77 M/uL (3.93-5.22) L 06/06/22 WBC 6.49 K/ul (4.8-10.8) 06/06/22 Hgb 8.4 g/dl (12.0-16.0) L 06/06/22 Hct 25.4 % (34.1-44.9) L 06/06/22 MCV 91.7 fL (80.0-100.0) 06/06/22 MCH 30.3 pg (25.0-34.0) 06/06/22 MCHC 33.1 g/dL (32.0-36.0) 06/06/22 RDW Standard Deviation 60.5 fL (36.4-46.3) H 06/06/22 RDW Coefficient of Variation 18.6 % (11.5-14.5) H 06/06/22 Plt Count 324 K/uL (130-400) 06/06/22 MPV 9.8 fL (9.4-12.3) 06/06/22 Nucleated Red Blood Cells % (auto) 1.0 % 05/30 Nucleated RBC Absolute Count (auto) 0.10 K/uL (0-0) H 04/12 Neutrophils (%) (Auto) 57.1 % 06/04/22 Lymphocytes (%) (Auto) 33.2 % 06/04/22 Monocytes # (Auto) 0.58 K/uL (0.24-0.82) 06/04/22 Eosinophils # (Auto) 0.11 K/uL (0-0.50) 06/04/22 Immature Granulocyte % (Auto) 1.3 % 06/04/22 Neutrophils # (Auto) 5.40 K/uL (1.4-6.5) 06/04/22 Lymphocytes # (Auto) 3.13 K/uL (1.2-3.4) 06/04/22 Monocytes # (Auto) 0.58 K/uL (0.24-0.82) 06/04/22 Eosinophils # (Auto) 0.11 K/uL (0-0.50) 06/04/22 Basophils # (Auto) 0.10 K/uL (0-0.2) 06/04/22 Immature Granulocyte # (Auto) 0.12 K/uL (0.00-0.02) H 06/04 Polychromasia 1+ 05/22/22 Hypochromasia Present 06/03/22 Microcytosis Present 06/03/22 Toxic Granulation 1+ 05/22/22 Toxic Vacuolation 1+ 05/22/22 Chemistry (BMP) Results BMP Results: Sodium 142 mmol/L (136-145) 06/06/22 Potassium 3.7 mmol/L (3.5-5.1) 06/06/22 Chloride 115 mmol/L (98-107) H 06/06/22 Carbon Dioxide 17 mmol/L (21-32) L 06/06/22 Anion Gap 10 (3-11) 06/06/22 BUN 66 mg/dl (6-23) H 06/06/22 Creatinine 4.30 mg/dl (0.6-1.2) H 06/06/22 Glucose 81 mg/dl (70-99(Fasting)) 06/06/22 Supervising Physician Co-Signing Physician Notes Attending addendum: I have physically seen this patient, have supervised the medical residents activities, and agree with the H&P unless as otherwise noted. Assessment and Plan: Upper GI bleed/symptomatic anemia- Hematemesis x1 and melena x3 History of chronic NSAID use Contributing factor may also be recent stressors from hospitalization Protonix 80 mg IV now, and 40 mg IV twice daily Hemoglobin 6.6 upon admission H&H every 4 hours Anemia Due to acute blood loss Transfused 2 units PRBCs, recheck laboratories 1 hour afterwards Consult gastroenterology ESRD on HD- Consult nephrology Diabetes mellitus- Diet controlled Hypertension- Currently on no medications Remaining orders and notations as noted Resident Activity Tracking Resident Involvement: Resident Care Provided Care Provided: Adult Hospital Medicine
[2022-06-03] MEDS ORDERED: PANTOprazole 80 MG in DEXTROSE 5% 100 ML IV ONE (22:20)
[2022-06-04] MEDS ORDERED: ONDANSETRON INJ 2 MG/ML 2 ML VIAL IV PRN (00:06)
--- NOTE | 2022-06-04 07:08 | Hospitalist Progress Note ---
Date of Service June 04, 2022 Assessment & Plan (1) Upper GI bleed: Plan: Hematemesis x1 and melena x3, acute onset, symptoms x1 day. With FOBT+ stool in ED. Likely due to chronic NSAID use with possible contribution from recent stressor/hospitalization at end of last month. - pRBCs transfused, hemoglobin at 9.4, recheck H&H at 4 PM -Protonix twice daily changed to Protonix drip per GI recommendation - GI consulted for consideration of EGD, EGD scheduled for tomorrow morning. - maintain NPO per GI instruction, concern for active bleed (2) Acute blood loss anemia: Plan: Hgb 6.6 on presentation. Acute drop likely due to upper GI bleed as stated above. However patient has anemia of chronic disease likely 2/2 to ESRD with chronic baseline Hgb 7-8. - 2 units pRBCs transfused - trend H/H Q4H through tomorrow morning - transfuse for Hgb <7 (3) ESRD (end stage renal disease): Plan: Chronic, with Nephrology consultation during last hospitalization last month, with recommendation for dialysis. Patient refused at that time but tonight seems amenable to discussing options with Nephrology once again. - Nephrology consulted - appreciate recs, no acute indication for dialysis at this time, recommending conservative management this time. Patient does not want to be on dialysis - trend BMP daily -Creatinine at 4.62 -Magnesium and phosphorus within normal limits (4) Diabetes: Plan: Chronic, A1c 6.1 in 03/2022. Not on any home medications -No sliding scale insulin needed at this time (5) Hypertension: Plan: Chronic, with BPs low-normal, and Amlodipine/Lisinopril were stopped at last hospitalization last month. (6) Hyperlipidemia: Plan: Hold home statin while NPO. Plan FEN/GI: NPO DVT Prophylaxis: SCDs, chemoppx contraindicated due to upper GIB Code Status: DNR/DNI Disposition: PCU Admission and Anticipated Discharge Date Admission Date: June 03, 2022 Supervising Physician Co-Signing Physician Notes Resident Physician Supervision Note: I independently interviewed and examined the patient and verified the [place] history and physical, reviewed labs and image studies and agree with resident findings and care plan. Subjective Patient seen at bedside this morning. No acute vents reported overnight. Seems that patient began having hematemesis x1 yesterday which prompted her to come to the emergency room for evaluation. Additionally been having dark stools especially the past couple of days and on Saturday she had melena x3. This morning overall feeling well after receiving 2 units in the emergency department last night. Denies any discomfort or pain. No shortness of breath or fatigue. Denies nausea, vomiting, or bowel movements. Patient is hungry. No other complaints this time Review of Systems Review of Systems: All systems reviewed & are unremarkable except as noted in HPI & below Physical Exam Constitutional: WD/WN, vitals as above Eyes: + anicteric sclerae Neck: normal visual inspection Respiratory: normal respiratory effort, lungs clear to auscultation Cardiovascular: Rate/Rhythm: regular rate and regular rhythm Vessels: no JVD Extremities: + edema (trace) Gastrointestinal (Abdomen): Inspection/Auscultation: abdomen normal to inspection and + hyperactive bowel sounds; abdomen not distended Percussion /Palpation: abdomen soft Musculoskeletal: Head/Neck/Chest: normocephalic and head atraumatic Skin: no rashes, warm and dry Neurologic: moves all extremities Psychiatric: A+Ox3, euthymic affect Orientation: cooperative Results & Data Results & Data ([facility]) Vital Signs (Past 12 Hours) Vital Signs Temp Pulse Pulse Resp BP BP BP 06/04/22 06:25 37.1 C 83 18 161/92 H 06/04/22 05:47 36.5 C 87 16 161/92 H 06/04/22 04:47 36.7 C 85 16 145/82 H 06/04/22 03:47 36.5 C 84 18 154/84 H 06/04/22 03:17 37.1 C 85 18 154/81 H 06/04/22 03:02 36.5 C 87 18 161/92 H 06/04/22 02:42 36.9 C 86 18 167/96 H 06/04/22 02:24 37.0 C 88 18 144/77 H 06/04/22 01:40 36.6 C 87 16 151/81 H 06/04/22 00:40 36.8 C 87 18 147/80 H 06/03/22 23:40 36.9 C 94 H 18 158/81 H 06/03/22 23:40 36.9 C 94 H 18 158/81 H 06/03/22 23:00 37.6 C H 94 H 16 146/84 H 06/03/22 23:10 37.3 C 96 H 16 142/83 H 06/03/22 22:55 37.4 C 94 H 16 135/83 06/03/22 22:49 37.5 C 95 H 16 130/73 06/03/22 22:35 37.3 C 100 H 16 123/78 06/03/22 21:46 96 H 18 139/88 06/03/22 20:22 98 H 06/03/22 19:46 84 16 159/87 H 06/03/22 20:08 36.7 C 108 H 20 89/71 L Pulse Ox O2 Del Method 06/04/22 06:25 99 06/04/22 05:47 99 06/04/22 04:47 98 06/04/22 03:47 98 06/04/22 03:17 98 06/04/22 03:02 99 06/04/22 02:42 98 06/04/22 02:24 99 06/04/22 01:40 98 06/04/22 00:40 98 06/03/22 23:40 100 Room Air 06/03/22 23:40 100 06/03/22 23:00 100 Room Air 06/03/22 23:10 100 06/03/22 22:55 99 06/03/22 22:49 100 06/03/22 22:35 100 06/03/22 21:46 100 Room Air 06/03/22 20:22 99 Room Air 06/03/22 19:46 99 Room Air 06/03/22 20:08 99 Room Air
[2022-06-04 07:53] LABS: Basophils % (auto) 1.1 %; Eosinophils # (auto) 0.11 K/uL (0-0.50); Eosinophils % (auto) 1.2 %; Hematocrit (blood only) 28.8 % (34.1-44.9); Hemoglobin 9.4 g/dl (12.0-16.0); Immature Granulocytes # (auto) 0.12 K/uL (0.00-0.02); Immature Granulocytes % (auto) 1.3 %; Lymphocytes # (auto) 3.13 K/uL (1.2-3.4); Lymphocytes % (auto) 33.2 %; Mean Corpuscular Hemoglobin 29.6 pg (25.0-34.0); Mean Corpuscular Hgb Conc 32.6 g/dL (32.0-36.0); Mean Corpuscular Volume 90.6 fL (80.0-100.0); Mean Platelet Volume 9.6 fL (9.4-12.3); Monocytes # (auto) 0.58 K/uL (0.24-0.82); Monocytes % (auto) 6.1 %; Neutrophils % (auto) 57.1 %; Platelet Count 336 K/uL (130-400); RDW Coefficient of Variation 18.2 % (11.5-14.5); RDW Standard Deviation 58.4 fL (36.4-46.3); Red Blood Count 3.18 M/uL (3.93-5.22); Reticulocyte % 2.5 % (0.5-2.0); Reticulocytes # 0.08 10^6/uL (0.02-0.10); White Blood Count 9.44 K/ul (4.8-10.8)
[2022-06-04 08:25] LABS: Calcium 8.1 mg/dl (8.5-10.1); Creatinine Clr Calc Pharmacy 8.2 ml/min; Est GFR (African American) 10.2 ml/min; Est GFR (Non-African American) 8.8 ml/min; Magnesium 2.1 mg/dl (1.7-2.4); Phosphorus 4.6 mg/dl (2.5-4.9); Potassium 4.1 mmol/L (3.5-5.1)
[2022-06-04] MEDS ORDERED: PANTOprazole 40 MG in SYRINGE 0 ML IV SCH (09:00)
--- NOTE | 2022-06-04 09:11 | Gastrointestinal Consultation ---
Date of Consultation June 04, 2022 Assessment & Plan (1) Acute blood loss anemia: (2) Upper GI bleed: Plan Patient is a 71 y.o. female admitted with hematemesis and acute blood loss anemia in the setting of NSAID use. -NPO for now. -Start PPI ggt at 8 mg/hr. Given melena this am and hyperactive bowel sounds, concern for active bleed. -EGD planned for tomorrow with Dr. Francisco. If concern for persistent overt GIB, however, may need to consider testing today. -Supportive care per primary team. Thank you for for allowing us to participate in the care of this patient. If you have any questions or concerns, please do not hesitate to contact us. History of Present Illness Reason for Consultation: GIB Requesting Physician: Dr. Carter Attending Physician: Viji Temple MD History of Present Illness Patient is a 71 y.o. female with a history of CKD, ESRD, DM, HTN, HLD, and GERD and chronic low back pain admitted last evening with acute blood loss anemia and coffee-ground emesis. She states she is using Ibuprofen daily for management of back pain. Hematemesis was associated with dizziness and epigastric pain which has since resolved. She reports she did have a melanotic small bm this morning. H&H on arrival was found to be 6.6/21.4 but has improved to 9.4/28.8 after transfusion. She is NPO and started on Pantoprazole 40 mg IV BID. Allergies Allergy/AdvReac Type Severity Reaction Status Date / Time No Known Allergies Allergy Verified 06/03/22 23:01 Home Medications Medication Instructions Recorded Confirmed Type simvastatin 20 mg tablet 20 mg PO QPM #90 tabs 12/07/21 06/03/22 Rx Patient History Medical History Acid reflux disease Benign paroxysmal positional vertigo Decreased hearing Diabetes mellitus with kidney disease Diabetic peripheral neuropathy DM (diabetes mellitus), type 2 with neurological complications Stage III chronic kidney disease Surgical History Appendectomy (05/08/13) History of cholecystectomy (05/08/13) Family History Brother Myocardial infarction Brother Myocardial infarction Denies family history of Ovarian cancer Prostate cancer Breast cancer Colorectal cancer Social History Smoking Status: Never smoker Second Hand Exposure: No; Do You Dip or Chew Tobacco: No; Hx Alcohol Use: No Hx Substance Use: No Preferred Language: Lebanese Communication Ability: Effective 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: 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 Beliefs That Will Affect Care: None marital status: / Current Living Situation: Alone current occupational status: retired How many Children do You have: 2 Other Information That Helps Us Care for You: No Feels Safe at Home: Yes Safety Concerns: Feels Safe At This Time Childhood Exposure to Second-Hand Smoke: No caffeine: Yes Dental Care, Regularly: No Physical Activity Frequency: Does not Exercise Seatbelt Use: sometimes Sunscreen Use: No Assistive Devices: Denture - Upper and Glasses Review of Systems Constitutional: + fatigue; no fever and no chills Respiratory: no cough and no dyspnea Cardiovascular: no chest pain and no palpitations Gastrointestinal: as per Subjective / HPI Physical Exam Constitutional: WD/WN, vitals as above Eyes: EOM intact bilaterally Neck: normal visual inspection Respiratory: normal respiratory effort, lungs clear to auscultation Cardiovascular: Rate/Rhythm: regular rate and regular rhythm Gastrointestinal (Abdomen): Inspection/Auscultation: + hyperactive bowel sounds Percussion/Palpation: abdomen soft; abdomen nontender Skin: warm and dry Psychiatric: A+Ox3, euthymic affect Results & Data ([facility]) Vital Signs (Past 12 Hours) Vital Signs Temp Pulse Pulse Resp BP BP BP 06/04/22 07:35 36.6 C 78 16 165/81 H 06/04/22 06:25 37.1 C 83 18 161/92 H 06/04/22 05:47 36.5 C 87 16 161/92 H 06/04/22 04:47 36.7 C 85 16 145/82 H 06/04/22 03:47 36.5 C 84 18 154/84 H 06/04/22 03:17 37.1 C 85 18 154/81 H 06/04/22 03:02 36.5 C 87 18 161/92 H 06/04/22 02:42 36.9 C 86 18 167/96 H 06/04/22 02:24 37.0 C 88 18 144/77 H 06/04/22 01:40 36.6 C 87 16 151/81 H 06/04/22 00:40 36.8 C 87 18 147/80 H 06/03/22 23:40 36.9 C 94 H 18 158/81 H 06/03/22 23:40 36.9 C 94 H 18 158/81 H 06/03/22 23:00 37.6 C H 94 H 16 146/84 H 06/03/22 23:10 37.3 C 96 H 16 142/83 H 06/03/22 22:55 37.4 C 94 H 16 135/83 06/03/22 22:49 37.5 C 95 H 16 130/73 06/03/22 22:35 37.3 C 100 H 16 123/78 06/03/22 21:46 96 H 18 139/88 Pulse Ox O2 Del Method 06/04/22 07:35 97 Room Air 06/04/22 06:25 99 06/04/22 05:47 99 06/04/22 04:47 98 06/04/22 03:47 98 06/04/22 03:17 98 06/04/22 03:02 99 06/04/22 02:42 98 06/04/22 02:24 99 06/04/22 01:40 98 06/04/22 00:40 98 06/03/22 23:40 100 Room Air 06/03/22 23:40 100 06/03/22 23:00 100 Room Air 06/03/22 23:10 100 06/03/22 22:55 99 06/03/22 22:49 100 06/03/22 22:35 100 06/03/22 21:46 100 Room Air Laboratory Results Abnormal lab results 06/03/22 06/03/22 06/03/22 Range/Units 20:22 20:36 20:36 WBC 15.20 H (4.8-10.8) K/ul RBC 2.13 L (3.93-5.22) M/uL Hgb 6.6 L* (12.0-16.0) g/dl Hct 21.4 L (34.1-44.9) % MCV 100.5 H (80.0-100.0) fL MCHC 30.8 L (32.0-36.0) g/dL RDW Std Deviation 51.4 H (36.4-46.3) fL RDW Coeff of Suellen 14.6 H (11.5-14.5) % Plt Count 490 H (130-400) K/uL Reticulocyte % (Auto) (0.5-2.0) % Neut # (Auto) 12.34 H (1.4-6.5) K/uL Immature Gran # (Auto) 0.17 H (0.00-0.02) K/uL APTT < 20.0 L (21.0-31.0) Seconds Chloride (98-107) mmol/L Carbon Dioxide (21-32) mmol/L Anion Gap (3-11) BUN (6-23) mg/dl Creatinine (0.6-1.2) mg/dl Glucose (70-99(Fasting)) mg/dl Calcium (8.5-10.1) mg/dl Troponin I High Sens (0-14) pg/ml POC Stool Occult Blood Positive A (Negative) Crossmatch 06/03/22 06/03/22 06/04/22 Range/Units 20:36 20:59 07:20 WBC (4.8-10.8) K/ul RBC 3.18 L (3.93-5.22) M/uL Hgb 9.4 L (12.0-16.0) g/dl Hct 28.8 L (34.1-44.9) % MCV (80.0-100.0) fL MCHC (32.0-36.0) g/dL RDW Std Deviation 58.4 H (36.4-46.3) fL RDW Coeff of Suellen 18.2 H (11.5-14.5) % Plt Count (130-400) K/uL Reticulocyte % (Auto) 2.5 H (0.5-2.0) % Neut # (Auto) (1.4-6.5) K/uL Immature Gran # (Auto) 0.12 H (0.00-0.02) K/uL APTT (21.0-31.0) Seconds Chloride 108 H (98-107) mmol/L Carbon Dioxide 19 L (21-32) mmol/L Anion Gap 14 H (3-11) BUN 82 H (6-23) mg/dl Creatinine 4.69 H* (0.6-1.2) mg/dl Glucose 211 H (70-99(Fasting)) mg/dl Calcium (8.5-10.1) mg/dl Troponin I High Sens 16.3 H (0-14) pg/ml POC Stool Occult Blood (Negative) Crossmatch See Detail 06/04/22 Range/Units 07:20 WBC (4.8-10.8) K/ul RBC (3.93-5.22) M/uL Hgb (12.0-16.0) g/dl Hct (34.1-44.9) % MCV (80.0-100.0) fL MCHC (32.0-36.0) g/dL RDW Std Deviation (36.4-46.3) fL RDW Coeff of Suellen (11.5-14.5) % Plt Count (130-400) K/uL Reticulocyte % (Auto) (0.5-2.0) % Neut # (Auto) (1.4-6.5) K/uL Immature Gran # (Auto) (0.00-0.02) K/uL APTT (21.0-31.0) Seconds Chloride 113 H (98-107) mmol/L Carbon Dioxide (21-32) mmol/L Anion Gap (3-11) BUN 88 H (6-23) mg/dl Creatinine 4.62 H* (0.6-1.2) mg/dl Glucose (70-99(Fasting)) mg/dl Calcium 8.1 L (8.5-10.1) mg/dl Troponin I High Sens (0-14) pg/ml POC Stool Occult Blood (Negative) Crossmatch PG Care Time/CCT Total # of Minutes Spent Total Time Spent with Patient: Total time spent is greater than 50% in coordination of care (as documented) at patient's floor/unit and/or counseling patient: Coding Level of Care Code 15585 Initial Inpt Care Lvl 3 Diagnoses Acute blood loss anemia D62 Upper GI bleed K92.2
[2022-06-04] MEDS: SODIUM CHLORIDE 0.9% 500 ML IV SCH ×2 (09:30→16:17)
--- NOTE | 2022-06-04 09:48 | Nephrology Consultation ---
Date of Consultation June 04, 2022 Assessment & Plan (1) ESRD (end stage renal disease): * CKD stage G5/A1 (ESKD). Last hospitalization urine sediment was negative for blood or cellular casts, UPCR was 0.9, abdominal CT revealed bilateral renal cortical atrophy and no obstruction, Cr was 2.9 w/ EGFR 15 cc/min 07/11. Clinically suspect ESKD on the basis of microvascular disease * Strongly advised patient to avoid all NSAIDS * Volume status and electrolyte balance are acceptable. No acute indication for HD at this time * Discussed KDIGO CKD staging w/ patient again today. The process of vascular access creation and IHD were reviewed in detail. Ms. Welsh is but has a [id number] on IHD in [place], [place]. She is familiar with dialysis and again states that she does not want it. Recommend conservative medical care * Recommend further discussion w/ palliative care to set up transitional care/pre-hospice to assist patient following her discharge from the hospital (2) Acute blood loss anemia: * Recommend transfusion to maintain Hgb > 8.0 * Await endoscopy results (3) Diabetes mellitus with kidney disease: History of Present Illness Reason for Consultation: CKD Attending Physician: Viji Temple MD History of Present Illness Ms. Welsh is a 71 year old white female who is seen at the request of [facility] hospitalist group for evaluation of CKD. Medical records in the EMR were reviewed today and are summarized as follows: Ms. Welsh has a documented h/o AODM, HTN, hyperlipidemia and COVID-19 pneumonia (07/11). Ms. Welsh was last hospitalized at [facility] 05/17/22 - 05/23/22 for management of UTI and ESKD. Cr was 6.9 at the time of admission. Indications/benefits/risks and alternatives to HD were discussed in detail w/ the patient. She indicated the she had discussed this in the past w/ her PCP but declined outpatient Nephrology evaluation because she did not want to be put on dialysis. Ms. Welsh noted that she is familiar w/ dialysis. Her [id number] lives in [place], [place] and receives IHD in [place], [place]. During her last hospitalization the palliative plant care worker did meet with Ms. Welsh. She reaffirmed her desire not to undergo a trial or start HD. The sourcing consultant did recommend a transitional care/pre- hospice program. Ms. Welsh declined this as well and requested to return home. During her last hospitalization Ms. Welsh reported that she does not take NSAIDS on a regular basis. Yesterday evening she presented to the [facility] EMD for evaluation of hematemesis and melena. Hgb had dropped to 6.6 and patient was hypotensive w/ SBP 89 mm Hg. Cr was improved to 4.6. Patient acknowledged NSAID use for management of arthritis. Ms. Welsh has been admitted to a telemetry bed and has received 2 units of PRBC. She is scheduled for EGD in am. Admission note indicates that patient may be amenable to dialysis if needed. I spoke to Ms. Welsh again about dialysis this morning. Her response is "dialysis - I don't want it!" Allergies Allergy/AdvReac Type Severity Reaction Status Date / Time No Known Allergies Allergy Verified 06/03/22 23:01 Home Medications Medication Instructions Recorded Confirmed Type simvastatin 20 mg tablet 20 mg PO QPM #90 tabs 12/07/21 06/03/22 Rx Patient History Medical History (Updated 06/04/22 @ 10:01 by Juan A Mcclure MD) Acid reflux disease Benign paroxysmal positional vertigo Decreased hearing Diabetes mellitus with kidney disease Diabetic peripheral neuropathy DM (diabetes mellitus), type 2 with neurological complications Surgical History Appendectomy (05/08/13) History of cholecystectomy (05/08/13) Family History Brother Myocardial infarction Brother Myocardial infarction Denies family history of Ovarian cancer Prostate cancer Breast cancer Colorectal cancer Social History Smoking Status: Never smoker Second Hand Exposure: No; Do You Dip or Chew Tobacco: No; Hx Alcohol Use: No Hx Substance Use: No Preferred Language: Occitan Communication Ability: Effective 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: Hard of Hearing Mail Distribution Scheme Examiner Required: No Beliefs That Will Affect Care: None marital status: / Current Living Situation: Alone current occupational status: retired How many Children do You have: 2 Other Information That Helps Us Care for You: No Feels Safe at Home: Yes Safety Concerns: Feels Safe At This Time Childhood Exposure to Second-Hand Smoke: No caffeine: Yes Dental Care, Regularly: No Physical Activity Frequency: Does not Exercise Seatbelt Use: sometimes Sunscreen Use: No Assistive Devices: Denture - Upper and Glasses Review of Systems Constitutional: no fever Eyes: no problem reported Ear, Nose, Mouth, Throat: no problem reported Respiratory: no cough and no dyspnea Cardiovascular: no chest pain, no dyspnea on exertion and no edema Gastrointestinal: + hematemesis and + blood in stools; no abdominal pain Genitourinary: no dysuria and no urinary frequency Neurologic: no confusion and no memory loss Physical Exam Constitutional: + frail appearing Eyes: PERRL, conjunctivae normal, anicteric sclerae ENMT: external ear and nose normal, oropharynx normal Neck: trachea midline, no thyromegaly Respiratory: normal respiratory effort, lungs clear to auscultation Cardiovascular: Rate/Rhythm: regular rate and regular rhythm (no pericardial rub) Extremities: no edema Gastrointestinal (Abdomen): normal bowel sounds, soft, nontender, no hepatosplenomegaly Skin: + turgor decreased Neurologic: awake; not confused and not obtunded Speech / Cognition: normal cognition Psychiatric: Affect: euthymic affect Thought Process: clear/coherent thought process Results & Data ([facility]) Vital Signs (Past 12 Hours) Vital Signs Temp Pulse Pulse Resp BP BP BP 06/04/22 07:35 36.6 C 78 16 165/81 H 06/04/22 06:25 37.1 C 83 18 161/92 H 06/04/22 05:47 36.5 C 87 16 161/92 H 06/04/22 04:47 36.7 C 85 16 145/82 H 06/04/22 03:47 36.5 C 84 18 154/84 H 06/04/22 03:17 37.1 C 85 18 154/81 H 06/04/22 03:02 36.5 C 87 18 161/92 H 06/04/22 02:42 36.9 C 86 18 167/96 H 06/04/22 02:24 37.0 C 88 18 144/77 H 06/04/22 01:40 36.6 C 87 16 151/81 H 06/04/22 00:40 36.8 C 87 18 147/80 H 06/03/22 23:40 36.9 C 94 H 18 158/81 H 06/03/22 23:40 36.9 C 94 H 18 158/81 H 06/03/22 23:00 37.6 C H 94 H 16 146/84 H 06/03/22 23:10 37.3 C 96 H 16 142/83 H 06/03/22 22:55 37.4 C 94 H 16 135/83 06/03/22 22:49 37.5 C 95 H 16 130/73 06/03/22 22:35 37.3 C 100 H 16 123/78 06/03/22 21:46 96 H 18 139/88 Pulse Ox O2 Del Method 06/04/22 07:35 97 Room Air 06/04/22 06:25 99 06/04/22 05:47 99 06/04/22 04:47 98 06/04/22 03:47 98 06/04/22 03:17 98 06/04/22 03:02 99 06/04/22 02:42 98 06/04/22 02:24 99 06/04/22 01:40 98 06/04/22 00:40 98 06/03/22 23:40 100 Room Air 06/03/22 23:40 100 06/03/22 23:00 100 Room Air 06/03/22 23:10 100 06/03/22 22:55 99 06/03/22 22:49 100 06/03/22 22:35 100 06/03/22 21:46 100 Room Air Laboratory Results Laboratory Tests 06/03/22 06/04/22 06/04/22 20:36 07:20 07:20 WBC 15.20 H 9.44 Hgb 6.6 L* 9.4 L Hct 21.4 L 28.8 L Plt Count 490 H 336 Sodium 143 Potassium 4.1 Chloride 113 H Carbon Dioxide 21 BUN 88 H Creatinine 4.62 H* Glucose 88 Calcium 8.1 L Phosphorus 4.6 Magnesium 2.1 PG Care Time/CCT Total # of Minutes Spent Total Time Spent with Patient: Total time spent is greater than 50% in coordination of care (as documented) at patient's floor/unit and/or counseling patient: Coding Level of Care Code 80189 Inpt Consult Level 5 Diagnoses ESRD (end stage renal disease) N18.6 Acute blood loss anemia D62 Diabetes mellitus with kidney disease E11.21
[2022-06-04] MEDS: PANTOprazole 40 MG in DEXTROSE 5% 100 ML IV SCH ×3 (10:30→19:40)
--- NOTE | 2022-06-04 15:12 | Electrocardiogram Report ---
Test Reason : Blood Pressure : / mmHG Vent. Rate : 091 BPM Atrial Rate : 091 BPM P-R Int : 142 ms QRS Dur : 080 ms QT Int : 368 ms P-R-T Axes : 024 015 075 degrees QTc Int : 452 ms Normal sinus rhythm Normal ECG When compared with ECG of 13-JUN-2021 23:17, Nonspecific T wave abnormality no longer evident in Inferior leads Confirmed by Ponce Morley ([id number]) on 06/04/2022 3:12:07 PM Referred By: REFERRED SELF Confirmed By:Ponce Morley
[2022-06-04] MEDS: SODIUM CHLORIDE 0.9% 1000ML 1,000 ML IV SCH ×2 (16:18→19:37)
[2022-06-04 16:30] LABS: Hematocrit (blood only) 27.3 % (34.1-44.9); Hemoglobin 9.1 g/dl (12.0-16.0)
[2022-06-04 21:16] LABS: Appearance Urine Clear (Clear); Bacteria Urine Automated Negative (Negative); Bilirubin Urine Negative (Negative); Blood Urine Trace (Negative); Cast Urine Automated 0 /lpf (0-5); Color Urine Yellow; Epithelial Cell Urine Auto >30 /lpf (0-5); Glucose Urine UA Negative (Negative); Ketones Urine Negative (Negative); Leukocyte Esterase Urine Negative (Negative); Nitrite Urine Negative (Negative); Protein Urine 1+ (Negative); RBC Urine Automated 0-4 /hpf (0-4); Specific Gravity Urine 1.017 (1.000-1.030); Urobilinogen Urine Negative (Negative)
[2022-06-05] MEDS: PANTOprazole 40 MG in DEXTROSE 5% 100 ML IV SCH ×4 (00:20→16:15)
[2022-06-05] MEDS: SODIUM CHLORIDE 0.9% 1000ML 1,000 ML IV SCH (05:28)
[2022-06-05 06:32] LABS: Hematocrit (blood only) 25.4 % (34.1-44.9); Hemoglobin 8.2 g/dl (12.0-16.0); Mean Corpuscular Hemoglobin 29.6 pg (25.0-34.0); Mean Corpuscular Hgb Conc 32.3 g/dL (32.0-36.0); Mean Corpuscular Volume 91.7 fL (80.0-100.0); Mean Platelet Volume 9.6 fL (9.4-12.3); Platelet Count 327 K/uL (130-400); RDW Coefficient of Variation 19.1 % (11.5-14.5); RDW Standard Deviation 63.5 fL (36.4-46.3); Red Blood Count 2.77 M/uL (3.93-5.22); White Blood Count 7.88 K/ul (4.8-10.8)
[2022-06-05 06:58] LABS: BUN Creatinine Ratio 16.6 (10-20); Calcium 7.1 mg/dl (8.5-10.1); Creatinine Clr Calc Pharmacy 8.1 ml/min; Est GFR (African American) 10.1 ml/min; Est GFR (Non-African American) 8.8 ml/min; Potassium 3.9 mmol/L (3.5-5.1)
--- NOTE | 2022-06-05 08:48 | Nephrology Progress Note ---
Date of Service June 05, 2022 Assessment & Plan (1) ESRD (end stage renal disease): Plan: * CKD stage G5/A1 (ESKD). Last hospitalization urine sediment was negative for blood or cellular casts, UPCR was 0.9, abdominal CT revealed bilateral renal cortical atrophy and no obstruction, Cr was 2.9 w/ EGFR 15 cc/min 07/11. Clinically suspect ESKD on the basis of microvascular disease * Strongly advised patient to avoid all NSAIDS * Volume status and electrolyte balance are acceptable. No acute indication for HD at this time * Discussed patient's advanced CKD, RN HEMODIALYSIS CHARGE and transitional care/pre-hospice with patient today. She understands dialysis and does not feel that this will provide her with quality of life. She understands that her condition will worsen and is now open to transitional care/pre-hospice following discharge from the hospital. Primary service was present at the time of my evaluation * Recommend further discussion w/ palliative care to set up transitional care/pre-hospice to assist patient following her discharge from the hospital (2) Acute blood loss anemia: Plan: * Recommend transfusion to maintain Hgb > 8.0 * Await endoscopy results (3) Diabetes mellitus with kidney disease: Admission and Anticipated Discharge Date Admission Date: June 03, 2022 Subjective Ms. Welsh was evaluated in her hospital room. She denies any further hematemesis or melena. Ms. Welsh is scheduled for EGD this afternoon Review of Systems Constitutional: no fever Eyes: no problem reported Ear, Nose, Mouth, Throat: no problem reported Respiratory: no cough and no dyspnea Cardiovascular: no chest pain, no dyspnea on exertion and no edema Gastrointestinal: no abdominal pain Genitourinary: no dysuria and no urinary frequency Neurologic: no confusion and no memory loss Physical Exam Constitutional: + frail appearing Eyes: PERRL, conjunctivae normal, anicteric sclerae ENMT: external ear and nose normal, oropharynx normal Neck: trachea midline, no thyromegaly Respiratory: normal respiratory effort, lungs clear to auscultation Cardiovascular: Rate/Rhythm: regular rate and regular rhythm (no pericardial rub) Extremities: no edema Gastrointestinal (Abdomen): normal bowel sounds, soft, nontender, no hepatosplenomegaly Skin: + turgor decreased Neurologic: awake; not confused and not obtunded Speech / Cognition: normal cognition Psychiatric: Affect: euthymic affect Thought Process: clear/coherent thought process Results & Data ([facility]) Vital Signs (Past 12 Hours) Vital Signs Temp Pulse Pulse Resp BP Pulse Ox O2 Del Method 06/05/22 07:35 70 06/05/22 07:21 36.6 C 66 20 152/75 H 97 Room Air 06/05/22 02:40 36.9 C 70 18 146/75 H 96 06/04/22 23:11 36.8 C 70 18 147/71 H 98 Laboratory Results Laboratory Tests 06/04/22 06/05/22 06/05/22 20:50 06:08 06:08 WBC 7.88 Hgb 8.2 L Hct 25.4 L Plt Count 327 Sodium 142 Potassium 3.9 Chloride 114 H Carbon Dioxide 19 L BUN 77 H Calcium 7.1 L Urine Color Yellow Urine Appearance Clear Urine pH 5.0 Ur Specific [place] 1.017 Urine Protein 1+ H Urine Glucose (UA) Negative Urine Blood Trace H Urine WBC (Auto) 1-5 Urine RBC (Auto) 0-4 PG Care Time/CCT Total # of Minutes Spent Total Time Spent with Patient: Total time spent is greater than 50% in coordination of care (as documented) at patient's floor/unit and/or counseling patient: Coding Level of Care Code 78777 Subseq Hosp Care Lvl 3 Diagnoses ESRD (end stage renal disease) N18.6 Acute blood loss anemia D62 Diabetes mellitus with kidney disease E11.21
--- NOTE | 2022-06-05 09:19 | Hospitalist Progress Note ---
Date of Service June 05, 2022 Assessment & Plan (1) Upper GI bleed: Plan: Hematemesis x1 and melena x3, acute onset, symptoms x1 day. With FOBT+ stool in ED. Likely due to chronic NSAID use with possible contribution from recent stressor/hospitalization at end of last month. -Hemoglobin at 8.2 this morning, which is down from 9.1 yesterday. -Protonix twice daily changed to Protonix drip per GI recommendation -GI consulted for consideration of EGD, EGD scheduled for today -maintain NPO per GI instruction, concern for active bleed (2) Acute blood loss anemia: Plan: Hgb 6.6 on presentation. Acute drop likely due to upper GI bleed as stated above. However patient has anemia of chronic disease likely 2/2 to ESRD with chronic baseline Hgb 7-8. -2 units pRBCs transfused, suspect patient will likely need 2 more units after EGD -Hemoglobin dropped overnight from 9.1-8.2, concerning for active bleed. - transfuse for Hgb <8 per nephrology (3) ESRD (end stage renal disease): Plan: Chronic, with Nephrology consultation during last hospitalization last month, with recommendation for dialysis. Patient refused at that time but tonight seems amenable to discussing options with Nephrology once again. - Nephrology consulted - appreciate recs, no acute indication for dialysis at this time, recommending conservative management this time. Patient does not want to be on dialysis - trend BMP daily -Creatinine at 4.63 -Magnesium and phosphorus within normal limits -Palliative care consult placed to discuss home goals and possibly pre-hospice, appreciate recommendations (4) Diabetes: Plan: Chronic, A1c 6.1 in 03/2022. Not on any home medications -No sliding scale insulin needed at this time (5) Hypertension: Plan: Chronic, with BPs low-normal, and Amlodipine/Lisinopril were stopped at last hospitalization last month. (6) Hyperlipidemia: Plan: Hold home statin while NPO. Plan FEN/GI: NPO DVT Prophylaxis: SCDs, chemoppx contraindicated due to upper GIB, recommended ambulation with assistance Code Status: DNR/DNI Disposition: PCU Admission and Anticipated Discharge Date Admission Date: June 03, 2022 Supervising Physician Co-Signing Physician Notes Resident Physician Supervision Note: I independently interviewed and examined the patient and verified the [place] history and physical, reviewed labs and image studies and agree with resident findings and care plan. Subjective Patient seen at bedside this morning. No acute events reported overnight. Ghada ent reports that she has not had any bowel movements or nausea/vomiting in the past 24 hours. Patient is very hungry and would like to eat when able. Had a discussion with patient while nephrology was in the room regarding goals of care and the idea of discussing palliative care today since the patient does not wish to be on dialysis. After some convincing, patient was in agreement to speak wit h palliative care with the hope that my recommendations would prevent frequent readmissions to the hospital. Otherwise no other complaints at this time. Review of Systems Review of Systems: All systems reviewed & are unremarkable except as noted in HPI & below Physical Exam Constitutional: WD/WN, vitals as above Eyes: + anicteric sclerae Neck: normal visual inspection Respiratory: normal respiratory effort, lungs clear to auscultation Cardiovascular: Rate/Rhythm: regular rate and regular rhythm Vessels: no JVD Extremities: + edema (trace) Gastrointestinal (Abdomen): Inspection/Auscultation: abdomen normal to inspection; abdomen not distended Percussion/Palpation: abdomen soft Musculoskeletal: Head/Neck/Chest: normocephalic and head atraumatic Skin: no rashes, warm and dry Neurologic: moves all extremities Psychiatric: A+Ox3, euthymic affect Orientation: cooperative Results & Data Results & Data ([facility]) Vital Signs (Past 12 Hours) Vital Signs Temp Pulse Pulse Resp BP Pulse Ox O2 Del Method 06/05/22 07:35 70 06/05/22 07:21 36.6 C 66 20 152/75 H 97 Room Air 06/05/22 02:40 36.9 C 70 18 146/75 H 96 06/04/22 23:11 36.8 C 70 18 147/71 H 98
--- NOTE | 2022-06-05 09:57 | History & Physical Bridge Note ---
Date of Service June 05, 2022 History & Physical Bridge Note I have examined the patient, reviewed the History & Physical and in the interval since the performance of the History & Physical I have noted the following changes of clinical significance: Patient denies any further melena. H&H dropped to 8.2/25.4. Continues PPI ggt and is NPO. PE:A&Ox3. RRR. Lungs CTA bilaterally. Abdomen soft, hyperactive bowel sounds. A/P: Acute blood loss anemia and melena. -NPO. -Continue PPI ggt. -Proceed with EGD by Dr. Francisco today.
--- NOTE | 2022-06-05 13:31 | Anesthesiology Consultation ---
Date of Service June 05, 2022 Assessment & Plan Chart Review Chart Review: Acceptable Risk for Surgery History Surgery Operation Date: 06/05/22 16:00 Proposed Procedures p Esophagogastroduodenoscopy Dr. Nolan Francisco MD Height/Weight Height: 4 ft 11 in Weight: 54.4 kg Allergies Allergy/AdvReac Type Severity Reaction Status Date / Time No Known Allergies Allergy Verified 06/03/22 23:01 Medications Home Medications Medication Instructions Recorded Confirmed Last Taken simvastatin 20 mg tablet 20 mg PO QPM #90 tabs 12/07/21 06/03/22 Unknown Active Medications Generic Name Dose Route Start Last Admin Trade Name Freq PRN Reason Stop Dose Admin Pantoprazole Sodium 40 mg/ 100 mls @ 20 mls/hr 06/04/22 09:15 06/05/22 09:51 Dextrose IV 07/04/22 09:14 8 mg/hr Q5H JOBY 20 mls/hr Administration 8 MG/HR Sodium Chloride 1,000 mls @ 100 mls/hr 06/04/22 15:00 06/05/22 05:28 Nss 1000ml IV 07/04/22 14:59 100 mls/hr .Q10H JOBY Administration Past Medical History Medical History (Updated 06/05/22 @ 13:31 by Ramesh Long MD) Acid reflux disease Benign paroxysmal positional vertigo Decreased hearing Diabetes mellitus with kidney disease Diabetic peripheral neuropathy DM (diabetes mellitus), type 2 with neurological complications ESRD (end stage renal disease) Past Family History Family History Brother Myocardial infarction Brother Myocardial infarction Denies family history of Ovarian cancer Prostate cancer Breast cancer Colorectal cancer Past Surgical History Surgical History Appendectomy (05/08/13) History of cholecystectomy (05/08/13) Social History Smoking Status: Never smoker Do You Dip or Chew Tobacco: No Hx Alcohol Use: No Hx Substance Use: No Physical Exam Vital Signs Last Vital Signs Temp 36.7 C 06/05/22 12:23 Pulse 70 06/05/22 12:23 Resp 18 06/05/22 12:23 BP 154/73 H 06/05/22 12:23 Pulse Ox 99 06/05/22 12:23 O2 Del Method 06/05/22 12:23 Testing Laboratory Results 06/05/22 06:08 06/05/22 06:08 PT 11.1 Seconds (9.0-12.0) 06/03/22 20:36 INR 1.0 (0.9-1.1) 06/03/22 20:36 APTT < 20.0 Seconds (21.0-31.0) L 06/03/22 20:36 Urine Color Yellow 06/04/22 20:50 Urine Appearance Clear (Clear) 06/04/22 20:50 Urine pH 5.0 (4.5-7.5) 06/04/22 20:50 Ur Specific [place] 1.017 (1.000-1.030) 06/04/22 20:50 Urine Protein 1+ (Negative) H 06/04/22 20:50 Urine Glucose (UA) Negative (Negative) 06/04/22 20:50 Urine Ketones Negative (Negative) 06/04/22 20:50 Urine Nitrite Negative (Negative) 06/04/22 20:50 Ur Leukocyte Esterase Negative (Negative) 06/04/22 20:50 Urine WBC (Auto) 1-5 /hpf (0-5) 06/04/22 20:50 Urine RBC (Auto) 0-4 /hpf (0-4) 06/04/22 20:50 U Hyaline Cast (Auto) 0 /lpf (0-5) 06/04/22 20:50 U Epithel Cells (Auto) >30 /lpf (0-5) H 06/04/22 20:50 Urine Bacteria (Auto) Negative (Negative) 06/04/22 20:50 Blood Type A Negative 06/03/22 20:59 Antibody Screen NEGATIVE 06/03/22 20:59 Electrocardiogram Date: 06/03/22 Findings: + NSR @ (83)
[2022-06-05] MEDS ORDERED: PROPOFOL IV EMULSION 10 MG/ML 20 ML VIAL IV ONE (14:56)
[2022-06-05] MEDS ORDERED: LIDOCAINE 2% MPF LOCAL 5 ML VIAL INFIL ONE (14:56)
--- NOTE | 2022-06-05 15:09 | GI REPORT ---
Patient Name: Sally Welsh Procedure Date: 06/05/2022 2:23 PM Date of : 1950 Admit Type: Inpatient Age: 71 Gender: Female Attending MD: Timothy Francisco MD Procedure: Upper GI endoscopy Providers: Timothy Francisco MD Referring MD: Referred Self Indications: Melena Medicines: Monitored Anesthesia Care Complications: No immediate complications. Estimated blood loss: None. Estimated Blood Loss: Estimated blood loss: none. Procedure: Pre-Anesthesia Assessment: - Prior Anticoagulants: The patient has taken no previous anticoagulant or antiplatelet agents. - ASA Grade Assessment: II - A patient with mild systemic disease. After obtaining informed consent, the endoscope was passed under direct vision. Throughout the procedure, the patient's blood pressure, pulse, and oxygen saturations were monitored continuously. The Endoscope was introduced through the mouth, and advanced to the second part of duodenum. The upper GI endoscopy was accomplished without difficulty. The patient tolerated the procedure well. Findings: The examined esophagus was normal. The entire examined stomach was normal. Biopsies were taken with a cold forceps for Helicobacter pylori testing. Estimated blood loss: none. One non-bleeding cratered duodenal ulcer with a visible vessel was found in the duodenal bulb. Area was successfully injected with 5 mL of a 1:10,000 solution of epinephrine for hemostasis. Coagulation for hemostasis using bipolar probe was successful. A large non-bleeding diverticulum was found in the second portion of the duodenum. Impression: - Normal esophagus. - Normal stomach. Biopsied. - Non-bleeding duodenal ulcer with a visible vessel. Injected. Treated with bipolar cautery. Recommendation: - Resume previous diet today. - Return patient to [facility] for ongoing care. -protonix 40 mg BID for 3 months, then daily thereafter -avoid NSAIDS strictly. - Await pathology results. Timothy Francisco MD 06/05/2022 3:08:39 PM This report has been signed electronically. Note Initiated On: 06/05/2022 2:23 PM Number of Addenda: 0 I attest to the content of the Intraoperative Record and orders documented therein, exceptions below {[id number]}
[2022-06-05] MEDS ORDERED: ONDANSETRON INJ 2 MG/ML 2 ML VIAL IV STA (15:17)
--- NOTE | 2022-06-05 15:28 | Anesthesiology Progress Note ---
Date of Service June 05, 2022 little nauseous post procedure - otherwise feels ok Anesthesia Post Procedure Vital Signs Vital Signs: Temp Pulse Pulse Resp BP Pulse Ox O2 Del Method 06/05/22 15:01 75 16 138/68 99 Room Air 06/05/22 13:38 36.3 C L 67 16 159/81 H 99 Room Air 06/05/22 12:23 36.7 C 70 18 154/73 H 99 Room Air 06/05/22 07:35 70 06/05/22 07:21 36.6 C 66 20 152/75 H 97 Room Air 06/05/22 02:40 36.9 C 70 18 146/75 H 96 06/04/22 23:11 36.8 C 70 18 147/71 H 98 06/04/22 19:07 36.8 C 71 18 107/70 98 Room Air Transfer of Care Handoff Completed per policy Notes Mental Status: alert / awake / arousable Patient Amnestic to Procedure: Yes Nausea / Vomiting: adequately controlled Pain: adequately controlled Airway Patency, RR, SpO2: stable & adequate BP & HR: stable & adequate Hydration State: stable & adequate Anesthetic Complications: no major complications apparent
[2022-06-05 17:00] LABS: Hematocrit (blood only) 31.9 % (34.1-44.9); Hemoglobin 10.2 g/dl (12.0-16.0)
[2022-06-05] MEDS: PANTOprazole 40 MG TAB PO SCH (20:30)
[2022-06-06 06:14] LABS: Hematocrit (blood only) 25.4 % (34.1-44.9); Hemoglobin 8.4 g/dl (12.0-16.0); Mean Corpuscular Hemoglobin 30.3 pg (25.0-34.0); Mean Corpuscular Hgb Conc 33.1 g/dL (32.0-36.0); Mean Corpuscular Volume 91.7 fL (80.0-100.0); Mean Platelet Volume 9.8 fL (9.4-12.3); Platelet Count 324 K/uL (130-400); RDW Coefficient of Variation 18.6 % (11.5-14.5); RDW Standard Deviation 60.5 fL (36.4-46.3); Red Blood Count 2.77 M/uL (3.93-5.22); White Blood Count 6.49 K/ul (4.8-10.8)
[2022-06-06 06:44] LABS: BUN Creatinine Ratio 15.3 (10-20); Calcium 7.1 mg/dl (8.5-10.1); Creatinine Clr Calc Pharmacy 8.9 ml/min; Est GFR (African American) 11.1 ml/min; Est GFR (Non-African American) 9.6 ml/min; Potassium 3.7 mmol/L (3.5-5.1)
--- NOTE | 2022-06-06 08:37 | Nephrology Progress Note ---
Date of Service June 06, 2022 Assessment & Plan (1) ESRD (end stage renal disease): Plan: * CKD stage G5/A1 (ESKD). Last hospitalization urine sediment was negative for blood or cellular casts, UPCR was 0.9, abdominal CT revealed bilateral renal cortical atrophy and no obstruction, Cr was 2.9 w/ EGFR 15 cc/min 07/11. Clinically suspect ESKD on the basis of microvascular disease * Strongly advised patient to avoid all NSAIDS * Volume status and electrolyte balance are acceptable. 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 She understands dialysis and does not feel that this will provide her with quality of life. She understands that her condition will worsen and is now open to transitional care/pre-hospice following discharge from the hospital * Recommend further discussion w/ palliative care to set up transitional care/pre-hospice to assist patient following her discharge from the hospital (2) Acute blood loss anemia: Plan: * Recommend transfusion to maintain Hgb > 8.0 * EGD revealed gastric ulcer w/ visible vessel s/p epinephrine injection (3) Diabetes mellitus with kidney disease: Admission and Anticipated Discharge Date Admission Date: June 03, 2022 Subjective Ms. Welsh was evaluated in her hospital room. She denies any further hematemesis or melena. Review of Systems Constitutional: no fever Eyes: no problem reported Ear, Nose, Mouth, Throat: no problem reported Respiratory: no cough and no dyspnea Cardiovascular: no chest pain, no dyspnea on exertion and no edema Gastrointestinal: no abdominal pain Genitourinary: no dysuria and no urinary frequency Neurologic: no confusion and no memory loss Physical Exam Constitutional: + frail appearing Eyes: PERRL, conjunctivae normal, anicteric sclerae ENMT: external ear and nose normal, oropharynx normal Neck: trachea midline, no thyromegaly Respiratory: normal respiratory effort, lungs clear to auscultation Cardiovascular: Rate/Rhythm: regular rate and regular rhythm (no pericardial rub) Extremities: no edema Gastrointestinal (Abdomen): normal bowel sounds, soft, nontender, no hepatosplenomegaly Skin: + turgor decreased Neurologic: awake; not confused and not obtunded Speech / Cognition: normal cognition Psychiatric: Affect: euthymic affect Thought Process: clear/coherent thought process Results & Data ([facility]) Vital Signs (Past 12 Hours) Vital Signs Temp Pulse Pulse Resp BP Pulse Ox O2 Del Method 06/06/22 08:00 36.8 C 69 16 153/74 H 97 Room Air 06/06/22 03:04 36.9 C 69 16 152/72 H 96 Room Air 06/05/22 22:17 63 06/05/22 23:40 37.2 C 74 16 162/70 H 94 Room Air Laboratory Results Laboratory Tests 06/06/22 06/06/22 05:35 05:35 WBC 6.49 Hgb 8.4 L Hct 25.4 L Plt Count 324 Sodium 142 Potassium 3.7 Chloride 115 H Carbon Dioxide 17 L BUN 66 H Creatinine 4.30 H D Glucose 81 PG Care Time/CCT Total # of Minutes Spent Total Time Spent with Patient: Total time spent is greater than 50% in coordination of care (as documented) at patient's floor/unit and/or counseling patient: Coding Level of Care Code 67665 Subseq Hosp Care Lvl 3 Diagnoses ESRD (end stage renal disease) N18.6 Acute blood loss anemia D62 Diabetes mellitus with kidney disease E11.21
[2022-06-06] MEDS: PANTOprazole 40 MG TAB PO SCH (08:58)
--- NOTE | 2022-06-06 10:38 | Gastroenterology Progress Note ---
Date of Service June 06, 2022 Assessment & Plan (1) Acute blood loss anemia: (2) Upper GI bleed: (3) Duodenal bulb ulcer: Plan Patient is a 71 y.o. female admitted with hematemesis and acute blood loss anemia in the setting of NSAID use with findings of duodenal ulcer with visible vessel s/p hemostasis. -Diet as tolerated. -Continue Pantoprazole 40 mg BID. -Reinforced strict NSAID avoidance. -Supportive care per primary team. Admission and Anticipated Discharge Date Admission Date: June 03, 2022 Subjective Patient reports feeling well from GI standpoint. No further melena. Tolerating diet. PPI ggt has been transitioned to BID PO. Review of Systems Constitutional: no fever and no chills Gastrointestinal: as per Subjective / HPI Physical Exam Constitutional: WD/WN, vitals as above Eyes: EOM intact bilaterally Neck: normal visual inspection Respiratory: normal respiratory effort, lungs clear to auscultation Cardiovascular: Rate/Rhythm: regular rate and regular rhythm Gastrointestinal (Abdomen): Inspection/Auscultation: + hyperactive bowel sounds Percussion/Palpation: abdomen soft; abdomen nontender Psychiatric: A+Ox3, euthymic affect Results & Data Results & Data ([facility]) Vital Signs (Past 12 Hours) Vital Signs Temp Pulse Pulse Resp BP Pulse Ox O2 Del Method 06/06/22 08:00 60 06/06/22 08:00 Room Air 06/06/22 08:00 36.8 C 69 16 153/74 H 97 Room Air 06/06/22 03:04 36.9 C 69 16 152/72 H 96 Room Air 06/05/22 23:40 37.2 C 74 16 162/70 H 94 Room Air PG Care Time/CCT Total # of Minutes Spent Total Time Spent with Patient: Total time spent is greater than 50% in coordination of care (as documented) at patient's floor/unit and/or counseling patient: Coding Level of Care Code 95168 Subseq Hosp Care Lvl 3 Diagnoses Acute blood loss anemia D62 Upper GI bleed K92.2 Duodenal bulb ulcer K26.9
--- NOTE | 2022-06-06 14:46 | Discharge Summary ---
Date of Service June 06, 2022 Admission HPI Per Admitting Provider Sally Welsh is a 71yo female with PMHx significant for ESRD (has refused dialysis in the past), T2DM (A1c 6.1 on 03/22/2022), HTN, HLD and anemia of chronic disease who presented to [facility] ED on 06/03 for acute onset of hematemesis (black blood) that started earlier in the evening. Also reports melena x3 earlier today. Usually has 1 brown stool (no diarrhea/constipation) every other day. Also reports associated dizziness/lightheadedness x1 day. No prior history of PUD/upper GI bleed. Not on blood thinners. Of note the patient chronically takes Ibuprofen 600-1200mg daily for chronic neck/back pain due to "arthritis". Of note patient was recently admitted at the end of last month and diagnosed with ESRD and associated anemia of chronic disease; had been offered dialysis by nephrology as well as hospice but declined both at that time. Patient lives alone at home and is proficient in ADLs/iADLs (confirmed with patient's sister). Does not fall at home. Denies alcohol/smoking/drug use. In the ED the patient was mildly hypotensive at 89/71 with HR up to 108. Satting well on room air and afebrile. CBC significant for Hgb 6.6 (baseline 8-9), MCV 100.5, plts 490, WBC 15.2 (neutrophilic predominance and L shift). PT/PTT/INR WNL. Cr 4.69 (~baseline), with BUN 82 (higher than baseline). HCO3 19 and AG 14. hsTroponin 16.3. Stool FOBT+. Patient was given Zofran 4mg IV x1 2 units pRBCs ordered with type/cross. Also was started on NSS @125cc/hr x1L. Principal Diagnosis Upper GI bleed Discharge Exam Constitutional WD/WN, vitals as above Eyes + anicteric sclerae Neck normal visual inspection Respiratory Auscultation: + crackles Cardiovascular Rate/Rhythm: regular rate and regular rhythm Vessels: no JVD Extremities: + edema (trace) Gastrointestinal (Abdomen) Inspection/Auscultation: abdomen normal to inspection; abdomen not distended Percussion/Palpation: abdomen soft Musculoskeletal Head/Neck/Chest: normocephalic and head atraumatic Skin no rashes, warm and dry Neurologic moves all extremities Psychiatric A+Ox3, euthymic affect Orientation: cooperative Discharge Data Allergies Allergy/AdvReac Type Severity Reaction Status Date / Time No Known Allergies Allergy Verified 06/03/22 23:01 Consultations 06/03/22 21:41 ED Decision to Admit Stat 06/04/22 00:06 Consult Gastroenterology Routine Consult Nephrology Routine Procedures Performed Operation Date: 06/05/22 16:00 Actual Procedures p EGD Hemostasis - Timothy Francisco MD Hospital Course (1) Upper GI bleed: Hematemesis x1 and melena x3, acute onset, symptoms x1 day. With FOBT+ stool in ED. Likely due to chronic NSAID use with possible contribution from recent stressor/hospitalization at end of last month. -Hemoglobin stable for the past 48 hours -GI recommending Protonix 40 mg twice daily for the next 3 months and then once daily thereafter -EGD showed normal stomach and esophagus but did reveal a duodenal ulcer that was nonbleeding. This was cauterized. -Resumed normal diet thereafter was able to tolerate. Recommend renal dialysis and carb consistent diet (2) Acute blood loss anemia: Hgb 6.6 on presentation. Acute drop likely due to upper GI bleed as stated above. However patient has anemia of chronic disease likely 2/2 to ESRD with chronic baseline Hgb 7-8. -2 units pRBCs transfused on admission -Hemoglobin has been stable for the past 48 hours, safe for discharge (3) ESRD (end stage renal disease): Chronic, with Nephrology consultation during last hospitalization last month, with recommendation for dialysis. Patient refused at that time but tonight seems amenable to discussing options with Nephrology once again. - Nephrology consulted - appreciate recs, no acute indication for dialysis at this time, recommending conservative management this time. Patient refuses dialysis -Creatinine at 4.30 at discharge -Palliative care consult placed to discuss home goals and possibly pre-hospice, patient did not wish to move forward with palliative or prehospice measures (4) Diabetes: Chronic, A1c 6.1 in 03/2022. Not on any home medications (5) Hypertension: Chronic, with BPs low-normal, and Amlodipine/Lisinopril were stopped at last hospitalization last month. (6) Hyperlipidemia: Resume simvastatin, however, given her high mortality risk, risk may be higher than benefit, discuss with primary care provider Plan FEN/GI: Renal dialysis, carb consistent diet Code Status: DNR/DNI Disposition: Discharge home self-care Total Time Total Time Spent Total Time Spent (In Minutes): 30 Discharge Plan Discharge Items Patient Disposition: Home - Self-Care Reason For Visit: UPPER GI BLEED, ESRD Discharge Diagnosis: Acute upper GI bleed Activity: Per Instructions section Non-emergency contact: Primary Care Provider and Soda Worker Call non-emergency contact if: you have any medication questions and your symptoms worsen Follow-up/Referrals: Elle Ruiz MD [Primary Care Provider] - 06/18/22 11:30 am Diet: Dialysis Renal Addtl Attending Provider Instructions: You were seen in the hospital for evaluation of bloody vomiting and dark stools. You were evaluated by our emergency department who found that you had an anemia that required a blood transfusion. For this reason, you were admitted to the hospital for further evaluation and treatment. Our gastroenterology team was consulted to determine the need for endoscopic imaging and management. They agreed to perform an endoscopy. You are placed on a nothing by mouth diet to ensure good healing is a concern for an active GI bleed. On the perform the endoscopy they did find a duodenal ulcer that required cauterization. Otherwise you were stomach and esophagus were normal. After this intervention your hemoglobin (blood level) has remained stable indicating that your bleeding has stopped. The nremt recommended that you take Protonix (an anti- acid medication) 40 mg twice a day for the next 3 months and then once daily thereafter for life. This medication was sent to your pharmacy at [facility] on [facility]. If you again started vomiting blood or feel lightheaded or short of breath, please return to the emergency department for reevaluation as your bleed may have restarted. Additionally, while you are here, due to your poor kidney function, we had our nephrology team come evaluate you recommend that you get set up to start receiving dialysis. However, you declined this intervention. For this reason, we had case management discussed palliative and prehospice options with you. However, you also declined this option. However we do want you to know that just because you declined them today does not mean they are no longer available to you. These options will be available to you if/when you are ready. We do recommend that you eat a particular diet called a dialysis diet that will help reduce risk of electrolyte abnormalities as we discussed in person. A handout about this diet will be provided to you at the time of discharge. Additionally we recommend that you discontinue use of NSAIDs (see ibuprofen, naproxen, etc.) and utilize Tylenol for pain control as well as other modalities. Please discuss this further with your primary care provider. Please follow-up with your primary care provider within 1 week. It has been a pleasure to be a part of your care and we wish you the best in both your health and recovery. Pending Studies at Discharge: No Stand-Alone Forms: [facility], Smoking Cessation Medications and DC Order Prescriptions: New pantoprazole 40 mg Tablet,Delayed Release (Dr/Ec) 40 mg PO BID Qty: 60 2RF Continued simvastatin 20 mg tablet 20 mg PO QPM Qty: 90 1RF Discharge Orders: Discharge Order (Routine); Ordered 06/06/22 Ordered By: Jorge Rehman/Other Patient Handouts: Kidney Failure Healthcare Team, Kidney Disease Potassium in Diet, Kidney Disease Protein Choices, Kidney Disease Protein, Kidney Disease Limiting Sodium, ED Diet for Chronic Kidney Disease Admission Data Admit Date/Time: 06/03/22 22:22 Attending Provider: Viji Temple Admit Provider: Jose Carter Primary Care Provider: Elle Ruiz Other Providers: Greg Malcolm ; Timothy Francisco ; Juan A Mcclure ; [facility] Other Interventions: Discharge Summary Assessment (RN) Last Done: 06/06/22 12:49 Supervising Physician Co-Signing Physician Notes Resident Physician Supervision Note: I independently interviewed and examined the patient and verified the [place] history and physical, reviewed labs and image studies and agree with resident findings and care plan.
--- NOTE | 2022-06-11 23:08 | Billing Data ---
Date of Service June 11, 2022 Coding Level of Care Code 23659 Initial Inpt Care Lvl 3
== END 2022-06-06 18:20 | disposition home or self-care (01) | DRG 377 ==
LOC: ED 19:45 → 2S 22:22 → SUATTDRO 22:22 → 2S 23:22

== ENCOUNTER 2024-01-12 12:35 | Inpatient (IN) ==
[2024-01-12] MEDS: NOREPINEPHRINE/D5W 4 MG/250 ML PLCT IV SCH (12:30)
--- NOTE | 2024-01-12 12:54 | Emergency Department Note ---
Impression & Plan Acute UTI, Weakness, Nausea, Sepsis, Shock ED Provider Note Provider: Yoandy Taylor MD DATE OF SERVICE: 01/12/2024 CHIEF COMPLAINT: Severe onset sudden nausea, low blood pressure HISTORY OF PRESENT ILLNESS: Patient is a 73-year-old female history of severe CKD not on dialysis, diabetes, NSTEMI, and hypertension presenting here today via ambulance from her boyfriend's residence. Evidently states she was feeling fine yesterday. Sudden onset of nausea around 9 AM with episodes of vomiting. EMS activated. No chest pain or abdominal pain. No diarrhea. Received 4 mg of Zofran for EMS. No to be hypotensive upon arrival in the 80s systolic. Decreased for them received a liter of IV fluid and started on push dose epi and then epinephrine infusion. Patient did become bradycardic bradycardia down to the 20s briefly with EMS and route. Patient upon arrival on epinephrine infusion fatigued in appearance with minimal nausea and no complaint of pain. She is alert to discussion and does endorse that she does not want any heroic measures such as CPR, ventilator, or dialysis. No other recent illness or fever reported. Denies headache. Generally fatigued. PAST MEDICAL HISTORY: As noted above MEDICATIONS: Reviewed home medications states she did take them this morning SOCIAL HISTORY: Non-smoker PHYSICAL EXAM: GENERAL: alert and oriented to verbal stimuli but weak and fatigued in appearance. Head: normocephalic and atraumatic EYES: No injection, discharge or icterus. EOMI. NECK: Trachea midline. Supple. ENT: Mucous membranes pink and moist. LUNGS: Airway patent. No retractions. Breath sounds clear with good air entry bilaterally. HEART: Regular rate and rhythm. No chest wall tenderness ABDOMEN: Soft and non-tender, without guarding or rebound. No appreciable masses. SKIN: Acyanotic, dry, pale in appearance however. EXTREMITIES: Without swelling, tenderness or deformity NEUROLOGICAL: No focal deficits following commands. No facial droop and tongue midline. Somewhat drowsy but answering questions. EK bpm sinus rhythm with PAC/PVC, no acute ST segment elevation or depression with a QTc of 481. CONTINUOUS CARDIAC MONITORING: was ordered and showed a heart rate of 60s-80s bpm in normal sinus rhythm with occasional PACs and PVCs Patient's laboratory studies and imaging reviewed. Differential includes Infection, dehydration, metabolic abnormality, hypo/hyperglycemia, electrolyte disturbance, anemia, hypoxia, cardiac sources, intracerebral event, toxicologic, neurologic, as well as other pathologies. IMPRESSION/MEDICAL DECISION MAKING: Patient quite fatigued in appearance and somewhat drowsy but easily arousable to voice. No focal deficits. No trauma or syncope reported. Was bradycardic for EMS and hypotensive. Minimal nausea now. No significant abdominal pain or abdominal swelling appreciable. Will complete abdominal CT as well as a head CT given the significant nausea as he is having and some of the drowsiness. EKG obtained with out evidence of STEMI. Transition from EMS epinephrine infusion to norepinephrine drip. Given a second liter of IV fluid here as received the first with EMS. [id number] labs, lactate, culture, and standard laboratory studies were ordered. Blood work here with anemia 8.4. Leukocytosis 0.5 today with a procalcitonin of 0.78. TSH normal. No transaminitis nearly bilirubin. Troponin normal. Lactate normal. Some anion gap of 17 with a BUN of 84 and a creatinine of 6.13. Renal dysfunction may be playing some component of this but she does have a history of ESRD. CT of the head without acute bleed or abnormality noted by EMS. Negative respiratory viral panel. CT scan of the abdomen pelvis with some fecal impaction/mild proctitis without evidence of diverticulitis or free air notable. Normal appendix by rad report. Did wean norepinephrine and was able to turn this off. Was noted to have some disparity between the right and left arms regarding blood pressure. Urinalysis questionable for infection. Received 2 L of IV fluid. Covered broadly with Zosyn given concerns for possible occult infection. Das catheter placed. Required further care here at the hospital. Did again have a significant bradycardic episode for EMS prior to arrival. Patient agreeable stay for evaluation. Hospitalist team contacted. Will defer further bowel regimen to them. Patient again stable off of vasopressor. Did receive 2 L of IV fluid total crystalloid today more than her calculated 30 mg/kg body weight and will hold additional as there is some findings of pulmonary congestion on chest x-ray. Repeat hemoglobin very slightly low at 7.8 likely dilutional as she has no signs of active bleeding at this time. DIAGNOSIS: Nausea, hypotension, weakness, acute UTI DISPOSITION: Hospitalist will evaluate Patient was agreeable with this plan. Critical Care I have personally spent 48 minutes of critical care time in the direct management of this patient. This includes bedside care, interpretation of diagnostic studies, and testing, discussion with consultants, patient, and other required patient management activities. These 48 minutes is in excess of all separately billable procedures. Past Med/Surg History Problem List (Updated 01/12/24 @ 18:10 by Jacqueline Rutledge) Shock (Acute) Sepsis (Acute) Nausea (Acute) Weakness (Acute) Acute UTI (Acute) Dizziness Duodenal bulb ulcer Encounter for pre-operative examination ESRD (end stage renal disease) Acute upper gastrointestinal bleeding (Acute) CKD (chronic kidney disease) (Acute) Upper GI bleed Encounter for assessment of decision-making capacity Macrocytic anemia Fever Advanced care planning/counseling discussion Palliative care encounter Diabetes Hypercalcemia Encounter for examination following treatment at hospital Weakness Acute blood loss anemia (Acute) Hematoma Elevated troponin Hypoxia Acute dehydration (Acute) 2019 novel coronavirus-infected pneumonia (NCIP) (Acute) Respiratory failure (Acute) Acute kidney injury superimposed on CKD (Acute) Non-ST elevation AR (NSTEMI) (Acute) COVID-19 (Acute) Postnasal drip Diabetic peripheral neuropathy (Acute) 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) UTI (urinary tract infection) (Acute) Hypertension (Chronic) Hyperlipidemia (Chronic) Diabetes mellitus with kidney disease (Chronic) Decreased hearing (Acute) DM (diabetes mellitus), type 2 with neurological complications (Chronic) Acid reflux disease (Acute) Medical History ESRD (end stage renal disease) Benign paroxysmal positional vertigo Diabetic peripheral neuropathy Diabetes mellitus with kidney disease Decreased hearing DM (diabetes mellitus), type 2 with neurological complications Acid reflux disease Surgical History History of esophagogastroduodenoscopy (EGD) History of cholecystectomy (05/08/13) Appendectomy (05/08/13) Family History Brother Myocardial infarction Brother Myocardial infarction Denies family history of Ovarian cancer Prostate cancer Breast cancer Colorectal cancer Social History Smoking Status: Never smoker Second Hand Exposure: No; Do You Dip or Chew Tobacco: No; Hx Alcohol Use: No Hx Substance Use: No Preferred Language: Syrian Communication Ability: Effective 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: Hard of Hearing Traveling Freight Agent Required: No Beliefs That Will Affect Care: None marital status: / Current Living Situation: Alone current occupational status: retired How many Children do You have: 2 Feels Safe at Home: Yes Childhood Exposure to Second-Hand Smoke: No Diet: regular caffeine: Yes Dental Care, Regularly: No Physical Activity Frequency: Does not Exercise Seatbelt Use: always Sunscreen Use: No Assistive Devices: None Allergies Allergies Allergy/AdvReac Type Severity Reaction Status Date / Time No Known Allergies Allergy Verified 10/14/23 10:17 Home Meds Previous Rx's Medication Instructions Recorded pantoprazole 40 mg tablet,delayed 40 mg PO DAILY #90 tabs 06/20/23 release lisinopril 10 mg tablet 10 mg PO DAILY #90 tabs 10/16/23 amlodipine 10 mg tablet 10 mg PO DAILY #90 tabs 11/18/23 simvastatin 20 mg tablet 20 mg PO QPM #90 tabs 01/10/24 Results & Data (ED) Vital Signs Vital Signs - 24 hr 01/12/24 12:48 01/12/24 12:51 01/12/24 12:55 Temperature 36.5 C Temperature Source Oral Pulse Rate 79 70 Pulse Rate [Apical] Pulse Rate from SpO2 Sensor Pulse Rhythm Regular Pulse Strength Normal Respiratory Rate 19 Respiratory Effort / Characteristics Non-Labored Spontaneous Respiratory Depth Normal Respiratory Pattern Regular Blood Pressure 95/62 L 135/50 L Blood Pressure [Left Arm] Blood Pressure Mean 73 95 Blood Pressure Mean [Left Arm] Pulse Oximetry 100 100 Oxygen Delivery Method Room Air Sepsis Recent Fever Within 48 Hours No Sepsis New/Unexplained Change in Mental Status No Sepsis Action Taken by Nursing No Action Required 01/12/24 13:00 01/12/24 13:09 01/12/24 13:10 Temperature Temperature Source Pulse Rate 75 Pulse Rate [Apical] Pulse Rate from SpO2 Sensor Pulse Rhythm Pulse Strength Respiratory Rate 18 Respiratory Effort / Characteristics Respiratory Depth Respiratory Pattern Blood Pressure 125/62 Blood Pressure [Left Arm] Blood Pressure Mean 83 Blood Pressure Mean [Left Arm] Pulse Oximetry 100 100 Oxygen Delivery Method Room Air Sepsis Recent Fever Within 48 Hours Sepsis New/Unexplained Change in Mental Status Sepsis Action Taken by Nursing 01/12/24 13:12 01/12/24 13:12 01/12/24 13:39 Temperature Temperature Source Pulse Rate 72 73 Pulse Rate [Apical] Pulse Rate from SpO2 Sensor 75 72 Pulse Rhythm Pulse Strength Respiratory Rate 20 15 Respiratory Effort / Characteristics Respiratory Depth Respiratory Pattern Blood Pressure 130/64 Blood Pressure [Left Arm] Blood Pressure Mean 76 Blood Pressure Mean [Left Arm] Pulse Oximetry 100 97 Oxygen Delivery Method Sepsis Recent Fever Within 48 Hours Sepsis New/Unexplained Change in Mental Status Sepsis Action Taken by Nursing 01/12/24 13:40 01/12/24 14:18 01/12/24 14:40 Temperature Temperature Source Pulse Rate Pulse Rate [Apical] 74 79 Pulse Rate from SpO2 Sensor Pulse Rhythm Pulse Strength Respiratory Rate 18 19 Respiratory Effort / Characteristics Non-Labored Spontaneous Non-Labored Spontaneous Respiratory Depth Normal Normal Respiratory Pattern Regular Blood Pressure 106/59 L Blood Pressure [Left Arm] 112/55 L 118/63 Blood Pressure Mean 75 Blood Pressure Mean [Left Arm] 74 81 Pulse Oximetry 98 97 100 Oxygen Delivery Method Room Air Room Air Sepsis Recent Fever Within 48 Hours Sepsis New/Unexplained Change in Mental Status Sepsis Action Taken by Nursing 01/12/24 16:51 Temperature Temperature Source Pulse Rate 77 Pulse Rate [Apical] Pulse Rate from SpO2 Sensor Pulse Rhythm Pulse Strength Respiratory Rate Respiratory Effort / Characteristics Respiratory Depth Respiratory Pattern Blood Pressure Blood Pressure [Left Arm] Blood Pressure Mean Blood Pressure Mean [Left Arm] Pulse Oximetry Oxygen Delivery Method Sepsis Recent Fever Within 48 Hours Sepsis New/Unexplained Change in Mental Status Sepsis Action Taken by Nursing Laboratory Data 01/12/24 16:40 01/12/24 12:57 Lab Results 01/12/24 01/12/24 01/12/24 Range/Units 12:57 13:03 16:40 WBC 12.53 H (4.8-10.8) K/ul RBC 2.67 L (4.20-5.40) M/uL Hgb 8.4 L 7.8 L (12.0-16.0) g/dl POC Hgb 8.2 L (12.0-16.0) g/dl Hct 26.6 L 24.5 L (37.0-47.0) % POC Hct 24 L (37-47) % MCV 99.6 (80.0-100.0) fL MCH 31.5 (25.0-34.0) pg MCHC 31.6 L (32.0-36.0) g/dL RDW Std Deviation 45.6 (36.4-46.3) fL RDW Coeff of Suellen 12.5 (11.5-14.5) % Plt Count 200 (130-400) K/uL MPV 10.8 (9.4-12.4) fL Immature Gran % (Auto) 1.3 % Neut % (Auto) 86.9 % Lymph % (Auto) 6.5 % Grimes % (Auto) 4.5 % Eos % (Auto) 0.4 % Baso % (Auto) 0.4 % Neut # (Auto) 10.89 H (1.40-6.50) K/uL Lymph # (Auto) 0.81 L (1.20-3.40) K/uL Grimes # (Auto) 0.57 (0.11-0.59) K/uL Eos # (Auto) 0.05 (0.00-0.50) K/uL Baso # (Auto) 0.05 (0.00-0.20) K/uL Immature Gran # (Auto) 0.16 (0.01-0.20) K/uL PT 10.9 (9.0-12.0) Seconds INR 1.0 (0.9-1.1) POC Sodium 141 (135-144) mmol/L Sodium 140 (136-145) mmol/L POC Potassium 4.6 (3.3-5.0) mmol/L Potassium 4.6 (3.5-5.1) mmol/L POC Chloride 116 H (101-112) mmol/L Chloride 107 (98-107) mmol/L Carbon Dioxide 16 L (21-32) mmol/L POC Total CO2 16 L (24-31) mmol/L Anion Gap 17 H (3-11) POC Anion Gap 14.0 L (16-25) mmol/L POC BUN 94 H (7-18) mg/dl BUN 84 H (6-23) mg/dl Creatinine 6.13 H* (0.6-1.2) mg/dl POC Creatinine 7.1 H* (0.6-1.3) mg/dl Est Cr Clr Drug Dosing 6.5 ml/min Est GFR ( Amer) 7.1 ml/min Est GFR (Non-Af Amer) 6.1 ml/min BUN/Creatinine Ratio 13.7 (10-20) Glucose 214 H (70-99(Fasting)) mg/dl POC Glucose (other) 211 H (70-99) mg/dl Lactate 1.9 (0.4-2.0) mmol/L Calcium 9.3 (8.6-10.3) mg/dl POC Ioniz Calcium Fercho 1.16 (1.12-1.32) mmol/l Magnesium 2.0 (1.7-2.4) mg/dl Total Bilirubin 0.2 (0.2-1.0) mg/dl AST 13 (13-39) U/L ALT 10 (7-52) U/L Alkaline Phosphatase 52 (34-104) U/L Troponin I High Sens 13.2 (0-14) pg/ml Total Protein 7.3 (6.0-8.3) gm/dl Albumin 4.0 (3.4-5.0) gm/dl Globulin 3.3 (2.5-4.0) gm/dl Albumin/Globulin Ratio 1.2 (0.9-2) Procalcitonin 0.78 H (0-0.5) ng/ml TSH 2.752 (0.300-4.500) uIu/ml Administered Medications Norepinephrine Bitartrate (Levophed/D5w) 4 mg in 250 mls @ 0 mls/hr IV .Q0M JOBY; Protocol Stop: 02/11/24 12:59 Last Titration: 01/12/24 14:47 Dose: 0 mcg/kg/min, 0 mls/hr Documented By: Titration: 01/12/24 13:15 Dose: 0.05 mcg/kg/min, 11.6 mls/hr Documented By: Titration: 01/12/24 12:47 Dose: 0.1 mcg/kg/min, 23.3 mls/hr Documented By: Admin: 01/12/24 12:30 Dose: 0.2 mcg/kg/min, 46.5 mls/hr Documented By: BAILEY Co-signed By: KATIE Sodium Chloride (Nss) 1,000 mls @ 100 mls/hr IV .Q10H [facility] Stop: 02/11/24 17:29 Last Admin: 01/12/24 18:10 Dose: 100 mls/hr Documented By: DERICK Discontinued Medications Sodium Chloride (Nss) 1,000 mls @ 999 mls/hr IV .Q1H1M JOBY Stop: 01/12/24 13:45 Last Infusion: 01/12/24 14:17 Dose: Infused Documented By: Admin: 01/12/24 13:02 Dose: 999 mls/hr Documented By: BAILEY Piperacillin Sod/Tazobactam Sod (Zosyn) 4.5 gm in 100 mls @ 200 mls/hr IV NOW ONE Stop: 01/12/24 14:12 Last Infusion: 01/12/24 14:56 Dose: Infused Documented By: Admin: 01/12/24 14:15 Dose: 200 mls/hr Documented By: BAILEY Miscellaneous (Stat Iv Infusion Titration Per Protocol) 1 each N/A NOW STA Stop: 01/12/24 12:47 Last Admin: 01/12/24 13:33 Dose: Not Given Documented By: BAILEY Norepinephrine Bitartrate (Norepinephrine/D5w 4 Mg/250 Ml) Confirm Administered Dose 4 mg IV .STK-MED ONE Stop: 01/12/24 12:39 Last Admin: 01/12/24 13:32 Dose: Not Given Documented By: BAILEY Polyethylene Glycol (Polyethylene (Miralax) 17 Gm Pack) 17 gm PO ONE ONE Stop: 01/12/24 17:47 Last Admin: 01/12/24 18:32 Dose: 17 gm Documented By: DERICK Imaging Data Radiologist's Impression: Abdomen/Pelvis CT 01/12/24 12:44 CT SCAN OF THE ABDOMEN AND PELVIS WITHOUT IV CONTRAST CLINICAL HISTORY: Nausea. Generalized weakness. COMPARISON STUDY: Abdominal CT dated 05/17/2022. TECHNIQUE: CT scan of the abdomen and pelvis is performed from the lung bases to the proximal femora. Images are reviewed in the axial, sagittal, and coronal planes. IV contrast was not administered for this examination. Note that the examination was performed in significantly suboptimal fashion without oral and IV contrast. A dose lowering technique was utilized adhering to the principles of ALARA. CT DOSE: 1484.78 mGy.cm FINDINGS: Lung bases: The heart is enlarged and without pericardial effusion. The coronary arteries are densely calcified. There is diminished attenuation of the cardiac blood pool as compared to the myocardium suggesting anemia. There is a nthct-[id number]-[id number] hiatal hernia. The lung bases are clear noting bibasilar scarring/atelectasis. Liver: The unenhanced liver is normal in size, contour, and attenuation. There is mild intrahepatic biliary ductal dilatation. Gallbladder: Surgically absent. Spleen: Normal in size and attenuation. Pancreas: The unenhanced pancreas is moderately atrophic and grossly unremarkable. Adrenal glands: Unremarkable. Kidneys: The unenhanced kidneys are atrophic, asymmetrically greater on the right. No hydronephrosis is seen. There is a 3 mm nonobstructing calculus on the left. No right renal calculi are identified and no ureteral stone is seen. A 1.4 cm cyst is seen in the left upper pole. Abdominal vasculature: There is advanced atherosclerotic calcification and ectasia of the abdominal aorta. Bowel: There is rectosigmoid fecal impaction. Question mild rectal wall thickening. There is no significant surrounding inflammation. No bowel obstruction is seen. There is advanced colonic diverticulosis without CT evidence of acute diverticulitis. The appendix is well-visualized and normal. A duodenal diverticulum is noted. Peritoneum: There is no intraperitoneal free air or abdominal ascites. There is a small fat-containing umbilical hernia. Lymphadenopathy: None. Pelvic viscera: The bladder and uterus are normal as visualized. A 2.5 cm peripherally calcified structure is again seen in the right adnexa, likely related to the right ovary. Skeletal structures: The skeletal structures are osteopenic. There is moderate to advanced on the sacral spondylosis. No lytic or blastic lesions are seen. IMPRESSION: 1. Rectosigmoid fecal impaction. No bowel obstruction is seen. 2. Question minimal rectal wall thickening. Correlate clinically for evidence of a mild proctitis. 3. Advanced colonic diverticulosis without CT evidence of acute diverticulitis. 4. Left-sided nephrolithiasis. 5. Cardiomegaly noting advanced coronary artery atherosclerosis. 6. Additional findings as above. ACT 112: Negative or not required by law. Electronically signed by: Sheng Camargo M.D. 01/12/2024 3:52 PM Chest X-Ray 01/12/24 12:44 SINGLE VIEW CHEST CLINICAL HISTORY: Generalized weakness. FINDINGS: An AP, portable, upright chest radiograph is compared to study dated 05/07/2023 and correlated with chest CT dated 05/21/2021. The heart is enlarged noting atherosclerotic calcification of the thoracic aorta. There is pulmonary vascular congestion there is mild bibasilar atelectasis. No airspace consolidation or large pleural effusion is identified. No pneumothorax is seen. The skeletal structures are osteopenic. The bony thorax is grossly intact. IMPRESSION: Cardiomegaly with evidence of congestive failure. Radiographic follow-up to resolution is recommended. ACT 112: Negative or not required by law. Electronically signed by: Sheng Camargo M.D. 01/12/2024 2:[address] 01/12/24 12:59 CT SCAN OF THE BRAIN WITHOUT IV CONTRAST CLINICAL HISTORY: Nausea. Generalized weakness. COMPARISON STUDY: No priors. TECHNIQUE: Unenhanced axial CT scan of the brain is performed from the vertex to the skull base. A dose lowering technique was utilized adhering to the principles of ALARA. FINDINGS: Brain parenchyma: There is age-related involutional change noting moderate to advanced patchy subcortical and periventricular microangiopathic disease. There is no hemorrhage, mass effect, or evidence of acute territorial ischemia by CT criteria. Choudhury-white matter differentiation is preserved. No extra-axial fluid collection is seen. Ventricles, sulci, cisterns: Prominent secondary to involutional change. Intracranial vasculature: There is atherosclerotic calcification of the cavernous carotid and vertebral arteries. Calvarium: Unremarkable. Sinuses and mastoids: The visualized paranasal sinuses are clear. The mastoid air cells are well pneumatized. Orbits: The bony orbits are grossly intact. IMPRESSION: There is no hemorrhage, mass effect, or evidence of acute territorial ischemia by CT criteria. ACT 112: Negative or not required by law. Electronically signed by: Sheng Camargo M.D. 01/12/2024 1:44 PM Discharge Plan Visit Data Chief Complaint: Vomiting Stated Complaint: NAUSEA, VOMITING, HYPOTENSION ED Provider: Yoandy Taylor Discharge Problem: Acute UTI, Weakness, Nausea, Sepsis, Shock Patient Disposition: Admitted As Inpatient Discharge Instructions Interventions: ED Discharge Assessment Last Done: 01/12/24 18:06
[2024-01-12] MEDS: SODIUM CHLORIDE 0.9% 1,000 ML IV SCH ×2 (13:02→18:10)
[2024-01-12 13:15] LABS: iSTAT Creatinine 7.1 mg/dl (0.6-1.3); iSTAT Hemoglobin 8.2 g/dl (12.0-16.0); iSTAT Ionized Calcium 1.16 mmol/l (1.12-1.32); iSTAT Potassium 4.6 mmol/L (3.3-5.0)
[2024-01-12 13:17] LABS: Basophils # (auto) 0.05 K/uL (0.00-0.20); Basophils % (auto) 0.4 %; Eosinophils # (auto) 0.05 K/uL (0.00-0.50); Eosinophils % (auto) 0.4 %; Hematocrit (blood only) 26.6 % (37.0-47.0); Hemoglobin 8.4 g/dl (12.0-16.0); Immature Granulocytes # (auto) 0.16 K/uL (0.01-0.20); Immature Granulocytes % (auto) 1.3 %; Lymphocytes # (auto) 0.81 K/uL (1.20-3.40); Lymphocytes % (auto) 6.5 %; Mean Corpuscular Hemoglobin 31.5 pg (25.0-34.0); Mean Corpuscular Hgb Conc 31.6 g/dL (32.0-36.0); Mean Corpuscular Volume 99.6 fL (80.0-100.0); Mean Platelet Volume 10.8 fL (9.4-12.4); Monocytes # (auto) 0.57 K/uL (0.11-0.59); Monocytes % (auto) 4.5 %; Neutrophils # (auto) 10.89 K/uL (1.40-6.50); Neutrophils % (auto) 86.9 %; Platelet Count 200 K/uL (130-400); RDW Coefficient of Variation 12.5 % (11.5-14.5); RDW Standard Deviation 45.6 fL (36.4-46.3); Red Blood Count 2.67 M/uL (4.20-5.40); White Blood Count 12.53 K/ul (4.8-10.8)
[2024-01-12] MEDS: NOREPINEPHRINE/D5W 4 MG/250 ML IV ONE (13:32)
[2024-01-12] MEDS: STAT IV Infusion **Titration per Protocol STA (13:33)
[2024-01-12 13:35] LABS: Albumin Globulin Ratio 1.2 (0.9-2); BUN Creatinine Ratio 13.7 (10-20); Bilirubin,Total 0.2 mg/dl (0.2-1.0); Calcium 9.3 mg/dl (8.6-10.3); Creatinine Clr Calc Pharmacy 6.5 ml/min; Est GFR (African American) 7.1 ml/min; Est GFR (Non-African American) 6.1 ml/min; Globulin 3.3 gm/dl (2.5-4.0); Potassium 4.6 mmol/L (3.5-5.1); Total Protein 7.3 gm/dl (6.0-8.3); Troponin I High Sensitivity 13.2 pg/ml (0-14)
[2024-01-12 13:45] LABS: Thyroid Stimulating Hormone 2.752 uIu/ml (0.300-4.500)
--- NOTE | 2024-01-12 13:45 | CT Scan Report ---
CT SCAN OF THE BRAIN WITHOUT IV CONTRAST CLINICAL HISTORY: Nausea. Generalized weakness. COMPARISON STUDY: No priors. TECHNIQUE: Unenhanced axial CT scan of the brain is performed from the vertex to the skull base. A do se lowering technique was utilized adhering to the principles of ALARA. FINDINGS: Brain parenchyma: There is age-related involutional change noting moderate to advanced patchy subcort ical and periventricular microangiopathic disease. There is no hemorrhage, mass effect, or evidence o f acute territorial ischemia by CT criteria. Choudhury-white matter differentiation is preserved. No extra -axial fluid collection is seen. Ventricles, sulci, cisterns: Prominent secondary to involutional change. Intracranial vasculature: There is atherosclerotic calcification of the cavernous carotid and vertebr al arteries. Calvarium: Unremarkable. Sinuses and mastoids: The visualized paranasal sinuses are clear. The mastoid air cells are well pneu matized. Orbits: The bony orbits are grossly intact. IMPRESSION: There is no hemorrhage, mass effect, or evidence of acute territorial ischemia by CT saida baird. ACT 112: Negative or not required by law. Electronically signed by: Sheng Camargo M.D. 01/12/2024 1:44 PM
[2024-01-12 13:49] LABS: Prothrombin Time 10.9 Seconds (9.0-12.0)
--- NOTE | 2024-01-12 14:02 | XRay Report ---
SINGLE VIEW CHEST CLINICAL HISTORY: Generalized weakness. FINDINGS: An AP, portable, upright chest radiograph is compared to study dated 05/07/2023 and correla gilda with chest CT dated 05/21/2021. The heart is enlarged noting atherosclerotic calcification of the thoracic aorta. There is pulmonary vascular congestion there is mild bibasilar atelectasis. No airsp rowan consolidation or large pleural effusion is identified. No pneumothorax is seen. The skeletal stru ctures are osteopenic. The bony thorax is grossly intact. IMPRESSION: Cardiomegaly with evidence of congestive failure. Radiographic follow-up to resolution is recommended. ACT 112: Negative or not required by law. Electronically signed by: Sheng Camargo M.D. 01/12/2024 2:00 PM
[2024-01-12] MEDS: PIPERACILLIN/TAZOBACTAM 4.5 GM/100 ML BAG IV ONE (14:15)
[2024-01-12 14:26] LABS: Adenovirus PCR Not Detected (NotDetected); Bordetella parapertussis PCR Not Detected (NotDetected); Bordetella pertussis PCR Not Detected (NotDetected); Chlamydia pneumoniae PCR Not Detected (NotDetected); Coronavirus 229E PCR Not Detected (NotDetected); Coronavirus CoV-2 (COVID19)PCR Not Detected (NotDetected); Coronavirus HKU1 PCR Not Detected (NotDetected); Coronavirus NL63 PCR Not Detected (NotDetected); Coronavirus OC43PCR Not Detected (NotDetected); Human Metapneumovirus PCR Not Detected (NotDetected); Influenza A PCR Not Detected (NotDetected); Influenza B PCR Not Detected (NotDetected); Mycoplasma pneumoniae PCR Not Detected (NotDetected); Parainfluenza Virus 1 PCR Not Detected (NotDetected); Parainfluenza Virus 2 PCR Not Detected (NotDetected); Parainfluenza Virus 3 PCR Not Detected (NotDetected); Parainfluenza Virus 4 PCR Not Detected (NotDetected); Respiratory Syncytial VirusPCR Not Detected (NotDetected); Rhinovirus/Enterovirus PCR Not Detected (NotDetected)
[2024-01-12 15:08] LABS: Appearance Urine Clear (Clear); Bacteria Urine Automated 3+ (None Seen); Bilirubin Urine Negative (Negative); Blood Urine Negative (Negative); Color Urine Yellow; Epithelial Cell Urine Auto 0-2 /hpf (0-2); Glucose Urine UA Negative (Negative); Ketones Urine Trace (Negative); Leukocyte Esterase Urine 1+ (Negative); Nitrite Urine Positive (Negative); Protein Urine 2+ (Negative); RBC Urine Automated 0-2 /hpf (0-2); Specific Gravity Urine 1.018 (1.000-1.030); Urobilinogen Urine Negative (Negative); pH Urine 5.5 (4.5-7.5)
--- NOTE | 2024-01-12 15:54 | CT Scan Report ---
CT SCAN OF THE ABDOMEN AND PELVIS WITHOUT IV CONTRAST CLINICAL HISTORY: Nausea. Generalized weakness. COMPARISON STUDY: Abdominal CT dated 05/17/2022. TECHNIQUE: CT scan of the abdomen and pelvis is performed from the lung bases to the proximal femora. Images are reviewed in the axial, sagittal, and coronal planes. IV contrast was not administered for this examination. Note that the examination was performed in significantly suboptimal fashion withou t oral and IV contrast. A dose lowering technique was utilized adhering to the principles of ALARA. CT DOSE: 1484.78 mGy.cm FINDINGS: Lung bases: The heart is enlarged and without pericardial effusion. The coronary arteries are densely calcified. There is diminished attenuation of the cardiac blood pool as compared to the myocardium s uggesting anemia. There is a [id number] hiatal hernia. The lung bases are clear noting bibasil ar scarring/atelectasis. Liver: The unenhanced liver is normal in size, contour, and attenuation. There is mild intrahepatic b iliary ductal dilatation. Gallbladder: Surgically absent. Spleen: Normal in size and attenuation. Pancreas: The unenhanced pancreas is moderately atrophic and grossly unremarkable. Adrenal glands: Unremarkable. Kidneys: The unenhanced kidneys are atrophic, asymmetrically greater on the right. No hydronephrosis is seen. There is a 3 mm nonobstructing calculus on the left. No right renal calculi are identified a nd no ureteral stone is seen. A 1.4 cm cyst is seen in the left upper pole. Abdominal vasculature: There is advanced atherosclerotic calcification and ectasia of the abdominal a jennifer. Bowel: There is rectosigmoid fecal impaction. Question mild rectal wall thickening. There is no signi ficant surrounding inflammation. No bowel obstruction is seen. There is advanced colonic diverticulos is without CT evidence of acute diverticulitis. The appendix is well-visualized and normal. A duoden al diverticulum is noted. Peritoneum: There is no intraperitoneal free air or abdominal ascites. There is a small fat-containin g umbilical hernia. Lymphadenopathy: None. Pelvic viscera: The bladder and uterus are normal as visualized. A 2.5 cm peripherally calcified stru cture is again seen in the right adnexa, likely related to the right ovary. Skeletal structures: The skeletal structures are osteopenic. There is moderate to advanced on the sac ral spondylosis. No lytic or blastic lesions are seen. IMPRESSION: 1. Rectosigmoid fecal impaction. No bowel obstruction is seen. 2. Question minimal rectal wall thickening. Correlate clinically for evidence of a mild proctitis. 3. Advanced colonic diverticulosis without CT evidence of acute diverticulitis. 4. Left-sided nephrolithiasis. 5. Cardiomegaly noting advanced coronary artery atherosclerosis. 6. Additional findings as above. ACT 112: Negative or not required by law. Electronically signed by: Sheng Camargo M.D. 01/12/2024 3:52 PM
[2024-01-12 17:04] LABS: Hematocrit (blood only) 24.5 % (37.0-47.0); Hemoglobin 7.8 g/dl (12.0-16.0)
--- NOTE | 2024-01-12 17:35 | History & Physical Report ---
Date of Service January 12, 2024 Assessment & Plan (1) Shock: Plan: Assessment: 1. Shock-probably/possibly combination of hypovolemic and septic. Patient had 2 L of saline in the ER we will continue saline at 100 cc an hour. Blood cultures were obtained in the ER. The patient does have a urinary tract infection which appears to be the source of infection. Will continue Zosyn renally dosed. 2. CKD stage V with acute kidney injury. The patient refuses dialysis in the past currently or in the future. She understands this could be life- threatening. Her potassium is reassuring. Will continue to hydrate and monitor renal function. Will hold all nephrotoxic agents. 3. Anemia I do not know her baseline the last hemoglobin I have is from approximately 8 to 10 months ago when her hemoglobin was approximately 10.5. Today she is 8.4 after 2 L of saline she 7.8. Will plan stools for occult blood. Due to 6-hour H&H's. 4. Bradycardia. Appears to have bradycardia down into the 20s by rhythm strip and route to the ER. She said no further episodes. However she has been on Levophed up until approximately half hour prior to my evaluation. Will obtain an echocardiogram and serial troponins. TSH is normal. Will hold on negative chronotropic's. 5. Diabetes mellitus type 2. The patient takes nothing for this at home she states she used to have diabetes but no longer. However, her random blood glucose level here today is 214. Will do Accu-Cheks before meals and at bedtime. Will be called less than 80 or greater than 180 and introduce sliding scale insulin coverage if need be. 6. History of hypertension hold all antihypertensives at this time given the hypotension. 7. History of peptic ulcer disease/duodenal ulcer disease will continue IV Protonix. 8. Hyperlipidemia. Continue statin therapy. 9. Leukocytosis probably secondary to infectious processes. Monitor. Plan: As described above. Please refer to orders for further planning. I personally spoke with critical care on-call Dr. Crawford. Will monitor the patient in the ICU overnight. If she remains stable hemodynamically and from a rhythm standpoint she can probably transfer to telemetry unit tomorrow. History of Present Illness Chief Complaint: Nausea vomiting weakness Primary Care Provider: Elle Ruiz MD This is a pleasant 73-year-old female who has CKD stage V but refuses dialysis in the past currently or in the future. She understands that this could be life-threatening to her. She does not live exactly locally. She was in town to see her boyfriend spending a couple nights. Last night he went to bed and felt fine. Today she woke up feeling weak nauseated had multiple episodes of emesis. EMS was called and she was brought to the ER for further evaluation and treatment. In the field with the patient had a heart rate as low as 20. Had a systolic blood pressure as low as 80. Patient was commenced on epinephrine prior to arrival and was placed on Levophed upon arrival. The patient denies any of her emesis being bloody or black. CT of the abdomen pelvis showed some constipation but no acute pathology otherwise. Laboratory studies showed acute kidney failure with creatinine of over 7 with a baseline of 5. Her potassium was normal. Troponin was reassuring. EKG was reassuring here. Course in the ER the patient had blood cultures obtained. She received 2 L of normal saline. Urinalysis was performed positive for probable UTI. Patient received IV Zosyn. Levophed was discontinued approximately 30 minutes prior to us being called to admit the patient for further evaluation and treatment for clinical sepsis and acute UTI. Presented the patient to the critical care unit given her requirement for Levophed which has been discontinued. In addition given her heart rate of 20. We will obtain serial troponins. Obtain an echocardiogram. TSH was normal in the ER as well. Will continue IV Zosyn for now empirically. Will do serial H&H's. If she drops below 7 will consider transfusion. Also ordered stools for occult blood Allergies Allergy/AdvReac Type Severity Reaction Status Date / Time No Known Allergies Allergy Verified 10/14/23 10:17 Home Medications Medication Instructions Recorded Confirmed Type pantoprazole 40 mg tablet,delayed 40 mg PO DAILY #90 tabs 06/20/23 01/12/24 Rx release lisinopril 10 mg tablet 10 mg PO DAILY #90 tabs 10/16/23 01/12/24 Rx amlodipine 10 mg tablet 10 mg PO DAILY #90 tabs 11/18/23 01/12/24 Rx simvastatin 20 mg tablet 20 mg PO QPM #90 tabs 01/10/24 01/12/24 Rx Past Med/Surg History Problem List (Updated 01/12/24 @ 15:57 by Yoandy Taylor M.D.) Shock (Acute) Sepsis (Acute) Nausea (Acute) Weakness (Acute) Acute UTI (Acute) Dizziness Duodenal bulb ulcer Encounter for pre-operative examination ESRD (end stage renal disease) Acute upper gastrointestinal bleeding (Acute) CKD (chronic kidney disease) (Acute) Upper GI bleed Encounter for assessment of decision-making capacity Macrocytic anemia Fever Advanced care planning/counseling discussion Palliative care encounter Diabetes Hypercalcemia Encounter for examination following treatment at hospital Weakness Acute blood loss anemia (Acute) Hematoma Elevated troponin Hypoxia Acute dehydration (Acute) 2019 novel coronavirus-infected pneumonia (NCIP) (Acute) Respiratory failure (Acute) Acute kidney injury superimposed on CKD (Acute) Non-ST elevation [place] (NSTEMI) (Acute) COVID-19 (Acute) Postnasal drip Diabetic peripheral neuropathy (Acute) 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) UTI (urinary tract infection) (Acute) Hypertension (Chronic) Hyperlipidemia (Chronic) Diabetes mellitus with kidney disease (Chronic) Decreased hearing (Acute) DM (diabetes mellitus), type 2 with neurological complications (Chronic) Acid reflux disease (Acute) Medical History ESRD (end stage renal disease) Benign paroxysmal positional vertigo Diabetic peripheral neuropathy Diabetes mellitus with kidney disease Decreased hearing DM (diabetes mellitus), type 2 with neurological complications Acid reflux disease Surgical History History of esophagogastroduodenoscopy (EGD) History of cholecystectomy (05/08/13) Appendectomy (05/08/13) Family History Brother Myocardial infarction Brother Myocardial infarction Denies family history of Ovarian cancer Prostate cancer Breast cancer Colorectal cancer Social History Smoking Status: Never smoker Second Hand Exposure: No; Do You Dip or Chew Tobacco: No; Hx Alcohol Use: No Hx Substance Use: No Preferred Language: Finnish Communication Ability: Effective 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: Hard of Hearing Gang [employer]er Required: No Beliefs That Will Affect Care: None marital status: / Current Living Situation: Alone current occupational status: retired How many Children do You have: 2 Feels Safe at Home: Yes Childhood Exposure to Second-Hand Smoke: No Diet: regular caffeine: Yes Dental Care, Regularly: No Physical Activity Frequency: Does not Exercise Seatbelt Use: always Sunscreen Use: No Assistive Devices: None Review of Systems Review of Systems: A 10 point review of system was obtained and unless otherwise stated here or in history of present illness are negative and noncontributory to chief complaint. Physical Exam Physical Exam: In General: HEENT: Normocephalic atraumatic pupils are equal round and reactive to light bilaterally. No scleral icterus no conjunctival injection external auditory canals are patent septum is in the midline nose is without discharge oral mucosa is pink and dry without lesion. NECK: Supple no rigidity no lymphadenopathy no thyromegaly no carotid bruits no JVD no masses. HEART: Regular rate and rhythm I do not appreciate any ectopy or rub. No murmur. LUNGS: Clear to auscultation bilaterally and anteriorly with no evidence of adventitious sounds/wheezes rales or rhonchi. ABDOMEN: Soft nontender, no rebound, no peritoneal signs, positive bowel sounds, no appreciable organomegaly. EXTREMITIES: Intact, no peripheral cyanosis, clubbing or edema. Strength is 5 out of 5 in extremities x4, no pathological reflexes. NEUROLOGICAL: Cranial nerves II through XII are grossly intact with no focal deficit elicited upon examination. No tremor. Results & Data Results & Data Vital Signs (Past 12 Hours) Vital Signs Temp Pulse Pulse Resp BP BP Pulse Ox 01/12/24 16:51 77 01/12/24 14:40 79 19 118/63 100 01/12/24 14:18 74 18 112/55 L 97 01/12/24 13:40 106/59 L 98 01/12/24 13:39 73 15 97 01/12/24 13:12 72 20 100 01/12/24 13:12 130/64 01/12/24 13:10 125/62 100 01/12/24 13:09 75 18 01/12/24 13:00 100 01/12/24 12:55 135/50 L 100 01/12/24 12:51 36.5 C 70 19 95/62 L 100 01/12/24 12:48 79 O2 Del Method 01/12/24 16:51 01/12/24 14:40 Room Air 01/12/24 14:18 Room Air 01/12/24 13:40 01/12/24 13:39 01/12/24 13:12 01/12/24 13:12 01/12/24 13:10 01/12/24 13:09 01/12/24 13:00 Room Air 01/12/24 12:55 01/12/24 12:51 Room Air 01/12/24 12:48 Code Status & VTE Plan Code Status Full code. I personally discussed with the patient today. Even though she refuses hemodialysis at any point she still wishes to remain a full code. VTE Prophylaxis Plan VTE Prophylaxis will be ordered: Yes PG Care Time/CCT Total # of Minutes Spent Total Time Spent with Patient: Total time spent is greater than 50% in coordination of care (as documented) at patient's floor/unit and/or counseling patient: Coding Level of Care Code 83370 INT INP/OBS CARE 3/75MIN Diagnoses Shock R57.9
[2024-01-12] MEDS: POLYETHYLENE (MIRALAX) 17 GM PACK PO ONE (18:32)
--- NOTE | 2024-01-12 19:17 | Critical Care Consultation ---
Date of Consultation January 12, 2024 Assessment & Plan (1) Sepsis: (2) Acute UTI: (3) ESRD (end stage renal disease): (4) Macrocytic anemia: (5) Diabetes: (6) Hypertension: (7) Hyperlipidemia: (8) Acid reflux disease: (9) Fecal impaction: Plan Reason Critically Ill: 73 YOF came to EMD for concerns of dizziness and vomitting, reported bradycardia and hypotension during EMS transport requiring short course of epinepherine infusion. To ICU follow hemodynamics and telemetry overnight. Neuro - Dizziness CAM ICU: NEGATIVE - head CT scan negative - Patient reports eppidoses occurring over the past few months - once more stable further workup/evaluation can commence- no acute intervention at this time Cardiac - Sepsis, reported bradycardia - Patient with sepsis with possible sources as Urine as well as a stercoral colitis or proctitis- broad spectrum abx - She was resuscitated with 2L crystalloid infusion and epinephrine infusion was weaned down - organ dysfunction present with MILLI on CKD - Lactate negative - follow hemodynamics, POCUS, and urine output tonight. - Bradycardia - ECG without STEMI - troponin negative - no anginal symptoms - possibly related to vagal response from vomiting and volume status Respiratory - NO acute needs GI - Nausea/vomiting, Fecal impaction, proctitis vs. stercoral colitis - resolved- and associated with dizziness - LFTs and biliary labs normal- patient reports hx of cholecystectomy - ABD non acute - start bowel regime, suppository - tap water enema if needed - Continue PPI change to IV BID with hisory of GI bleed - currently without any hematemesis- HGB level did downtrend- abdomen is soft and nontender - no acute hemorrhage noted on CT abd/pelvis - Once able to keep PO intake down without vomiting- change to PO BID Protonix RENAL/LYTES - MILLI on ESRD, Metabolic Acidosis - Likely related to volume status secondary to vomiting - however also with sepsis physiology - Plasmalyte overnight - Follow BMPs - Patient adamantly declines any dialysis - Complicated UTI - See below ENDO - DMII - ICU hyperglycemic protocol HEME - anemia of chronic disease as well as macrocytic anemia - no acute needs ID - Sepsis - sources Urine/coliits/proctitis - continue broad spectrum abx- await culture data LINES/IV ACCESS - Continue use of these lines DVT PROPHYLAXIS - SCDS, Heparin 5000 units subq q12 DISPO: ICU until hemodynamics proven stable I have personally spent 45 minutes of critical care time in the direct management of this patient. This is a life/limb threatening event. This includes time spent evaluating patient, direct bedside care, chart review, placing orders, interpretation of diagnostic studies, discussion with consultants, patient, and family members, as well as other required patient management activities. This time is exclusive of all separately billable procedures, and teaching time and separate from and in addition to any other critical care service time. Thank you for allowing us to participate in the care of this patient. Please refer to my attending physician's documentation for any further recommendations. History of Present Illness Reason for Consultation: sirs Requesting Physician: ulises ayala Attending Physician: Ulises Ayala, PhD, DO History of Present Illness 73 YOF with medical history of ESRD, HTN, DM, anemia, GERD/GI bleed. Patient reports that she got up this morning and had severe dizziness that was followed by vomiting of at "least 10 times" yellowish white emesis, which she denies any blood. She reports that with her dizziness that the whole room was spinning- she has had these complaints in the past and was seen by her PCP in September for such- and per not review did not feel consistent with BPPV or cardiac concern. The concern for which she is admitted to the ICU this evening was during EMS transport, there was report that her HR decreased to the 20s and and was given IV push dose epinephrine followed by infusion. When she go tot the [facility], lowest BP ws 90s./60s, she was given 2L IV crystalloids and epinephrine infusion was weaned off. She has been with BP > 100s as well as HR in the 70-80s since that time. CT of the head was obtained in [facility] and was negative for acute bleed or other acute abnormality. CT abd/pelvis was with fecal impaction and mild protctitis. Patient will be admitted to the ICU and follow hemodyanmics through the evening. She does wish to be full code however in relation to her CKD she does not want dialysis. CODE: FULL Allergies Allergy/AdvReac Type Severity Reaction Status Date / Time No Known Allergies Allergy Verified 10/14/23 10:17 Home Medications Medication Instructions Recorded Confirmed Type pantoprazole 40 mg tablet,delayed 40 mg PO DAILY #90 tabs 06/20/23 01/12/24 Rx release lisinopril 10 mg tablet 10 mg PO DAILY #90 tabs 10/16/23 01/12/24 Rx amlodipine 10 mg tablet 10 mg PO DAILY #90 tabs 11/18/23 01/12/24 Rx simvastatin 20 mg tablet 20 mg PO QPM #90 tabs 01/10/24 01/12/24 Rx Patient History Medical History Benign paroxysmal positional vertigo Surgical History History of esophagogastroduodenoscopy (EGD) 06/05/22 Dr. Timothy Francisco at [facility]- non-bleeding duodenal ulcer with a visible vessel; Injected, Treated with bipolar cautery History of cholecystectomy (05/08/13) Appendectomy (05/08/13) Family History Brother Myocardial infarction Brother Myocardial infarction Denies family history of Ovarian cancer Prostate cancer Breast cancer Colorectal cancer Social History Smoking Status: Never smoker Second Hand Exposure: No; Do You Dip or Chew Tobacco: No; Hx Alcohol Use: No Hx Substance Use: No Preferred Language: Kinyarwanda Communication Ability: Effective 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: Hard of Hearing 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 Beliefs That Will Affect Care: None marital status: / Current Living Situation: Alone Current Living Situation Comment: pt lives in apartment complex current occupational status: retired How many Children do You have: 2 Feels Safe at Home: Yes Childhood Exposure to Second-Hand Smoke: No Diet: regular caffeine: Yes Dental Care, Regularly: No Physical Activity Frequency: Does not Exercise Seatbelt Use: always Sunscreen Use: No Assistive Devices: Denture - Upper Review of Systems Review of Systems: REVIEW OF SYSTEMS: Constitutional: No fever, sweats or chills Eyes: No diplopia, no worsening or blurred vision ENT: normal hearing, no trouble swallowing Respiratory: No cough, sputum, dyspnea at rest or on exertion Cardiovascular: No chest pain, tightness or palpitations Abdomen: (+) nausea, vomiting, No pain, diarrhea or constipation Musculoskeletal: (+) dizziness, No joint pain, calf pain, swelling Neurologic: No weakness, numbness/tingling, or balance problems Psychiatric: No anxiety or depression Skin: No rash or itch Physical Exam Physical Exam: PHYSICAL EXAM: General: awake, alert, no apparent distress Head: Normocephalic, atraumatic ENT: PERRLA, EOMI, no pharyngeal exudate, mucous membranes dry Neuro: AAO x 3, speech clear and appropriate, strength intact bilaterally 5/5, sensation intact and equal all extremities and dermatomes, no pronator drift Chest: equal rise and fall of the chest, no accessory muscle use, no heaves or thrills, Clear to auscultation, on room air, Cardiac: Regular rate and rhythm, telemetry reviewed- NSR, skin warm dry, cap refill <3 seconds, peripheral pulses +2 no JVD, no murmur, no edema GI: NABS x 4 quadrants, soft, nontender to palpation, no rebound, guarding or tenderness : Spontaneously voiding, no pain, no CVA tenderness, Extremities: Normal inspection, no peripheral edema or erythema, calfs nontender to palpation Psych: Normal mood and affect Skin: no rash or erythema Results & Data Results & Data Vital Signs (Past 12 Hours) Vital Signs Temp Pulse Pulse Resp BP BP Pulse Ox 01/12/24 16:51 77 01/12/24 14:40 79 19 118/63 100 01/12/24 14:18 74 18 112/55 L 97 01/12/24 13:40 106/59 L 98 01/12/24 13:39 73 15 97 01/12/24 13:12 72 20 100 01/12/24 13:12 130/64 01/12/24 13:10 125/62 100 01/12/24 13:09 75 18 01/12/24 13:00 100 01/12/24 12:55 135/50 L 100 01/12/24 12:51 36.5 C 70 19 95/62 L 100 01/12/24 12:48 79 O2 Del Method 01/12/24 16:51 01/12/24 14:40 Room Air 01/12/24 14:18 Room Air 01/12/24 13:40 01/12/24 13:39 01/12/24 13:12 01/12/24 13:12 01/12/24 13:10 01/12/24 13:09 01/12/24 13:00 Room Air 01/12/24 12:55 01/12/24 12:51 Room Air 01/12/24 12:48 Laboratory Results Abnormal lab results 01/12/24 01/12/24 01/12/24 Range/Units 12:57 13:03 16:40 WBC 12.53 H (4.8-10.8) K/ul RBC 2.67 L (4.20-5.40) M/uL Hgb 8.4 L 7.8 L (12.0-16.0) g/dl POC Hgb 8.2 L (12.0-16.0) g/dl Hct 26.6 L 24.5 L (37.0-47.0) % POC Hct 24 L (37-47) % MCHC 31.6 L (32.0-36.0) g/dL Neut # (Auto) 10.89 H (1.40-6.50) K/uL Lymph # (Auto) 0.81 L (1.20-3.40) K/uL POC Chloride 116 H (101-112) mmol/L Carbon Dioxide 16 L (21-32) mmol/L POC Total CO2 16 L (24-31) mmol/L Anion Gap 17 H (3-11) POC Anion Gap 14.0 L (16-25) mmol/L POC BUN 94 H (7-18) mg/dl BUN 84 H (6-23) mg/dl Creatinine 6.13 H* (0.6-1.2) mg/dl POC Creatinine 7.1 H* (0.6-1.3) mg/dl Glucose 214 H (70-99(Fasting)) mg/dl POC Glucose (other) 211 H (70-99) mg/dl Procalcitonin 0.78 H (0-0.5) ng/ml Urine Protein (Negative) Urine Ketones (Negative) Urine Nitrite (Negative) Ur Leukocyte Esterase (Negative) Urine WBC (Auto) (0-5) /hpf U Hyaline Cast (Auto) (0-2) /lpf Urine Bacteria (Auto) (None Seen) 01/12/24 Range/Units Unknown WBC (4.8-10.8) K/ul RBC (4.20-5.40) M/uL Hgb (12.0-16.0) g/dl POC Hgb (12.0-16.0) g/dl Hct (37.0-47.0) % POC Hct (37-47) % MCHC (32.0-36.0) g/dL Neut # (Auto) (1.40-6.50) K/uL Lymph # (Auto) (1.20-3.40) K/uL POC Chloride (101-112) mmol/L Carbon Dioxide (21-32) mmol/L POC Total CO2 (24-31) mmol/L Anion Gap (3-11) POC Anion Gap (16-25) mmol/L POC BUN (7-18) mg/dl BUN (6-23) mg/dl Creatinine (0.6-1.2) mg/dl POC Creatinine (0.6-1.3) mg/dl Glucose (70-99(Fasting)) mg/dl POC Glucose (other) (70-99) mg/dl Procalcitonin (0-0.5) ng/ml Urine Protein 2+ H (Negative) Urine Ketones Trace H (Negative) Urine Nitrite Positive A (Negative) Ur Leukocyte Esterase 1+ H (Negative) Urine WBC (Auto) 11-20 H (0-5) /hpf U Hyaline Cast (Auto) 3-5 H (0-2) /lpf Urine Bacteria (Auto) 3+ H (None Seen) Diagnostic Findings Abdomen/Pelvis CT 01/12/24 12:44 CT SCAN OF THE ABDOMEN AND PELVIS WITHOUT IV CONTRAST CLINICAL HISTORY: Nausea. Generalized weakness. COMPARISON STUDY: Abdominal CT dated 05/17/2022. TECHNIQUE: CT scan of the abdomen and pelvis is performed from the lung bases to the proximal femora. Images are reviewed in the axial, sagittal, and coronal planes. IV contrast was not administered for this examination. Note that the examination was performed in significantly suboptimal fashion without oral and IV contrast. A dose lowering technique was utilized adhering to the principles of ALARA. CT DOSE: 1484.78 mGy.cm FINDINGS: Lung bases: The heart is enlarged and without pericardial effusion. The coronary arteries are densely calcified. There is diminished attenuation of the cardiac blood pool as compared to the myocardium suggesting anemia. There is a [id number] hiatal hernia. The lung bases are clear noting bibasilar scarring/atelectasis. Liver: The unenhanced liver is normal in size, contour, and attenuation. There is mild intrahepatic biliary ductal dilatation. Gallbladder: Surgically absent. Spleen: Normal in size and attenuation. Pancreas: The unenhanced pancreas is moderately atrophic and grossly unremarkable. Adrenal glands: Unremarkable. Kidneys: The unenhanced kidneys are atrophic, asymmetrically greater on the right. No hydronephrosis is seen. There is a 3 mm nonobstructing calculus on the left. No right renal calculi are identified and no ureteral stone is seen. A 1.4 cm cyst is seen in the left upper pole. Abdominal vasculature: There is advanced atherosclerotic calcification and ectasia of the abdominal aorta. Bowel: There is rectosigmoid fecal impaction. Question mild rectal wall thickening. There is no significant surrounding inflammation. No bowel obstruction is seen. There is advanced colonic diverticulosis without CT evidence of acute diverticulitis. The appendix is well-visualized and normal. A duodenal diverticulum is noted. Peritoneum: There is no intraperitoneal free air or abdominal ascites. There is a small fat-containing umbilical hernia. Lymphadenopathy: None. Pelvic viscera: The bladder and uterus are normal as visualized. A 2.5 cm peripherally calcified structure is again seen in the right adnexa, likely related to the right ovary. Skeletal structures: The skeletal structures are osteopenic. There is moderate to advanced on the sacral spondylosis. No lytic or blastic lesions are seen. IMPRESSION: 1. Rectosigmoid fecal impaction. No bowel obstruction is seen. 2. Question minimal rectal wall thickening. Correlate clinically for evidence of a mild proctitis. 3. Advanced colonic diverticulosis without CT evidence of acute diverticulitis. 4. Left-sided nephrolithiasis. 5. Cardiomegaly noting advanced coronary artery atherosclerosis. 6. Additional findings as above. ACT 112: Negative or not required by law. Electronically signed by: Sheng Camargo M.D. 01/12/2024 3:52 PM Chest X-Ray 01/12/24 12:44 SINGLE VIEW CHEST CLINICAL HISTORY: Generalized weakness. FINDINGS: An AP, portable, upright chest radiograph is compared to study dated 05/07/2023 and correlated with chest CT dated 05/21/2021. The heart is enlarged noting atherosclerotic calcification of the thoracic aorta. There is pulmonary vascular congestion there is mild bibasilar atelectasis. No airspace consolidation or large pleural effusion is identified. No pneumothorax is seen. The skeletal structures are osteopenic. The bony thorax is grossly intact. IMPRESSION: Cardiomegaly with evidence of congestive failure. Radiographic follow-up to resolution is recommended. ACT 112: Negative or not required by law. Electronically signed by: Sheng Camargo M.D. 01/12/2024 2:[address] 01/12/24 12:59 CT SCAN OF THE BRAIN WITHOUT IV CONTRAST CLINICAL HISTORY: Nausea. Generalized weakness. COMPARISON STUDY: No priors. TECHNIQUE: Unenhanced axial CT scan of the brain is performed from the vertex to the skull base. A dose lowering technique was utilized adhering to the principles of ALARA. FINDINGS: Brain parenchyma: There is age-related involutional change noting moderate to advanced patchy subcortical and periventricular microangiopathic disease. There is no hemorrhage, mass effect, or evidence of acute territorial ischemia by CT criteria. Choudhury-white matter differentiation is preserved. No extra-axial fluid collection is seen. Ventricles, sulci, cisterns: Prominent secondary to involutional change. Intracranial vasculature: There is atherosclerotic calcification of the cavernous carotid and vertebral arteries. Calvarium: Unremarkable. Sinuses and mastoids: The visualized paranasal sinuses are clear. The mastoid air cells are well pneumatized. Orbits: The bony orbits are grossly intact. IMPRESSION: There is no hemorrhage, mass effect, or evidence of acute territorial ischemia by CT criteria. ACT 112: Negative or not required by law. Electronically signed by: Sheng Camargo M.D. 01/12/2024 1:44 PM ECG Additional Comments: Sinus rhythm with Premature atrial complexes with Aberrant conduction Nonspecific ST and T wave abnormality Prolonged QT Abnormal ECG When compared with ECG of 07-MAY-2023 02:49, Aberrant conduction is now Present Coding Level of Care Code 98599 CRITICAL CARE 1ST 30-74M Diagnoses Sepsis A41.9 Acute UTI N39.0 ESRD (end stage renal disease) N18.6 Macrocytic anemia D53.9 Diabetes E11.9 Primary hypertension I10 Hypertension type: primary hypertension Mixed hyperlipidemia E78.2 Hyperlipidemia type: mixed hyperlipidemia Acid reflux disease K21.9 Fecal impaction K56.41 (6) Hypertension Hypertension type: primary hypertension Qualified Code(s): I10 - Essential (primary) hypertension (7) Hyperlipidemia Hyperlipidemia type: mixed hyperlipidemia Qualified Code(s): E78.2 - Mixed hyperlipidemia
[2024-01-12] MEDS ORDERED: ICU Protocol for HYPERglycemia SCH (21:00)
[2024-01-12] MEDS: PLASMA-LYTE A 1,000 ML IV SCH (21:08)
[2024-01-12] MEDS: DOCUSATE SODIUM 100 MG CAP PO SCH (21:08)
[2024-01-12] MEDS: DOCUSATE SODIUM/SENNA 50/8.6MG TAB PO SCH (21:08)
[2024-01-12] MEDS: HEPARIN SOD 5,000 UNIT/0.5 ML VIAL SQ SCH (21:10)
[2024-01-12] MEDS: bisacodyL 10 MG SUPP PR STA (21:10)
[2024-01-12] MEDS: ICU Protocol for HYPERglycemia SCH (21:11)
[2024-01-12] MEDS: PANTOprazole 40 MG in SYRINGE 0 ML IV SCH (21:11)
[2024-01-13] MEDS: PIPERACILLIN/TAZOBACTAM 4.5 GM in DEXTROSE 5% MINI-B 100 ML IV SCH (00:55)
[2024-01-13 04:36] LABS: Basophils # (auto) 0.02 K/uL (0.00-0.20); Basophils % (auto) 0.2 %; Eosinophils # (auto) 0.13 K/uL (0.00-0.50); Eosinophils % (auto) 1.6 %; Hematocrit (blood only) 22.3 % (37.0-47.0); Hemoglobin 7.1 g/dl (12.0-16.0); Immature Granulocytes # (auto) 0.04 K/uL (0.01-0.20); Immature Granulocytes % (auto) 0.5 %; Lymphocytes # (auto) 1.21 K/uL (1.20-3.40); Lymphocytes % (auto) 15.1 %; Mean Corpuscular Hemoglobin 31.3 pg (25.0-34.0); Mean Corpuscular Hgb Conc 31.8 g/dL (32.0-36.0); Mean Corpuscular Volume 98.2 fL (80.0-100.0); Mean Platelet Volume 10.2 fL (9.4-12.4); Monocytes # (auto) 0.62 K/uL (0.11-0.59); Monocytes % (auto) 7.7 %; Neutrophils # (auto) 6.01 K/uL (1.40-6.50); Neutrophils % (auto) 74.9 %; Platelet Count 180 K/uL (130-400); RDW Coefficient of Variation 12.4 % (11.5-14.5); RDW Standard Deviation 44.8 fL (36.4-46.3); Red Blood Count 2.27 M/uL (4.20-5.40); White Blood Count 8.03 K/ul (4.8-10.8)
[2024-01-13 04:56] LABS: BUN Creatinine Ratio 13.1 (10-20); Calcium 8.9 mg/dl (8.6-10.3); Creatinine Clr Calc Pharmacy 6.9 ml/min; Est GFR (African American) 7.7 ml/min; Est GFR (Non-African American) 6.7 ml/min; Phosphorus 5.9 mg/dl (2.5-4.9)
[2024-01-13 05:10] LABS: Polychromasia 1+
[2024-01-13 05:20] LABS: Ferritin 161.8 ng/ml (8-388)
[2024-01-13 06:10] LABS: Folate (Folic Acid),Ser orPlas > 22.30 ng/ml (>5.38)
[2024-01-13 06:11] LABS: Vitamin B12 470 pg/ml (180-914)
--- NOTE | 2024-01-13 07:57 | Electrocardiogram Report ---
Test Reason : Blood Pressure : / mmHG Vent. Rate : 079 BPM Atrial Rate : 079 BPM P-R Int : 170 ms QRS Dur : 086 ms QT Int : 420 ms P-R-T Axes : 044 015 079 degrees QTc Int : 481 ms Poor data quality, interpretation may be adversely affected Sinus rhythm with Premature ventricular complexes Prolonged QT Abnormal ECG When compared with ECG of 07-MAY-2023 02:49, Premature ventricular complexes now present Confirmed by Aristides Charles ([id number]) on 01/13/2024 7:57:09 AM Referred By: REFERRED SELF Confirmed By:Aristides Charles
[2024-01-13] MEDS ORDERED: PANTOprazole 40 MG TAB PO SCH (09:00)
--- NOTE | 2024-01-13 09:23 | Critical Care Progress Note ---
Date of Service January 13, 2024 Assessment & Plan (1) Shock: (2) Sepsis: (3) Fecal impaction: (4) ESRD (end stage renal disease): (5) Macrocytic anemia: (6) Full code status: Plan Patient's blood pressures remained stable and she is off of vasoactive medications. Hypotension was thought to be related to a combination of hypovolemia in the setting of nausea and vomiting and potential septic shock with possible proctitis. Continue Protonix IV 40 mg twice daily. MILLI unfor tunately remains quite severe. Patient is adamant that she would not like to pursue hemodialysis. We discussed this and her CODE STATUS. She is somewhat unclear regarding her CODE STATUS, but at this time would like to remain a full code. Otherwise, we will continue broad-spectrum antibiotics and follow culture data. Will consult speech therapy due to swallowing difficulties. She is stable for downgrade out of the ICU. I would strongly encourage a palliative care consult in the context of her end-stage renal disease Admission and Anticipated Discharge Date Admission Date: January 12, 2024 Subjective Patient seen and examined. Off vasopressor medications and oxygen support at this time. Denies any major complaints. Notes that she has chronic issues with swallowing pills and usually swallows them with cake or cupcake. Review of Systems Review of Systems: All systems reviewed & are unremarkable except as noted in HPI & below Physical Exam Physical Exam: PHYSICAL EXAM: General: awake, alert, no apparent distress Head: Normocephalic, atraumatic ENT: PERRLA, EOMI, no pharyngeal exudate, mucous membranes dry Neuro: AAO x 3, speech clear and appropriate, strength intact bilaterally 5/5, sensation intact and equal all extremities and dermatomes, no pronator drift Chest: equal rise and fall of the chest, no accessory muscle use, no heaves or thrills, Clear to auscultation, on room air, Cardiac: Regular rate and rhythm, telemetry reviewed- NSR, skin warm dry, cap refill <3 seconds, peripheral pulses +2 no JVD, no murmur, no edema GI: NABS x 4 quadrants, soft, nontender to palpation, no rebound, guarding or tenderness : Spontaneously voiding, no pain, no CVA tenderness, Extremities: Normal inspection, no peripheral edema or erythema, calfs nontender to palpation Psych: Normal mood and affect Skin: no rash or erythema Results & Data Results & Data Vital Signs (Past 12 Hours) Vital Signs Temp Pulse Resp BP BP Pulse Ox 01/13/24 07:02 62 01/13/24 06:03 64 16 92 01/13/24 05:00 71 13 95 01/13/24 05:00 98/58 L 01/13/24 04:03 65 15 97 01/13/24 04:00 36.9 C 01/13/24 03:48 64 14 97/55 L 97 01/13/24 02:09 64 13 94/59 L 96 01/13/24 01:03 65 17 94 01/13/24 01:00 107/63 01/13/24 00:03 62 12 95 01/13/24 00:00 93/63 L 01/13/24 00:00 36.6 C 01/13/24 00:00 60 01/12/24 23:00 88/60 L 01/12/24 23:00 63 11 L 01/12/24 22:00 110/68 01/12/24 22:00 70 16 95 Coding Level of Care Code 39302 SUB INP/OBS CARE 3/50MIN Diagnoses Shock R57.9 Sepsis A41.9 Fecal impaction K56.41 ESRD (end stage renal disease) N18.6 Macrocytic anemia D53.9 Full code status Z78.9
--- NOTE | 2024-01-13 09:52 | XCELERA ---
[id number]
--- NOTE | 2024-01-13 12:51 | Hospitalist Progress Note ---
Date of Service January 13, 2024 Assessment & Plan (1) Shock: Plan: Assessment: Shock-probably/possibly combination of hypovolemic and septic. Possible source UTI Patient had 2 L of saline in the ER we will continue saline at 100 cc an hour. Blood cultures were obtained in the ER. Continue IV Zosyn Patient no longer on pressors (2) Acute UTI: Plan: Urinalysis shows evidence of UTI Urine cultures already obtained Continue IV Zosyn Monitor cultures (3) ESRD (end stage renal disease): Plan: CKD stage V with acute kidney injury. Worsening renal function, patient still refuses hemodialysis (4) Diabetes: Plan: Blood glucose under fair control Continue insulin and insulin sliding scale (5) Hypertension: Plan: Blood pressure has been soft, 93/62 Continue to hold antihypertensives (6) Fecal impaction: Plan: Now resolved, patient said she had a bowel movement last night following Dulcolax Plan Okay to downgrade from ICU, Continue to monitor in the hospital Admission and Anticipated Discharge Date Admission Date: January 12, 2024 Subjective Patient seen and examined, says she had a bowel movement last night, denies fevers or chills. Review of Systems Review of Systems: All systems reviewed are negative, apart from the ones contained in the history. Physical Exam Physical Exam: The patient is awake, alert and oriented 3, well developed and well nourished, normocephalic and atraumatic, lying in bed and in no acute distress. HEENT--PERRL, EOMI, mucous membranes and oropharynx mildly dry Neck--supple. No JVD. No bruits. Thyroid normal, trachea midline, no adenopathy. Heart--normal S1 and S2. No murmurs, rubs or gallops. Lungs--clear bilaterally, no respiratory distress, no accessory muscle use. Abdomen--normal bowel sounds and soft. Extremities--no cyanosis or clubbing. No edema. Dermatologic--normal skin turgor, normal color, no abnormal lymph nodes, no rash. Neurologic--cranial nerves II through XII grossly intact. Rheumatologic--normal range of motion. Psychiatric--normal affect. Results & Data Results & Data Vital Signs (Past 12 Hours) Vital Signs Temp Pulse Resp BP BP Pulse Ox 01/13/24 11:21 98.1 F 01/13/24 10:03 65 93/62 L 100 01/13/24 09:15 68 12 98 01/13/24 08:00 106/66 01/13/24 08:00 71 20 100 01/13/24 07:06 62 19 96 01/13/24 07:02 62 01/13/24 06:03 64 16 92 01/13/24 05:00 71 13 95 01/13/24 05:00 98/58 L 01/13/24 04:03 65 15 97 01/13/24 04:00 98.4 F 01/13/24 03:48 64 14 97/55 L 97 01/13/24 02:09 64 13 94/59 L 96 01/13/24 01:03 65 17 94 01/13/24 01:00 107/63 PG Care Time/CCT Total # of Minutes Spent Total Time Spent with Patient: Total time spent is greater than 50% in coordination of care (as documented) at patient's floor/unit and/or counseling patient: Coding Level of Care Code 83983 SUB INP/OBS CARE 2/35MIN Diagnoses Shock R57.9 Acute UTI N39.0 ESRD (end stage renal disease) N18.6 Diabetes E11.9 Primary hypertension I10 Hypertension type: primary hypertension Fecal impaction K56.41 Time Spent (min) 35 (5) Hypertension Hypertension type: primary hypertension Qualified Code(s): I10 - Essential (primary) hypertension
[2024-01-13] MEDS: cefTRIAXone SODIUM 2,000 MG/50 ML BAG IV SCH (14:30)
[2024-01-13] MEDS: metroNIDAZOLE 500 MG/100 ML BAG IV SCH (14:30)
[2024-01-13] MEDS: ONDANSETRON INJ 2 MG/ML 2 ML VIAL IV STA (21:40)
[2024-01-13] MEDS: ACETAMINOPHEN 1,000 MG/100 ML VIAL IV PRN (23:19)
[2024-01-14 04:59] LABS: Hematocrit (blood only) 23.6 % (37.0-47.0); Hemoglobin 7.6 g/dl (12.0-16.0); Mean Corpuscular Hemoglobin 31.5 pg (25.0-34.0); Mean Corpuscular Hgb Conc 32.2 g/dL (32.0-36.0); Mean Corpuscular Volume 97.9 fL (80.0-100.0); Mean Platelet Volume 10.3 fL (9.4-12.4); Platelet Count 193 K/uL (130-400); RDW Coefficient of Variation 12.7 % (11.5-14.5); RDW Standard Deviation 45.4 fL (36.4-46.3); Red Blood Count 2.41 M/uL (4.20-5.40); White Blood Count 6.84 K/ul (4.8-10.8)
[2024-01-14 05:14] LABS: BUN Creatinine Ratio 12.1 (10-20); Calcium 8.4 mg/dl (8.6-10.3); Creatinine Clr Calc Pharmacy 7.3 ml/min; Est GFR (African American) 8.5 ml/min; Est GFR (Non-African American) 7.3 ml/min; Magnesium 1.7 mg/dl (1.7-2.4); Potassium 4.6 mmol/L (3.5-5.1)
[2024-01-14 05:20] LABS: Eosinophils # (auto) 0.16 K/uL (0.00-0.50); Eosinophils % (auto) 2.3 %; Immature Granulocytes # (auto) 0.04 K/uL (0.01-0.20); Immature Granulocytes % (auto) 0.6 %; Lymphocytes # (auto) 0.04 K/uL (1.20-3.40); Lymphocytes % (auto) 0.6 %; Monocytes # (auto) 0.12 K/uL (0.11-0.59); Monocytes % (auto) 1.8 %; Neutrophils # (auto) 6.48 K/uL (1.40-6.50); Neutrophils % (auto) 94.7 %
[2024-01-14] MEDS: PANTOprazole 40 MG in SYRINGE 0 ML IV SCH (08:25)
--- NOTE | 2024-01-14 10:56 | Discharge Summary ---
Date of Service January 14, 2024 Admission HPI Per Admitting Provider This is a pleasant 73-year-old female who has CKD stage V but refuses dialysis in the past currently or in the future. She understands that this could be life-threatening to her. She does not live exactly locally. She was in town to see her boyfriend spending a couple nights. Last night he went to bed and felt fine. Today she woke up feeling weak nauseated had multiple episodes of emesis. EMS was called and she was brought to the ER for further evaluation and treatment. In the field with the patient had a heart rate as low as 20. Had a systolic blood pressure as low as 80. Patient was commenced on epinephrine prior to arrival and was placed on Levophed upon arrival. The patient denies any of her emesis being bloody or black. CT of the abdomen pelvis showed some constipation but no acute pathology o therwise. Laboratory studies showed acute kidney failure with creatinine of over 7 with a baseline of 5. Her potassium was normal. Troponin was reassuring. EKG was reassuring here. Course in the ER the patient had blood cultures obtained. She received 2 L of normal saline. Urinalysis was performed positive for probable UTI. Patient received IV Zosyn. Levophed was discontinued approximately 30 minutes prior to us being called to admit the patient for further evaluation and treatment for clinical sepsis and acute UTI. Presented the patient to the critical care unit given her requirement for Levophed which has been discontinued. In addition given her heart rate of 20. We will obtain serial troponins. Obtain an echocardiogram. TSH was normal in the ER as well. Will continue IV Zosyn for now empirically. Will do serial H&H's. If she drops below 7 will consider transfusion. Also ordered stools for occult blood Principal Diagnosis UTI Discharge Exam The patient is awake, alert and oriented 3, well developed and well nourished, normocephalic and atraumatic, lying in bed and in no acute distress. HEENT--PERRL, EOMI, mucous membranes and oropharynx mildly dry Neck--supple. No JVD. No bruits. Thyroid normal, trachea midline, no adenopathy. Heart--normal S1 and S2. No murmurs, rubs or gallops. Lungs--clear bilaterally, no respiratory distress, no accessory muscle use. Abdomen--normal bowel sounds and soft. Extremities--no cyanosis or clubbing. No edema. Dermatologic--normal skin turgor, normal color, no abnormal lymph nodes, no rash. Neurologic--cranial nerves II through XII grossly intact. Rheumatologic--normal range of motion. Psychiatric--normal affect. Discharge Data Allergies Allergy/AdvReac Type Severity Reaction Status Date / Time No Known Allergies Allergy Verified 10/14/23 10:17 Consultations 01/12/24 16:13 ED Decision to Admit Stat 01/12/24 17:23 Consult [facility] Routine Ordered Studies 01/12/24 12:44 CT abd pelvis wo con Stat 01/12/24 12:59 CT head/brain wo con Stat Hospital Course (1) Shock: Now resolved (2) Acute UTI: Urinalysis shows evidence of UTI Urine cultures already obtained,Growing E. coli pansensitive Will discharge patient on p.o. cephalexin for 5 more days (3) ESRD (end stage renal disease): CKD stage V with acute kidney injury. Worsening renal function, patient still refuses hemodialysis (4) Diabetes: Blood glucose under fair control Continue insulin and insulin sliding scale (5) Hypertension: Blood pressure has been soft, 93/62 Continue to hold antihypertensives (6) Fecal impaction: Now resolved, patient said she had a bowel movement last night following Dulcolax Plan Discharge home Total Time Total Time Spent Total Time Spent (In Minutes): 35 Discharge Plan Discharge Items Patient Disposition: Home - Self-Care Reason For Visit: SEPSIS, MILLI Discharge Diagnosis: UTI Activity: Resume your previous activity Non-emergency contact: Primary Care Provider and Principal Clerk Call non-emergency contact if: you have any medication questions Follow-up/Referrals: Elle Ruiz MD [Primary Care Provider] - 01/20/24 11:30 am Diet: Regular Addtl Attending Provider Instructions: please follow up with your regular PCP and Principal Clerk Pending Studies at Discharge: No Stand-Alone Forms: My [place], Smoking Cessation Medications and DC Order Prescriptions: New cephalexin 250 mg capsule 250 mg PO BID 5 Days Qty: 10 0RF Continued pantoprazole 40 mg tablet,delayed release (DR/EC) 40 mg PO DAILY Qty: 90 3RF lisinopril 10 mg tablet 10 mg PO DAILY Qty: 90 1RF amlodipine 10 mg tablet 10 mg PO DAILY Qty: 90 1RF simvastatin 20 mg tablet 20 mg PO QPM Qty: 90 1RF Discharge Orders: Discharge Order (Routine); Ordered 01/14/24 Ordered By: Iona Hughes Admission Data Admit Date/Time: 01/12/24 17:23 Attending Provider: Iona Hughes Admit Provider: Ulises Ayala Primary Care Provider: Elle Ruiz Other Providers: Ulises Ayala; Carlos Crawford Other Interventions: Discharge Summary Assessment (RN) Last Done: 01/14/24 10:21 Coding Level of Care Code 06925 INP/OBS DISCH >30 MIN Diagnoses Shock R57.9 Acute UTI N39.0 ESRD (end stage renal disease) N18.6 Diabetes E11.9 Primary hypertension I10 Hypertension type: primary hypertension Fecal impaction K56.41 Time Spent (min) 35
== END 2024-01-14 13:15 | disposition home or self-care (01) | DRG 871 ==
LOC: ED 12:35 → SUATTDRO 17:23 → 1E 17:23